=== PATIENT | male | born 1945 | race Caucasian/White ===

== ENCOUNTER 2017-12-24 10:32 | Emergency (ER) | payer MEDICARE, SELFPAY ==
[2017-12-24] VITALS (20 sets, daily range): BP systolic 116–161; BP diastolic 60–72; PULSE 62–72; RESP 12–20; TEMP 36.6–37; O2SAT 93–98
--- NOTE | 2017-12-24 10:47 | ED.GENADUL ---
Medical Decision Making - EKG Data -: EKG Interpreted by Me EKG shows normal: sinus rhythm 12/24/17 10:48 Normal sinus rhythm, the rate is 68, the QRS is narrow, there is T-wave abnormalities with flat to slightly flipped T waves in leads I, aVL, V3 through V6. These changes are present on previous EKG dated July 31, 2016. EKG reading per my note, please see Ms. Barr's note regarding details of the history, exam, medical decision making History of Present Illness - General Chief complaint: RespSymp Stated complaint: COUGHING UP BLOOD Time Seen by Provider: 12/24/17 10:33 - Related Data Acetaminophen [Tylenol Extra Strength] 1,000 mg PO Q6H PRN PRN 06/01/13 Aspirin [Aspir 81] 81 mg PO DAILY tab-cap 01/17/16 Ranitidine HCl [Zantac] 150 mg PO DAILY #1 tab-cap 07/02/16 Atorvastatin Calcium 20 mg PO DAILY #90 tab-cap 01/12/17 Losartan [Cozaar] 100 mg PO DAILY #90 tab-cap 01/12/17 Metoprolol Succinate 200 mg PO DAILY #90 tab-cap 02/15/17 Gabapentin 600 mg PO TID #270 tab-cap 07/05/17 GlipiZIDE [Glucotrol] 5 mg PO DAILY #90 tab-cap 09/20/17 Fluoxetine HCl 20 mg PO DAILY #90 tab 09/28/17 Omeprazole 20 mg PO BID #60 tab-cap 09/28/17 Allopurinol [Zyloprim] 150 mg PO DAILY #90 tab-cap 10/12/17 Cyclobenzaprine [Flexeril] 5 mg PO BID PRN #40 tab-cap 10/12/17 Furosemide 40 mg PO BID #180 tab-cap 10/12/17 Magnesium Oxide 400 mg PO DAILY #60 tab 11/04/17 Allergies Allergy/AdvReac Type Severity Reaction Status Date / Time codeine AdvReac Intermediate DYSPHORIA Unverified 10/12/17 09:32 niacin AdvReac Intermediate MYALGIAS Unverified 10/12/17 09:32 simvastatin AdvReac Intermediate myalgias Unverified 10/12/17 09:32 Past Medical History - Past Medical History Medical history: CAD, CVA/TIA Surgical history: coronary bypass surgery, other (mitral valve replacement.) - Social History Alcohol use: none Drug use: none Course Vital Signs - 24 hr 12/24/17 10:36 Temperature 36.6 C Pulse 68 Respiratory 20 Rate Blood Pressure 161/72 Pulse Oximetry 98
--- NOTE | 2017-12-24 10:55 | DI.REPORT_ITS ---
SYMPTOM/DIAGNOSIS: COUGH WITH HEMOPTYSIS PA AND LATERAL CHEST: 12/24 The heart is mildly enlarged. There are mild diffuse pulmonary interstitial radiodensities. There is suggestion of more focal infiltrate involving portions of the left upper lobe. No significant pleural effusion seen. Note is made of a mitral valve prosthesis. CONCLUSION: Findings raising the possibility of left upper lobe pneumonia. Underlying fibrotic changes noted as well, underlying mild chronic CHF not excluded.
--- NOTE | 2017-12-24 10:59 | ED.GENADUL_ITS ---
Disposition Clinical Impression: Pneumonia, Lung nodule Disposition: HOME Condition: Fair Instructions: Pneumonia (ED) Additional Instructions: Encourage hydration. Take antibiotics as prescribed. Even if symptoms improve please take the entire course. Please follow-up with primary care next week for reevaluation of pneumonia and to discuss the nodules on your CT scan. If you develop difficulty breathing, shortness of breath, chest pain or the new/ worsening symptoms please seek care urgently once again. Take a probiotic while taking antibiotics. Prescriptions: Amoxicillin 875/Clav. 125 [Augmentin 875-125 Tablet] 1 each PO BID #10 tab Azithromycin [Azithromycin Pack #6] 250 mg PO DIRECTED #6 tablet Referrals: Elizabet Auguste NP [Primary Care Provider] - Medical Decision Making - Lab Data Laboratory Tests 12/24/17 12/24/17 12/24/17 10:45 10:45 10:45 WBC 7.34 RBC 3.90 L Hgb 11.4 L Hct 35.4 L MCV 90.8 MCH 29.2 MCHC 32.2 RDW 14.4 H Plt Count 170 MPV 10.3 Immature Gran % 0.1 Neutrophils % 63.4 Lymphocytes % 20.2 Monocytes % 14.3 Eosinophils % 1.6 Basophils % 0.4 Absolute Neutrophils 4.65 Absolute Lymphocytes 1.48 Absolute Monocytes 1.05 H Absolute Eosinophils 0.12 Absolute Basophils 0.03 PT INR APTT Sodium 136 Potassium 4.4 Chloride 102 Carbon Dioxide 26.5 Anion Gap 7.5 BUN 38 H Creatinine 1.60 H Estimated GFR/1.73 m2 42.46 Glucose 191 H Calcium 8.6 Total Bilirubin 0.4 AST 18 ALT 19 Alkaline Phosphatase 91 Troponin I < 0.02 Total Protein 7.6 Albumin 3.4 12/24/17 10:45 WBC RBC Hgb Hct MCV MCH MCHC RDW Plt Count MPV Immature Gran % Neutrophils % Lymphocytes % Monocytes % Eosinophils % Basophils % Absolute Neutrophils Absolute Lymphocytes Absolute Monocytes Absolute Eosinophils Absolute Basophils PT 10.0 INR 1.0 APTT 26.1 Sodium Potassium Chloride Carbon Dioxide Anion Gap BUN Creatinine Estimated GFR/1.73 m2 Glucose Calcium Total Bilirubin AST ALT Alkaline Phosphatase Troponin I Total Protein Albumin Results reviewed for labs ordered during visit: Yes - Medical Decision Making Patient presents today with chief complaint hemoptysis. Cough is chronic. No acute change. No fevers or chills. Lungs are clear on exam although sounds are slightly diminished. Patient does have multiple comorbidities. A history of smoking. Vital signs are within normal limits. Patient is not hypoxic or tachycardic. He appears nontoxic. has sputum tissues with her, sputum is blood-tinged. Is not bringing up light large quantities of blood. Patient is not anticoagulated. No shortness of breath. No chest pain. We will obtain baseline labs and chest x-ray. Discussed this plan with the patient is in agreement. Calves are soft. The left is noted to be larger than the right. reports that this is chronic and unchanged. No recent change and bilateral lower extremity edema. EKG was reviewed by Dr. Kenny. No ischymic changes notes. No changes from previous EKG. Please see his note. I was contacted by radiologist reviewed the patient's chest x-ray. They were concerned for possible pneumonia in the left upper lobe. Advise underlying fibrotic changes. However, the patient's history and laboratory evaluation does not correlate with pneumonia. I did discuss this with the radiologist. We also discussed the patient's chronic kidney disease and current creatinine and GFR. Patient has never had a CT of his chest historically. This cough has been on for going on for years. I am concerned that he may have an underlying mass. I feel that further imaging is appropriate. Dr. Rudd I discussed obtaining a noncontrast chest CT to evaluate. I discussed this plan with the patient who is in agreement. Laboratory evaluation without significant abnormality. No leukocytosis. Patient is noted to be anemic but this is unchanged from baseline. That is 1.6 , this is down from what he has been most recently. Contacted again by radiologist. They did confirm that the patient has left upper lobe pneumonia. However, is also concerned that the patient has a nodule in the right lung base. Advised that one nodule is 11-12 mm in size. He has advised there is small and extra. Advised that this needs biopsy or PET scan. I discussed these findings with the patient. Advised this may need to be arranged by primary care. Patient be placed on antibiotics. Encourage hydration. We discussed new/worsening symptoms when to seek care urgently once again. Advise follow-up with primary care within the next week for reevaluation and to discuss the findings of the CT. All of their questions and concerns were addressed and they are in agreement with this plan. History of Present Illness - General Chief complaint: RespSymp Stated complaint: COUGHING UP BLOOD Time Seen by Provider: 12/24/17 10:33 Source: patient, family, RN notes reviewed Mode of arrival: ambulatory Limitations: no limitations - History of Present Illness Initial comments: Patient is a 72-year-old male, accompanied by his , with chief complaint of hemoptysis. Patient has a history of type 2 diabetes, attention, hyperlipidemia, FÁTIMA, stage III kidney disease, CAD, CVA. Patient is a former smoker. Quit approximately 30 years ago but reports a 30+ pack year history. Patient is not anticoagulated. He is status post CABG and mitral valve replacement. Patient reports that he has chronic cough. He has noted increased sputum production over the past several weeks. is questioning if the cough, which can wax and wane in frequency and severity, is associated with environmental exposures. She reports that while they were in [place], where they winter, his cough was increased as it was recently when [place] was having simons with close proximity to his house. He reports that that after increased cough, after bringing up a large plugged, he noted blood-tinged sputum. Reports that this is new. He denies any pain with coughing. Does feel that his chest has been tight. Denies shortness of breath. No difficulty breathing. No back pain. Patient endorses chronic bilateral lower extremity edema, left greater than right. - Related Data Acetaminophen [Tylenol Extra Strength] 1,000 mg PO Q6H PRN PRN 06/01/13 Aspirin [Aspir 81] 81 mg PO DAILY tab-cap 01/17/16 Ranitidine HCl [Zantac] 150 mg PO DAILY #1 tab-cap 07/02/16 Atorvastatin Calcium 20 mg PO DAILY #90 tab-cap 01/12/17 Losartan [Cozaar] 100 mg PO DAILY #90 tab-cap 01/12/17 Metoprolol Succinate 200 mg PO DAILY #90 tab-cap 02/15/17 Gabapentin 600 mg PO TID #270 tab-cap 07/05/17 GlipiZIDE [Glucotrol] 5 mg PO DAILY #90 tab-cap 09/20/17 Fluoxetine HCl 20 mg PO DAILY #90 tab 09/28/17 Omeprazole 20 mg PO BID #60 tab-cap 09/28/17 Allopurinol [Zyloprim] 150 mg PO DAILY #90 tab-cap 10/12/17 Cyclobenzaprine [Flexeril] 5 mg PO BID PRN #40 tab-cap 10/12/17 Furosemide 40 mg PO BID #180 tab-cap 10/12/17 Magnesium Oxide 400 mg PO DAILY #60 tab 11/04/17 Amoxicillin 875/Clav. 125 [Augmentin 875-125 Tablet] 1 each PO BID #10 tab 12/24 Azithromycin [Azithromycin Pack #6] 250 mg PO DIRECTED #6 tablet 12/24/17 Allergies Allergy/AdvReac Type Severity Reaction Status Date / Time codeine AdvReac Intermediate DYSPHORIA Unverified 10/12/17 09:32 niacin AdvReac Intermediate MYALGIAS Unverified 10/12/17 09:32 simvastatin AdvReac Intermediate myalgias Unverified 10/12/17 09:32 Review of Systems Constitutional: no symptoms reported ENT: as per HPI. denies: ear pain, throat pain, congestion Respiratory: see HPI, cough. denies: orthopnea, shortness of breath, SOB with excertion, stridor, wheezing Cardiovascular: as per HPI, edema. denies: chest pain, palpitations, dyspnea on exertion, syncope Gastrointestinal: diarrhea (states he has had 3 'loose' stools today. No blood or darkened stool. Reports he had not had BM in 3 days prior to this. ). denies: abdominal pain, nausea, vomiting Genitourinary: denies: urgency (denies huntley ein urinary habits) Musculoskeletal: denies: back pain Skin: denies: rash, lesions, change in color Neurological: denies: headache Past Medical History - Past Medical History Medical history: CAD, CVA/TIA Surgical history: coronary bypass surgery, other (mitral valve replacement.) - Social History Alcohol use: none Drug use: none Course Vital Signs - 24 hr 12/24/17 10:36 Temperature 36.6 C Pulse 68 Respiratory 20 Rate Blood Pressure 161/72 Pulse Oximetry 98
[2017-12-24 11:03] LABS: Eosinophils % 1.6; HCT 35.4 % (40.0-50.0); HGB 11.4 g/dL (13.5-17.5); Lymphocytes % 20.2; Mean Corp. HGB Concentration 32.2 g/dL (32.0-36.0); Mean Corpuscular Hemoglobin 29.2 pg (27.0-33.0); Mean Corpuscular Volume 90.8 fL (80-95); Mean Platelet Volume 10.3 fL (8.0-11.0); Monocytes % 14.3; Neutrophils % 63.4; Platelet Count 170 x1000/uL (130-400); RBC Distribution Width 14.4 % (11.8-14.1); White Blood Cell Count 7.34 k/cumm (4.4-10.8)
[2017-12-24 11:04] LABS: Abs Immature Grans 0.01 k/cumm (0.0-0.09); Absolute Basophil Count 0.03 k/cumm (0.0-0.2); Absolute Eosinophil Count 0.12 k/cumm (0.0-0.7); Absolute Lymphocyte Count 1.48 k/cumm (1.2-3.4); Absolute Monocyte Count 1.05 k/cumm (0.11-0.7); Absolute Neutrophil Count 4.65 k/cumm (1.2-6.7); Basophils % 0.4; Immature Grans % 0.1
[2017-12-24 11:17] LABS: ALT 19 U/L (12-78); AST 18 U/L (15-37); Albumin 3.4 g/dL (3.4-5.0); Alkaline Phosphatase 91 U/L (46-116); Anion Gap 7.5 mmol/L (3-11); BUN 38 mg/dL (7-18); Bilirubin, Total 0.4 mg/dL (0.2-1.0); CO2 26.5 mmol/L (21.0-32.0); Calcium 8.6 mg/dL (8.5-10.1); Chloride 102 mmol/L (98-107); Estimated GFR 42.46 (mL/min/1.73m2); Glucose 191 mg/dL (70-100); Potassium 4.4 mmol/L (3.5-5.1); Sodium 136 mmol/L (136-145); Total Protein 7.6 g/dL (6.4-8.2)
[2017-12-24 11:21] LABS: Troponin I < 0.02 ng/mL (0.00-0.06)
[2017-12-24 11:36] LABS: PTT Activated 26.1 sec (21.0-31.4)
--- NOTE | 2017-12-24 12:05 | DI.RPTCT_ITS ---
SYMPTOM,/DIAGNOSIS: CHRONIC COUGH, DENSITY IN E[place], POSSIBLE PNEUMONIA CHEST CT 12/[address] examination of the chest was performed. The patient has impaired renal function so no IV contrast was administered. Images obtained through the upper abdomen show unremarkable appearance of visualized portions of liver, spleen and pancreas. There is probable exophytic right renal cyst. There appear to be moderate emphysematous changes. There is focal area of apparent patchy consolidation involving portions of the left upper lobe as noted on plain films and the findings are suggestive of an acute infectious process. Other etiologies including neoplastic disease not absolutely excluded and appropriate follow up studies are requested. Note is also made of a 12 mm in diameter pleural based rounded mass of the right lung base with associated 2-3 mm in diameter nodule. These were not present on previous abdominal CT of 01/2009. The findings are indeterminate for malignancy and additional evaluation with biopsy or PET CT should be considered. Additionally there is a 3 mm in diameter triangular shaped nodule of the right lung seen associated with the minor fissure which probably represents a small pleural lymph node. Tracheal bronchial tree appears intact. No gross mediastinal adenopathy Mild cardiac enlargement noted. CONCLUSION: 1. Findings consistent with left upper lobe pneumonia 2. 12 and 5 mm in diameter nodules at the right lung base, malignancy is the diagnostic consideration and correlation with biopsy or PET CT should be considered.
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
== END 2017-12-24 12:51 | disposition home or self-care (01) ==
PROVIDERS: Physician Assistant; Emergency Provider Emergency Medicine; PCP Nurse Practitioner
DX: J18.9 Pneumonia, unspecified organism (principal); R91.1 Solitary pulmonary nodule; Z87.891 Personal history of nicotine dependence; E11.22 Type 2 diabetes mellitus with diabetic chronic kidney disease; N18.3 Chronic kidney disease, stage 3 (moderate)
CPT/HCPCS: 71046; 71250; 93005; 99281; 99284; 36415; 80053; 84484; 85025; 85610; 85730; 93010

== ENCOUNTER 2018-01-16 07:25 | Emergency (ER) | payer MEDICARE, OTHER, SELFPAY ==
[2018-01-16 08:08] VITALS: PULSE 81; RESP 16; TEMP 36.5; O2SAT 95
[2018-01-16 08:21] LABS: Abs Immature Grans 0.01 k/cumm (0.0-0.09); Absolute Basophil Count 0.04 k/cumm (0.0-0.2); Absolute Eosinophil Count 0.19 k/cumm (0.0-0.7); Absolute Lymphocyte Count 1.13 k/cumm (1.2-3.4); Basophils % 0.7; Eosinophils % 3.5; HCT 35.9 % (40.0-50.0); HGB 11.6 g/dL (13.5-17.5); Immature Grans % 0.2; Lymphocytes % 20.7; Mean Corp. HGB Concentration 32.3 g/dL (32.0-36.0); Mean Corpuscular Hemoglobin 29.1 pg (27.0-33.0); Mean Platelet Volume 10.5 fL (8.0-11.0); Neutrophils % 63.9; Platelet Count 160 x1000/uL (130-400); RBC 3.99 m/cumm (4.50-6.00); RBC Distribution Width 14.6 % (11.8-14.1); White Blood Cell Count 5.47 k/cumm (4.4-10.8)
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
[2018-01-16 08:39] LABS: ALT 26 U/L (12-78); AST 27 U/L (15-37); Albumin 3.6 g/dL (3.4-5.0); Alkaline Phosphatase 103 U/L (46-116); Anion Gap 9.1 mmol/L (3-11); BUN 44 mg/dL (7-18); Bilirubin, Total 0.4 mg/dL (0.2-1.0); CO2 26.9 mmol/L (21.0-32.0); CREATININE 1.83 mg/dL (0.70-1.30); Calcium 8.6 mg/dL (8.5-10.1); Chloride 102 mmol/L (98-107); Estimated GFR 36.37 (mL/min/1.73m2); Glucose 225 mg/dL (70-100); Potassium 4.5 mmol/L (3.5-5.1); Sodium 138 mmol/L (136-145); Total Protein 7.9 g/dL (6.4-8.2)
[2018-01-16 09:05] LABS: INR 1.1 (1.0-3.5); Prothrombin Time 10.9 sec (9.3-10.8)
[2018-01-16] MEDS: Omnipaque 350 MG/ML 100 ML BTL IJ (09:39)
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
[2018-01-16 11:10] VITALS: PULSE 70; RESP 15; O2SAT 92
[2018-01-16 11:16] VITALS: BP 181/75; PULSE 62; PULSE 64; RESP 14; O2SAT 95
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
[2018-01-16 11:20] VITALS: PULSE 64; RESP 12; O2SAT 94
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
[2018-01-16 12:52] VITALS: BP 158/90; PULSE 64; RESP 18; TEMP 36.9; O2SAT 95
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
== END 2018-01-16 13:00 ==
LOC: ER 09:56
PROVIDERS: Emergency Provider Student in an Organized Health Care Education/Training Program; PCP Nurse Practitioner
DX: I63.9 Cerebral infarction, unspecified (principal); S63.502A Unspecified sprain of left wrist, initial encounter; V43.52XA Car driver injured in collision with other type car in traffic accident, initial encounter; Z53.29 Procedure and treatment not carried out because of patient's decision for other reasons; E11.22 Type 2 diabetes mellitus with diabetic chronic kidney disease; I12.9 Hypertensive chronic kidney disease with stage 1 through stage 4 chronic kidney disease, or unspecified chronic kidney disease; N18.3 Chronic kidney disease, stage 3 (moderate)
CPT/HCPCS: 36415; 70496; 70498; 80053; 86850; 86900; 86901; 99285; 70450; 72125; 73110; 85025; 85610; J3490; L0172; L3908

== ENCOUNTER 2018-01-21 13:09 | Outpatient (CLI) | payer MEDICARE, SELFPAY ==
--- NOTE | 2018-01-21 14:35 | DI.MRI_ITS ---
SYMPTOM/DIAGNOSIS: FACIAL DROOP, BLURRED VISION, FACIAL WEAKNESS, R53.1, H53.8, R29.810 MRI BRAIN: Routine noncontrast examination. Comparison 12/19/15. There is global cerebral atrophy consistent with the patient's age. There are areas of T2 hyperintensity in the white matter on the T2 and Flair images consistent with small vessel ischemic disease. Bilateral lacunar infarcts are again noted. The diffusion weighted images show no evidence of an acute infarct. No intracranial hemorrhage is present. The visualized paranasal sinuses are clear. There is a flow void in the [place]. Note is made of a dominant left vertebral artery. The pituitary gland appears grossly unremarkable. IMPRESSION: No acute abnormality. Cerebral atrophy and small vessel ischemic disease.
--- NOTE | 2018-01-23 12:36 | DI.VRAD_ITS ---
EXAM: MRI Head Without Intravenous Contrast EXAM DATE/TIME: 01/21/2018 3:20 PM CLINICAL HISTORY: 72 years old, male; Signs and symptoms; Visual disturbance and weakness, facial; Patient HX: Facial droop, blurred vision TECHNIQUE: Magnetic resonance images of the head/brain without intravenous contrast in multiple planes. COMPARISON: MRI - BRAIN WO CONTRAST 12/19/2015 9:22 PM. Report not available. FINDINGS: Brain: Small area cystic fibrosis left anterior caudate nucleus, unchanged from previous exam. Scattered abnormal intensity in the deep periventricular white matter is again noted consistent with small vessel ischemic change. There is no evidence for restricted diffusion on diffusion weighted sequence. Minimal mooney artifact in the left periventricular region is new since previous study. Ventricles: Normal. No ventriculomegaly. Bones/joints: Unremarkable. Soft tissues: Normal. Sinuses: Normal as visualized. No acute sinusitis. Mastoid air cells: Normal as visualized. No mastoid effusion. Vertebral arteries: Left vertebral artery remains dominant. IMPRESSION: Nonacute findings, stable. No evidence for acute intracranial abnormality. COMMENT: Preliminary interpretation is based on receipt of 258 image(s). A final report will be issued subsequently. We appreciate the opportunity to be involved in this patient's care. Dictated and Authenticated by: Kristie Hollingsworth MD. Ordering:VINCENZO CLOUD MD
== END 2018-01-21 13:29 ==
PROVIDERS: PCP Nurse Practitioner; Visit Provider Nurse Practitioner
DX: R29.810 Facial weakness (principal); H53.8 Other visual disturbances; R90.82 White matter disease, unspecified
CPT/HCPCS: 70551

== ENCOUNTER → 2018-01-27 13:48 | Outpatient (BNVA) | payer MEDICARE, OTHER, SELFPAY | PROVIDERS: Visit Provider Internal Medicine Cardiovascular Disease | DX: I25.10 Atherosclerotic heart disease of native coronary artery without angina pectoris (principal); Z95.3 Presence of xenogenic heart valve; I25.5 Ischemic cardiomyopathy; I10 Essential (primary) hypertension; E11.9 Type 2 diabetes mellitus without complications; Z79.84 Long term (current) use of oral hypoglycemic drugs | CPT/HCPCS: 99214 ==

== ENCOUNTER 2018-02-04 01:15 | Outpatient (CLI) | payer MEDICARE, OTHER, SELFPAY ==
--- NOTE | 2018-02-04 10:30 | MERGE_ITS ---
*[facility]* *[facility]* [address] [place] [address] Date of study: 02/04/2018 Transthoracic Echocardiography M-mode, complete 2D, complete spectral Doppler, and color Doppler *STUDY CONCLUSIONS* Summary: 1. Left ventricle: The cavity size was normal. Systolic function was moderately reduced. The estimated ejection fraction was 35-40%. Diffuse hypokinesis. The study is not technically sufficient to allow evaluation of LV diastolic function. 2. Mitral valve: A bioprosthesis was present. The sewing ring appeared normal. PHT 130 ms. Peak velocity 1.3 m/s. These parameters suggest normal valve function, however hemodynamic interrogation of the valve is incomplete. 3. Left atrium: The atrium was mildly dilated. 4. Right ventricle: The cavity size was mildly dilated. Systolic function was normal. 5. Atrial septum: No defect or patent foramen ovale was identified. 6. Pulmonary arteries: Pulmonary systolic pressure was in the range of 30mm Hg to 40mm Hg. 7. Inferior vena cava: The vessel was patent and normal in size. The respirophasic diameter changes were in the normal range (greater than or equal to 50%), consistent with normal central venous pressure. *PATIENT PRESENTATION* Height: 165.1cm ((65in) ) S/D Pressure: 174 / 71 Weight: 108.9kg ((239.5lb) ) BSA: 2.29m^2 Test start time: 10:40 AM. Test stop time: 11:40 AM. PERFORMING Unknown ORDERING Khadijah Calvillo REFERRING Khadijah Calvillo PERFORMING [facility] BALANCE CLERK RT Zenon (R)(CT), [facility] *PROCEDURE DATA* Procedure information: The patient was identified by two identifiers. This study was interpreted by [facility]. Pertinent images and digital data are archived for permanent storage and are available for subsequent review. Comparison was made to the study of 04/15/2016. Study status: Routine. Transthoracic echocardiography. M-mode, complete 2D, complete spectral Doppler, and color Doppler. A Transthoracic Echocardiogram was performed. Scanning was performed from the parasternal, apical, subcostal, and suprasternal notch acoustic windows. Images were obtained using an [id number] cardiac ultrasound machine. Image quality was adequate. Study completion: The patient tolerated the procedure well. History: PMH: EKG NSR with some abnormal beats. large scar made imaging difficult. no CP no SOB here in clinic. he does report some CP last night, said he thought it was gas, lasted an hour, did not go to ED. I reminded him to seek medical attention if he needed to. Per patient, he feels fine today. LV ef est to be 35-40% elevated filling pressures. overall hypo, ? inferior wall more so. RV dilated some. functions fine. LA/RA LAE mild. cannot r/o PFO MV s/p MV repair on order history. looks like it has struts. mild MR. ? mild MS in repair setting. AOV difficult to see. opens well. no AI no . TV tr mild rvsp = 31+RAP PV systolic flow obtained subcostals. IVC normal IAS cannot r/o pfo OTHER 3x bypass as well. *CARDIAC ANATOMY* Left ventricle: The cavity size was normal. Systolic function was moderately reduced. The estimated ejection fraction was 35-40%. Diffuse hypokinesis. The study is not technically sufficient to allow evaluation of LV diastolic function. Aortic valve: Doppler: There was no stenosis. There was no regurgitation. VTI ratio of LVOT to aortic valve: 0.55. Valve area (VTI): 2.1cm^2. Indexed valve area (VTI): 0.9cm^2/m^2. Peak velocity ratio of LVOT to aortic valve: 0.55. Valve area (Vmax): 2.1cm^2. Indexed valve area (Vmax): 0.9cm^2/m^2. Mean velocity ratio of LVOT to aortic valve: 0.6. Valve area (Vmean): 2.3cm^2. Indexed valve area (Vmean): 1cm^2/m^2. Mean gradient (S): 6.1mm Hg. Peak gradient (S): 13.3mm Hg. Aorta: Aortic root: The aortic root was mildly dilated. Ascending aorta: The ascending aorta was mildly dilated. Mitral valve: A bioprosthesis was present. The sewing ring appeared normal. Doppler: Valve area by pressure half-time: 1.9cm^2. Indexed valve area by pressure half-time: 0.8cm^2/m^2. Peak gradient (D): 7.1mm Hg. Left atrium: The atrium was mildly dilated. Atrial septum: No defect or patent foramen ovale was identified. Right ventricle: The cavity size was mildly dilated. Systolic function was normal. Pulmonic valve: Doppler: There was no evidence for stenosis. There was no significant regurgitation. Tricuspid valve: Doppler: There was mild regurgitation. Pulmonary artery: Poorly visualized. Pulmonary systolic pressure was in the range of 30mm Hg to 40mm Hg. Right atrium: The atrium was normal in size. Pericardium: There was no pericardial effusion. Systemic veins: Inferior vena cava: Well visualized. The vessel was patent and normal in size. The respirophasic diameter changes were in the normal range (greater than or equal to 50%), consistent with normal central venous pressure. Baseline ECG: Normal sinus rhythm. Measurements Left ventricle Value 04/15/2016 Reference LV ID, ED, PLAX (H) 6.5 cm 6.2 3.5 - 6.0 LV ID, ES, PLAX (H) 5.1 cm 4.6 2.1 - 4.0 LV PW thickness, ED, PLAX 1.3 cm 1.3 LV end-diastolic volume, 101 ml 1-p A2C LV ejection fraction, 1-p 38 % 40 A2C LV end-diastolic volume, 136 ml 1-p A4C LV ejection fraction, 1-p 33 % 43 A4C LV e', lateral 0.042 m/sec LV E/e', lateral 32 LV e', medial 0.039 m/sec LV E/e', medial 34 LV e', average 0.041 m/sec LV E/e', average 33 Ventricular septum Value 04/15/2016 Reference IVS thickness, ED, PLAX 1.6 cm LVOT Value 04/15/2016 Reference LVOT ID, A-P 2.2 cm 2.2 LVOT area 3.8 cm^2 3.8 LVOT peak velocity, S 1 m/sec 1.21 LVOT mean velocity, S 0.69 m/sec LVOT VTI, S 21.4 cm 28.1 LVOT peak gradient, S 4 mm Hg 5.9 LVOT mean gradient, S 2.1 mm Hg 2.8 Stroke volume (SV), LVOT 82 ml DP Stroke index (SV/bsa), 36 ml/m^2 LVOT DP Aortic valve Value 04/15/2016 Reference Aortic valve peak 1.8 m/sec velocity, S Aortic valve mean 1.15 m/sec velocity, S Aortic valve VTI, S 39.0 cm Aortic mean gradient, S 6.1 mm Hg Aortic peak gradient, S 13.3 mm Hg VTI ratio, LVOT/AV 0.55 Aortic valve area, VTI 2.1 cm^2 Velocity ratio, peak, 0.55 0.82 LVOT/AV Aortic valve area, peak 2.1 cm^2 velocity Velocity ratio, mean, 0.6 LVOT/AV Aortic valve area, mean 2.3 cm^2 velocity Aortic valve area/bsa, 1 cm^2/m^2 mean velocity Aorta Value 04/15/2016 Reference Aortic root ID, ED 3.8 cm Ascending aorta ID, A-P, S 3.6 cm 3.6 Left atrium Value 04/15/2016 Reference LA ID, A-P, ES 4.4 cm LA ID/bsa, A-P 1.9 cm/m^2 <=2.2 LA area, ES, A4C (H) 27.9 cm^2 26 8.8 - 23.4 LA area, ES, A2C 24 cm^2 LA volume/bsa, ES, 1-p A4C 55 ml/m^2 42 LA volume, ES, 2-p 93 ml LA volume/bsa, ES, 2-p 41 ml/m^2 LA/aortic root ratio 1.16 1.28 Mitral valve Value 04/15/2016 Reference Mitral E-wave peak 1.34 m/sec 1.81 velocity Mitral A-wave peak 1.32 m/sec 0.73 velocity Mitral deceleration time (H) 397 ms 150 - 230 Mitral pressure half-time 115 ms 97 Mitral peak gradient, D 7.1 mm Hg 13.2 Mitral E/A ratio, peak 1.01 2.49 Mitral valve area, PHT, DP 1.9 cm^2 Pulmonary veins Value 04/15/2016 Reference Pulmonary vein peak 0.69 m/sec velocity, S Pulmonary vein peak 0.43 m/sec velocity, D Pulmonary vein velocity 1.61 ratio, peak, S/D Pulmonary vein A-wave 0.21 m/sec reversal peak velocity Tricuspid valve Value 04/15/2016 Reference Tricuspid regurg peak 2.8 m/sec 2.3 velocity Tricuspid peak RV-RA 31.4 mm Hg 21.8 gradient Right atrium Value 04/15/2016 Reference RA area, ES, A4C 16.3 cm^2 14 8.3 - 19.5 Legend: (L) and (H) savanna values outside specified reference range. I have personally reviewed the images and have reviewed and edited the reported findings. Electronically signed by Parker Prescott MD 02/04/2018 18:32
== END 2018-02-04 01:35 ==
PROVIDERS: PCP Nurse Practitioner; Visit Provider Internal Medicine Cardiovascular Disease
DX: I50.1 Left ventricular failure, unspecified (principal); I25.810 Atherosclerosis of coronary artery bypass graft(s) without angina pectoris; I51.7 Cardiomegaly; Z95.3 Presence of xenogenic heart valve
CPT/HCPCS: 93306

== ENCOUNTER → 2018-04-06 10:00 | Outpatient (BNVA) | payer MEDICARE, OTHER, SELFPAY | PROVIDERS: PCP Nurse Practitioner; Visit Provider Psychiatry & Neurology Neurology | DX: I63.9 Cerebral infarction, unspecified (principal); E11.22 Type 2 diabetes mellitus with diabetic chronic kidney disease; Z79.84 Long term (current) use of oral hypoglycemic drugs; I13.0 Hypertensive heart and chronic kidney disease with heart failure and stage 1 through stage 4 chronic kidney disease, or unspecified chronic kidney disease; I50.9 Heart failure, unspecified; N18.3 Chronic kidney disease, stage 3 (moderate); S06.0X0D Concussion without loss of consciousness, subsequent encounter; V49.9XXD Car occupant (driver) (passenger) injured in unspecified traffic accident, subsequent encounter | CPT/HCPCS: 99205; 99215 ==

== ENCOUNTER 2018-07-11 11:44 | Outpatient (CLI) | payer MEDICARE, OTHER, SELFPAY ==
[2018-07-11 12:24] LABS: HCT 39.1 % (40.0-50.0); HGB 12.6 g/dL (13.5-17.5); Mean Corp. HGB Concentration 32.2 g/dL (32.0-36.0); Mean Corpuscular Hemoglobin 28.5 pg (27.0-33.0); Mean Corpuscular Volume 88.5 fL (80-95); Mean Platelet Volume 10.4 fL (8.0-11.0); Platelet Count 180 x1000/uL (130-400); RBC 4.42 m/cumm (4.50-6.00); RBC Distribution Width 14.4 % (11.8-14.1); White Blood Cell Count 7.34 k/cumm (4.4-10.8)
[2018-07-11 13:08] LABS: COMMENT (LAB VIEW ONLY) 27.93 mg/dL; Microalb ug/mg Crea 127.8 ug/mg Cr
[2018-07-11 13:39] LABS: ALT 31 U/L (12-78); AST 24 U/L (15-37); Albumin 3.9 g/dL (3.4-5.0); Alkaline Phosphatase 99 U/L (46-116); Anion Gap 9.2 mmol/L (3-11); BUN 38 mg/dL (7-18); Bilirubin, Total 0.5 mg/dL (0.2-1.0); CO2 26.8 mmol/L (21.0-32.0); CREATININE 1.65 mg/dL (0.70-1.30); Calcium 9.2 mg/dL (8.5-10.1); Chloride 102 mmol/L (98-107); Cholesterol 136 mg/dL (50-200); Estimated GFR 40.87 (mL/min/1.73m2); Glucose 119 mg/dL (70-100); HDL Cholesterol 33 mg/dL (40-60); LDL CHOLESTEROL 75 mg/dL (<100); Potassium 4.3 mmol/L (3.5-5.1); Sodium 138 mmol/L (136-145); Total Protein 7.7 g/dL (6.4-8.2); Triglyceride 148 mg/dL (30-150)
[2018-07-11 14:31] LABS: Hemoglobin A1C 7.2 % (4.5-6.2)
== END 2018-07-11 12:04 ==
PROVIDERS: PCP Nurse Practitioner; Visit Provider Nurse Practitioner
DX: I10 Essential (primary) hypertension (principal); E78.5 Hyperlipidemia, unspecified; E11.22 Type 2 diabetes mellitus with diabetic chronic kidney disease; N18.3 Chronic kidney disease, stage 3 (moderate); E66.9 Obesity, unspecified
CPT/HCPCS: 36415; 80053; 80061; 83721; 85027; 82043; 82570; 83036

== ENCOUNTER → 2018-07-28 12:37 | Outpatient (BNVA) | payer MEDICARE, OTHER, SELFPAY | PROVIDERS: PCP Nurse Practitioner; Referring Provider Nurse Practitioner; Visit Provider Urology | DX: R35.0 Frequency of micturition (principal) | CPT/HCPCS: 51798; 81003; 99203; 99215 ==

== ENCOUNTER → 2018-08-26 13:39 | Outpatient (BNVA) | payer MEDICARE, OTHER, SELFPAY | PROVIDERS: PCP Nurse Practitioner; Visit Provider Urology | DX: R35.0 Frequency of micturition (principal); T50.995A Adverse effect of other drugs, medicaments and biological substances, initial encounter | CPT/HCPCS: 99213 ==

== ENCOUNTER → 2018-09-16 13:21 | Outpatient (BNVA) | payer MEDICARE, OTHER, SELFPAY | PROVIDERS: PCP Nurse Practitioner; Visit Provider Internal Medicine Cardiovascular Disease | DX: I25.810 Atherosclerosis of coronary artery bypass graft(s) without angina pectoris (principal); I50.22 Chronic systolic (congestive) heart failure; Z95.3 Presence of xenogenic heart valve; E78.2 Mixed hyperlipidemia; I11.0 Hypertensive heart disease with heart failure; E11.9 Type 2 diabetes mellitus without complications | CPT/HCPCS: 99214 ==

== ENCOUNTER 2018-12-10 18:52 | Inpatient (IN) | payer MEDICARE, OTHER, SELFPAY ==
[2018-12-10] VITALS (18 sets, daily range): BP systolic 116–154; BP diastolic 57–60; PULSE 82–102; RESP 11–25; TEMP 36.7–38; O2SAT 84–99
--- NOTE | 2018-12-10 19:01 | NUR.NOTE ---
Nursing Note: pt is poor historian. pt states cant breath you know past few days and i cough up the blood today
--- NOTE | 2018-12-10 19:05 | W.ED.GENAD ---
Discharge Plan Disposition Patient Disposition: [facility] INPATIENT Condition: Stable Discharge Details Chief Complaint: SOB Clinical Impression: Pneumonia involving right lung Admit Date/Time: 12/10/18 20:15 Admit Provider: Levi Burgess Attending Provider: Levi Burgess Primary Care Provider: Elizabet Auguste ED Provider: Ray Kenny Medical Decision Making 73-year-old male presents from home with his complaining of 2+ days of cough, congestion, production of sputum that has now become bloody tinged. He has some associated shortness of breath. Denies to me chest pain. He will note long-standing pretibial edema. He arrives afebrile, pulse is regular at 87, blood pressure 154/60, he is oxygenating 85% on room air. Patient placed on oxygen, IV access established. Differential diagnosis is broad but includes COPD exacerbation, pneumonia, congestive heart failure. Patient given inhaled DuoNeb with parenteral steroids. Patient improving with treatment for COPD and with 2-3L NCO2. He has an elevated white blood cell count at 14 with left shift. Known chronic renal insufficiency is present. He does have mildly elevated BNP. Chest x-ray reveals right middle lobe infiltrate. The patient does have an elevated d-dimer, but I feel the clinical impression is strongly in favor of this being a pneumonia and COPD exacerbation. Nonetheless, his chronic renal insufficiency essentially precludes contrast-enhanced CT scan. Ceftriaxone given in the emergency department, sputum cultures ordered. Case discussed with ECG Data Attestation: I personally reviewed and interpreted this ECG (s) as follows: Interpretation: Normal sinus rhythm with a rate of 87, the QRS is narrow, there is T wave inversions in 1 and aVL as well as in the lateral leads that are unchanged in comparison of December 24, 2017 [facility] General Mode of arrival: ambulatory. Date/Time Provider Initiated Documentation: 12/10/18 18:54. Limitations to Documentation: no limitations. Information obtained by: patient and family. History of Present Illness 73 year old M presents to the emergency department with the chief complaint of Shortness of breath, production of sputum that was bloody tinged this eveni, described as moderate, Quality is described as constant, and is localized to the chest. Patient reports no radiation. Patient started experiencing this day(s) and it has been intermittent. No relieving factors improve symptom(s), No exacerbating factors reported . Patient notes cough and other (Sputum production). Patient did receive the following treatments prior to arrival, none Related Data Home Medications Medication Instructions Recorded Confirmed acetaminophen [Tylenol Extra 1,000 mg PO Q6H PRN PRN 06/01/13 12/10/18 Strength] aspirin [Aspir-81] 81 mg PO DAILY tab-cap 01/17/16 12/10/18 ranitidine HCl [Zantac Maximum 150 mg PO DAILY #1 tab-cap 07/02/16 12/10/18 Strength] losartan 100 mg PO DAILY #90 tab-cap 12/29/17 12/10/18 albuterol sulfate 90 mcg/actuation 1 puff IH Q4H PRN #8.5 gm 02/09/18 12/10/18 aerosol inhaler fluticasone propionate 50 1 spray IGOR BID gm 03/10/18 12/10/18 mcg/actuation nasal spray,suspension magnesium oxide 400 mg (241.3 mg 400 mg PO DAILY #60 tab 05/09/18 12/10/18 magnesium) tablet blood sugar diagnostic #50 each 07/11/18 12/10/18 blood-glucose meter #1 each 07/11/18 12/10/18 lancets 33 gauge #100 each 07/11/18 12/10/18 varicella-zoster gE-AS01B (PF) 50 50 mcg IM ONCE #1 each 07/11/18 12/10/18 mcg/0.5 mL IM susp, kit ketoconazole 2 % topical cream 1 applic TP DAILY #30 gm 08/26/18 12/10/18 atorvastatin 20 mg tablet 20 mg PO DAILY 09/05/18 12/10/18 furosemide 40 mg tablet 40 mg PO BID #180 tab-cap 09/05/18 12/10/18 glipizide 5 mg tablet 5 mg PO DAILY #90 tab-cap 09/05/18 12/10/18 metoprolol succinate 100 mg 100 mg PO DAILY #90 tab 09/16/18 12/10/18 tablet,extended release 24 hr fluoxetine 20 mg tablet 20 mg PO DAILY #90 tab 09/27/18 12/10/18 gabapentin 600 mg tablet 600 mg PO TID #270 tab-cap 09/27/18 12/10/18 omeprazole 20 mg tablet,delayed 20 mg PO DAILY #90 tab 10/31/18 12/10/18 release allopurinol 300 mg tablet 150 mg PO DAILY #90 tab-cap 11/07/18 12/10/18 Previous Rx's Medication Instructions Recorded losartan 100 mg PO DAILY #90 tab-cap 12/29/17 albuterol sulfate 90 mcg/actuation 1 puff IH Q4H PRN #8.5 gm 02/09/18 aerosol inhaler magnesium oxide 400 mg (241.3 mg 400 mg PO DAILY #60 tab 05/09/18 magnesium) tablet blood sugar diagnostic #50 each 07/11/18 blood-glucose meter #1 each 07/11/18 lancets 33 gauge #100 each 07/11/18 varicella-zoster gE-AS01B (PF) 50 50 mcg IM ONCE #1 each 07/11/18 mcg/0.5 mL IM susp, kit ketoconazole 2 % topical cream 1 applic TP DAILY #30 gm 08/26/18 furosemide 40 mg tablet 40 mg PO BID #180 tab-cap 09/05/18 glipizide 5 mg tablet 5 mg PO DAILY #90 tab-cap 09/05/18 metoprolol succinate 100 mg 100 mg PO DAILY #90 tab 09/16/18 tablet,extended release 24 hr fluoxetine 20 mg tablet 20 mg PO DAILY #90 tab 09/27/18 gabapentin 600 mg tablet 600 mg PO TID #270 tab-cap 09/27/18 omeprazole 20 mg tablet,delayed 20 mg PO DAILY #90 tab 10/31/18 release allopurinol 300 mg tablet 150 mg PO DAILY #90 tab-cap 11/07/18 Allergies Allergy/AdvReac Type Severity Reaction Status Date / Time codeine AdvReac Intermediate DYSPHORIA Verified 12/10/18 19:06 niacin AdvReac Intermediate MYALGIAS Verified 12/10/18 19:06 simvastatin AdvReac Intermediate myalgias Verified 12/10/18 19:06 General Stated Complaint: SOB ROBBI: 3 Review of Systems Review of Systems Denies chest pain. Mild peripheral edema of unclear duration, no fever or chill. Decreased p.o. intake today. 6 systems reviewed and otherwise negative [facility] Medical History (Updated 12/10/18 @ 22:07 by Levi Burgess) Benign neoplasm of colon (Acute 08/04/12) Carpal tunnel syndrome (Acute 08/04/12) Chronic kidney disease, stage III (moderate) (Acute 01/26/13) CKD (chronic kidney disease) stage 4, GFR 15-29 ml/min (Acute) COPD (chronic obstructive pulmonary disease) (Chronic) Coronary artery disease involving coronary bypass graft of [place] heart (Acute 01/02/16) CVA (cerebral vascular accident) (Acute 01/03/16) Diabetes mellitus with diabetic neuropathy (Acute 04/13/14) Diabetes mellitus with stage 3 chronic kidney disease (Acute 03/02/14) Gastroesophageal reflux disease (Acute 08/04/12) History of tobacco use (Acute 07/03/11) Hyperlipidemia (Acute 07/03/11) Lumbago with sciatica, unspecified side (Acute 08/04/12) Memory impairment (Acute 12/11/15) Mitral valve insufficiency (Acute 12/19/15) Obesity, unspecified (Acute 07/03/11) Sensorineural hearing loss (Acute 08/24/14) Systolic CHF, chronic (Chronic 04/15/16) Unspecified essential hypertension (Acute 08/04/12) Surgical History Appendectomy Colonoscopy - MAC (01/11/15) Coronary Artery Bypass G[place] (CABG) (Chronic 12/20/15) History of arthroplasty of right shoulder (Acute ~09/2015) History of back surgery (Acute 10/21/00) S/P partial gastrectomy (Acute) Status post carpal tunnel release of both wrists (Acute) Valve Replacement (Chronic 12/20/15) Family History Brother Alcoholism Heart disease Grandfather Heart disease Father Personal history of malignant neoplasm Social History Smoking/Tobacco Use Status: Former Tobacco Use Alcohol Intake: former Drug use: Never Substance use type: does not use Household members: spouse Housing: house Number of Children: 4 What is your relationship status?: Panel score (0-1 are the most socially isolated patients): 1 Working smoke detector in home: Yes Do you feel safe at home: Yes Do you feel safe in your relationship?: Yes Exam Narrative Exam Narrative: GEN: awake, alert, oriented 3. Pleasant, well groomed, interactive. HEAD: Normocephalic, atraumatic ENT: Mucous membranes moist, oropharynx unremarkable, External ear exam unremarkable EYES: PERRL, EOMI NECK: Full ROM, no BRENDEN, no menigismus CHEST/RESP: Nontender, diminished with bilateral end expiratory wheeze present CARDIOVASCULAR: RRR, no murmur, rub augustus. 2+ Rad pulse bilateral ABDOMEN: Soft, nontender, no mass. +Bowel sounds EXT: Full ROM, 1+ bilateral pretibial edema, no rash Neuro: Grossly normal neurologic exam, conversant, interactive. Psych: Speech fluent, thoughts congruent, affect normal Course Vital Signs Temperature 36.7 C 12/10/18 19:03 Pulse 87 12/10/18 19:03 Respiratory Rate 16 12/10/18 19:03 Blood Pressure 154/60 H 12/10/18 19:03 Pulse Oximetry 85 L 12/10/18 19:03 Temperature 36.7 C 12/10/18 19:03 Temperature Source Skin 12/10/18 19:03 Pulse 87 12/10/18 19:03 Respiratory Rate 16 12/10/18 19:03 Blood Pressure 154/60 H 12/10/18 19:03 Blood Pressure Position Sitting 12/10/18 19:03 Pulse Oximetry 85 L 12/10/18 19:03 Oxygen Delivery Method Room Air 12/10/18 19:03 Oxygen Flow Rate 0 12/10/18 19:03 Comment 12/10/18 19:03
--- NOTE | 2018-12-10 19:14 | DI.RAD_ITS ---
SYMPTOM/DIAGNOSIS: COUGH, CONGESTION PA AND LATERAL CHEST: The heart is enlarged. There is a mitral valve prosthesis. There are diffuse changes of pulmonary fibrosis. There is a superimposed new area of acute consolidation involving potions of right upper lobe. No pleural effusion is seen. CONCLUSION: Findings consistent with acute right upper lobe pneumonia.
[2018-12-10] MEDS: Albuterol/Ipratropium 3 ML UPD VIAL UPD ×2 (19:24→19:58)
[2018-12-10] MEDS: methylPREDNISolone SUCC 125 MG VIAL IVP (19:24)
[2018-12-10 19:29] LABS: Abs Immature Grans 0.04 k/cumm (0.0-0.09); Absolute Lymphocyte Count 0.78 k/cumm (1.2-3.4); Absolute Monocyte Count 1.98 k/cumm (0.11-0.7); Absolute Neutrophil Count 11.87 k/cumm (1.2-6.7); Basophils % 0.1; HCT 35.4 % (40.0-50.0); HGB 11.6 g/dL (13.5-17.5); Immature Grans % 0.3; Lymphocytes % 5.3; Mean Corp. HGB Concentration 32.8 g/dL (32.0-36.0); Mean Corpuscular Hemoglobin 29.2 pg (27.0-33.0); Mean Corpuscular Volume 89.2 fL (80-95); Mean Platelet Volume 10.2 fL (8.0-11.0); Monocytes % 13.5; Neutrophils % 80.8; Platelet Count 159 x1000/uL (130-400); RBC 3.97 m/cumm (4.50-6.00); RBC Distribution Width 14.9 % (11.8-14.1); White Blood Cell Count 14.69 k/cumm (4.4-10.8)
[2018-12-10 19:49] LABS: ALT 19 U/L (12-78); AST 14 U/L (15-37); Albumin 3.4 g/dL (3.4-5.0); Alkaline Phosphatase 84 U/L (46-116); Anion Gap 10.6 mmol/L (3-11); BUN 39 mg/dL (7-18); Bilirubin, Total 1.1 mg/dL (0.2-1.0); CO2 24.4 mmol/L (21.0-32.0); CREATININE 1.92 mg/dL (0.70-1.30); Calcium 8.3 mg/dL (8.5-10.1); Chloride 99 mmol/L (98-107); Estimated GFR 34.31 (mL/min/1.73m2); Glucose 231 mg/dL (70-100); Magnesium 1.7 mg/dL (1.8-2.4); NT-proBNP 3081 pg/mL; Potassium 4.4 mmol/L (3.5-5.1); Sodium 134 mmol/L (136-145); Total Protein 7.3 g/dL (6.4-8.2)
[2018-12-10 19:50] LABS: Troponin I < 0.05 ng/mL (0.00-0.06)
[2018-12-10 19:53] LABS: PTT Activated 25.2 sec (21.0-31.4); Prothrombin Time 11.5 sec (9.3-11.0)
[2018-12-10 19:54] LABS: INR 1.1 (0.9-1.1)
[2018-12-10 19:55] LABS: Absolute Basophil Count 0.01 k/cumm (0.0-0.2)
[2018-12-10 19:56] LABS: Diff Comment Agrees w/ Instrument; RBC Morphology Normal
[2018-12-10 19:57] LABS: D-Dimer 1230 ng/mlFEU (<500)
[2018-12-10] MEDS: cefTRIAXone 1,000 MG in Normal Saline 50 ML 100 MG IVPB (19:58)
--- NOTE | 2018-12-10 20:33 | DI.VRAD_ITS ---
EXAM: XR Chest, 2 Views EXAM DATE/TIME: 12/10/2018 7:16 PM CLINICAL HISTORY: 73 years old, male; Cough and other: Congestion; Patient HX: Cough, congestion TECHNIQUE: Imaging protocol: XR of the chest, 2 views. COMPARISON: CR CHEST 2 VIEWS PA,LAT 12/24/2017 11:07 AM FINDINGS: Lungs: Right upper lobe pneumonia. Pleural space: Unremarkable. No pleural effusion. No pneumothorax. Heart/Mediastinum: Prior mitral valve replacement, abdominal surgery and bilateral shoulder surgery. Vasculature: Vascular calcifications. Bones/joints: Unremarkable. IMPRESSION: Right upper lobe pneumonia. Dictated and Authenticated by: Maldonado Blackmon MD. Ordering:MUNIRA Bell MD
--- NOTE | 2018-12-10 22:04 | HPE_ITS ---
Date of service: 12/10/18 Time of Service: 22:04 Assessment and Plan (1) Pneumonia: Start date: 12/10/18 Current visit: Yes Status: Acute This is a pleasant 73-year-old gentleman with presentation of COPD exacerbation with right upper lobe pneumonia with hypoxemia, leukocytosis and fever. He does not appear to have a change in his baseline mentation. Will be treated aggressively for acute bronchitis and covered for community-acquired pneumonia along with his COPD exacerbation. He appears comfortable. He is a DNR/DNI. Qualifiers: Laterality: right Lung location: upper lobe of lung Pneumonia type: due to unspecified organism Qualified Code(s): J18.1 - Lobar pneumonia, unspecified organism (2) COPD (chronic obstructive pulmonary disease): Current visit: Yes Status: Chronic Patient appears to have exacerbation of COPD and will be treated appropriately with nebulizer treatments and IV Solu-Medrol. Because he does have diabetes and this will be exacerbated by IV steroids and we will place him on 4 times a day short-acting insulin coverage with before meals and at bedtime glucometers. Qualifiers: COPD type: COPD with acute lower respiratory infection Qualified Code(s): J44.0 - Chronic obstructive pulmonary disease with acute lower respiratory infection (3) Chronic kidney disease, stage III (moderate): Current visit: No Status: Chronic This appears to be chronic and stable with creatinine at baseline or better and for now we will not IV hydrate the patient but encourage oral hydration. He does have a history of CHF with an ejection fraction below 40% with avoidance of IV fluids if not necessary. (4) Systolic CHF, chronic: Current visit: No Status: Chronic Watch for exacerbation during this acute hospitalization especially if IV fluids are needed. He will be continued on his usual diuretic. Magnesium and potassium will be supplemented as needed the patient on oral magnesium c hronically and having low magnesium upon admission but normal potassium level not on potassium supplementation. (5) Diabetes mellitus type 2, controlled: Current visit: No Status: Acute Patient will be placed on glucometers before meals and at bedtime and have short-acting insulin coverage holding his oral hypoglycemics while hospitalized. His hyperglycemia is expected to be exacerbated with his respiratory status and IV steroids being given. Qualifiers: Diabetes mellitus intermission coordinator insulin use: without detention use Diabetes mellitus complication status: with neurologic complications Diabetes mellitus complication detail: with other neurological complication Qualified Code(s): E11.49 - Type 2 diabetes mellitus with other diabetic neurological complication History of Present Illness Chief Complaint: Increasing cough with sputum production and episode of hemoptysis Narrative: This is a 73-year-old gentleman who was brought to the ED by his because of a 2-day history of increasing respiratory symptoms which include cough, congestion and tightness sputum with blood-tinged sputum just prior to admission. In the ED he denied any fever or chills but once admitted to [facility] floor care he spiked a fever and was having chills with sweats. He said that he has not felt well for a month. Was working helping a friend with a barn recently and scratches right forearm and appears to be active at home. He was hypoxic upon presentation to the ED but was otherwise comfortable. He did respond to the DuoNeb and chest x-ray did reveal a right upper lobe pneumonia with a positive d-dimer. He does have chronic peripheral edema and with his hypoxemia and pneumonia it was thought that his d-dimer was positive because of his acute infectious process. He cannot receive a CT scan with contrast because of his CKD stage III. If there is concern he could have a VQ scan later. For now will be placed on DVT prophylaxis with heparin. He is a DNR/DNI. In the ED he did receive IV Rocephin and IV Solu-Medrol. He does appear to have exacerbated COPD though COPD is not on his problem list. He does have a history of chronic CHF and a history of wheezing. Patient was a former smoker. The p atient does have some mild dementia and was unable to give further history. His is not present during the interview. I did review the ED notes and nurses will call the as to the last dosing of his outpatient medicines given at home. Patient is asking for his evening meds. Review of Systems Review of Systems 13 point review of systems otherwise unrevealing or unobtainable and as per HPI and review of ED records. He denies any weight gain or increasing peripheral edema. [facility] Medical History Benign neoplasm of colon (Acute 08/04/12) Carpal tunnel syndrome (Acute 08/04/12) Chronic kidney disease, stage III (moderate) (Acute 01/26/13) COPD (chronic obstructive pulmonary disease) (Chronic) Coronary artery disease involving coronary bypass graft of [place] heart (Acute 01/02/16) CVA (cerebral vascular accident) (Acute 01/03/16) Diabetes mellitus with diabetic neuropathy (Acute 04/13/14) Diabetes mellitus with stage 3 chronic kidney disease (Acute 03/02/14) Gastroesophageal reflux disease (Acute 08/04/12) History of tobacco use (Acute 07/03/11) Hyperlipidemia (Acute 07/03/11) Lumbago with sciatica, unspecified side (Acute 08/04/12) Memory impairment (Acute 12/11/15) Mitral valve insufficiency (Acute 12/19/15) Obesity, unspecified (Acute 07/03/11) Sensorineural hearing loss (Acute 08/24/14) Systolic CHF, chronic (Chronic 04/15/16) Unspecified essential hypertension (Acute 08/04/12) Surgical History Appendectomy Colonoscopy - MAC (01/11/15) Coronary Artery Bypass Gaft (CABG) (Chronic 12/20/15) History of arthroplasty of right shoulder (Acute ~09/2015) History of back surgery (Acute 10/21/00) S/P partial gastrectomy (Acute) Status post carpal tunnel release of both wrists (Acute) Valve Replacement (Chronic 12/20/15) Family History Brother Alcoholism Heart disease Grandfather Heart disease Father Personal history of malignant neoplasm Social History Smoking/Tobacco Use Status: Former Tobacco Use Alcohol Intake: former Drug use: Never Substance use type: does not use Household members: spouse Housing: house Number of Children: 4 What is your relationship status?: Panel score (0-1 are the most socially isolated patients): 1 Working smoke detector in home: Yes Do you feel safe at home: Yes Do you feel safe in your relationship?: Yes Meds Home Medications Medication Instructions Recorded Confirmed Type acetaminophen [Tylenol Extra 1,000 mg PO Q6H PRN PRN 06/01/13 12/10/18 History Strength] aspirin [Aspir-81] 81 mg PO DAILY tab-cap 01/17/16 12/10/18 History ranitidine HCl [Zantac Maximum 150 mg PO DAILY #1 tab-cap 07/02/16 12/10/18 History Strength] losartan 100 mg PO DAILY #90 tab-cap 12/29/17 12/10/18 Rx albuterol sulfate 90 mcg/actuation 1 puff IH Q4H PRN #8.5 gm 02/09/18 12/10/18 Rx aerosol inhaler fluticasone propionate 50 1 spray IGOR BID gm 03/10/18 12/10/18 History mcg/actuation nasal spray,suspension magnesium oxide 400 mg (241.3 mg 400 mg PO DAILY #60 tab 05/09/18 12/10/18 Rx magnesium) tablet blood sugar diagnostic #50 each 07/11/18 12/10/18 Rx blood-glucose meter #1 each 07/11/18 12/10/18 Rx lancets 33 gauge #100 each 07/11/18 12/10/18 Rx varicella-zoster gE-AS01B (PF) 50 50 mcg IM ONCE #1 each 07/11/18 12/10/18 Rx mcg/0.5 mL IM susp, kit ketoconazole 2 % topical cream 1 applic TP DAILY #30 gm 08/26/18 12/10/18 Rx atorvastatin 20 mg tablet 20 mg PO DAILY 09/05/18 12/10/18 History furosemide 40 mg tablet 40 mg PO BID #180 tab-cap 09/05/18 12/10/18 Rx glipizide 5 mg tablet 5 mg PO DAILY #90 tab-cap 09/05/18 12/10/18 Rx metoprolol succinate 100 mg 100 mg PO DAILY #90 tab 09/16/18 12/10/18 Rx tablet,extended release 24 hr fluoxetine 20 mg tablet 20 mg PO DAILY #90 tab 09/27/18 12/10/18 Rx gabapentin 600 mg tablet 600 mg PO TID #270 tab-cap 09/27/18 12/10/18 Rx omeprazole 20 mg tablet,delayed 20 mg PO DAILY #90 tab 10/31/18 12/10/18 Rx release allopurinol 300 mg tablet 150 mg PO DAILY #90 tab-cap 11/07/18 12/10/18 Rx Allergies Allergy/AdvReac Type Severity Reaction Status Date / Time codeine AdvReac Intermediate DYSPHORIA Verified 12/10/18 19:06 niacin AdvReac Intermediate MYALGIAS Verified 12/10/18 19:06 simvastatin AdvReac Intermediate myalgias Verified 12/10/18 19:06 Exam Narrative Exam Narrative: General: Patient appears appropriate for age and no acute distress resting comfortably in bed. He is alert and oriented at least to person and place. He is moderately obese. HEENT: Normocephalic, eyes with pupils equal reactive light symmetrically and extraocular movement intact with sclera anicteric. Oropharynx with moist pink mucosa. Ears and nose appear normal. Neck: Supple without JVD. Back: Kyphotic with no CVA tenderness. Decreased range of motion. Lungs: Diffuse expiratory rhonchi with slightly increased expiratory phase with expiratory wheeze. No focalizing rales. Heart: Regular rate and rhythm with holosystolic murmur at the apex with intensi ty 2-3/ 6 but mostly obscured by lung findings. No rubs or gallops. Abdomen: Obese contour but soft to palpation and non-tender. No palpable hepatosplenomegaly. Bowel sounds positive all quadrants. Genitalia/rectal: Exam deferred. Extremities: Diffuse arthritic changes with 2+ moderate non-pitting edema both lower extremities, loss of hair and shiny atrophic skin over lower extremities with fair capillary refill. No cyanosis or clubbing. There are some minor abrasions over his volar right forearm which he states came from helping her friend with boards used at his barn during repairs. Skin: Pale, sweaty and warm with no other rashes noted. Neuro: No focalizing motor deficits, cranial nerves II through XII grossly intact. Decreased short-term memory. Results Imaging Imaging Studies: EXAM: XR Chest, 2 Views EXAM DATE/TIME: 12/10/2018 7:16 PM CLINICAL HISTORY: 73 years old, male; Cough and other: Congestion; Patient HX: Cough, congestion TECHNIQUE: Imaging protocol: XR of the chest, 2 views. COMPARISON: CR CHEST 2 VIEWS PA,LAT 12/24/2017 11:07 AM FINDINGS: Lungs: Right upper lobe pneumonia. Pleural space: Unremarkable. No pleural effusion. No pneumothorax. Heart/Mediastinum: Prior mitral valve replacement, abdominal surgery and bilateral shoulder surgery. Vasculature: Vascular calcifications. Bones/joints: Unremarkable. IMPRESSION: Right upper lobe pneumonia. Dictated and Authenticated by: Maldonado Blackmon MD. Labs : 12/10/18 19:18 12/10/18 19:18 Laboratory Results - last 24 hr 08/10/19 08/10/19 08/10/19 19:18 19:18 19:18 WBC 14.69 H RBC 3.97 L Hgb 11.6 L Hct 35.4 L MCV 89.2 MCH 29.2 MCHC 32.8 RDW 14.9 H Plt Count 159 MPV 10.2 Immature Gran % 0.3 Neutrophils % 80.8 Lymphocytes % 5.3 Monocytes % 13.5 Eosinophils % 0.0 Basophils % 0.1 Absolute Neutrophils 11.87 H Absolute Lymphocytes 0.78 L Absolute Monocytes 1.98 H Absolute Eosinophils 0.00 Absolute Basophils 0.01 Differential Comment Agrees w/ instrument RBC Morphology Normal PT 11.5 H INR 1.1 APTT 25.2 D-Dimer 1230 H Sodium 134 L Potassium 4.4 Chloride 99 Carbon Dioxide 24.4 Anion Gap 10.6 BUN 39 H Creatinine 1.92 H Estimated GFR/1.73 m2 34.31 Glucose 231 H Calcium 8.3 L Magnesium 1.7 L Total Bilirubin 1.1 H AST 14 L ALT 19 Alkaline Phosphatase 84 Troponin I < 0.05 NT-Pro-B Natriuret Pep 3081 H Total Protein 7.3 Albumin 3.4 Last Vital Signs Temp 38 C H 12/10/18 21:45 Pulse 102 H 12/10/18 21:45 Resp 19 12/10/18 21:45 BP 116/57 L 12/10/18 21:45 Pulse Ox 91 L 12/10/18 21:45
[2018-12-11] VITALS (12 sets, daily range): BP systolic 111–137; BP diastolic 55–69; PULSE 70–107; RESP 2–21; TEMP 36.2–36.6; O2SAT 91–100
[2018-12-11] MEDS: DOXYCYCLINE 100 MG in Normal Saline 100 ML IVPB ×3 (00:36→23:38)
[2018-12-11] MEDS: Albuterol/Ipratropium 3 ML UPD VIAL UPD ×5 (00:37→23:35)
[2018-12-11] MEDS: Heparin 5,000 UNITS/ML VIAL 5000 UNITS SC (00:37)
[2018-12-11] MEDS: methylPREDNISolone SUCC 125 MG VIAL 80 MG IVP ×2 (05:56→14:00)
[2018-12-11] MEDS: Normal Saline Flush 10 ML SYR IVP ×3 (05:57→18:03)
[2018-12-11 07:51] LABS: HCT 36.1 % (40.0-50.0); HGB 11.6 g/dL (13.5-17.5); Mean Corp. HGB Concentration 32.1 g/dL (32.0-36.0); Mean Corpuscular Hemoglobin 28.9 pg (27.0-33.0); Mean Corpuscular Volume 89.8 fL (80-95); Mean Platelet Volume 11.1 fL (8.0-11.0); Platelet Count 156 x1000/uL (130-400); RBC 4.02 m/cumm (4.50-6.00); White Blood Cell Count 18.95 k/cumm (4.4-10.8)
[2018-12-11] MEDS: Magnesium Oxide 400 MG TAB PO (08:23)
[2018-12-11 08:24] LABS: ALT 19 U/L (12-78); AST 12 U/L (15-37); Albumin 3.3 g/dL (3.4-5.0); Alkaline Phosphatase 79 U/L (46-116); Anion Gap 14.6 mmol/L (3-11); BUN 47 mg/dL (7-18); Bilirubin, Total 0.7 mg/dL (0.2-1.0); CO2 22.4 mmol/L (21.0-32.0); Calcium 8.7 mg/dL (8.5-10.1); Chloride 96 mmol/L (98-107); Estimated GFR 26.52 (mL/min/1.73m2); Glucose 374 mg/dL (70-100); Potassium 3.9 mmol/L (3.5-5.1); Sodium 133 mmol/L (136-145); Total Protein 7.5 g/dL (6.4-8.2)
[2018-12-11] MEDS: Omeprazole 20 MG CAPCR PO (08:24)
[2018-12-11] MEDS: Losartan 50 MG TAB 100 MG PO (08:24)
[2018-12-11] MEDS: Furosemide 40 MG TAB PO (08:24)
[2018-12-11] MEDS: Allopurinol 300 MG TAB 150 MG PO (08:24)
[2018-12-11] MEDS: Metoprolol CR 100 MG TABCR PO (08:24)
[2018-12-11] MEDS: Aspirin E.C. 81 MG TABEC PO (08:24)
[2018-12-11] MEDS: Gabapentin 300 MG CAP 600 MG PO ×3 (08:24→20:00)
[2018-12-11] MEDS: FLUoxetine 20 MG CAP PO (08:24)
[2018-12-11] MEDS: Insulin Aspart 300 UNITS/3 ML PEN SC ×4 (08:25→21:51)
[2018-12-11] MEDS: Ketoconazole 2% CREAM 15 GM TUBE TP (08:25)
[2018-12-11] MEDS: MAGNESIUM SULFATE 2 GM/50 ML BAG IVPB (11:15)
--- NOTE | 2018-12-11 11:36 | INITIAL_ITS ---
Care Management Initial Assess REASON FOR HOSPITALIZATION:: Right Upper Lobe pneumonia PAST MEDICAL HISTORY/PAST SURGICAL HISTORY:: Benign neoplasm of colon, Carpal tunnel syndrome, Chronic kidney disease, stage III, COPD, Coronary artery disease involving coronary bypass graft of [place] heart, CVA, Diabetes mellitus with diabetic neuropathy, Diabetes mellitus with stage 3 chronic kidney disease, Gastroesophageal reflux disease, History of tobacco use, Hyperlipidemia, Lumbago with sciatica, unspecified side, Memory impairment, Mitral valve insufficiency, Obesity, Sensorineural hearing loss, Systolic CHF, chronic, Unspecified essential hypertension, Appendectomy, Colonoscopy, Coronary Artery Bypass Gaft arthroplasty of right shoulder, back surgery, partial gastrectomy, carpal tunnel release of both wrists, Valve Replacement PREVIOUS FUNCTIONAL STATUS/SOCIAL/FAMILY SUPPORTS:: Jeronimo reside with his , Snow in [place], [place]. He is independent with ADLs in the community. CURRENT FUNCTIONAL STATUS:: Jeronimo was sitting up on the side of his bed, O2 nasal cannula in place. He reviewed events leading up to hospitalization and verbalized that he did not listen to his body when he started feeling weaker and kept working. He attributes this to developing pnemonia. He was pleasant in interaction and fully engaged with this commercial real estate underwriter. ADVANCE DIRECTIVES:: On file at [facility]- Snow as agent, Patti Yeager as alternate. Has patient been provided with information about the portal?: Yes Did the patient sign up for the portal?: No CODE STATUS:: DNR/DNI INSURANCE COVERAGE / FINANCIAL ISSUES:: [employer]. Medicare. Financial Asst 100 CURRENT HOME/COMMUNITY SERVICES/EQUIPMENT:: Glucometer PRIMARY CARE PHYSICIAN:: Elizabet Auguste POTENTIAL DISCHARGE NEEDS:: Evaluation for further needs, follow up appointments. PATIENT/FAMILY EDUCATION NEEDS:: Review discharge instructions, discuss Ask Me Three. ANTICIPATED BARRIERS TO DISCHARGE:: None identified. TRANSPORTATION:: Via private vehicle with his , Snow. PLAN:: Jeronimo will continue to be closely monitored, he remains on IV ABX, O2 will be weaned and steroids tapered per MD. Anticipate he will return home when ready per MD with no additional services. He will follow up with his PCP and transport via private vehicle with his .
[2018-12-11] MEDS: Insulin Glargine 300 UNITS/3 ML PEN 10 UNITS SC (11:40)
[2018-12-11 12:09] LABS: Procalcitonin 3.2 ng/mL
[2018-12-11] MEDS: Atorvastatin 20 MG TAB PO (13:10)
--- NOTE | 2018-12-11 13:15 | PHARADMIT ---
Admission Pharmacy Clinical Review right upper lobe pneumonia Code Status DNR/DNI Current Weight Kva765.9 kg Renally Cleared and Narrow Therapeutic Index Meds CrCl~ 24 mL/min Meds-OK QTc Value / Action Taken QTC-452 (Lasix,Prilosec, Nizoral crm) BP Control, Fever BP-124/65 Tmax-38C Electrolytes reviewed Na-133 K+3.9 Mag-1.7 DVT Prophylaxis Heparin-SQ, ASA-ec Opiate Usage / Scheduled Bowel Regimen Ordered No Yes Plt/SCr for Heparin / Enoxaparin Plts-156 SCr-2.40 INR for Warfarin inr-1.1 H/H stable, WBC/Bands H&H- 11.6/36.1 WBC-18.95 Antibiotic appropriateness Rocephin, Doxycycline Cultures and Sensitivities Blood-pending Sputum-OK Surgical ABX d/c within 24 hr na DM control / Insulin Dosing BG- 374 Aspart, Glargine Heart Failure (Check EF%) (EMMA's, B-Block, Diuretics) Lasix, Losartan, Toprol-XL, IV to PO Switch No Home Meds Reviewed Yes Home Meds Not Ordered Glipizide, Cyclobenzaprine Comments
--- NOTE | 2018-12-11 16:44 | W.PM.PROGNOT ---
Date of Service Date of service: 12/11/18 Time of Service: 16:44 Assessment and Plan (1) Pneumonia: Current visit: Yes Status: Acute RUL PNA - CAP, ?aspiration pneumonia (did have a history of vomiting prior to presentation) with hypoxia. Seems to be responding to doxycycline and ceftriaxone. Continue current antibiotics, wean O2 as tolerated. Obtaining sputum/blood cultures. Hemoptysis could be due to this, but we will also have to rule out a PE. I do not appreciate bronchospasm on my exam today - start to taper steroids. Qualifiers: Pneumonia type: due to unspecified organism Laterality: right Lung location: upper lobe of lung Qualified Code(s): J18.1 - Lobar pneumonia, unspecified organism (2) Dizziness: Current visit: Yes Status: Acute Based on patient's description, we need to rule out orthostasis. The patient is also getting an echo. ?Dehydration due to diarrhea - will gently hydrate. ?PE - obtaining a VQ scan. (3) Hemoptysis: Current visit: Yes Status: Acute R/o PE - checking VQ scan (4) Edema of both legs: Current visit: Yes Status: Acute R/o DVT - checking venous doppler of BLE's (5) Diarrhea: Current visit: Yes Status: Acute We spoke about checking water quality. Obtain stool studies. Provide probiotics. Patient was on PO magnesium supplements - ?cause of diarrhea - I am holding these today. (6) Systolic CHF, chronic: Current visit: No Status: Chronic Rechecking EF. Hydrating gently. (7) Gastroesophageal reflux disease: Current visit: No Status: Acute Patient was on PPI and H2 ric as outpatient - both could be contributing to diarrhea. I d/c'ed H2 ric - will monitor. (8) Diabetes mellitus type 2, controlled: Current visit: No Status: Acute Does have some steroid induced hyperglycemia. Provide long acting insulin; tapering steroids. Qualifiers: Diabetes mellitus buttermaker continuous churn insulin use: without group home use Diabetes mellitus complication status: with neurologic complications Diabetes mellitus complication detail: with other neurological complication Qualified Code(s): E11.49 - Type 2 diabetes mellitus with other diabetic neurological complication (9) Coronary artery disease involving coronary bypass graft of [place] heart: Current visit: No Status: Acute No evidence for ACS on admission - will repeat troponin in AM. Qualifiers: Associated angina: without angina Qualified Code(s): I25.810 - Atherosclerosis of coronary artery bypass graft(s) without angina pectoris (10) Acute kidney injury superimposed on chronic kidney disease: Current visit: Yes Status: Acute Hold lasix and losartan. Gently hydrate. R/o urinary retention. Recheck in am. Monitor I/O's and daily weights. (11) DVT prophylaxis: Current visit: Yes Status: Acute TEDS + SCDs. Holding heparin since he is having hemoptysis. (12) Discharge planning issues: Current visit: Yes Status: Acute DNR/DNI Obtaining PT consult. Subjective Interval history since last seen: Reports dizziness when he gets up (going on for a while). Cough has improved, but is still productive of bloody sputum. Complains of occasional chest pain - not now. Complains of chest tightness - better. States at home was nauseated and vomiting - this only happened yesterday. Denies abdominal pain. States has had diarrhea for 1 month. Recent change of water source (was using stream in the back of the house; recently changed to the well - stated he bleached it first, but did not check quality of the water recently). States his RLE has gotten swollen in the last 2-3 months. LLE has been swollen ever since his heart surgery. Reports bilateral knee pain. Exam Narrative Exam Narrative: General: very pleasant elderly male, hard of hearing, A&Ox3, NAD HEENT: EOMI, MMM Heart: RRR, + MUMTAZ Lungs: CTAB GI: abdomen is soft, nontender, nondistended Extremities: symmetric +1 BLE edema in TEDs, no c/c Objective Objective Clinical Data: Abnormal lab results 12/10/18 12/10/18 12/10/18 Range/Units 19:18 19:18 19:18 WBC 14.69 H (4.4-10.8) k/cumm RBC 3.97 L (4.50-6.00) m/cumm Hgb 11.6 L (13.5-17.5) g/dL Hct 35.4 L (40.0-50.0) % RDW 14.9 H (11.8-14.1) % MPV (8.0-11.0) fL Absolute Neutrophils 11.87 H (1.2-6.7) k/cumm Absolute Lymphocytes 0.78 L (1.2-3.4) k/cumm Absolute Monocytes 1.98 H (0.11-0.7) k/cumm PT 11.5 H (9.3-11.0) sec D-Dimer 1230 H (<500) ng/mlFEU Sodium 134 L (136-145) mmol/L Chloride (98-107) mmol/L Anion Gap (3-11) mmol/L BUN 39 H (7-18) mg/dL Creatinine 1.92 H (0.70-1.30) mg/dL Glucose 231 H (70-100) mg/dL Calcium 8.3 L (8.5-10.1) mg/dL Magnesium 1.7 L (1.8-2.4) mg/dL Total Bilirubin 1.1 H (0.2-1.0) mg/dL AST 14 L (15-37) U/L NT-Pro-B Natriuret Pep 3081 H ( - 299) pg/mL Albumin (3.4-5.0) g/dL 12/11/18 12/11/18 Range/Units 07:23 07:23 WBC 18.95 H (4.4-10.8) k/cumm RBC 4.02 L (4.50-6.00) m/cumm Hgb 11.6 L (13.5-17.5) g/dL Hct 36.1 L (40.0-50.0) % RDW 15.0 H (11.8-14.1) % MPV 11.1 H (8.0-11.0) fL Absolute Neutrophils (1.2-6.7) k/cumm Absolute Lymphocytes (1.2-3.4) k/cumm Absolute Monocytes (0.11-0.7) k/cumm PT (9.3-11.0) sec D-Dimer (<500) ng/mlFEU Sodium 133 L (136-145) mmol/L Chloride 96 L (98-107) mmol/L Anion Gap 14.6 H (3-11) mmol/L BUN 47 H (7-18) mg/dL Creatinine 2.40 H (0.70-1.30) mg/dL Glucose 374 H D (70-100) mg/dL Calcium (8.5-10.1) mg/dL Magnesium (1.8-2.4) mg/dL Total Bilirubin (0.2-1.0) mg/dL AST 12 L (15-37) U/L NT-Pro-B Natriuret Pep ( - 299) pg/mL Albumin 3.3 L (3.4-5.0) g/dL Vital Signs Temperature 36.5 C 12/11/18 15:41 Temperature Source Tympanic 12/11/18 15:41 Pulse 76 12/11/18 15:41 Pulse Rhythm Regular 12/11/18 07:40 Pulse 98 H 12/10/18 20:40 Respiratory Rate 19 12/11/18 15:41 Respiratory Effort Non-Labored 12/11/18 07:40 Respiratory Depth Normal 12/11/18 07:40 Respiratory Pattern Normal 12/11/18 07:40 Blood Pressure 136/65 12/11/18 15:41 Blood Pressure Mean 69 12/10/18 19:02 Blood Pressure Position Sitting 12/10/18 19:03 Pulse Oximetry 91 L 12/11/18 15:41 Oxygen Delivery Method Nasal Cannula 12/11/18 15:41 Oxygen Flow Rate 2 12/11/18 15:41 Pain Level 0 12/11/18 14:06 Comment 12/11/18 08:09 Intake & Output 12/10/18 12/11/18 12/11/18 23:59 11:59 23:59 Intake Total 50 / 50 100 / 560 460 / 560 Output Total 500 / 851 351 / 851 Balance 50 / 50 -400 / -291 109 / -291 Weight 104.78 kg 105.9 kg Intake: IV 50 / 50 100 / 260 160 / 260 Oral 300 / 300 Output: Urine 500 / 800 300 / 800 Post Void Residual 51 / 51 Other: Urine Color Straw Urine Appearance Clear Urine Odor Normal Comment pt voiding in toilet post lasix administration. pt alerted to need for urine sample; pt will alert RN when he needs to void Stool Size Small Stool Characteristics Soft Formed Voiding Methods Urinal Toilet Laboratory Results WBC 18.95 k/cumm (4.4-10.8) H 12/11/18 07:23 RBC 4.02 m/cumm (4.50-6.00) L 12/11/18 07:23 Hgb 11.6 g/dL (13.5-17.5) L 12/11/18 07:23 Hct 36.1 % (40.0-50.0) L 12/11/18 07:23 MCV 89.8 fL (80-95) 12/11/18 07:23 MCH 28.9 pg (27.0-33.0) 12/11/18 07:23 MCHC 32.1 g/dL (32.0-36.0) 12/11/18 07:23 RDW 15.0 % (11.8-14.1) H 12/11/18 07:23 Plt Count 156 x1000/uL (130-400) 12/11/18 07:23 MPV 11.1 fL (8.0-11.0) H 12/11/18 07:23 Immature Gran % 0.3 12/10/18 19:18 80.8 12/10/18 19:18 5.3 12/10/18 19:18 13.5 12/10/18 19:18 0.0 12/10/18 19:18 0.1 12/10/18 19:18 Absolute Neutrophils 11.87 k/cumm (1.2-6.7) H 12/10/18 19:18 Absolute Lymphocytes 0.78 k/cumm (1.2-3.4) L 12/10/18 19:18 Absolute Monocytes 1.98 k/cumm (0.11-0.7) H 12/10/18 19:18 Absolute Eosinophils 0.00 k/cumm (0.0-0.7) 12/10/18 19:18 Absolute Basophils 0.01 k/cumm (0.0-0.2) 12/10/18 19:18 Agrees w/ instrument 12/10/18 19:18 RBC Morphology Normal 12/10/18 19:18 PT 11.5 sec (9.3-11.0) H 12/10/18 19:18 INR 1.1 (0.9-1.1) 12/10/18 19:18 APTT 25.2 sec (21.0-31.4) 12/10/18 19:18 1230 ng/mlFEU (<500) H 12/10/18 19:18 Sodium 133 mmol/L (136-145) L 12/11/18 07:23 Potassium 3.9 mmol/L (3.5-5.1) 12/11/18 07:23 Chloride 96 mmol/L (98-107) L 12/11/18 07:23 Carbon Dioxide 22.4 mmol/L (21.0-32.0) 12/11/18 07:23 14.6 mmol/L (3-11) H 12/11/18 07:23 BUN 47 mg/dL (7-18) H 12/11/18 07:23 2.40 mg/dL (0.70-1.30) H 12/11/18 07:23 26.52 (mL/min/1.73m2) 12/11/18 07:23 Glucose 374 mg/dL (70-100) H D 12/11/18 07:23 Calcium 8.7 mg/dL (8.5-10.1) 12/11/18 07:23 Magnesium 1.7 mg/dL (1.8-2.4) L 12/10/18 19:18 0.7 mg/dL (0.2-1.0) 12/11/18 07:23 AST 12 U/L (15-37) L 12/11/18 07:23 ALT 19 U/L (12-78) 12/11/18 07:23 79 U/L (46-116) 12/11/18 07:23 < 0.05 ng/mL (0.00-0.06) 12/10/18 19:18 NT-Pro-B Natriuret Pep 3081 pg/mL (-299) H 12/10/18 19:18 7.5 g/dL (6.4-8.2) 12/11/18 07:23 3.3 g/dL (3.4-5.0) L 12/11/18 07:23 3.2 ng/mL 12/11/18 11:30
[2018-12-11] MEDS: Normal Saline 1,000 ML 75 ML IV (18:00)
[2018-12-11] MEDS: Lactobacillus Acidophilus CAP 1 CAP PO (20:00)
[2018-12-11] MEDS: Fluticasone NASAL SPRAY 16 GM BTL NS (20:01)
[2018-12-11] MEDS: methylPREDNISolone SUCC 125 MG VIAL 40 MG IVP (20:03)
[2018-12-11] MEDS: cefTRIAXone 1 GM/50 ML BAG IVPB (20:05)
[2018-12-12] VITALS (16 sets, daily range): BP systolic 111–152; BP diastolic 60–72; PULSE 74–88; RESP 1–20; TEMP 36.2–36.6; O2SAT 93–98
[2018-12-12] MEDS: Albuterol/Ipratropium 3 ML UPD VIAL UPD (06:45)
[2018-12-12 07:43] LABS: Abs Immature Grans 0.06 k/cumm (0.0-0.09); HCT 34.9 % (40.0-50.0); HGB 11.5 g/dL (13.5-17.5); Immature Grans % 0.2; Lymphocytes % 2.5; Mean Corpuscular Hemoglobin 29.1 pg (27.0-33.0); Mean Corpuscular Volume 88.4 fL (80-95); Mean Platelet Volume 11.3 fL (8.0-11.0); Monocytes % 4.4; Neutrophils % 92.9; Platelet Count 163 x1000/uL (130-400); RBC 3.95 m/cumm (4.50-6.00); RBC Distribution Width 14.7 % (11.8-14.1)
[2018-12-12] MEDS: methylPREDNISolone SUCC 125 MG VIAL 40 MG IVP (07:49)
[2018-12-12] MEDS: Fluticasone NASAL SPRAY 16 GM BTL NS ×2 (07:49→20:19)
[2018-12-12] MEDS: Normal Saline Flush 10 ML SYR IVP ×4 (07:51→17:25)
[2018-12-12] MEDS: Gabapentin 300 MG CAP 600 MG PO ×3 (07:51→20:18)
[2018-12-12] MEDS: Lactobacillus Acidophilus CAP 1 CAP PO ×3 (07:52→20:18)
[2018-12-12] MEDS: Omeprazole 20 MG CAPCR 40 MG PO (07:52)
[2018-12-12] MEDS: Metoprolol CR 100 MG TABCR PO (07:52)
[2018-12-12] MEDS: FLUoxetine 20 MG CAP PO (07:52)
[2018-12-12] MEDS: Allopurinol 300 MG TAB 150 MG PO (07:52)
[2018-12-12] MEDS: Insulin Aspart 300 UNITS/3 ML PEN SC ×4 (07:53→21:57)
[2018-12-12] MEDS: Insulin Glargine 300 UNITS/3 ML PEN 10 UNITS SC ×2 (07:53→20:20)
[2018-12-12] MEDS: Ketoconazole 2% CREAM 15 GM TUBE TP (07:56)
[2018-12-12] MEDS: Budesonide/Formoterol 160/4.5 6 GM 60 PUFF INH IH ×2 (08:00→20:19)
--- NOTE | 2018-12-12 08:00 | DI.US_ITS ---
SYMPTOM/DIAGNOSIS: EDEMA, BLE'S, ? DVT DUPLEX VENOUS ULTRASOUND BOTH LOWER EXTREMITIES: 12/12 Duplex evaluation of the deep venous system was performed according to the usual protocol. The deep veins are freely compressible throughout to the level of the popliteal veins. There is normal doppler flow visible throughout and there is excellent flow augmentation with manual calf compression. CONCLUSION: No evidence of deep venous thrombosis.
--- NOTE | 2018-12-12 08:00 | DI.NM_ITS ---
SYMPTOMS/DIAGNOSIS: RIGHT UPPER LOBE PNEUMONIA, CHEST PRESSURE INCREASING, NO RECENT INJURY, ACCIDENT OR SURGERY, NO PRIOR CLOTTING, SUSPECTED PE VENTILATION/PERFUSION LUNG SCAN: Ventilation and perfusion lung scan was performed with intravenous infusion of 4.6 mCi of technetium 99 labelled macroaggregated albumin and inhalation of 35 mCi of technetium 99 labelled DTPA. No significant perfusion defect identified. No significant ventilation defect identified. CONCLUSION: Negative ventilation and perfusion lung scan. No evidence of pulmonary embolic disease.
[2018-12-12 08:02] LABS: Anion Gap 13.4 mmol/L (3-11); BUN 73 mg/dL (7-18); CO2 20.6 mmol/L (21.0-32.0); CREATININE 2.12 mg/dL (0.70-1.30); Chloride 97 mmol/L (98-107); Estimated GFR 30.61 (mL/min/1.73m2); Glucose 279 mg/dL (70-100); Magnesium 2.5 mg/dL (1.8-2.4); Potassium 4.5 mmol/L (3.5-5.1); Sodium 131 mmol/L (136-145)
[2018-12-12 08:05] LABS: Troponin I < 0.05 ng/mL (0.00-0.06)
--- NOTE | 2018-12-12 08:22 | CMPROGNOTE_ITS ---
- If Service Date Differs Date of service: 12/12/18 Time of Service: 08:22 Care Management Progress Note S/O:Jeronimo was out of the room having testing done each time CM came to meet with him. His Snow was in the room so CM had a conversation with her. Snow states that Jeronimo has had diarrhea on and off for the past 3 years - ever since he had heart surgery. She also stated that they have been on the same water system for the past 30 years. 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 She was concerned about all of the testing Jeronimo is undergoing and CM explained what the tests were and why they had been ordered. She expressed appreciation for the information. A: Jeronimo is a 73 year old man admitted to [facility] on 12/10/18 with RUL Pneumonia P: Jeronimo will continue to be closely monitored, he remains on IV ABX, O2 will be weaned and steroids tapered per MD. Anticipate he will return home when ready per MD with no additional services. He will follow up with his PCP and transport via private vehicle with his .
[2018-12-12 08:42] LABS: Procalcitonin 2.9 ng/mL
[2018-12-12 08:49] LABS: Absolute Lymphocyte Count 0.63 k/cumm (1.2-3.4); Absolute Neutrophil Count 23.31 k/cumm (1.2-6.7); White Blood Cell Count 25.09 k/cumm (4.4-10.8)
[2018-12-12 08:50] LABS: Diff Comment Agrees w/ Instrument; RBC Morphology Normal
[2018-12-12] MEDS: DOXYCYCLINE 100 MG in Normal Saline 100 ML IVPB ×2 (12:08→23:56)
[2018-12-12] MEDS: Atorvastatin 20 MG TAB PO (12:16)
--- NOTE | 2018-12-12 12:30 | MERGE_ITS ---
*[facility]* *[facility]* [address] [place] [address] Date of study: 12/12/2018 Transthoracic Echocardiography M-mode, complete 2D, complete spectral Doppler, and color Doppler *STUDY CONCLUSIONS* Summary: 1. Left ventricle: The cavity size was normal. The estimated ejection fraction was 50%. The study is not technically sufficient to allow evaluation of LV diastolic function. 2. Mitral valve: A bioprosthesis was present and functioning normally. The sewing ring appeared normal. Peak E-wave velocity: 1.91m/sec. Pressure half-time: 85ms. DOI = 1.6. EOA = 2.4. Mean gradient = 8.5 mmHg at 83 bpm. 3. Left atrium: The atrium was mildly dilated. 4. Right ventricle: The cavity size was normal. Wall thickness was normal. Systolic function was normal. 5. Pulmonary arteries: Pulmonary systolic pressure was in the range of 35mm Hg to 45mm Hg. 6. Inferior vena cava: The vessel was patent and normal in size. The respirophasic diameter changes were in the normal range (greater than or equal to 50%), consistent with normal central venous pressure. *PATIENT PRESENTATION* Height: 170.2cm (67in ) S/D Pressure: 120 / 62 Weight: 105.7kg (232.5lb ) BSA: 2.28m^2 Test start time: 12:40 PM. Test stop time: 02:35 PM. PERFORMING Unknown PERFORMING [facility] SPORTS BOOK WRITER RT [place] (R)(CT), CS CONSULTING Cindi Patel ORDERING Cindi Patel REFERRING Cindi Patel *PROCEDURE DATA* Procedure information: The patient was identified by two identifiers. This study was interpreted by [facility]. Pertinent images and digital data are archived for permanent storage and are available for subsequent review. Comparison was made to the study of 02/04/2018. Study status: Routine. Transthoracic echocardiography. M-mode, complete 2D, complete spectral Doppler, and color Doppler. A Transthoracic Echocardiogram was performed. Scanning was performed from the parasternal, apical, subcostal, and suprasternal notch acoustic windows. Images were obtained using an [id number] cardiac ultrasound machine. Study completion: The patient tolerated the procedure well. History: PMH: ?CHF. *CARDIAC ANATOMY* Left ventricle: The cavity size was normal. The estimated ejection fraction was 50%. The study is not technically sufficient to allow evaluation of LV diastolic function. Aortic valve: Doppler: There was no stenosis. There was no regurgitation. VTI ratio of LVOT to aortic valve: 0.66. Valve area (VTI): 2.5cm^2. Indexed valve area (VTI): 1.1cm^2/m^2. Peak velocity ratio of LVOT to aortic valve: 0.66. Valve area (Vmax): 2.5cm^2. Indexed valve area (Vmax): 1.1cm^2/m^2. Mean velocity ratio of LVOT to aortic valve: 0.66. Valve area (Vmean): 2.5cm^2. Indexed valve area (Vmean): 1.1cm^2/m^2. Mean gradient (S): 8.7mm Hg. Peak gradient (S): 14.4mm Hg. Aorta: Aortic root: The aortic root was normal in size. Ascending aorta: The ascending aorta was mildly dilated. Mitral valve: A bioprosthesis was present and functioning normally. The sewing ring appeared normal. DOI = 1.6. EOA = 2.4. Mean gradient = 8.5 mmHg at 83 bpm. Doppler: Valve area by pressure half-time: 2.6cm^2. Indexed valve area by pressure half-time: 1.1cm^2/m^2. Peak gradient (D): 14.5mm Hg. Left atrium: The atrium was mildly dilated. Atrial septum: Poorly visualized. Right ventricle: The cavity size was normal. Wall thickness was normal. Systolic function was normal. Pulmonic valve: Doppler: There was no evidence for stenosis. There was no significant regurgitation. Tricuspid valve: Doppler: There was mild regurgitation. Pulmonary artery: Poorly visualized. Pulmonary systolic pressure was in the range of 35mm Hg to 45mm Hg. Right atrium: Poorly visualized. Pericardium: There was no pericardial effusion. Systemic veins: Inferior vena cava: Well visualized. The vessel was patent and normal in size. The respirophasic diameter changes were in the normal range (greater than or equal to 50%), consistent with normal central venous pressure. Baseline ECG: Normal sinus rhythm. Measurements Left ventricle Value 02/04/2018 Reference LV ID, ED, PLAX (H) 6.5 cm 6.5 3.5 - 6.0 LV ID, ES, PLAX (H) 4.5 cm 5.1 2.1 - 4.0 LV end-diastolic volume, 1-p 183 ml 101 --------- A2C LV ejection fraction, 1-p A2C 44 % 38 --------- LV end-diastolic volume, 1-p 145 ml 136 --------- A4C LV ejection fraction, 1-p A4C 54 % 33 --------- LV e', lateral 0.056 m/sec 0.042 --------- LV E/e', lateral 34 32 --------- LV e', medial 0.042 m/sec 0.039 --------- LV E/e', medial 46 34 --------- LV e', average 0.049 m/sec 0.041 --------- LV E/e', average 39 33 --------- LVOT Value 02/04/2018 Reference LVOT ID, A-P 2.2 cm 2.2 --------- LVOT area 3.7 cm^2 3.8 --------- LVOT peak velocity, S 1.24 m/sec 1 --------- LVOT mean velocity, S 0.94 m/sec 0.69 --------- LVOT VTI, S 28.4 cm 21.4 --------- LVOT peak gradient, S 6.2 mm Hg 4 --------- LVOT mean gradient, S 3.9 mm Hg 2.1 --------- Stroke volume (SV), LVOT DP 106 ml 82 --------- Stroke index (SV/bsa), LVOT 47 ml/m^2 36 --------- DP Aortic valve Value 02/04/2018 Reference Aortic valve peak velocity, S 1.9 m/sec 1.8 --------- Aortic valve mean velocity, S 1.4 m/sec 1.2 --------- Aortic valve VTI, S 43.0 cm 39.0 --------- Aortic mean gradient, S 8.7 mm Hg 6.1 --------- Aortic peak gradient, S 14.4 mm Hg 13.3 --------- VTI ratio, LVOT/AV 0.66 0.55 --------- Aortic valve area, VTI 2.5 cm^2 2.1 --------- Velocity ratio, peak, LVOT/AV 0.66 0.55 --------- Aortic valve area, peak 2.5 cm^2 2.1 --------- velocity Velocity ratio, mean, LVOT/AV 0.66 0.6 --------- Aortic valve area, mean 2.5 cm^2 2.3 --------- velocity Aortic valve area/bsa, mean 1.1 cm^2/m^2 1 --------- velocity Aorta Value 02/04/2018 Reference Aortic root ID, ED 3.7 cm 3.8 --------- Ascending aorta ID, A-P, S 3.6 cm 3.6 --------- Left atrium Value 02/04/2018 Reference LA ID, A-P, ES 4.2 cm 4.4 --------- LA ID/bsa, A-P 1.8 cm/m^2 1.9 <=2.2 LA volume/bsa, ES, 1-p A4C 43 ml/m^2 55 --------- LA volume, ES, 2-p 80 ml 93 --------- LA volume/bsa, ES, 2-p 35 ml/m^2 41 --------- LA/aortic root ratio 1.14 1.16 --------- Mitral valve Value 02/04/2018 Reference Mitral E-wave peak velocity 1.91 m/sec 1.34 --------- Mitral A-wave peak velocity 1.22 m/sec 1.32 --------- Mitral deceleration time (H) 293 ms 397 150 - 230 Mitral pressure half-time 85 ms 115 --------- Mitral peak gradient, D 14.5 mm Hg 7.1 --------- Mitral E/A ratio, peak 1.56 1.01 --------- Mitral valve area, PHT, DP 2.6 cm^2 1.9 --------- Pulmonary veins Value 02/04/2018 Reference Pulmonary vein peak velocity, 0.74 m/sec 0.69 --------- S Pulmonary vein peak velocity, 0.88 m/sec 0.43 --------- D Pulmonary vein velocity 0.84 1.61 --------- ratio, peak, S/D Tricuspid valve Value 02/04/2018 Reference Tricuspid regurg peak 3.1 m/sec 2.8 --------- velocity Tricuspid peak RV-RA gradient 39.6 mm Hg 31.4 --------- Legend: (L) and (H) savanna values outside specified reference range. I have personally reviewed the images and have reviewed and edited the reported findings. Electronically signed by Parker Prescott MD 12/12/2018 18:29
[2018-12-12] MEDS: PIPERACILLIN/TAZO 2.25 GM in Normal Saline 50 ML IVPB ×2 (15:41→21:57)
--- NOTE | 2018-12-12 16:48 | PT.INIE ---
Date of service: 12/12/18 Time of Service: 09:39 PT Notes Inpatient Physical Therapy Evaluation Date: 12/12/2018 Referring Doctor: Cindi Patel MD PT Orders: PT CONSULT: Eval/treat Precautions: Fall. Standard. Patient Profile/Admitting Diagnosis: Patient is a 73-year-old male with past medical history significant for chronic kidney disease stage III, COPD, CVA, obesity, mitral valve insufficiency, systolic CHF, and sensorineural hearing loss who presented to the ED on 12/10/2018 with chief complaints of shortness of breath, 2-day cough, chest congestion, and blood-tinged sputum production. Patient was diagnosed with community-acquired pneumonia of the right upper lobe, COPD exacerbation, type 2 diabetes mellitus, dizziness, hemoptysis, BLE edema, diarrhea, GERD, CAD, and acute kidney injury. Referral for skilled services was made in order to address impairments in activity tolerance and functional mobility level. PMHX: Medical History Benign neoplasm of colon (Acute 08/04/12) Carpal tunnel syndrome (Acute 08/04/12) Chronic kidney disease, stage III (moderate) (Acute 01/26/13) COPD (chronic obstructive pulmonary disease) (Chronic) Coronary artery disease involving coronary bypass graft of [place] heart (Acute 01/02/16) CVA (cerebral vascular accident) (Acute 01/03/16) Diabetes mellitus with diabetic neuropathy (Acute 04/13/14) Diabetes mellitus with stage 3 chronic kidney disease (Acute 03/02/14) Gastroesophageal reflux disease (Acute 08/04/12) History of tobacco use (Acute 07/03/11) Hyperlipidemia (Acute 07/03/11) Lumbago with sciatica, unspecified side (Acute 08/04/12) Memory impairment (Acute 12/11/15) Mitral valve insufficiency (Acute 12/19/15) Obesity, unspecified (Acute 07/03/11) Sensorineural hearing loss (Acute 08/24/14) Systolic CHF, chronic (Chronic 04/15/16) Unspecified essential hypertension (Acute 08/04/12) Surgical History Appendectomy Colonoscopy - MAC (01/11/15) Coronary Artery Bypass G[place] (CABG) (Chronic 12/20/15) History of arthroplasty of right shoulder (Acute ~09/2015) History of back surgery (Acute 10/21/00) S/P partial gastrectomy (Acute) Status post carpal tunnel release of both wrists (Acute) Valve Replacement (Chronic 12/20/15) Social History/Home Situation: Patient lives with and a 2-floor house with 2 steps to enter with rail on both sides. states that patient does not need to negotiate steps as their bedroom is on the main floor of the house. Patient is independent with all aspects of ADLs without the need for an assistive ambulatory device nor adaptive equipment. Current Functional Limitations: Impaired activity tolerance and shortness of breath during performance of mobility ADLs Equipment Owned/DME: None Subjective: Patient is agreeable to a PT consult. He is pleasant and is cooperative. He denies chest pain, headache, but does report shortness of breath with gait activity that resolves with rest. states that aside from near syncope that patient on 12/10/2018 patient has had no falls in the past 12 months. Objective: General Observation: Patient seen sitting at edge of bed. Bilateral knee-high TEDS. Edema to bilateral lower extremity with the right more affected than the left. Mental Status: Alert and oriented x4 Pain: Mild pain on the right knee with ambulation activity Vital Signs: Oxygen saturation ranged from 90 to 95% on room air throughout PT session and with walking activity. ROM: Right Upper Extremity: Shoulder Flexion WFL. Shoulder abduction WFL. Elbow flexion WFL. Wrist flexion WFL. Functional opening and closing of hand WFL. Left Upper Extremity: Shoulder Flexion WFL. Shoulder abduction WFL. Elbow flexion WFL. Wrist flexion WFL. Functional opening and closing of hand WFL. Right Lower Extremity: Hip flexion WFL. Hip abduction WFL. Knee flexion WFL. Ankle dorsiflexion 0-10 degrees. Ankle plantarflexion WFL. Left Lower Extremity: Hip flexion WFL. Hip abduction WFL. Knee flexion WFL. Ankle dorsiflexion WFL. Ankle plantarflexion WFL. Strength: Right Upper Extremity: Shoulder flexors 5/5. Shoulder abductors 5/5. Elbow flexors 5/5. Elbow extensors 5/5. Early Childhood Special Educator strong. Left Upper Extremity: Shoulder flexors 5/5. Shoulder abductors 5/5. Elbow flexors 5/5. Elbow extensors 5/5. Early Childhood Special Educator strong. Right Lower Extremity: Hip flexors 4-/5. Hip abductors 4-/5. Knee flexors 4-/5. Knee extensors 4-/5. Ankle dorsiflexors 3-/5. Ankle plantarflexors 5/5. Left Lower Extremity:Hip flexors 5/5. Hip abductors 5/5. Knee flexors 5/5. Knee extensors 5/5. Ankle dorsiflexors 5/5. Ankle plantarflexors 5/5. Sensation: Intact as to pain and pressure on bilateral lower extremities. Bed Mobility/Transfers: Rolling independent Supine to sit independent Sit to supine independent Sit to stand supervision Stand to sit supervision Bed to chair supervision Chair to bed supervision Gait: Patient is able to tolerate level surface ambulation without an assistive device with full weight bearing for 64 feet with supervision assist provided with oxygen saturation ranging from 90 to 95%. Gait velocity reduced. Mild foot slap noted on the left side. Balance: Static Sitting: Normal Dynamic Sitting: Normal Static Standing: Normal Dynamic Standing: Good Special Tests: Mobility Limitations Standardized Measure [facility] 6 clicks Basic Mobility Inpatient Short Form: Raw Score: 23 CMS Score: 11% deficit 2-minute walk test of 64 feet with mild dyspnea noted as well as pain complaint 3-4/10 on the right knee. 30-second chair rise score of 6 with mild dyspnea noted as well as 4/10 on the right knee. Informed Consent/Education: Patient instructed in purpose of PT consult and plan of care. Assessment: Patient presents with clinical signs and symptoms consistent with current/admitting diagnoses that have resulted to mobility limitations, gait instability, generalized weakness, and impairment of motor control as demonstrated by the following impairment level findings: 1. Decreased strength to R dorsiflexors (chronic) 2. 2-minute walk test of 64 feet signifying impaired activity tolerance 3. 30?second chair rise score of 6 4. Limitation of joint range of motion in right ankle Impairments are contributing to the following functional limitations: 1. Increase completion time for mobility ADL performance 2. Increased fall risk 3. Inability to negotiate steps alone safely [place] [address]17 moderate complexity based on the following: History: 73-year-old cognitively intact male with premorbid independent level now with diagnosis of community acquired pneumonia of the right upper lobe, COPD exacerbation, DM type type II, dizziness, acute kidney injury Examination: Demonstrable impairment in strength, balance, and range of motion with underlying impairments and functional limitations as documented above Presentation:Evolving Decision Makin moderate complexity Goals: Goals X1 week 1. Supine-Sit independent 2. Sit-Supine independent 3. Sit-Stand independent 4. Stand-Sit independent 5. Bed-Chair independent 6. Chair-Bed independent 7. Independent gait on level surface without an assistive device for at least 300 feet without report of pain nor dyspnea 8. Independent stair negotiation while holding onto bilateral rails for at least 5 steps without report of pain nor dyspnea 9. Independent with home exercise program 10. Good static and dynamic standing balance/tolerance Plan of Care/Treatment Plan: 1-2x/day, 7 days/week x 1 week. Plan of care has been reviewed with the BOAT TESTER providing the service under Physical Therapy direction. Initiate Physical Therapy intervention for strengthening, bed mobility, transfers, gait, stairs, balance training, use of assistive device. DISCHARGE RECOMMENDATIONS: Patient will benefit from home health PT services in order to progress mobility level using least restrictive assistive ambulatory device/using no device, assess home safety, identify additional equipment needs, and establish a functional maintenance program that will increase ability of patient to remain at home. TREATMENT CODE/TIME: 06607 x 34 minutes beginning at 9:39 AM Thank you very much for this referral. Felicita Mattson PT, DPT, CLT [facility]
--- NOTE | 2018-12-12 17:00 | PGE_ITS ---
Date of Service Date of service: 12/12/18 Time of Service: 17:00 Assessment and Plan (1) Pneumonia: Current visit: Yes Status: Acute RUL PNA - CAP vs ?aspiration pneumonia (did have a history of vomiting prior to presentation) with hypoxia. Hypoxia (at least at rest) now resolved. Improving on doxycycline and ceftriaxone. No evidence of PE - Hemoptysis is due to pneumonia. Transition steroids to PO. Expect discharge home tomorrow - would benefit from ambulatory pulse ox testing. Qualifiers: Pneumonia type: due to unspecified organism Laterality: right Lung location: upper lobe of lung Qualified Code(s): J18.1 - Lobar pneumonia, unspecified organism (2) Dizziness: Current visit: Yes Status: Acute Not orthostatic. No PE. Awaiting echo read. Consider carotid studies as outpatient if symptoms recur. The patient is also getting an echo. (3) Hemoptysis: Current visit: Yes Status: Acute Scant, due to PNA. NO evidence of PE on VQ scan. (4) Edema of both legs: Current visit: Yes Status: Acute Due to CHF. No evidence of DVT. Resume diuresis. (5) Diarrhea: Current visit: Yes Status: Chronic The patient's corrected the patient's story and stated that his diarrhea is chronic. Water quality is still being checked and stool studies will be checked if the patient has another bout of diarrhea - but it does not seem to be a problem today. (6) Systolic CHF, chronic: Current visit: No Status: Chronic Echo pending. (7) Gastroesophageal reflux disease: Current visit: No Status: Acute Patient was on PPI and H2 ric as outpatient - both could be contributing to diarrhea. I d/c'ed H2 ric - will monitor. (8) Diabetes mellitus type 2, controlled: Current visit: No Status: Acute Does have some steroid induced hyperglycemia. Taper steroids, increase lantus to BID. Continue SSI. Qualifiers: Diabetes mellitus mcc insulin use: without intermediate accountant use Diabetes mellitus complication status: with neurologic complications Diabetes mellitus complication detail: with other neurological complication Qualified Code(s): E11.49 - Type 2 diabetes mellitus with other diabetic neurological complication (9) Coronary artery disease involving coronary bypass graft of [place] heart: Current visit: No Status: Acute No ACS by troponins. Did have an episode of Nonsustained Vtach - continue to monitor on tele, await echo. Qualifiers: Associated angina: without angina Qualified Code(s): I25.810 - Atherosclerosis of coronary artery bypass graft(s) without angina pectoris (10) Acute kidney injury superimposed on chronic kidney disease: Current visit: Yes Status: Acute Resume lasix. IVF d/c'ed. Hold losartan at this time. Monitor I/O's and daily weights. (11) DVT prophylaxis: Current visit: Yes Status: Acute TEDS + SCDs. Holding heparin since he is having hemoptysis. (12) Discharge planning issues: Current visit: Yes Status: Acute DNR/DNI Subjective Interval history since last seen: Mr Archer states he feels a little bit better. He hadn't had any diarrhea today. He hasn't been dizzy getting up. He is only bringing up a small amount of blood when coughing. Denies chest pain, endorses chest tightness Ever since the surgery, denies shortness of breath, nausea, vomiting, abdominal pain. Had an episode of 5 beats of Vtach - asymptomatic. Exam Narrative Exam Narrative: General: very pleasant elderly male, hard of hearing, A&Ox3, NAD HEENT: EOMI, MMM Heart: RRR, + MUMTAZ Lungs: CTAB GI: abdomen is soft, nontender, nondistended Extremities: symmetric +1 BLE edema in TEDs, no c/c Objective Objective Clinical Data: Abnormal lab results 12/12/18 12/12/18 Range/Units 07:20 07:20 WBC 25.09 H* D (4.4-10.8) k/cumm RBC 3.95 L (4.50-6.00) m/cumm Hgb 11.5 L (13.5-17.5) g/dL Hct 34.9 L (40.0-50.0) % RDW 14.7 H (11.8-14.1) % MPV 11.3 H (8.0-11.0) fL Absolute Neutrophils 23.31 H (1.2-6.7) k/cumm Absolute Lymphocytes 0.63 L (1.2-3.4) k/cumm Absolute Monocytes 1.10 H (0.11-0.7) k/cumm Sodium 131 L (136-145) mmol/L Chloride 97 L (98-107) mmol/L Carbon Dioxide 20.6 L (21.0-32.0) mmol/L Anion Gap 13.4 H (3-11) mmol/L BUN 73 H D (7-18) mg/dL Creatinine 2.12 H (0.70-1.30) mg/dL Glucose 279 H (70-100) mg/dL Magnesium 2.5 H (1.8-2.4) mg/dL Vital Signs Temperature 36.5 C 12/12/18 16:12 Temperature Source Tympanic 12/12/18 16:12 Pulse 74 12/12/18 16:12 Pulse Rhythm Regular 12/12/18 07:40 Pulse 98 H 12/10/18 20:40 Respiratory Rate 18 12/12/18 16:12 Respiratory Effort 12/12/18 07:40 Respiratory Depth Normal 12/12/18 07:40 Respiratory Pattern Normal 12/12/18 07:40 Blood Pressure 143/70 H 12/12/18 16:12 Blood Pressure Mean 69 12/10/18 19:02 Blood Pressure Position Sitting 12/10/18 19:03 Pulse Oximetry 93 L 12/12/18 16:12 Oxygen Delivery Method Room Air 12/12/18 16:12 Oxygen Flow Rate 0 12/12/18 16:12 Pain Level 0 12/12/18 16:12 Comment 12/12/18 10:10 Intake & Output 12/11/18 12/12/18 12/12/18 23:59 11:59 23:59 Intake Total 910 / 1010 1100 / 1340 240 / 1340 Output Total 1151 / 1651 200 / 200 Balance -241 / -641 900 / 1140 240 / 1140 Weight 107.6 kg Intake: IV 310 / 410 1100 / 1100 Oral 600 / 600 240 / 240 Output: Urine 1100 / 1600 200 / 200 Post Void Residual 51 / 51 Other: Urine Color Light [place]ren[place] Yellow Urine Appearance Clear Clear Urine Odor Normal Comment pt voiding in toilet post lasix administration. pt alerted to need for urine sample; pt will alert RN when he needs to void VOID X 1 INDEP IN TOILET. Stool Size Small Stool Characteristics Soft Formed Voiding Methods Urinal Toilet Laboratory Results WBC 25.09 k/cumm (4.4-10.8) H* D 12/12/18 07:20 RBC 3.95 m/cumm (4.50-6.00) L 12/12/18 07:20 Hgb 11.5 g/dL (13.5-17.5) L 12/12/18 07:20 Hct 34.9 % (40.0-50.0) L 12/12/18 07:20 MCV 88.4 fL (80-95) 12/12/18 07:20 MCH 29.1 pg (27.0-33.0) 12/12/18 07:20 MCHC 33.0 g/dL (32.0-36.0) 12/12/18 07:20 RDW 14.7 % (11.8-14.1) H 12/12/18 07:20 Plt Count 163 x1000/uL (130-400) 12/12/18 07:20 MPV 11.3 fL (8.0-11.0) H 12/12/18 07:20 Immature Gran % 0.2 12/12/18 07:20 92.9 12/12/18 07:20 2.5 12/12/18 07:20 4.4 12/12/18 07:20 0.0 12/12/18 07:20 0.0 12/12/18 07:20 Absolute Neutrophils 23.31 k/cumm (1.2-6.7) H 12/12/18 07:20 Absolute Lymphocytes 0.63 k/cumm (1.2-3.4) L 12/12/18 07:20 Absolute Monocytes 1.10 k/cumm (0.11-0.7) H 12/12/18 07:20 Absolute Eosinophils 0.00 k/cumm (0.0-0.7) 12/12/18 07:20 Absolute Basophils 0.00 k/cumm (0.0-0.2) 12/12/18 07:20 Agrees w/ instrument 12/12/18 07:20 RBC Morphology Normal 12/12/18 07:20 PT 11.5 sec (9.3-11.0) H 12/10/18 19:18 INR 1.1 (0.9-1.1) 12/10/18 19:18 APTT 25.2 sec (21.0-31.4) 12/10/18 19:18 1230 ng/mlFEU (<500) H 12/10/18 19:18 Sodium 131 mmol/L (136-145) L 12/12/18 07:20 Potassium 4.5 mmol/L (3.5-5.1) 12/12/18 07:20 Chloride 97 mmol/L (98-107) L 12/12/18 07:20 Carbon Dioxide 20.6 mmol/L (21.0-32.0) L 12/12/18 07:20 13.4 mmol/L (3-11) H 12/12/18 07:20 BUN 73 mg/dL (7-18) H D 12/12/18 07:20 2.12 mg/dL (0.70-1.30) H 12/12/18 07:20 30.61 (mL/min/1.73m2) 12/12/18 07:20 Glucose 279 mg/dL (70-100) H 12/12/18 07:20 Calcium 9.0 mg/dL (8.5-10.1) 12/12/18 07:20 Magnesium 2.5 mg/dL (1.8-2.4) H 12/12/18 07:20 0.7 mg/dL (0.2-1.0) 12/11/18 07:23 AST 12 U/L (15-37) L 12/11/18 07:23 ALT 19 U/L (12-78) 12/11/18 07:23 79 U/L (46-116) 12/11/18 07:23 < 0.05 ng/mL (0.00-0.06) 12/12/18 07:20 NT-Pro-B Natriuret Pep 3081 pg/mL (-299) H 12/10/18 19:18 7.5 g/dL (6.4-8.2) 12/11/18 07:23 3.3 g/dL (3.4-5.0) L 12/11/18 07:23 2.9 ng/mL 12/12/18 07:20 Stl Occult Bld Clinic Cancelled 12/11/18 Unknown
--- NOTE | 2018-12-12 17:09 | PT.INTREAT ---
Date of service: 12/12/18 Time of Service: 15:59 PT Notes Inpatient Physical Therapy Treatment Note [facility] Date: 12/12/2018 PRECAUTIONS: Fall. Contact precautions. Activity as tolerated. SUBJECTIVE: Patient reports being fatigued from all testing that was done this afternoon. He is still agreeable to a short therapy session. He now complains of increased pain on the right knee at 5/10 especially with weightbearing. OBJECTIVE: Bilateral knee-high TEDS. Now with IV in the left UE. PAIN: 5/10 on right knee with weightbearing BED MOBILITY/TRANSFERS Rolling L/R: Independent Supine-sit: Independent Sit-supine: Independent Sit-stand: Supervision Stand-sit: Supervision Bed-Chair: Supervision Chair-bed: Supervision GAIT Assistive Device: No assistive device. Weight bearing: FWB Assist: Supervision Distance: 45 feet Deviation: Mild foot slap on the right LE with pain complaint on the right knee with weight bearing at 5/10. VITALS: Oxygen saturation stayed between 90% to 95% on room air with mild shortness of breath noted that subsided with rest THEREX: Patient was able to tolerate seated level BLE exercises working on hip flexion, knee extension,hip ER and IR as well ankle DF and PF x10. ASSESSMENT: Patient's activity tolerance reduced today laboratory testing and pain report 5/10 on right knee. Patient will continue to assist in order to address impairments and activity tolerance as well as functional mobility level. PLAN: Patient will benefit from home health PT services in order to progress mobility level using least restrictive assistive ambulatory device/using no device, assess home safety, identify additional equipment needs, and establish a functional maintenance program that will increase ability of patient to remain at home. TREATMENT CODE/TIME: 08274 x 21 minutes beginning at 15:59 PM.
[2018-12-12] MEDS: Furosemide 20 MG/2 ML VIAL IVP (17:24)
[2018-12-13] VITALS (10 sets, daily range): BP systolic 117–147; BP diastolic 65–75; PULSE 64–77; RESP 18–22; TEMP 36.1–36.9; O2SAT 89–96
[2018-12-13] MEDS: PIPERACILLIN/TAZO 2.25 GM in Normal Saline 50 ML IVPB ×4 (04:39→21:39)
[2018-12-13 06:51] LABS: Abs Immature Grans 0.05 k/cumm (0.0-0.09); Absolute Lymphocyte Count 0.54 k/cumm (1.2-3.4); Absolute Monocyte Count 0.77 k/cumm (0.11-0.7); Absolute Neutrophil Count 17.81 k/cumm (1.2-6.7); HCT 34.7 % (40.0-50.0); HGB 11.4 g/dL (13.5-17.5); Immature Grans % 0.3; Lymphocytes % 2.8; Mean Corp. HGB Concentration 32.9 g/dL (32.0-36.0); Mean Corpuscular Hemoglobin 28.9 pg (27.0-33.0); Mean Corpuscular Volume 87.8 fL (80-95); Mean Platelet Volume 11.4 fL (8.0-11.0); Neutrophils % 92.9; Platelet Count 195 x1000/uL (130-400); RBC 3.95 m/cumm (4.50-6.00); RBC Distribution Width 14.8 % (11.8-14.1); White Blood Cell Count 19.17 k/cumm (4.4-10.8)
[2018-12-13 07:10] LABS: Anion Gap 10.5 mmol/L (3-11); BUN 78 mg/dL (7-18); CO2 21.5 mmol/L (21.0-32.0); CREATININE 2.02 mg/dL (0.70-1.30); Calcium 8.6 mg/dL (8.5-10.1); Chloride 100 mmol/L (98-107); Estimated GFR 32.36 (mL/min/1.73m2); Glucose 192 mg/dL (70-100); Magnesium 2.3 mg/dL (1.8-2.4); Potassium 4.5 mmol/L (3.5-5.1); Sodium 132 mmol/L (136-145)
--- NOTE | 2018-12-13 08:00 | DI.RAD_ITS ---
SYMPTOM/DIAGNOSIS: FOLLOW UP RUL PNEUMONIA PA AND LATERAL CHEST: 12/13/18 Examination is compared with previous examination of 12/10/18 and there has been significant interval clearing of apparent right upper lobe pneumonia. Some faint consolidation persists in this area. Chronic bilateral fibrotic changes again noted. No pleural effusion seen. Mitral valve prosthesis again noted in position, CONCLUSION: Findings consistent with interval improvement in right upper lobe pneumonia
[2018-12-13] MEDS: Insulin Glargine 300 UNITS/3 ML PEN 10 UNITS SC (08:05)
[2018-12-13] MEDS: Fluticasone NASAL SPRAY 16 GM BTL NS ×2 (08:05→20:22)
[2018-12-13] MEDS: Insulin Aspart 300 UNITS/3 ML PEN SC ×4 (08:06→21:39)
[2018-12-13] MEDS: Allopurinol 300 MG TAB 150 MG PO (08:07)
[2018-12-13] MEDS: Ketoconazole 2% CREAM 15 GM TUBE TP (08:07)
[2018-12-13] MEDS: Gabapentin 300 MG CAP 600 MG PO ×3 (08:08→20:21)
[2018-12-13] MEDS: Lactobacillus Acidophilus CAP 1 CAP PO ×3 (08:08→20:21)
[2018-12-13] MEDS: Metoprolol CR 100 MG TABCR PO (08:08)
[2018-12-13] MEDS: Omeprazole 20 MG CAPCR 40 MG PO (08:08)
[2018-12-13] MEDS: predniSONE 20 MG TAB 40 MG PO (08:08)
[2018-12-13] MEDS: FLUoxetine 20 MG CAP PO (08:08)
[2018-12-13] MEDS: Budesonide/Formoterol 160/4.5 6 GM 60 PUFF INH IH ×2 (08:11→20:22)
[2018-12-13] MEDS: Furosemide 40 MG TAB PO ×2 (08:11→16:56)
--- NOTE | 2018-12-13 08:20 | CMPROGNOTE_ITS ---
- If Service Date Differs Date of service: 12/13/18 Time of Service: 08:20 Care Management Progress Note S/O:Jeronimo will be discharged home today with no new services. A: Jeronimo is a 73 year old man admitted to [facility] on 12/10/18 with RUL Pneumonia P: Jeronimo will be discharged home today with no additional services. He will transport via private vehicle with his . Jeronimo will follow up with his PCP and discharge plan of care.
[2018-12-13] MEDS: DOXYCYCLINE 100 MG in Normal Saline 100 ML IVPB (11:21)
[2018-12-13] MEDS: Atorvastatin 20 MG TAB PO (12:02)
--- NOTE | 2018-12-13 12:34 | PT.INTREAT ---
Date of service: 12/13/18 Time of Service: 12:34 PT Notes Inpatient Physical Therapy Treatment Note [facility] Date: 12/13/2018 PRECAUTIONS: Fall SUBJECTIVE: Patient is agreeable to participating in PT, reporting that he hopes to go home today. Patient reports he has been moving around independently within his room, he states he feels safe doing this. OBJECTIVE: PAIN: No c/o pain BED MOBILITY/TRANSFERS Sit-stand: I Stand-sit: I GAIT Assistive Device: No AD Weight bearing: Full Assist: S Distance: 200' in a.m.; 300' in p.m. Deviation: Mild SOB, foot slap on R LE THEREX: Patient completed a LE strengthening program, in a standing position, as per flow sheet. He performs functional sit?to?stand exercise and p.m. without UE support. He demonstrates slight SOB with exercises. STAIRS: Up/down 3x4 and 2x6 using B rails and a step-over pattern with supervision ASSESSMENT: Patient's activity tolerated a progression in gait distance without use of assistive device and with supervision. He does demonstrate mild SOB with activity. PLAN: Continue with PT's POC TREATMENT CODE/TIME: Session 1: 30 minutes; 52352, [id number] Session 2: 25 minutes; 79447, [id number]
--- NOTE | 2018-12-13 15:19 | W.PM.PROGNOT ---
Date of Service Date of service: 12/13/18 Time of Service: 15:19 Assessment and Plan (1) Pneumonia: Current visit: Yes Status: Acute RUL PNA - aspiration pneumonia actually more likely based on the fact that there was vomiting prior to presentation. Seems to have had a better response to zosyn than to rocephin, and CXR is better today, but procalcitonin is still high (but better). D/c doxycycline, repeat procalcitonin and monitor overnight. Qualifiers: Pneumonia type: due to unspecified organism Laterality: right Lung location: upper lobe of lung Qualified Code(s): J18.1 - Lobar pneumonia, unspecified organism (2) Dizziness: Current visit: Yes Status: Resolved Not orthostatic. No PE. Nothing on echo explains dizziness. (3) Hemoptysis: Current visit: Yes Status: Resolved Scant, due to PNA. NO evidence of PE on VQ scan. ok to start heparin for DVT ppx. (4) Edema of both legs: Current visit: Yes Status: Acute Due to CHF. No evidence of DVT. Continue lasix. (5) Diarrhea: Current visit: Yes Status: Chronic Will need outpatient follow up. Water quality is still being checked and stool studies will be checked if the patient has another bout of diarrhea - but it does not seem to be a problem today. (6) Systolic CHF, chronic: Current visit: No Status: Chronic EF is 50%, diastolic dysfunction. This does not explain the run of VTach while awake yesterday. (7) Gastroesophageal reflux disease: Current visit: No Status: Acute Patient was on PPI and H2 ric as outpatient - both could be contributing to diarrhea. Doing ok off of H2 ric. (8) Diabetes mellitus type 2, controlled: Current visit: No Status: Acute Does have some steroid induced hyperglycemia. Decrease lantus as I am tapering steroids. Continue SSI. Qualifiers: Diabetes mellitus detention insulin use: without intermediate designer use Diabetes mellitus complication status: with neurologic complications Diabetes mellitus complication detail: with other neurological complication Qualified Code(s): E11.49 - Type 2 diabetes mellitus with other diabetic neurological complication (9) Coronary artery disease involving coronary bypass graft of [place] heart: Current visit: No Status: Acute No ACS by troponins. Did have an episode of Nonsustained Vtach - continue to monitor on tele. Could benefit from Zio patch monitoring as outpatient. Qualifiers: Associated angina: without angina Qualified Code(s): I25.810 - Atherosclerosis of coronary artery bypass graft(s) without angina pectoris (10) Acute kidney injury superimposed on chronic kidney disease: Current visit: Yes Status: Resolved Continue lasix; Hold losartan at this time. Monitor I/O's and daily weights. (11) DVT prophylaxis: Current visit: Yes Status: Acute TEDS + SCDs. Resume heparin. (12) Discharge planning issues: Current visit: Yes Status: Acute DNR/DNI Subjective Interval history since last seen: The patient reports he feels much better today. He does not require oxygen on ambulation. Denies dizziness, chest pain, got only a little short of breath after a pretty long walk, denies n/v. No hemoptysis at all today - last happened yesterday. He is inquiring if he can go home. States that he gets pain in his neck from wearing telemetry. Exam Narrative Exam Narrative: General: very pleasant elderly male, hard of hearing, A&Ox3, anxious, sitting in a chair. HEENT: EOMI, MMM Heart: RRR, MUMTAZ Lungs: CTAB GI: abdomen is soft, nontender, nondistended Extremities: symmetric +1 BLE edema, not wearing TEDs, edema is a little better, no c/c Objective Objective Clinical Data: Abnormal lab results 12/13/18 12/13/18 Range/Units 06:05 06:05 WBC 19.17 H (4.4-10.8) k/cumm RBC 3.95 L (4.50-6.00) m/cumm Hgb 11.4 L (13.5-17.5) g/dL Hct 34.7 L (40.0-50.0) % RDW 14.8 H (11.8-14.1) % MPV 11.4 H (8.0-11.0) fL Absolute Neutrophils 17.81 H (1.2-6.7) k/cumm Absolute Lymphocytes 0.54 L (1.2-3.4) k/cumm Absolute Monocytes 0.77 H (0.11-0.7) k/cumm Sodium 132 L (136-145) mmol/L BUN 78 H (7-18) mg/dL Creatinine 2.02 H (0.70-1.30) mg/dL Glucose 192 H D (70-100) mg/dL Vital Signs Temperature 36.3 C L 12/13/18 12:18 Temperature Source Tympanic 12/13/18 12:18 Pulse 66 12/13/18 12:18 Pulse Rhythm Regular 12/12/18 20:20 Pulse 98 H 12/10/18 20:40 Respiratory Rate 18 12/13/18 12:18 Respiratory Effort 12/12/18 20:20 Respiratory Depth Normal 12/12/18 20:20 Respiratory Pattern Normal 12/12/18 20:20 Blood Pressure 122/69 12/13/18 12:18 Blood Pressure Mean 69 12/10/18 19:02 Blood Pressure Position Sitting 12/10/18 19:03 Pulse Oximetry 94 L 12/13/18 12:18 Oxygen Delivery Method Room Air 12/13/18 12:18 Oxygen Flow Rate 0 12/13/18 12:18 Pain Level 0 12/13/18 12:18 Comment 12/12/18 10:10 Intake & Output 12/12/18 12/13/18 12/13/18 23:59 11:59 23:59 Intake Total 680 / 1780 390 / 780 390 / 780 Output Total 650 / 850 Balance 30 / 930 390 / 780 390 / 780 Weight 107.6 kg Intake: IV 200 / 1300 150 / 300 150 / 300 Oral 480 / 480 240 / 480 240 / 480 Output: Urine 650 / 850 Other: Urine Color Yellow Urine Appearance Clear Stool Occult Blood Negative Stool Size Moderate Stool Characteristics Soft Brown Voiding Methods Toilet Laboratory Results WBC 19.17 k/cumm (4.4-10.8) H 12/13/18 06:05 RBC 3.95 m/cumm (4.50-6.00) L 12/13/18 06:05 Hgb 11.4 g/dL (13.5-17.5) L 12/13/18 06:05 Hct 34.7 % (40.0-50.0) L 12/13/18 06:05 MCV 87.8 fL (80-95) 12/13/18 06:05 MCH 28.9 pg (27.0-33.0) 12/13/18 06:05 MCHC 32.9 g/dL (32.0-36.0) 12/13/18 06:05 RDW 14.8 % (11.8-14.1) H 12/13/18 06:05 Plt Count 195 x1000/uL (130-400) 12/13/18 06:05 MPV 11.4 fL (8.0-11.0) H 12/13/18 06:05 Immature Gran % 0.3 12/13/18 06:05 92.9 12/13/18 06:05 2.8 12/13/18 06:05 4.0 12/13/18 06:05 0.0 12/13/18 06:05 0.0 12/13/18 06:05 Absolute Neutrophils 17.81 k/cumm (1.2-6.7) H 12/13/18 06:05 Absolute Lymphocytes 0.54 k/cumm (1.2-3.4) L 12/13/18 06:05 Absolute Monocytes 0.77 k/cumm (0.11-0.7) H 12/13/18 06:05 Absolute Eosinophils 0.00 k/cumm (0.0-0.7) 12/13/18 06:05 Absolute Basophils 0.00 k/cumm (0.0-0.2) 12/13/18 06:05 Agrees w/ instrument 12/12/18 07:20 RBC Morphology Normal 12/12/18 07:20 PT 11.5 sec (9.3-11.0) H 12/10/18 19:18 INR 1.1 (0.9-1.1) 12/10/18 19:18 APTT 25.2 sec (21.0-31.4) 12/10/18 19:18 1230 ng/mlFEU (<500) H 12/10/18 19:18 Sodium 132 mmol/L (136-145) L 12/13/18 06:05 Potassium 4.5 mmol/L (3.5-5.1) 12/13/18 06:05 Chloride 100 mmol/L (98-107) 12/13/18 06:05 Carbon Dioxide 21.5 mmol/L (21.0-32.0) 12/13/18 06:05 10.5 mmol/L (3-11) 12/13/18 06:05 BUN 78 mg/dL (7-18) H 12/13/18 06:05 2.02 mg/dL (0.70-1.30) H 12/13/18 06:05 32.36 (mL/min/1.73m2) 12/13/18 06:05 Glucose 192 mg/dL (70-100) H D 12/13/18 06:05 Calcium 8.6 mg/dL (8.5-10.1) 12/13/18 06:05 Magnesium 2.3 mg/dL (1.8-2.4) 12/13/18 06:05 0.7 mg/dL (0.2-1.0) 12/11/18 07:23 AST 12 U/L (15-37) L 12/11/18 07:23 ALT 19 U/L (12-78) 12/11/18 07:23 79 U/L (46-116) 12/11/18 07:23 < 0.05 ng/mL (0.00-0.06) 12/12/18 07:20 NT-Pro-B Natriuret Pep 3081 pg/mL (-299) H 12/10/18 19:18 7.5 g/dL (6.4-8.2) 12/11/18 07:23 3.3 g/dL (3.4-5.0) L 12/11/18 07:23 2.0 ng/mL 12/13/18 06:05 Stl Occult Bld Clinic Cancelled 12/11/18 Unknown Legionella Source (see note) 12/11/18 14:12 Legionella Reprt Status (see note) 12/11/18 14:12 Legionella Final Result (see note) 12/11/18 14:12 CXR: Findings consistent with interval improvement in right upper lobe pneumonia Echo: 1. Left ventricle: The cavity size was normal. The estimated ejection fraction was 50%. The study is not technically sufficient to allow evaluation of LV diastolic function. 2. Mitral valve: A bioprosthesis was present and functioning normally. The sewing ring appeared normal. Peak E-wave velocity: 1.91m/sec. Pressure half-time: 85ms. DOI = 1.6. EOA = 2.4. Mean gradient = 8.5 mmHg at 83 bpm. 3. Left atrium: The atrium was mildly dilated. 4. Right ventricle: The cavity size was normal. Wall thickness was normal. Systolic function was normal. 5. Pulmonary arteries: Pulmonary systolic pressure was in the range of 35mm Hg to 45mm Hg. 6. Inferior vena cava: The vessel was patent and normal in size. The respirophasic diameter changes were in the normal range (greater than or equal to 50%), consistent with normal central venous pressure.
[2018-12-13 17:03] LABS: Streptococcus Pneumoniae Ag, U Negative (Negative)
--- NOTE | 2018-12-13 17:25 | PDOC.CMDIS ---
- If Service Date Differs Date of service: 12/13/18 Time of Service: 17:25 LACE Index Scoring Tool - Questions: Length of Stay (in days): 3 Acuity (Admit via E.D.?): Yes Comorbidities: Diabetes w/o Complication, Congestive Heart Failure, Chronic Pulmonary Disease, Dementia, Liver or Renal Disease E.D. Visits: 3 - Answers: Total Score: 14 Risk of Readmission: High Risk Care Management Discharge Reason for Hospitalization: Right Upper Lobe pneumonia Discharge Plan: Jeronimo will be discharged home today with no additional services. He will transport via private vehicle with his . Jeronimo will follow up with his PCP and discharge plan of care. Patient/Family Education Needs: Discharge plan, limitations, follow up plan, Ask Me Three.
[2018-12-14] VITALS (8 sets, daily range): BP systolic 111–161; BP diastolic 53–84; PULSE 64–72; RESP 18–21; TEMP 36.1–37; O2SAT 92–95
[2018-12-14] MEDS: PIPERACILLIN/TAZO 2.25 GM in Normal Saline 50 ML IVPB ×2 (04:44→09:57)
[2018-12-14 06:51] LABS: Abs Immature Grans 0.05 k/cumm (0.0-0.09); Absolute Basophil Count 0.01 k/cumm (0.0-0.2); Absolute Lymphocyte Count 1.07 k/cumm (1.2-3.4); Absolute Monocyte Count 1.46 k/cumm (0.11-0.7); Absolute Neutrophil Count 11.74 k/cumm (1.2-6.7); Basophils % 0.1; HCT 36.9 % (40.0-50.0); HGB 12.1 g/dL (13.5-17.5); Immature Grans % 0.3; Lymphocytes % 7.5; Mean Corp. HGB Concentration 32.8 g/dL (32.0-36.0); Mean Corpuscular Hemoglobin 28.9 pg (27.0-33.0); Mean Corpuscular Volume 88.1 fL (80-95); Mean Platelet Volume 10.8 fL (8.0-11.0); Monocytes % 10.2; Neutrophils % 81.9; Platelet Count 214 x1000/uL (130-400); RBC 4.19 m/cumm (4.50-6.00); RBC Distribution Width 14.8 % (11.8-14.1); White Blood Cell Count 14.33 k/cumm (4.4-10.8)
[2018-12-14 07:13] LABS: Anion Gap 11.1 mmol/L (3-11); CO2 23.9 mmol/L (21.0-32.0); Calcium 8.9 mg/dL (8.5-10.1); Chloride 102 mmol/L (98-107); Estimated GFR 27.86 (mL/min/1.73m2); Glucose 143 mg/dL (70-100); Magnesium 2.4 mg/dL (1.8-2.4); Potassium 4.2 mmol/L (3.5-5.1); Sodium 137 mmol/L (136-145)
[2018-12-14 07:20] LABS: BUN 80 mg/dL (7-18)
[2018-12-14 07:42] LABS: Procalcitonin 0.9 ng/mL
[2018-12-14] MEDS: Lactobacillus Acidophilus CAP 1 CAP PO ×3 (07:46→20:17)
[2018-12-14] MEDS: Fluticasone NASAL SPRAY 16 GM BTL NS ×2 (07:46→20:17)
[2018-12-14] MEDS: Metoprolol CR 100 MG TABCR PO (07:46)
[2018-12-14] MEDS: predniSONE 20 MG TAB PO (07:46)
[2018-12-14] MEDS: Gabapentin 300 MG CAP 600 MG PO ×3 (07:46→20:17)
[2018-12-14] MEDS: Omeprazole 20 MG CAPCR 40 MG PO (07:46)
[2018-12-14] MEDS: FLUoxetine 20 MG CAP PO (07:46)
[2018-12-14] MEDS: Heparin 5,000 UNITS/ML VIAL 5000 UNITS SC ×2 (07:49→18:02)
[2018-12-14] MEDS: Normal Saline Flush 10 ML SYR IVP ×2 (09:57→13:25)
[2018-12-14] MEDS: Ketoconazole 2% CREAM 15 GM TUBE TP (09:58)
[2018-12-14] MEDS: Budesonide/Formoterol 160/4.5 6 GM 60 PUFF INH IH ×2 (10:14→20:18)
[2018-12-14 11:32] LABS: Campylobacter PCR SEE COMMENTS; Salmonella PCR SEE COMMENTS; Shiga Toxin PCR SEE COMMENTS; Shigella/Enteroinvasive Ecoli SEE COMMENTS
[2018-12-14] MEDS: Atorvastatin 20 MG TAB PO (11:57)
[2018-12-14] MEDS: Insulin Aspart 300 UNITS/3 ML PEN SC ×2 (11:57→21:38)
[2018-12-14] MEDS: Furosemide 40 MG TAB PO (11:57)
--- NOTE | 2018-12-14 12:40 | PT.INTREAT ---
Date of service: 12/14/18 Time of Service: 12:41 PT Notes Inpatient Physical Therapy Treatment Note [facility] Date: 12/14/2018 PRECAUTIONS: Fall SUBJECTIVE: Patient is agreeable to participating in PT, reporting that he hopes to go home today. Patient reports he has been moving around independently within his room, he states he feels safe doing this. OBJECTIVE: PAIN: No c/o pain BED MOBILITY/TRANSFERS Sit-stand: I Stand-sit: I GAIT Assistive Device: No AD Weight bearing: Full Assist: S Distance: 400' in a.m.; 400' in p.m. Deviation: Mild SOB, foot slap on R LE THEREX: Patient completed functional sit?to?stand exercise without UE support. He demonstrates slight SOB with exercises. ASSESSMENT: Patient tolerated a progression in gait distance without use of assistive device and with supervision. He does demonstrate mild SOB with activity. PLAN: Continue with PT's POC TREATMENT CODE/TIME: Session 1: 25 minutes; 79115 x2 Session 2: 10 minutes; 40914
[2018-12-14] MEDS: Normal Saline 500 ML IV (13:26)
[2018-12-14] MEDS: levoFLOXacin 500 MG, levoFLOXacin 250 MG 750 MG PO (13:27)
--- NOTE | 2018-12-14 14:22 | W.INDIABCONS ---
Date of service: 12/14/18 Time of Service: 14:23 Diabetes Inpatient Consult DESCRIPTION/ASSESSMENT: Appreciate diabetes consult for Mr. Archer who is hospitalized with pneumonia. A1c 7.2 down from 7.7. Blood sugars here 196-373mg/dl taking prednisone at 40mg/day. He is managing diabetes here with 10u Glargine twice daily and moderate insulin correction. At home he only takes Glipizide. States he tests his blood sugars some mornings. He basically eats what he wants but does watch frequency of sweets. He admits to having bread with all meals and loves corn on the cob. He is physically inactive secondary to swollen legs and difficulty with high movement. INTERVENTION: Discussed changes he could make to his current food plan including cutting back on juice portion and decreasing frequency and quantity of bread; exchanging bread for corn during this season. Reviewed diabetes food guide. Explained impact of steroid on blood sugar. If his prednisone dose is remaining elevated, he may benefit from mealtime insulin at 1 unit covers 10grams carbohydrate. PLAN: He will attempt to decrease frequency of bread consumption. Will follow blood sugars
--- NOTE | 2018-12-14 16:57 | W.PM.PROGNOT ---
Date of Service Date of service: 12/14/18 Time of Service: 16:57 Assessment and Plan (1) Pneumonia: Current visit: Yes Status: Acute RUL PNA - aspiration pneumonia actually more likely based on the fact that there was vomiting prior to presentation. Symptoms and laboratory values improving on Zosyn. Was previously on Rocephin and doxy. Chest x-ray showed improvement yesterday. Procalcitonin improved this morning. Transition to oral Levaquin in anticipation for possible discharge tomorrow. Repeat CBC and procalcitonin tomorrow morning. Qualifiers: Pneumonia type: due to unspecified organism Laterality: right Lung location: upper lobe of lung Qualified Code(s): J18.1 - Lobar pneumonia, unspecified organism (2) Dizziness: Current visit: Yes Status: Resolved No reports of dizziness today. Ruled out for PE. (3) Hemoptysis: Current visit: Yes Status: Resolved Appears to be resolved. No evidence of PE on VQ scan. Continue to monitor. (4) Edema of both legs: Current visit: Yes Status: Acute Left greater than right, baseline per patient. Patient reports improvement in edema. Hold Lasix today in the setting of acute kidney injury. Reassess renal function tomorrow. (5) Diarrhea: Current visit: Yes Status: Chronic No further diarrhea today. (6) Systolic CHF, chronic: Current visit: No Status: Chronic EF is 50%, diastolic dysfunction. (7) Gastroesophageal reflux disease: Current visit: No Status: Acute Has been on both H2 ric and PPI as an outpatient. H2 ric currently on hold. No increase in GERD symptoms. (8) Diabetes mellitus type 2, controlled: Current visit: No Status: Acute Blood glucose under reasonable control. Continue to monitor blood sugars, continue sliding scale insulin. Qualifiers: Diabetes mellitus medical terminologist insulin use: without retirement use Diabetes mellitus complication status: with neurologic complications Diabetes mellitus complication detail: with other neurological complication Qualified Code(s): E11.49 - Type 2 diabetes mellitus with other diabetic neurological complication (9) Coronary artery disease involving coronary bypass graft of [place] heart: Current visit: No Status: Acute No further episodes of nonsustained VT on telemetry. EKG shows no change from previous today. Continue to monitor on telemetry. Consider ZIO patch monitoring as an outpatient. Qualifiers: Associated angina: without angina Qualified Code(s): I25.810 - Atherosclerosis of coronary artery bypass graft(s) without angina pectoris (10) Acute kidney injury superimposed on chronic kidney disease: Current visit: Yes Status: Resolved Creatinine increased today. Losartan currently on hold. Hold lasix today. Repeat BMP in the morning (11) DVT prophylaxis: Current visit: Yes Status: Acute Subcutaneous heparin. Continue teds and SCDs. (12) Discharge planning issues: Current visit: Yes Status: Acute He is a DNR/DNI. Likely for discharge in the next 24 hours pending response to transitioning to oral antibiotics. This case was discussed with Dr. Schneider who is in agreement. Subjective Interval history since last seen: Jeronimo Archer reports feeling better today. He continues to have shortness of breath with activity. His cough is improving. He is not wheezing. He denies chest pain/pressure, palpitations. He continues to have edema, he reports improvement in his bilateral lower extremities, he reports that the left leg always has more edema than the right. He denies nausea, vomiting, abdominal pain. He is eating and drinking and tolerating his diet. His bowels and bladder are functioning normally. Exam Narrative Exam Narrative: General: very pleasant elderly male, hard of hearing, A&Ox3, sitting up at the edge of bed, in NAD. His is present. HEENT: Normocephalic, atraumatic, pupils equal and round, EOMI, MMM Heart: Heart has regular rate and rhythm, systolic ejection murmur noted. Lungs: Respirations. And unlabored, lung sounds clear bilaterally. GI: Normoactive bowel sounds, abdomen is soft, nontender, nondistended Extremities: Bilateral lower extremity edema, left greater than right (baseline per patient report). Pedal pulses are palpable bilaterally. Objective Objective Clinical Data: Abnormal lab results 12/14/18 12/14/18 Range/Units 06:28 06:28 WBC 14.33 H (4.4-10.8) k/cumm RBC 4.19 L (4.50-6.00) m/cumm Hgb 12.1 L (13.5-17.5) g/dL Hct 36.9 L (40.0-50.0) % RDW 14.8 H (11.8-14.1) % Absolute Neutrophils 11.74 H (1.2-6.7) k/cumm Absolute Lymphocytes 1.07 L (1.2-3.4) k/cumm Absolute Monocytes 1.46 H (0.11-0.7) k/cumm Anion Gap 11.1 H (3-11) mmol/L BUN 80 H* (7-18) mg/dL Creatinine 2.30 H (0.70-1.30) mg/dL Glucose 143 H (70-100) mg/dL Vital Signs Temperature 36.7 C 12/14/18 16:24 Temperature Source Tympanic 12/14/18 16:24 Pulse 68 12/14/18 16:24 Pulse Rhythm Regular 12/14/18 07:40 Pulse 98 H 12/10/18 20:40 Respiratory Rate 19 12/14/18 16:24 Respiratory Effort Non-Labored 12/14/18 07:40 Respiratory Depth Normal 12/14/18 07:40 Respiratory Pattern Normal 12/14/18 07:40 Blood Pressure 147/84 H 12/14/18 16:24 Blood Pressure Mean 69 12/10/18 19:02 Blood Pressure Position Sitting 12/10/18 19:03 Pulse Oximetry 92 L 12/14/18 16:24 Oxygen Delivery Method Room Air 12/14/18 16:24 Oxygen Flow Rate 0 12/14/18 16:24 Pain Level 0 12/14/18 16:24 Comment 12/12/18 10:10 Intake & Output 12/13/18 12/14/18 12/14/18 23:59 11:59 23:59 Intake Total 730 / 1120 420 / 470 50 / 470 Balance 730 / 1120 420 / 470 50 / 470 Weight 107.1 kg Intake: IV 250 / 400 50 / 100 50 / 100 Oral 480 / 720 370 / 370 Other: Urine Color Yellow Urine Appearance Clear Urine Odor Normal Voiding Methods Toilet Laboratory Results WBC 14.33 k/cumm (4.4-10.8) H 12/14/18 06:28 RBC 4.19 m/cumm (4.50-6.00) L 12/14/18 06:28 Hgb 12.1 g/dL (13.5-17.5) L 12/14/18 06:28 Hct 36.9 % (40.0-50.0) L 12/14/18 06:28 MCV 88.1 fL (80-95) 12/14/18 06:28 MCH 28.9 pg (27.0-33.0) 12/14/18 06:28 MCHC 32.8 g/dL (32.0-36.0) 12/14/18 06:28 RDW 14.8 % (11.8-14.1) H 12/14/18 06:28 Plt Count 214 x1000/uL (130-400) 12/14/18 06:28 MPV 10.8 fL (8.0-11.0) 12/14/18 06:28 Immature Gran % 0.3 12/14/18 06:28 81.9 12/14/18 06:28 7.5 12/14/18 06:28 10.2 12/14/18 06:28 0.0 12/14/18 06:28 0.1 12/14/18 06:28 Absolute Neutrophils 11.74 k/cumm (1.2-6.7) H 12/14/18 06:28 Absolute Lymphocytes 1.07 k/cumm (1.2-3.4) L 12/14/18 06:28 Absolute Monocytes 1.46 k/cumm (0.11-0.7) H 12/14/18 06:28 Absolute Eosinophils 0.00 k/cumm (0.0-0.7) 12/14/18 06:28 Absolute Basophils 0.01 k/cumm (0.0-0.2) 12/14/18 06:28 Agrees w/ instrument 12/12/18 07:20 RBC Morphology Normal 12/12/18 07:20 PT 11.5 sec (9.3-11.0) H 12/10/18 19:18 INR 1.1 (0.9-1.1) 12/10/18 19:18 APTT 25.2 sec (21.0-31.4) 12/10/18 19:18 1230 ng/mlFEU (<500) H 12/10/18 19:18 Sodium 137 mmol/L (136-145) 12/14/18 06:28 Potassium 4.2 mmol/L (3.5-5.1) 12/14/18 06:28 Chloride 102 mmol/L (98-107) 12/14/18 06:28 Carbon Dioxide 23.9 mmol/L (21.0-32.0) 12/14/18 06:28 11.1 mmol/L (3-11) H 12/14/18 06:28 BUN 80 mg/dL (7-18) H* 12/14/18 06:28 2.30 mg/dL (0.70-1.30) H 12/14/18 06:28 27.86 (mL/min/1.73m2) 12/14/18 06:28 Glucose 143 mg/dL (70-100) H 12/14/18 06:28 Calcium 8.9 mg/dL (8.5-10.1) 12/14/18 06:28 Magnesium 2.4 mg/dL (1.8-2.4) 12/14/18 06:28 0.7 mg/dL (0.2-1.0) 12/11/18 07:23 AST 12 U/L (15-37) L 12/11/18 07:23 ALT 19 U/L (12-78) 12/11/18 07:23 79 U/L (46-116) 12/11/18 07:23 < 0.05 ng/mL (0.00-0.06) 12/12/18 07:20 NT-Pro-B Natriuret Pep 3081 pg/mL (-299) H 12/10/18 19:18 7.5 g/dL (6.4-8.2) 12/11/18 07:23 3.3 g/dL (3.4-5.0) L 12/11/18 07:23 0.9 ng/mL 12/14/18 06:28 (see note) 12/12/18 19:45 Stl Occult Bld Clinic Cancelled 12/11/18 Unknown Stool Campylobacter PCR See comments 12/12/18 19:45 Stool Salmonella PCR See comments 12/12/18 19:45 Stool Shigella PCR See comments 12/12/18 19:45 Cryptosporidium/Giardia (see note) 12/12/18 19:45 Legionella Source (see note) 12/11/18 14:12 Legionella Reprt Status (see note) 12/11/18 14:12 Legionella Final Result (see note) 12/11/18 14:12 See comments 12/12/18 19:45 Ur Strep pneumoniae Ag Negative (Negative) 12/11/18 14:12 Parasite Rprt Status (see note) 12/12/18 19:45
--- NOTE | 2018-12-14 19:18 | CMPROGNOTE_ITS ---
- If Service Date Differs Date of service: 12/14/18 Time of Service: 19:18 Care Management Progress Note S/O:Jeronimo will likely be discharged home tomorrow. He is still receiving IV antibiotics and is slowly improving. A: Jeronimo is a 73 year old man admitted to [facility] on 12/10/18 with RUL Pneumonia P: Jeronimo will be discharged home today with no additional services. He will transport via private vehicle with his . Jeronimo will follow up with his PCP and discharge plan of care.
[2018-12-14] MEDS: Insulin Glargine 300 UNITS/3 ML PEN 10 UNITS SC (21:37)
[2018-12-15 00:05] VITALS: PULSE 73
[2018-12-15] MEDS: Heparin 5,000 UNITS/ML VIAL 5000 UNITS SC ×2 (00:39→08:49)
[2018-12-15 04:45] VITALS: PULSE 70; RESP 18
[2018-12-15 06:59] LABS: Abs Immature Grans 0.06 k/cumm (0.0-0.09); Absolute Eosinophil Count 0.04 k/cumm (0.0-0.7); Absolute Lymphocyte Count 1.95 k/cumm (1.2-3.4); Absolute Monocyte Count 1.08 k/cumm (0.11-0.7); Absolute Neutrophil Count 7.13 k/cumm (1.2-6.7); Eosinophils % 0.4; HCT 39.1 % (40.0-50.0); HGB 12.9 g/dL (13.5-17.5); Immature Grans % 0.6; Mean Corpuscular Volume 87.9 fL (80-95); Mean Platelet Volume 10.6 fL (8.0-11.0); Monocytes % 10.5; Neutrophils % 69.5; Platelet Count 197 x1000/uL (130-400); RBC 4.45 m/cumm (4.50-6.00); RBC Distribution Width 14.9 % (11.8-14.1); White Blood Cell Count 10.26 k/cumm (4.4-10.8)
[2018-12-15 07:11] LABS: Anion Gap 11.3 mmol/L (3-11); BUN 59 mg/dL (7-18); CO2 24.7 mmol/L (21.0-32.0); CREATININE 1.87 mg/dL (0.70-1.30); Calcium 8.9 mg/dL (8.5-10.1); Chloride 104 mmol/L (98-107); Estimated GFR 35.38 (mL/min/1.73m2); Glucose 106 mg/dL (70-100); Sodium 140 mmol/L (136-145)
[2018-12-15 07:17] VITALS: PULSE 71
[2018-12-15 07:35] VITALS: BP 122/69; PULSE 68; RESP 17; TEMP 36.6; O2SAT 93
[2018-12-15 07:51] LABS: Procalcitonin 0.4 ng/mL
[2018-12-15] MEDS: Budesonide/Formoterol 160/4.5 6 GM 60 PUFF INH IH (08:22)
[2018-12-15] MEDS: Lactobacillus Acidophilus CAP 1 CAP PO (08:47)
[2018-12-15] MEDS: FLUoxetine 20 MG CAP PO (08:47)
[2018-12-15] MEDS: levoFLOXacin 500 MG, levoFLOXacin 250 MG 750 MG PO (08:48)
[2018-12-15] MEDS: Gabapentin 300 MG CAP 600 MG PO (08:48)
[2018-12-15] MEDS: predniSONE 20 MG TAB PO (08:48)
[2018-12-15] MEDS: Omeprazole 20 MG CAPCR 40 MG PO (08:48)
[2018-12-15] MEDS: Fluticasone NASAL SPRAY 16 GM BTL NS (08:49)
[2018-12-15] MEDS: Metoprolol CR 100 MG TABCR PO (08:49)
--- NOTE | 2018-12-15 09:36 | DSE_ITS ---
Date of service: 12/15/18 Time of Service: 09:36 DS: Diagnosis Discharge Diagnosis (1) Pneumonia: Status: Acute (2) Dizziness: Status: Resolved (3) Hemoptysis: Status: Resolved (4) Edema of both legs: Status: Acute (5) Diarrhea: Status: Chronic (6) Systolic CHF, chronic: Status: Chronic (7) Gastroesophageal reflux disease: Status: Acute (8) Diabetes mellitus type 2, controlled: Status: Acute (9) Coronary artery disease involving coronary bypass graft of [place] heart: Status: Acute (10) Acute kidney injury superimposed on chronic kidney disease: Status: Resolved Discharge Plan Disposition Patient Disposition: HOME Condition: Improving Discharge Details Chief Complaint: SOB Clinical Impression: Pneumonia involving right lung Reason For Visit: RIGHT UPPER LOBE PNEUMONIA Admit Date/Time: 12/10/18 20:15 Admit Provider: Levi Burgess Attending Provider: Levi Burgess Primary Care Provider: Elizabet Auguste ED Provider: Ray Kenny Hospital Course Hospital Course: Jeronimo Archer is a 73 year old man with a past medical history significant for CAD with CABG, systolic CHF, previous CVA, chronic kidney disease, stage III, type 2 diabetes, GERD, diarrhea, hyperlipidemia, memory impairment, and COPD, who presented to the ED on 12/10/18 with reports of a 2 day history of worsening respiratory symptoms including cough with blood tinged sputum, congestion, chest tightness. He was hypoxic in the ED. He had a chest x-ray which showed a right upper lobe pneumonia. His labs were notable for an elevated d-dimer to 1230. He has chronic lower extremity edema but in the setting of elevated d-dimer and hypoxia there was concern for DVT/PE. He could not have a CT scan with contrast due to his kidney disease. He kay ton to have a VQ scan which was negative, he had lower extremity ultrasounds which did not reveal DVT. He was also noted to have leukocytosis to 18.95 in the ED, and as high as 25.09 the following morning. His BUN and creatinine were worse than baseline on admission at 47 and 2.4. His sodium was mildly low at 133, chloride also low at 96, elevated anion gap at 14.6 and his procalcitonin was elevated at 3.2. He was started on IV ceftriaxone and nebulizer treatments as well as IV steroids and admitted to the Med/Surg floor for further evaluation. He remained on IV ceftriaxone but his leukocytosis worsened. Doxycycline was added. His condition and labs did not improve until he was transitioned to Zosyn. At that time, his procalcitonin began to decrease and his white blood cell count imporved. He was eager for discharge. The steroids were tapered and he transitioned to prednisone. There was concern for aspiration pneumonia as he was vomiting prior to his admission. He was transitioned to Levaquin the day prior to his discharge home. The following morning, his leukocytosis resolved, his procalcitonin was down to 0.4 (from 3.2 on admission). The hemoptysis resolved. His renal function returned to baseline with a creatinine of 1.87. His sodium normalized. He no longer required oxygen, he denies coughing, shortness of breath or wheezing. He is eager for discharge home. On admission, he reported on going diarrhea prior to his hospitalization. He was concerned that his water at home was possibly contaminated. He was given a kit to test his water at home. He also underwent stool studies which were negative. He was on both PPI and H2 ric. The H2 ric was withheld while he was in the hospital as this combination could potentially be contributing to his diarrhea. He did not have diarrhea while he was hospitalized. The H2 ric was discontinued on discharge. He will remain on probiotics as well. His diabetes remained under reasonable control while he was in the hospital. He was on short acting insulin per sliding scale. He will resume his usual regimen when he returns home. He is discharged home in improved condition. He will remain on oral antibiotics with Levaquin to complete his course. He will taper off of steroids over the following days. He will follow-up with his primary care provider as scheduled. Home Meds and New Rx's Prescriptions: New Symbicort 160-4.5 mcg/actuation Hfa Aerosol Inhaler 2 puff inhalation BID Qty: 1 RF: 0 levofloxacin [Levaquin] 750 mg Tablet 750 mg PO QAM Qty: 2 RF: 0 acidophilus-pectin, citrus 25 million cell -100 mg Tablet 1 cap PO TID Qty: 30 RF: 0 prednisone 10 mg tablet 10 mg PO DAILY Qty: 2 RF: 0 Continued fluticasone propionate [Allergy Relief (fluticasone)] 50 mcg/actuation spray,suspension 1 spray IGOR BID RF: 0 metoprolol succinate 100 mg tablet extended release 24 hr 100 mg PO DAILY Qty: 90 RF: 4 (DME) blood-glucose meter [en-Gaugeuch Verio System] misc See Dose Instructions .ROUTE .MEDSUPPLY Qty: 1 RF: 0 (DME) lancets [AdhereTxTouch Delica Lancets] 33 gauge misc See Dose Instructions .ROUTE .MEDSUPPLY Qty: 100 RF: 0 Shingrix (PF) 50 mcg/0.5 mL suspension for reconstitution 50 mcg IM ONCE Qty: 1 RF: 1 ketoconazole 2 % cream 1 applic TP DAILY Qty: 30 RF: 4 acetaminophen [Tylenol Extra Strength] 500 MG tablet 1,000 mg PO Q6H PRN PRNRF: 0 aspirin [Aspir-81] 81 MG tablet,delayed release (DR/EC) 81 mg PO DAILY RF: 0 losartan 100 MG tablet 100 mg PO DAILY Qty: 90 RF: 3 albuterol sulfate [ProAir HFA] 90 mcg/actuation HFA aerosol inhaler 1 puff IH Q4H PRN (Reason: shortness of breath) Qty: 8.5 RF: 12 magnesium oxide 400 mg (241.3 mg magnesium) tablet 400 mg PO DAILY Qty: 60 RF: 2 (DME) OneTouch Verio strip See Dose Instructions .ROUTE .MEDSUPPLY Qty: 50 RF: 12 atorvastatin 20 mg tablet 20 mg PO QPM RF: 0 furosemide 40 mg tablet 40 mg PO BID Qty: 180 RF: 3 glipizide 5 mg tablet 5 mg PO DAILY Qty: 90 RF: 3 fluoxetine 20 mg tablet 20 mg PO DAILY Qty: 90 RF: 3 gabapentin 600 mg tablet 600 mg PO TID Qty: 270 RF: 3 allopurinol 300 mg tablet 150 mg PO DAILY Qty: 90 RF: 3 Changed omeprazole 20 mg tablet,delayed release (DR/EC) 40 mg PO DAILY Qty: 90 RF: 3 Discontinued ranitidine HCl [Zantac Maximum Strength] 150 MG tablet 150 mg PO QPM Qty: 1 RF: 12 Discharge Instructions Instructions: Aspiration Pneumonia (DC) Additional Instructions: Take Levaquin until it is gone. Take prednisone for 2 more days. Follow up with your PCP as scheduled. Stand Alone Forms: Nursing Discharge Form Referrals: Audrey Nelson MD [ [facility] STAFF PHYSICIAN] - 12/20/18 12:30 pm Activity:: Activity as Tolerated Equipment/Supplies:: No Equipment Needed Diet:: heart healthy diet Discharge Orders Discharge Orders: Discharge Order (Routine); Ordered 12/15/18 Ordered By: Omaira Matute Discharge Data Discharge Date/Time-TO BE ENTERED AT DEPARTURE: 12/15/18 11:13 Exam Narrative Exam Narrative: General: very pleasant elderly male, hard of hearing, A&Ox3, sitting up in the chair, eating breakfast, in NAD. His is present. HEENT: Normocephalic, atraumatic, pupils equal and round, EOMI, MMM Heart: Heart has regular rate and rhythm, systolic ejection murmur noted. Lungs: Respirations are even and unlabored, lung sounds clear bilaterally. GI: Normoactive bowel sounds, abdomen is soft, nontender, nondistended Extremities: Bilateral lower extremity edema, left greater than right (baseline per patient report). Pedal pulses are palpable bilaterally. DS: Data Vitals/I&O Vitals and I&O: Vital Signs Temperature 36.6 C 12/15/18 07:35 Temperature Source Tympanic 12/15/18 07:35 Pulse 68 12/15/18 07:35 Pulse Rhythm Regular 12/14/18 20:18 Pulse 98 H 12/10/18 20:40 Respiratory Rate 17 12/15/18 07:35 Respiratory Effort Non-Labored 12/14/18 20:18 Respiratory Depth Normal 12/14/18 20:18 Respiratory Pattern Normal 12/14/18 20:18 Blood Pressure 122/69 12/15/18 07:35 Blood Pressure Mean 69 12/10/18 19:02 Blood Pressure Position Sitting 12/10/18 19:03 Pulse Oximetry 93 L 12/15/18 07:35 Oxygen Delivery Method Room Air 12/15/18 07:35 Oxygen Flow Rate 0 12/15/18 07:35 Pain Level 0 12/15/18 07:35 Comment 12/12/18 10:10 Intake & Output 12/14/18 12/14/18 12/15/18 11:59 23:59 11:59 Intake Total 420 / 1210 790 / 1210 500 / 500 Balance 420 / 1210 790 / 1210 500 / 500 Weight 107.1 kg 104.4 kg Intake: IV 50 / 600 550 / 600 Oral 370 / 610 240 / 610 500 / 500 Other: Urine Color Yellow Urine Appearance Clear Urine Odor Normal Voiding Methods Toilet Toilet Completed studies during hospitalization [Text1]: 12/10/18: PA AND LATERAL CHEST: The heart is enlarged. There is a mitral valve prosthesis. There are diffuse changes of pulmonary fibrosis. There is a superimposed new area of acute consolidation involving potions of right upper lobe. No pleural effusion is seen. CONCLUSION: Findings consistent with acute right upper lobe pneumonia. DUPLEX VENOUS ULTRASOUND BOTH LOWER EXTREMITIES: 12/12 Duplex evaluation of the deep venous system was performed according to the usual protocol. The deep veins are freely compressible throughout to the level of the popliteal veins. There is normal doppler flow visible throughout and there is excellent flow augmentation with manual calf compression. CONCLUSION: No evidence of deep venous thrombosis. VENTILATION/PERFUSION LUNG SCAN: 12/12 Ventilation and perfusion lung scan was performed with intravenous infusion of 4.6 mCi of technetium 99 labelled macroaggregated albumin and inhalation of 35 mCi of technetium 99 labelled DTPA. No significant perfusion defect identified. No significant ventilation defect identified. CONCLUSION: Negative ventilation and perfusion lung scan. No evidence of pulmonary embolic disease. Date of study: 12/12/2018 Transthoracic Echocardiography M-mode, complete 2D, complete spectral Doppler, and color Doppler *STUDY CONCLUSIONS* Summary: 1. Left ventricle: The cavity size was normal. The estimated ejection fraction was 50%. The study is not technically sufficient to allow evaluation of LV diastolic function. 2. Mitral valve: A bioprosthesis was present and functioning normally. The sewing ring appeared normal. Peak E-wave velocity: 1.91m/sec. Pressure half-time: 85ms. DOI = 1.6. EOA = 2.4. Mean gradient = 8.5 mmHg at 83 bpm. 3. Left atrium: The atrium was mildly dilated. 4. Right ventricle: The cavity size was normal. Wall thickness was normal. Systolic function was normal. 5. Pulmonary arteries: Pulmonary systolic pressure was in the range of 35mm Hg to 45mm Hg. 6. Inferior vena cava: The vessel was patent and normal in size. The respirophasic diameter changes were in the normal range (greater than or equal to 50%), consistent with normal central venous pressure. PA AND LATERAL CHEST: 12/13/18 Examination is compared with previous examination of 12/10/18 and there has been significant interval clearing of apparent right upper lobe pneumonia. Some faint consolidation persists in this area. Chronic bilateral fibrotic changes again noted. No pleural effusion seen. Mitral valve prosthesis again noted in position, CONCLUSION: Findings consistent with interval improvement in right upper lobe pneumonia Labs on day of discharge: Labs from last 24 hours 12/15/18 12/15/18 12/15/18 06:20 06:20 06:20 WBC 10.26 RBC 4.45 L Hgb 12.9 L Hct 39.1 L MCV 87.9 MCH 29.0 MCHC 33.0 RDW 14.9 H Plt Count 197 MPV 10.6 Immature Gran % 0.6 Neutrophils % 69.5 Lymphocytes % 19.0 Monocytes % 10.5 Eosinophils % 0.4 Basophils % 0.0 Absolute Neutrophils 7.13 H Absolute Lymphocytes 1.95 Absolute Monocytes 1.08 H Absolute Eosinophils 0.04 Absolute Basophils 0.00 Sodium 140 Potassium 4.0 Chloride 104 Carbon Dioxide 24.7 Anion Gap 11.3 H BUN 59 H D Creatinine 1.87 H Estimated GFR/1.73 m2 35.38 Glucose 106 H Calcium 8.9 Procalcitonin 0.4 Stool Source Stool Campylobacter PCR Stool Salmonella PCR Stool Shigella PCR Cryptosporidium/Giardia Shiga Toxin (PCR) Ur Strep pneumoniae Ag Parasite Rprt Status 12/12/18 12/12/18 12/11/18 19:45 19:45 14:12 WBC RBC Hgb Hct MCV MCH MCHC RDW Plt Count MPV Immature Gran % Neutrophils % Lymphocytes % Monocytes % Eosinophils % Basophils % Absolute Neutrophils Absolute Lymphocytes Absolute Monocytes Absolute Eosinophils Absolute Basophils Sodium Potassium Chloride Carbon Dioxide Anion Gap BUN Creatinine Estimated GFR/1.73 m2 Glucose Calcium Procalcitonin Stool Source (see note) Stool Campylobacter PCR See comments Stool Salmonella PCR See comments Stool Shigella PCR See comments Cryptosporidium/Giardia (see note) Shiga Toxin (PCR) See comments Ur Strep pneumoniae Ag Negative Parasite Rprt Status (see note) Preliminary micro results at discharge 08/11/19 11:20 Blood Culture - Preliminary Blood NO GROWTH 72 HOURS 12/11/18 11:30 Blood Culture - Preliminary Blood NO GROWTH 72 HOURS [facility] Medical History Benign neoplasm of colon (Acute 08/04/12) Carpal tunnel syndrome (Acute 08/04/12) Chronic kidney disease, stage III (moderate) (Chronic 01/26/13) COPD (chronic obstructive pulmonary disease) (Chronic) Coronary artery disease involving coronary bypass graft of [place] heart (Acute 01/02/16) CVA (cerebral vascular accident) (Acute 01/03/16) Diabetes mellitus with diabetic neuropathy (Acute 04/13/14) Diabetes mellitus with stage 3 chronic kidney disease (Acute 03/02/14) Gastroesophageal reflux disease (Acute 08/04/12) History of tobacco use (Acute 07/03/11) Hyperlipidemia (Acute 07/03/11) Lumbago with sciatica, unspecified side (Acute 08/04/12) Memory impairment (Acute 12/11/15) Mitral valve insufficiency (Acute 12/19/15) Obesity, unspecified (Acute 07/03/11) Sensorineural hearing loss (Acute 08/24/14) Systolic CHF, chronic (Chronic 04/15/16) Unspecified essential hypertension (Acute 08/04/12) Surgical History Appendectomy Colonoscopy - [facility] [place] (01/11/15) Coronary Artery Bypass [place] (CABG) (Chronic 12/20/15) History of arthroplasty of right shoulder (Acute ~09/2015) History of back surgery (Acute 10/21/00) S/P partial gastrectomy (Acute) Status post carpal tunnel release of both wrists (Acute) Valve Replacement (Chronic 12/20/15) Family History Brother Alcoholism Heart disease Grandfather Heart disease Father Personal history of malignant neoplasm Social History Smoking/Tobacco Use Status: Former Tobacco Use Alcohol Intake: former Drug use: Never Substance use type: does not use Household members: spouse Housing: house Number of Children: 4 What is your relationship status?: Panel score (0-1 are the most socially isolated patients): 1 Working smoke detector in home: Yes Do you feel safe at home: Yes Do you feel safe in your relationship?: Yes
[2018-12-15 10:07] VITALS: PULSE 75
--- NOTE | 2018-12-15 14:32 | PT.INDS ---
Date of service: 12/15/18 Time of Service: 14:32 PT Notes Inpatient Physical Therapy Discharge Summary Dates: 12/15/2018 Dates of Service: 12/12/2018 through 12/15/2018 This is a clinical summary of care provided on the duration of dates listed above. No charge was made in the completion of this documentation. Referring Doctor: Cindi Patel MD PT Orders: PT CONSULT: Eval/treat Precautions: Fall. Standard. Patient Profile/Admitting Diagnosis: Patient is a 73-year-old male with past medical history significant for chronic kidney disease stage III, COPD, CVA, obesity, mitral valve insufficiency, systolic CHF, and sensorineural hearing loss who presented to the ED on 12/10/2018 with chief complaints of shortness of breath, 2-day cough, chest congestion, and blood-tinged sputum production. Patient was diagnosed with community-acquired pneumonia of the right upper lobe, COPD exacerbation, type 2 diabetes mellitus, dizziness, hemoptysis, BLE edema, diarrhea, GERD, CAD, and acute kidney injury. Referral for skilled services was made in order to address impairments in activity tolerance and functional mobility level. PMHX: Medical History Benign neoplasm of colon (Acute 08/04/12) Carpal tunnel syndrome (Acute 08/04/12) Chronic kidney disease, stage III (moderate) (Acute 01/26/13) COPD (chronic obstructive pulmonary disease) (Chronic) Coronary artery disease involving coronary bypass graft of [place] heart (Acute 01/02/16) CVA (cerebral vascular accident) (Acute 01/03/16) Diabetes mellitus with diabetic neuropathy (Acute 04/13/14) Diabetes mellitus with stage 3 chronic kidney disease (Acute 03/02/14) Gastroesophageal reflux disease (Acute 08/04/12) History of tobacco use (Acute 07/03/11) Hyperlipidemia (Acute 07/03/11) Lumbago with sciatica, unspecified side (Acute 08/04/12) Memory impairment (Acute 12/11/15) Mitral valve insufficiency (Acute 12/19/15) Obesity, unspecified (Acute 07/03/11) Sensorineural hearing loss (Acute 08/24/14) Systolic CHF, chronic (Chronic 04/15/16) Unspecified essential hypertension (Acute 08/04/12) Surgical History Appendectomy Colonoscopy - MAC (01/11/15) Coronary Artery Bypass G[place] (CABG) (Chronic 12/20/15) History of arthroplasty of right shoulder (Acute ~09/2015) History of back surgery (Acute 10/21/00) S/P partial gastrectomy (Acute) Status post carpal tunnel release of both wrists (Acute) Valve Replacement (Chronic 12/20/15) Social History/Home Situation: Patient lives with and a 2-floor house with 2 steps to enter with rail on both sides. states that patient does not need to negotiate steps as their bedroom is on the main floor of the house. Patient is independent with all aspects of ADLs without the need for an assistive ambulatory device nor adaptive equipment. Current Functional Limitations: Impaired activity tolerance and shortness of breath during performance of mobility ADLs Equipment Owned/DME: None Subjective: NT Objective: General Observation: NT Mental Status: NT Pain: NT ROM: Right Upper Extremity: Shoulder Flexion WFL. Shoulder abduction WFL. Elbow flexion WFL. Wrist flexion WFL. Functional opening and closing of hand WFL. Left Upper Extremity: Shoulder Flexion WFL. Shoulder abduction WFL. Elbow flexion WFL. Wrist flexion WFL. Functional opening and closing of hand WFL. Right Lower Extremity: Hip flexion WFL. Hip abduction WFL. Knee flexion WFL. Ankle dorsiflexion 0-10 degrees. Ankle plantarflexion WFL. Left Lower Extremity: Hip flexion WFL. Hip abduction WFL. Knee flexion WFL. Ankle dorsiflexion WFL. Ankle plantarflexion WFL. Strength: Right Upper Extremity: Shoulder flexors 5/5. Shoulder abductors 5/5. Elbow flexors 5/5. Elbow extensors 5/5. Endodontist strong. Left Upper Extremity: Shoulder flexors 5/5. Shoulder abductors 5/5. Elbow flexors 5/5. Elbow extensors 5/5. Endodontist strong. Right Lower Extremity: Hip flexors 4-/5. Hip abductors 4-/5. Knee flexors 4-/5. Knee extensors 4-/5. Ankle dorsiflexors 3-/5. Ankle plantarflexors 5/5. Left Lower Extremity:Hip flexors 5/5. Hip abductors 5/5. Knee flexors 5/5. Knee extensors 5/5. Ankle dorsiflexors 5/5. Ankle plantarflexors 5/5. Sensation: Intact as to pain and pressure on bilateral lower extremities. Bed Mobility/Transfers: Rolling independent Supine to sit independent Sit to supine independent Sit to stand independent Stand to sit independent Bed to chair independent Chair to bed independent Gait: Patient is able to tolerate level surface ambulation without an assistive device with full weight bearing for 400 feet. Gait velocity back to normal limits. Chroninc mild foot slap noted on the left side. Balance: Static Sitting: Normal Dynamic Sitting: Normal Static Standing: Normal Dynamic Standing: Good Assessment: Patient presents with clinical signs and symptoms consistent with current/admitting diagnoses that have resulted to mobility limitations, gait instability, generalized weakness, and impairment of motor control as demonstrated by the following impairment level findings: 1. Decreased strength to R dorsiflexors (chronic) Impairments are contributing to the following functional limitations: 1. Increase completion time for mobility ADL performance Goals: Goals X1 week 1. Supine-Sit independent MET 2. Sit-Supine independent MET 3. Sit-Stand independent MET 4. Stand-Sit independent MET 5. Bed-Chair independent MET 6. Chair-Bed independent MET 7. Independent gait on level surface without an assistive device for at least 300 feet without report of pain nor dyspnea MET 8. Independent stair negotiation while holding onto bilateral rails for at least 5 steps without report of pain nor dyspnea MET 9. Independent with home exercise program MET 10. Good static and dynamic standing balance/tolerance MET DISCHARGE RECOMMENDATIONS: Patient will benefit from home health PT services in order to progress mobility level using least restrictive assistive ambulatory device/using no device, assess home safety, identify additional equipment needs, and establish a functional maintenance program that will increase ability of patient to remain at home. TREATMENT CODE/TIME:NC. Thank you very much for this referral. Felicita Mattson PT, DPT, CLT [facility]
--- NOTE | 2018-12-15 15:53 | PDOC.CMDIS ---
- If Service Date Differs Date of service: 12/15/18 Time of Service: 15:54 LACE Index Scoring Tool - Questions: Length of Stay (in days): 4 - 6 Acuity (Admit via E.D.?): Yes Comorbidities: Diabetes w/o Complication, Congestive Heart Failure, Chronic Pulmonary Disease, Dementia, Liver or Renal Disease E.D. Visits: 3 - Answers: Total Score: 15 Risk of Readmission: High Risk Care Management Discharge Reason for Hospitalization: Right Upper Lobe pneumonia Discharge Plan: Jeronimo will be discharged home with no new services. He will follow up with his PCP and discharge plan of care. He will transport with his via private vehicle. Patient/Family Education Needs: Discharge plan, limitations, follow up plan, Ask Me Three.
== END 2018-12-15 11:13 | disposition home or self-care (01) | DRG 178 ==
LOC: ER 20:58 → MS 21:10
PROVIDERS: Nurse Practitioner; Admitting Provider Family Medicine; Emergency Provider Emergency Medicine; PCP Nurse Practitioner; Visit Provider Internal Medicine
DX: J69.0 Pneumonitis due to inhalation of food and vomit; J44.0 Chronic obstructive pulmonary disease with (acute) lower respiratory infection; J44.1 Chronic obstructive pulmonary disease with (acute) exacerbation; I50.22 Chronic systolic (congestive) heart failure; R04.2 Hemoptysis; N17.9 Acute kidney failure, unspecified; I13.0 Hypertensive heart and chronic kidney disease with heart failure and stage 1 through stage 4 chronic kidney disease, or unspecified chronic kidney disease; I47.2 Ventricular tachycardia; R09.02 Hypoxemia; R79.1 Abnormal coagulation profile; E11.22 Type 2 diabetes mellitus with diabetic chronic kidney disease; E83.42 Hypomagnesemia; R42 Dizziness and giddiness; R60.0 Localized edema; K52.9 Noninfective gastroenteritis and colitis, unspecified; K21.9 Gastro-esophageal reflux disease without esophagitis; I25.10 Atherosclerotic heart disease of native coronary artery without angina pectoris; N18.3 Chronic kidney disease, stage 3 (moderate); Z95.3 Presence of xenogenic heart valve; Z95.1 Presence of aortocoronary bypass graft; Z87.891 Personal history of nicotine dependence; E11.42 Type 2 diabetes mellitus with diabetic polyneuropathy; E11.65 Type 2 diabetes mellitus with hyperglycemia; T38.0X5A Adverse effect of glucocorticoids and synthetic analogues, initial encounter
CPT/HCPCS: 36415; 80048; 80053; 84145; 85027; 87040; 87329; 87449; 87505; 93005; 93306; 94618; 94640; 96365; 96375; 97110; 97162; 97530; 99223; 99232; 99239; 99285; 71046; 78582; 83735; 83880; 84484; 85025; 85379; 85610; 85730; 87070; 87205; 87324; 87450; 93010; 93970; J0696; J1644; J1941; J2543; J2930; J3490; J7512; J7620

== ENCOUNTER → 2019-01-03 15:24 | Outpatient (BNVA) | payer MEDICARE, OTHER, SELFPAY | PROVIDERS: PCP Nurse Practitioner; Visit Provider Urology | DX: N40.1 Benign prostatic hyperplasia with lower urinary tract symptoms (principal); R35.0 Frequency of micturition | CPT/HCPCS: 99213 ==

== ENCOUNTER 2019-01-20 01:50 | Outpatient (CLI) | payer MEDICARE, OTHER, SELFPAY ==
--- NOTE | 2019-01-20 10:59 | DI.RAD_ITS ---
EXAM: XR CHEST 2V PA LATERAL INDICATION: F/U pneumonia J18.9. COMPARISON: XR CHEST 2V PA LATERAL from 12/13/2018 TECHNIQUE: 2D digital imaging was performed. FINDINGS: Compared with the previous examination, clearing of the right lung is noted. There is no pleural effu jason. Cardiovascular structures appear intact in this patient who is status post mitral valve replace ment.
== END 2019-01-20 02:10 ==
PROVIDERS: PCP Nurse Practitioner; Visit Provider Internal Medicine
DX: J18.9 Pneumonia, unspecified organism (principal); Z95.1 Presence of aortocoronary bypass graft; Z95.3 Presence of xenogenic heart valve
CPT/HCPCS: 71046

== ENCOUNTER → 2019-02-24 08:26 | Outpatient (BNVA) | payer MEDICARE, OTHER, SELFPAY | PROVIDERS: PCP Nurse Practitioner; Referring Provider Nurse Practitioner; Visit Provider Urology | DX: N40.1 Benign prostatic hyperplasia with lower urinary tract symptoms (principal); R35.0 Frequency of micturition; I50.22 Chronic systolic (congestive) heart failure; J44.9 Chronic obstructive pulmonary disease, unspecified; E11.22 Type 2 diabetes mellitus with diabetic chronic kidney disease | CPT/HCPCS: 99213 ==

== ENCOUNTER → 2019-04-06 12:35 | Outpatient (BNVA) | payer MEDICARE, OTHER, SELFPAY | PROVIDERS: PCP Nurse Practitioner; Referring Provider Nurse Practitioner; Visit Provider Internal Medicine Cardiovascular Disease | DX: I50.22 Chronic systolic (congestive) heart failure (principal); I25.810 Atherosclerosis of coronary artery bypass graft(s) without angina pectoris; E78.2 Mixed hyperlipidemia; I11.0 Hypertensive heart disease with heart failure; J44.9 Chronic obstructive pulmonary disease, unspecified; E11.22 Type 2 diabetes mellitus with diabetic chronic kidney disease; N18.3 Chronic kidney disease, stage 3 (moderate) | CPT/HCPCS: 99204; 99215 ==

== ENCOUNTER 2019-04-30 16:37 | Emergency (ER) | payer MEDICARE, OTHER, SELFPAY ==
[2019-04-30 16:48] VITALS: BP 178/77; PULSE 73; RESP 18; TEMP 36.6; O2SAT 95
[2019-04-30 17:19] LABS: Bilirubin Negative (Negative); Blood Moderate (Negative); Clarity Sl Cloudy (Clear); Glucose Negative (Negative); Ketones Negative (Negative); Leukocyte Esterase Negative (Negative); Nitrite Negative (Negative); Urobilinogen 0.2 EU/dL (Up TO 0.2)
[2019-04-30 17:26] LABS: C & S Indicated? Yes; RBC >50 HPF (0-2)
--- NOTE | 2019-04-30 19:17 | NUR.NOTE ---
Assumed care of pt, moved to room 7. #20 diffusics to LAC, labs drawn. Pt rpeorts several hours of painless hematuria. Describes urine as red. Denies dysuria, abd pain, N/V.
--- NOTE | 2019-04-30 19:26 | NUR.NOTE ---
Addendum entered by Chrissie Paredes 04/30/19 19:27: reports that color has improved from earlier. Original Note: voided approx 250mL dark pink urine.
[2019-04-30 19:29] LABS: Abs Immature Grans 0.02 k/cumm (0.0-0.09); Absolute Basophil Count 0.03 k/cumm (0.0-0.2); Absolute Eosinophil Count 0.31 k/cumm (0.0-0.7); Absolute Lymphocyte Count 1.71 k/cumm (1.2-3.4); Absolute Monocyte Count 0.84 k/cumm (0.11-0.7); Absolute Neutrophil Count 4.77 k/cumm (1.2-6.7); Basophils % 0.4; HCT 39.4 % (40.0-50.0); HGB 12.7 g/dL (13.5-17.5); Immature Grans % 0.3; Lymphocytes % 22.3; Mean Corp. HGB Concentration 32.2 g/dL (32.0-36.0); Mean Corpuscular Hemoglobin 28.7 pg (27.0-33.0); Mean Corpuscular Volume 88.9 fL (80-95); Mean Platelet Volume 10.1 fL (8.0-11.0); Monocytes % 10.9; Neutrophils % 62.1; Platelet Count 158 x1000/uL (130-400); RBC 4.43 m/cumm (4.50-6.00); RBC Distribution Width 14.5 % (11.8-14.1); White Blood Cell Count 7.68 k/cumm (4.4-10.8)
[2019-04-30 19:42] LABS: INR 1.1 (0.9-1.1); Prothrombin Time 10.8 sec (9.3-11.0)
[2019-04-30 19:43] LABS: ALT 29 U/L (16-63); AST 25 U/L (15-37); Alkaline Phosphatase 98 U/L (46-116); Anion Gap 10.2 mmol/L (3-11); BUN 33 mg/dL (7-18); Bilirubin, Total 0.4 mg/dL (0.2-1.0); CO2 28.8 mmol/L (21.0-32.0); Calcium 8.9 mg/dL (8.5-10.1); Chloride 103 mmol/L (98-107); Estimated GFR 42.24 (mL/min/1.73m2); Glucose 100 mg/dL (74-106); Potassium 4.2 mmol/L (3.5-5.1); Sodium 142 mmol/L (136-145); Total Protein 7.8 g/dL (6.4-8.2)
[2019-04-30 20:11] VITALS: BP 148/75; PULSE 66; RESP 16; O2SAT 95
[2019-04-30] MEDS: Omnipaque 350 MG/ML 100 ML BTL IJ (20:18)
--- NOTE | 2019-04-30 20:19 | DI.CT_ITS ---
EXAM: CT ABDOMEN PELVIS W CLINICAL HISTORY: hematuria, suprapubic pain TECHNIQUE: Imaging Protocol: Axial computed tomography images with coronal and sagittal reformatted images were created and reviewed CONTRAST MATERIAL: Intravenous: Omnipaque 350 Contrast volume:50 mL contrast route:IV - Oral: No COMPARISON: CHEST WITHOUT CONTRAST from 12/24/2017 FINDINGS: ABDOMEN: Lung Bases: Mild dependent atelectasis. Prior mitral valve replacement. Coronary artery disease. Liver: Normal density. No measurable mass. Gallbladder and biliary tract: No radiodense calculus or dilation. Pancreas: Normal density, no abnormal calcifications or inflammatory process. Spleen: Normal. Kidneys: Normal size, contour and axis. Calcifications in the sonya bilaterally. These may be vascula r or nonobstructing stones. No ureterolithiasis or hydronephrosis. There is a calcification posteri or to the proximal right ureter which is vascular. There are bilateral hypodensities in the kidneys. These likely reflect cysts. Some are too small for further characterization. There is perinephric stranding about the kidneys which is nonspecific. Adrenal glands: No masses seen. Abdominal Aorta: Atherosclerosis. No aneurysmal dilatation. PELVIS: Bladder: There is impingement of the base of the urinary bladder by the prostate gland. There is a 1 .4 centimeter area of nodularity of the posterior and left aspect of the urinary bladder. This may b e extension of the prostate gland but a bladder mass cannot be excluded. Bowel: Colonic diverticulosis but no evidence of acute diverticulitis. No evidence of an acute appen dicitis. No evidence of bowel obstruction. Peritoneal cavity: No ascites, collection or mesenteric inflammatory response. Bones: Degenerative changes in the spine. Postsurgical changes seen from L4 through S1. Reproductive organs: Enlarged prostate gland which impinges upon the base of the urinary bladder. Lymph nodes: Unremarkable. Impression: 1. Question of 1.4 centimeter mass at the posterior and left aspect of the urinary bladder. Addition al workup recommended. 2. No evidence of an acute abdomen or pelvis process. 3. Colonic diverticulosis but no evidence of acute diverticulitis. 4. Enlarged prostate gland. DATA REPOSITORY: All CT scans at this facility are submitted to the National Radiology Data Registry (NRDR) Dose Index Registry (DIR) with the [employer] (ACR). RADIATION OPTIMIZATION: All CT scans at this facility use at least one of these dose optimization te chniques: automated exposure control; mA and/or kV adjustment per patient size (includes targeted exa ms where dose is matched to clinical indication); or iterative reconstruction.
--- NOTE | 2019-04-30 21:04 | W.ED.GENAD ---
Discharge Plan Disposition Patient Disposition: HOME Condition: Stable Discharge Details Chief Complaint: Urinary Clinical Impression: Bladder mass, Hematuria Primary Care Provider: Elizabet Auguste ED Provider: Silvia Singh Home Meds and New Rx's Prescriptions: No Action fluticasone propionate [Allergy Relief (fluticasone)] 50 mcg/actuation spray,suspension 1 spray IGOR BID RF: 0 (DME) blood-glucose meter [[employer]uch Verio System] misc See Dose Instructions .ROUTE .MEDSUPPLY Qty: 1 RF: 0 atorvastatin 20 mg tablet 20 mg PO QPM Qty: 90 RF: 3 metoprolol succinate 100 mg tablet extended release 24 hr 100 mg PO DAILY Qty: 90 RF: 4 omeprazole 20 mg tablet,delayed release (DR/EC) 40 mg PO DAILY Qty: 90 RF: 3 losartan 100 mg tablet 100 mg PO DAILY Qty: 90 RF: 3 magnesium oxide 400 mg (241.3 mg magnesium) tablet 400 mg PO DAILY Qty: 90 RF: 3 (DME) lancets [[employer]uch Delica Lancets] 33 gauge misc See Dose Instructions .ROUTE .MEDSUPPLY Qty: 100 RF: 6 (DME) OneTouch Verio Strip See Dose Instructions .ROUTE .MEDSUPPLY Qty: 100 RF: 12 ketoconazole 2 % cream 1 applic TP DAILY Qty: 30 RF: 4 Symbicort 160-4.5 mcg/actuation HFA aerosol inhaler 2 puff inhalation BID Qty: 1 RF: 0 albuterol sulfate [ProAir HFA] 90 mcg/actuation HFA aerosol inhaler 1 puff IH Q4H PRN (Reason: shortness of breath) Qty: 8.5 RF: 12 pregabalin [Lyrica] 75 mg capsule 75 mg PO BID Qty: 60 RF: 3 acetaminophen [Tylenol Extra Strength] 500 MG tablet 1,000 mg PO Q6H PRN PRNRF: 0 aspirin [Aspir-81] 81 MG tablet,delayed release (DR/EC) 81 mg PO DAILY RF: 0 furosemide 40 mg tablet 40 mg PO BID Qty: 180 RF: 3 glipizide 5 mg tablet 5 mg PO DAILY Qty: 90 RF: 3 fluoxetine 20 mg tablet 20 mg PO DAILY Qty: 90 RF: 3 allopurinol 300 mg tablet 150 mg PO DAILY Qty: 90 RF: 3 Discharge Instructions Instructions: Hematuria (ED) Additional Instructions: Drink plenty of fluids. Rest activities as tolerated. Avoid heavy lifting Follow-up promptly with Dr. Szymanski as discussed. Please call tomorrow to make him aware of the blood in your urine and the bladder mass which was noted on your CT imaging. For any weakness, fatigue, dizziness or lightheadedness, shortness of breath or pale appearance with persistent bleeding have reevaluation in the emergency room. For urinary retention have immediate reevaluation in the emergency room as discussed. Return sooner for any alarming symptoms, worsening or concerns if needed Medical Decision Making Is a very pleasant 74-year-old gentleman presenting to the emergency room this evening for complaints of hematuria which he noted onset at approximately 4:00 this evening. Patient reports he noted initially a tinge of blood to his urine which as his stream continued became more consistent with irving blood and associated blood clots. Patient reports since that time his urine has began to clear. Patient denies any weakness, fatigue, tachycardia, shortness of breath. Patient denies any history of similar. Patient denies associated dysuria. Patient is followed by Dr. Szymanski for urinary hesitancy of his his stream which seems unchanged this evening in addition to urinary leakage. Given patient's new complaint of hematuria in addition to on physical exam suprapubic discomfort being noted without obvious peritoneal signs CT was ordered to further evaluate for the potential for bladder mass. Labs unremarkable for acute infectious findings. Patient H&H are 12 and 39. Patient's renal function is stable. Patient's urinalysis revealing only moderate blood and no other indicators of infection at this time. Culture pending. CT ultimately reveals a bladder mass which may be intrinsic to the bladder or an extension from the prostate. There is perinephric stranding of the fat which could have several possible etiologies including scarring, third spacing of fluid and inflammatory process or infection. Incidental coronary artery disease noted. Given patient's urinalysis and lack of infectious findings I do not feel pyelonephritis is likely at this time. Patient is hemodynamically stable. Patient is not on a blood thinner. Patient's coags are normal. Patient does continue to have a blood-tinged color to his most recent urine output. No irving blood or clots present at this time. I spoken with the patient regarding prompt follow-up as an outpatient with Dr. Szymanski whom he currently has a relationship with. Patient does not feel he requires admission to the hospital at this time. Patient reports in general he feels well. Patient is hemodynamically stable, vital signs remain unchanged. Patient has no complaints of weakness, fatigue or ill feeling at this time. Patient feels comfortable following up as an outpatient with Dr. Szymanski. Alarming signs and symptoms for which patient should return were discussed specifically urinary retention or for passing irving blood associated with feeling of weakness, fatigue, lightheadedness or hemodynamic instability which was discussed. Patient reports his understanding. Feels comfortable discharge at this time. The patient was stable and requested discharge. Prior to discharge, my usual and customary return precautions were reviewed with the patient - this included follow-up instructions and reasons to return to the Emergency Department if conditions worsens, does not improve as expected, or other new concerns arise. HPI General Date/Time Provider Initiated Documentation: 04/30/19 16:52. HPI Narrative: This is a 74-year-old patient that presents for complaints of hematuria which began at approximately 430 this evening. Patient reports when voiding he has noted hesitancy with urination. Patient also reports initially there is blood-tinged urine at the beginning of his stream then noted mostly blood toward the end of his stream associated blood clots in the urine. Patient reports hesitancy with urination. Patient does report this as a baseline but reports persistence. No inability to void. Patient denies abdominal pain. Patient reports chronic back pain which is unchanged in the lower back. Patient denies any history of hematuria in the past. Denies headache, dizziness or lightheadedness at this time. Does not feel weak at this time. Has been eating and drinking without difficulty. Patient denies use of a blood thinner. Patient is followed by Dr. Szymanski for urinary hesitancy as well as leaking urine. Patient denies any obvious injury today prior to onset of pain however in the last week does report he injured his rib on the right side when lifting something heavy. Patient denies difficulty breathing, shortness of breath or wheezing. Related Data Home Medications Medication Instructions Recorded Confirmed acetaminophen [Tylenol Extra 1,000 mg PO Q6H PRN PRN 06/01/13 04/30/19 Strength] aspirin [Aspir-81] 81 mg PO DAILY tab-cap 01/17/16 04/30/19 fluticasone propionate 50 1 spray IGOR BID gm 03/10/18 04/30/19 mcg/actuation nasal spray,suspension blood-glucose meter #1 each 07/11/18 04/30/19 ketoconazole 2 % topical cream 1 applic TP DAILY #30 gm 08/26/18 04/30/19 furosemide 40 mg tablet 40 mg PO BID #180 tab-cap 09/05/18 04/30/19 glipizide 5 mg tablet 5 mg PO DAILY #90 tab-cap 09/05/18 04/30/19 fluoxetine 20 mg tablet 20 mg PO DAILY #90 tab 09/27/18 04/30/19 allopurinol 300 mg tablet 150 mg PO DAILY #90 tab-cap 11/07/18 04/30/19 atorvastatin 20 mg tablet 20 mg PO QPM #90 tab 01/09/19 04/30/19 blood sugar diagnostic #100 each 01/09/19 04/30/19 lancets 33 gauge #100 each 01/09/19 04/30/19 losartan 100 mg tablet 100 mg PO DAILY #90 tab-cap 01/09/19 04/30/19 magnesium oxide 400 mg (241.3 mg 400 mg PO DAILY #90 tab 01/09/19 04/30/19 magnesium) tablet metoprolol succinate 100 mg 100 mg PO DAILY #90 tab 01/09/19 04/30/19 tablet,extended release 24 hr omeprazole 20 mg tablet,delayed 40 mg PO DAILY #90 tab 01/09/19 04/30/19 release albuterol sulfate 90 mcg/actuation 1 puff IH Q4H PRN #8.5 gm 04/18/19 04/30/19 aerosol inhaler budesonide-formoterol HFA 160 2 puff INHALATION BID #1 inh 04/18/19 04/30/19 mcg-4.5 mcg/actuation aerosol inhaler pregabalin 75 mg capsule 75 mg PO BID #60 cap 04/18/19 04/30/19 Previous Rx's Medication Instructions Recorded blood-glucose meter #1 each 07/11/18 ketoconazole 2 % topical cream 1 applic TP DAILY #30 gm 08/26/18 furosemide 40 mg tablet 40 mg PO BID #180 tab-cap 09/05/18 glipizide 5 mg tablet 5 mg PO DAILY #90 tab-cap 05/06/19 fluoxetine 20 mg tablet 20 mg PO DAILY #90 tab 09/27/18 allopurinol 300 mg tablet 150 mg PO DAILY #90 tab-cap 11/07/18 atorvastatin 20 mg tablet 20 mg PO QPM #90 tab 01/09/19 blood sugar diagnostic #100 each 01/09/19 lancets 33 gauge #100 each 01/09/19 losartan 100 mg tablet 100 mg PO DAILY #90 tab-cap 01/09/19 magnesium oxide 400 mg (241.3 mg 400 mg PO DAILY #90 tab 01/09/19 magnesium) tablet metoprolol succinate 100 mg 100 mg PO DAILY #90 tab 01/09/19 tablet,extended release 24 hr omeprazole 20 mg tablet,delayed 40 mg PO DAILY #90 tab 01/09/19 release albuterol sulfate 90 mcg/actuation 1 puff IH Q4H PRN #8.5 gm 04/18/19 aerosol inhaler budesonide-formoterol HFA 160 2 puff INHALATION BID #1 inh 04/18/19 mcg-4.5 mcg/actuation aerosol inhaler pregabalin 75 mg capsule 75 mg PO BID #60 cap 04/18/19 Allergies Allergy/AdvReac Type Severity Reaction Status Date / Time codeine AdvReac Intermediate DYSPHORIA Verified 04/18/19 09:32 niacin AdvReac Intermediate MYALGIAS Verified 04/18/19 09:32 simvastatin AdvReac Intermediate myalgias Verified 04/18/19 09:32 General Stated Complaint: Urinary ROBBI: 3 Review of Systems All systems reviewed & are unremarkable except as noted in HPI and below Constitutional Constitutional: Denies chills, Denies fatigue, Denies fever(s), Denies headache(s) and Denies malaise ENT Ears, Nose, Mouth, and Throat: Denies headache(s) Cardiovascular Cardiovascular: Denies dyspnea and Denies dyspnea on exertion Respiratory Respiratory: Denies cough, Denies dyspnea and Denies dyspnea on exertion Gastrointestinal Gastrointestinal: Denies abdominal pain, Denies diarrhea, Denies nausea and Denies vomiting Genitourinary Genitourinary: Reports hematuria, Denies flank pain and Reports urinary frequency Neurologic Neurologic: Denies headache(s) Endocrine Endocrine: Denies fatigue PFSH Medical History Benign neoplasm of colon (Acute 08/04/12) Benign prostatic hyperplasia with urinary frequency (Acute) Carpal tunnel syndrome (Acute 08/04/12) Chronic kidney disease, stage III (moderate) (Chronic 01/26/13) 12/2008 CT abd/pelvis neg COPD (chronic obstructive pulmonary disease) (Chronic) Coronary artery disease involving coronary bypass graft of [place] heart (Acute 01/02/16) MVR & 2v CABG, marginal and PDA, EF 45% [facility] 12/20/15 CVA (cerebral vascular accident) (Acute 01/03/16) 12/2015 post op [facility] R hemiparesis Diabetes mellitus with diabetic neuropathy (Acute 04/13/14) Diabetes mellitus with stage 3 chronic kidney disease (Acute 03/02/14) A1C goal 8 Gastroesophageal reflux disease (Acute 08/04/12) failed omeprazole, failed dexilant 06/01/2013 H/O urinary frequency (Acute) History of tobacco use (Acute 07/03/11) Hyperlipidemia (Acute 07/03/11) PCEq 55.3%; intolerant statins Lumbago with sciatica, unspecified side (Acute 08/04/12) 08/2005 small disc herniations L5-S1, no spinal or neuroforaminal stenosis. back surgery 10/2000 Disectomy [facility] 08/2006; L5 radiculopathy Memory impairment (Acute 12/11/15) 12/2015 MMSE 23 B12/lab nl; MRI 12/2015 old silvia lacunar CVAs Mitral valve insufficiency (Acute 12/19/15) MVR: bovine bioprosthesis and CABGx2 [facility] 12/20/15 Obesity, unspecified (Acute 07/03/11) Sensorineural hearing loss (Acute 08/24/14) using an ITE aid. unknown model. Systolic CHF, chronic (Chronic 04/15/16) 04/15/16 Echo: EF 35%; MVR bioprosthesis intact Unspecified essential hypertension (Acute 08/04/12) goal 150/90 Social History Smoking/Tobacco Use Status: Former Tobacco Use Alcohol Intake: former Drug use: Never Substance use type: does not use Household members: spouse Housing: house Number of Children: 4 What is your relationship status?: Panel score (0-1 are the most socially isolated patients): 1 Working smoke detector in home: Yes Do you feel safe at home: Yes Do you feel safe in your relationship?: Yes Exam Narrative Exam Narrative: CONST: Healthy appearing patient, in no acute distress. Well hydrated. Alert and alert. HENMT: Head nomocephalic, normal to inspection. Atraumatic. Hearing grossly normal. EYES: General normal appearance. Alignment normal. Eyelids normal. Conjunctiva normal. NECK: Normal visual inspection. FROM. Trachea midline. No Midline tenderness. CHEST: Normal insepection of the chest. Mild pain with palpation along the right lateral ribs. RESP: Normal respiratory effort. Speaking full sentences. No cough. No audible wheezing. No retractions. Breath sounds are clear and equal bilaterally. No rhonchi, rales or wheezing the lung simons. CARDIO: No JVD. Regular rate and rhythm. MUSCULOSKELETAL: Normal Gait. FROM of all extremities. Back: No CVA tenderness noted bilaterally. Mild lumbar spine pain with palpation. GI: Abdomen is soft, bowel sounds present in all 4 quadrants. Suprapubic discomfort with palpation present. Course Vital Signs Vital signs: Vital Signs Temperature 36.6 C 04/30/19 16:48 Pulse 73 04/30/19 16:48 Respiratory Rate 18 04/30/19 16:48 Blood Pressure 178/77 H 04/30/19 16:48 Pulse Oximetry 95 04/30/19 16:48 Temperature 36.6 C 04/30/19 16:48 Temperature Source Temporal Artery Scan 04/30/19 16:48 Pulse 66 04/30/19 20:11 Respiratory Rate 16 04/30/19 20:11 Respiratory Effort Non-Labored 04/30/19 16:53 Blood Pressure 148/75 H 04/30/19 20:11 Blood Pressure Position Sitting 04/30/19 16:48 Pulse Oximetry 95 04/30/19 20:11 Oxygen Delivery Method Room Air 04/30/19 20:11 Oxygen Flow Rate 0 04/30/19 20:11 Pain Level 0 04/30/19 20:11 Lab/Test Results Lab/Test Results: 04/30/19 17:00 Urine - Reflex from Ua Urine Culture - Pending Laboratory Tests Range/Units 04/30/19 04/30/19 04/30/19 17:00 19:15 19:15 WBC (4.4-10.8) k/cumm 7.68 RBC (4.50-6.00) m/cumm 4.43 L Hgb (13.5-17.5) g/dL 12.7 L Hct (40.0-50.0) % 39.4 L MCV (80-95) fL 88.9 MCH (27.0-33.0) pg 28.7 MCHC (32.0-36.0) g/dL 32.2 RDW (11.8-14.1) % 14.5 H Plt Count (130-400) x1000/uL 158 MPV (8.0-11.0) fL 10.1 Immature Gran % 0.3 Neutrophils % 62.1 Lymphocytes % 22.3 Monocytes % 10.9 Eosinophils % 4.0 Basophils % 0.4 Absolute Neutrophils (1.2-6.7) k/cumm 4.77 Absolute Lymphocytes (1.2-3.4) k/cumm 1.71 Absolute Monocytes (0.11-0.7) k/cumm 0.84 H Absolute Eosinophils (0.0-0.7) k/cumm 0.31 Absolute Basophils (0.0-0.2) k/cumm 0.03 PT (9.3-11.0) sec INR (0.9-1.1) APTT (21.0-31.4) sec Sodium (136-145) mmol/L 142 Potassium (3.5-5.1) mmol/L 4.2 Chloride (98-107) mmol/L 103 Carbon Dioxide (21.0-32.0) mmol/L 28.8 Anion Gap (3-11) mmol/L 10.2 BUN (7-18) mg/dL 33 H Creatinine (0.70-1.30) mg/dL 1.60 H Estimated GFR/1.73 m2 (mL/min/1.73m2) 42.24 Glucose (74-106) mg/dL 100 Calcium (8.5-10.1) mg/dL 8.9 Total Bilirubin (0.2-1.0) mg/dL 0.4 AST (15-37) U/L 25 ALT (16-63) U/L 29 Alkaline Phosphatase (46-116) U/L 98 Total Protein (6.4-8.2) g/dL 7.8 Albumin (3.4-5.0) g/dL 4.0 Urine Color (Yellow) Red Urine Clarity (Clear) Sl cloudy Urine pH (5-8) 6.0 Ur Specific [place] (1.005-1.025) 1.020 Urine Protein (Negative) mg/dL Negative Urine Ketones (Negative) mg/dL Negative Urine Blood (Negative) Moderate H Urine Nitrite (Negative) Negative Urine Bilirubin (Negative) Negative Urine Urobilinogen (Up TO 0.2) EU/dL 0.2 Ur Leukocyte Esterase (Negative) Negative Urine RBC (0-2) HPF >50 H Urine WBC Not Applicable Ur Epithelial Cells Not Applicable Urine Crystals Not Applicable Urine Bacteria Not Applicable Urine Mucus Not Applicable Ur Culture Indicated? Yes Urine Glucose (Negative) mg/dL Negative Range/Units 04/30/19 19:15 WBC (4.4-10.8) k/cumm RBC (4.50-6.00) m/cumm Hgb (13.5-17.5) g/dL Hct (40.0-50.0) % MCV (80-95) fL MCH (27.0-33.0) pg MCHC (32.0-36.0) g/dL RDW (11.8-14.1) % Plt Count (130-400) x1000/uL MPV (8.0-11.0) fL Immature Gran % Neutrophils % Lymphocytes % Monocytes % Eosinophils % Basophils % Absolute Neutrophils (1.2-6.7) k/cumm Absolute Lymphocytes (1.2-3.4) k/cumm Absolute Monocytes (0.11-0.7) k/cumm Absolute Eosinophils (0.0-0.7) k/cumm Absolute Basophils (0.0-0.2) k/cumm PT (9.3-11.0) sec 10.8 INR (0.9-1.1) 1.1 APTT (21.0-31.4) sec 25.0 Sodium (136-145) mmol/L Potassium (3.5-5.1) mmol/L Chloride (98-107) mmol/L Carbon Dioxide (21.0-32.0) mmol/L Anion Gap (3-11) mmol/L BUN (7-18) mg/dL Creatinine (0.70-1.30) mg/dL Estimated GFR/1.73 m2 (mL/min/1.73m2) Glucose (74-106) mg/dL Calcium (8.5-10.1) mg/dL Total Bilirubin (0.2-1.0) mg/dL AST (15-37) U/L ALT (16-63) U/L Alkaline Phosphatase (46-116) U/L Total Protein (6.4-8.2) g/dL Albumin (3.4-5.0) g/dL Urine Color (Yellow) Urine Clarity (Clear) Urine pH (5-8) Ur Specific [place] (1.005-1.025) Urine Protein (Negative) mg/dL Urine Ketones (Negative) mg/dL Urine Blood (Negative) Urine Nitrite (Negative) Urine Bilirubin (Negative) Urine Urobilinogen (Up TO 0.2) EU/dL Ur Leukocyte Esterase (Negative) Urine RBC (0-2) HPF Urine WBC Ur Epithelial Cells Urine Crystals Urine Bacteria Urine Mucus Ur Culture Indicated? Urine Glucose (Negative) mg/dL
--- NOTE | 2019-04-30 21:08 | DI.VRAD_ITS ---
PROCEDURE INFORMATION: Exam: CT Abdomen And Pelvis With Contrast Exam date and time: 04/30/2019 6:46 PM Age: 74 years old Clinical indication: Other: Hematuria; Suprapubic pain; Patient HX: Gave only 50cc due to creatnine and gfr per er Dr TECHNIQUE: Imaging protocol: Computed tomography of the abdomen and pelvis with intravenous contrast. Radiation optimization: All CT scans at this facility use at least one of these dose optimization techniques: automated exposure control; mA and/or kV adjustment per patient size (includes targeted exams where dose is matched to clinical indication); or iterative reconstruction. Contrast material: OMNIPAQUE 350; Contrast volume: 50 ml; Contrast route: IV; COMPARISON: US RENAL ULTRASOUND(P) 05/25/2016 1:57 PM FINDINGS: Lungs: There is minimal bibasilar atelectasis. Heart: Status post mitral valve replacement.There are coronary artery calcifications. Liver: Normal. No mass. Gallbladder and bile ducts: Normal. No calcified stones. No ductal dilation. Pancreas: Normal. No ductal dilation. Spleen: Normal. No splenomegaly. Adrenals: Normal. No mass. Kidneys and ureters: 2 mm radiopacity immediately posterior to proximal right ureter. 1.7 cm simple cyst right kidney 1.2 cm simple cyst left kidney. Sub cm lesions too small to characterize in each kidney. No hydronephrosis. There is mild perinephric stranding. Stomach and bowel: Unremarkable. No obstruction. No mucosal thickening. Appendix: No evidence of appendicitis. Intraperitoneal space: Unremarkable. No free air. No significant fluid collection. Vasculature: Atherosclerosis. No abdominal aortic aneurysm. Lymph nodes: Unremarkable. No enlarged lymph nodes. Bladder: Lobulated left posterior-inferior bladder wall thickening to 1.4 cm, series 7, image 65. No bladder calculi. Reproductive: Prostate top-normal in size with calcifications, lobulated contour and extrinsic compression on bladder floor. Bones/joints: Prior lumbar spine surgery. Lower most sternotomy wire noted. The spine demonstrates mild degenerative changes at multiple levels. Soft tissues: Abdominal wall radiopacities consistent with prior herniorrhaphy. Surgical clips about gastro esophageal junction. Fat containing left inguinal hernia. IMPRESSION: 1. Bladder mass which may be intrinsic to bladder or extension from prostate. 2. Perinephric stranding of fat which could have several possible etiologies including scarring, third spacing of fluid, inflammatory process or infection. 3. Coronary artery disease Dictated and Authenticated by: Maldonado Blackmon MD. Ordering:DI Vega MD
[2019-04-30 22:20] VITALS: BP 133/81; PULSE 59; RESP 16; TEMP 36.6; O2SAT 96
--- NOTE | 2019-04-30 22:28 | NUR.NOTE ---
Voiding red/maroon urine in urinal without difficulty. remains pain free. IV removed.
--- NOTE | 2019-05-01 05:47 | NUR.NOTE ---
Referral faxed to Urology Dr. Szymanski FAX # . Samia Huffman [facility] Nursing Note:
--- NOTE | 2019-05-04 07:25 | NUR.NOTE ---
Nursing Note: Keke Archer, called stating that the initial bleeding had stopped. But today he has a lump on the opposite side and that he was leaking urine (no blood) today and wanted to know if they should come in or keep 2pm appt. today with Dr. Szymanski. Consulted with Dr. Palmer and she was told to keep appt. today. Call when the office opens today to see about an earlier appt. or to return to the ED. Faiza Roca.
== END 2019-04-30 22:30 | disposition home or self-care (01) ==
PROVIDERS: Emergency Provider Physician Assistant; PCP Nurse Practitioner
DX: N32.9 Bladder disorder, unspecified (principal); R31.9 Hematuria, unspecified; E11.22 Type 2 diabetes mellitus with diabetic chronic kidney disease; E11.40 Type 2 diabetes mellitus with diabetic neuropathy, unspecified; N18.3 Chronic kidney disease, stage 3 (moderate); J44.9 Chronic obstructive pulmonary disease, unspecified; Z87.891 Personal history of nicotine dependence
CPT/HCPCS: 36415; 80053; 99285; 74177; 81003; 81015; 85025; 85610; 85730; 87086; 99284; J3490

== ENCOUNTER → 2019-05-04 10:32 | Outpatient (BNVA) | payer MEDICARE, OTHER, SELFPAY | PROVIDERS: PCP Nurse Practitioner; Referring Provider Nurse Practitioner; Visit Provider Urology | DX: R31.0 Gross hematuria (principal) | CPT/HCPCS: 99213 ==

== ENCOUNTER 2019-05-08 10:50 | Day surgery (SDC) | payer MEDICARE, OTHER, SELFPAY ==
[2019-05-08 12:00] VITALS: BP 157/81; PULSE 69; RESP 16; TEMP 36.6; O2SAT 93
--- NOTE | 2019-05-08 12:35 | W.PM.HP.N ---
Date of service: 05/08/19 Time of Service: 12:35 Assessment and Plan Assessment and plan (1) Gross hematuria: Status: Acute Assessment and plan: We will proceed with a cystoscopy and bilateral retrograde pyelogram. If any abnormality is seen within the bladder, we will be prepared to do a TUR biopsy. History of Present Illness Narrative: Chief complaint: Gross hematuria This is a 74-year-old gentleman who is been followed for lower urinary tract symptoms. We have multiple urinalysis results dating back to 2017 which have shown no blood in the urine. He presented to the emergency room this weekend with an abrupt onset of gross painless hematuria. He had no discomfort when he voided, but he did pass one clot. His urine cleared about 24 hours later and the hematuria has not returned. He has not been on any anticoagulants. He did not recall any specific pelvic or flank trauma prior to the onset of the bleeding. He has noticed some swelling and discomfort in the right groin. He has not seen any overlying skin changes such as redness or bruising. He has no prior history of kidney stones or urologic surgery. He does feel like he is having more difficulty emptying his bladder. He has to strain to urinate and he has double voiding. Review of systems: He has no current chest pain. His last cardiology appointment was about 2 weeks ago. He has chronic shortness of breath but this is unchanged. He has no productive cough or hemoptysis He has constipation related to a new pain medication Exam Const Other: He is in no current distress. He is cooperative. His vital signs are documented elsewhere His chest wall motion is normal I do not feel any inguinal hernias on either side. The bladder is not distended. The testes are soft with no masses. He is awake and alert I reviewed his CT scan that was done with contrast. It was not a CT urogram. There are renal masses bilaterally, but they are most of the likely cystic rather than solid lesions. There are bilateral calcifications which appear to be vascular. He does have an enlarged prostate and there is a solid mass occupying some of the left side of the bladder. It is unclear if this is an intravesical portion of the prostate or a primary bladder lesion. [facility] Social History Smoking/Tobacco Use Status: Former Tobacco Use Quit Date: 05/03/94 Alcohol Intake: current Alcohol Intake frequency: holidays/special occasions only Alcohol type: beer Drug use: Never Substance use type: does not use Household members: spouse Housing: house Number of Children: 4 What is your relationship status?: Panel score (0-1 are the most socially isolated patients): 1 Working smoke detector in home: Yes Do you feel safe at home: Yes Do you feel safe in your relationship?: Yes Meds Home Medications and Allergies Home Medications Medication Instructions Recorded Confirmed Type acetaminophen [Tylenol Extra 1,000 mg PO Q6H PRN PRN 06/01/13 05/08/19 History Strength] aspirin [Aspir-81] 81 mg PO DAILY tab-cap 01/17/16 05/08/19 History fluticasone propionate 50 1 spray IGOR BID gm 03/10/18 05/08/19 History mcg/actuation nasal spray,suspension blood-glucose meter #1 each 07/11/18 05/08/19 Rx ketoconazole 2 % topical cream 1 applic TP DAILY #30 gm 08/26/18 05/08/19 Rx furosemide 40 mg tablet 40 mg PO BID #180 tab-cap 09/05/18 05/08/19 Rx glipizide 5 mg tablet 5 mg PO DAILY #90 tab-cap 09/05/18 05/08/19 Rx fluoxetine 20 mg tablet 20 mg PO DAILY #90 tab 09/27/18 05/08/19 Rx allopurinol 300 mg tablet 150 mg PO DAILY #90 tab-cap 11/07/18 05/08/19 Rx atorvastatin 20 mg tablet 20 mg PO QPM #90 tab 01/09/19 05/08/19 Rx blood sugar diagnostic #100 each 01/09/19 05/08/19 Rx lancets 33 gauge #100 each 01/09/19 05/08/19 Rx losartan 100 mg tablet 100 mg PO DAILY #90 tab-cap 01/09/19 05/08/19 Rx magnesium oxide 400 mg (241.3 mg 400 mg PO DAILY #90 tab 01/09/19 05/08/19 Rx magnesium) tablet metoprolol succinate 100 mg 100 mg PO DAILY #90 tab 01/09/19 05/08/19 Rx tablet,extended release 24 hr omeprazole 20 mg tablet,delayed 40 mg PO DAILY #90 tab 01/09/19 05/08/19 Rx release albuterol sulfate 90 mcg/actuation 1 puff IH Q4H PRN #8.5 gm 04/18/19 05/08/19 Rx aerosol inhaler budesonide-formoterol HFA 160 2 puff INHALATION BID #1 inh 04/18/19 05/08/19 Rx mcg-4.5 mcg/actuation aerosol inhaler pregabalin 75 mg capsule 75 mg PO BID #60 cap 04/18/19 05/08/19 Rx Allergies Allergy/AdvReac Type Severity Reaction Status Date / Time codeine AdvReac Intermediate DYSPHORIA Verified 05/08/19 11:43 niacin AdvReac Intermediate MYALGIAS Verified 05/08/19 11:43 simvastatin AdvReac Intermediate myalgias Verified 05/08/19 11:43 Exam Narrative Exam Narrative: Lungs with decreased breath sounds bilaterally Cardiac exam shows a regular rate and rhythm. No other changes in his exam. Results Last Vital Signs Temp 36.6 C 05/08/19 12:00 Pulse 69 05/08/19 12:00 Resp 16 05/08/19 12:00 BP 157/81 H 05/08/19 12:00 Pulse Ox 93 L 05/08/19 12:00
[2019-05-08] MEDS: Lactated Ringers 1,000 ML 80 ML IV (12:40)
[2019-05-08] MEDS: ceFAZolin 2 GM/50 ML BAG IVPB (13:13)
[2019-05-08] MEDS: Lidocaine 2% Jelly 6 ML SYR (13:25)
[2019-05-08] MEDS: Omnipaque 300 MG/ML 50 ML BTL (13:30)
--- NOTE | 2019-05-08 13:45 | BLADDER_PTH ---
PATIENT: Jeronimo Archer LOC: [facility] U#:[id number] AGE/SX: 74/M ROOM: RE05/08/[address]: Javier Szymanski MD : 1945 BED: DIS: 05/08/2019 SPEC #: [id number] RECD: 05/08/19 17:16 STATUS: ZHEN RE #: [id number] CAMERON: 05/08/19 13:[address]: Javier Szymanski DEPT: Surgical Specimen RECD BY: Yudy Quintana ENTERED: 05/08/19 17:17 SP TYPE: Bladder OTHR DR: Elizabet Auguste APRN Tissues: 1 - BLADDER CURRETTINGS Procedures: GROSS AND MICRO LEVEL 5 Comments: [id number]
[2019-05-08 14:04] VITALS: BP 183/65; PULSE 66; RESP 12; TEMP 36.6; O2SAT 94
--- NOTE | 2019-05-08 14:04 | W.PM.DSUDISC ---
Discharge Plan Disposition Patient Disposition: HOME Condition: Stable Discharge Details Reason For Visit: GROSS HEMATURIA Attending Provider: Javier Szymanski Primary Care Provider: Elizabet Auguste Home Meds and New Rx's Prescriptions: No Action fluticasone propionate [Allergy Relief (fluticasone)] 50 mcg/actuation spray,suspension 1 spray IGOR BID RF: 0 (DME) blood-glucose meter [[employer] Verio System] misc See Dose Instructions .ROUTE .MEDSUPPLY Qty: 1 RF: 0 atorvastatin 20 mg tablet 20 mg PO QPM Qty: 90 RF: 3 metoprolol succinate 100 mg tablet extended release 24 hr 100 mg PO DAILY Qty: 90 RF: 4 omeprazole 20 mg tablet,delayed release (DR/EC) 40 mg PO DAILY Qty: 90 RF: 3 losartan 100 mg tablet 100 mg PO DAILY Qty: 90 RF: 3 magnesium oxide 400 mg (241.3 mg magnesium) tablet 400 mg PO DAILY Qty: 90 RF: 3 (DME) lancets [[employer] Delica Lancets] 33 gauge misc See Dose Instructions .ROUTE .MEDSUPPLY Qty: 100 RF: 6 (DME) OneTouch Verio Strip See Dose Instructions .ROUTE .MEDSUPPLY Qty: 100 RF: 12 ketoconazole 2 % cream 1 applic TP DAILY Qty: 30 RF: 4 Symbicort 160-4.5 mcg/actuation HFA aerosol inhaler 2 puff inhalation BID Qty: 1 RF: 0 albuterol sulfate [ProAir HFA] 90 mcg/actuation HFA aerosol inhaler 1 puff IH Q4H PRN (Reason: shortness of breath) Qty: 8.5 RF: 12 pregabalin [Lyrica] 75 mg capsule 75 mg PO BID Qty: 60 RF: 3 acetaminophen [Tylenol Extra Strength] 500 MG tablet 1,000 mg PO Q6H PRN PRNRF: 0 aspirin [Aspir-81] 81 MG tablet,delayed release (DR/EC) 81 mg PO DAILY RF: 0 furosemide 40 mg tablet 40 mg PO BID Qty: 180 RF: 3 glipizide 5 mg tablet 5 mg PO DAILY Qty: 90 RF: 3 fluoxetine 20 mg tablet 20 mg PO DAILY Qty: 90 RF: 3 allopurinol 300 mg tablet 150 mg PO DAILY Qty: 90 RF: 3 Discharge Instructions Additional Instructions: Chiu to drainage bag F/U 5 to 7 days for catheter removal and to review pathology report Activity:: no straining or lifting over 10 pounds until F/U appt Shower/Bathe:: 24 hours Diet:: As Tolerated Discharge Orders Discharge Orders: Discharge Order (Routine); Ordered 05/08/19 Ordered By: Javier Szymanski DS: Diagnosis Discharge Diagnosis (1) Gross hematuria: Status: Acute (2) S/P bladder tumor excision with fulguration: Status: Acute
[2019-05-08 14:09] VITALS: BP 164/79; PULSE 66; RESP 18; TEMP 36.6; O2SAT 95
[2019-05-08 14:14] VITALS: BP 171/74; PULSE 66; RESP 15; TEMP 36.6; O2SAT 95
--- NOTE | 2019-05-08 14:17 | DI.RAD_ITS ---
EXAM: XR RETROGRADE IN OR INDICATION: RETROGRADE BILATERAL / TURBT. COMPARISON: No exams were available for comparison TECHNIQUE: C-arm fluoroscopy was for guidance with retrograde examination. FINDINGS: Please see procedure for details. Fluoro time: 8.6 seconds
[2019-05-08 14:29] VITALS: BP 165/69; PULSE 65; RESP 14; TEMP 36.7; O2SAT 94
[2019-05-08] MEDS: Acetaminophen 500 MG TAB PO (15:17)
--- NOTE | 2019-05-08 15:19 | ROE_ITS ---
DATE OF PROCEDURE: May 08, 2019 PREOPERATIVE DIAGNOSIS: Gross hematuria. POSTOPERATIVE DIAGNOSIS: Bladder tumor with pathology pending. PROCEDURE: Cystoscopy; right retrograde pyelogram; transurethral resection of left-sided bladder kiana or. SURGEON: Javier Szymanski M.D. ANESTHESIA: General. COMPLICATIONS: None. 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 HISTORY: This is a 74-year-old gentleman who has been followed for irritative voiding symptoms. He has had multiple negative urinalyses in the past. Recently he had gross, painless hematuria. He was evaluated with a CT scan, which showed a possible bladder mass. It was unclear whether the mass in questions was actually arising from the prostate. He now presents for a cystoscopy and retrograde pyelogram with possible transurethral resection of an y visible lesion. OPERATIVE REPORT: The patient was brought to the operating room on 05/08/2019. After successful induc tion of general monitored anesthesia care, he was placed in the dorsal lithotomy position. His genit uriel was prepped and draped. 2% Xylocaine jelly was instilled into the urethra to act as a local ane sthetic. A 22 Ukrainian rigid cystoscope was then passed through the urethra into the bladder. The urethra and b ladder were inspected using the 30-degree lens. The pendulous, bulbous and membranous urethras all appeared normal. The prostatic urethra showed latisha e lateral lobe enlargement, but no abnormal mucosa. The bladder neck was entered and the bladder mucosa was inspected. The right ureteral orifice was id entified. On the left trigone a papillary-appearing lesion was present. It measured between 2 and 5 centimeters and extended onto the posterior bladder wall on the left. There were some adherent calc ifications as well. We then converted to a general anesthetic. We passed a 6 Ukrainian access catheter through the cystosco pe into the right ureteral orifice. A retrograde film was obtained by injecting Omnipaque through th e access catheter under fluoroscopic guidance. No filling defects were seen on the retrograde film. The right side drained promptly on a 5-minute drainage film. I was unable to identify the left ureteral orifice, so we forgo the left retrograde pyelogram. I then removed the cystoscope and passed a 24 Ukrainian resectoscope sheath through the urethra into the bladder. Transurethral resection was then accomplished using bipolar cautery. We resected down to muscle in multiple areas so that we would have adequate pathology. We then switched to a button isaak ctrode to cauterize the resection site when we were done. At the completion of the procedure we felt that the resection was too deep to safely give a dose of M itomycin, so this was not done on today's resection. The resection bed appeared dry so we passed an 18 Ukrainian Chiu catheter through the urethra into the bladder. We inflated the catheter balloon with 10 cc's of sterile water and hooked the catheter to g ravity drainage. The patient tolerated this procedure well. A bimanual exam revealed a mobile bladder. The patient w ill follow-up in about a week to review the surgical pathology and to have his catheter removed.
[2019-05-08 15:24] VITALS: BP 164/79; PULSE 71; RESP 18; TEMP 36.6; O2SAT 96
== END 2019-05-08 16:15 | disposition home or self-care (01) ==
PROVIDERS: PCP Nurse Practitioner; Visit Provider Urology
PROC: (CPT 74450; principal; 2019-05-08 12:45)
PROC: 0TBB8ZZ Excision of Bladder, Via Natural or Artificial Opening Endoscopic (ICD-10-PCS; CPT 52235; 2019-05-08 12:45)
DX: C67.8 Malignant neoplasm of overlapping sites of bladder (principal); R31.0 Gross hematuria; N18.3 Chronic kidney disease, stage 3 (moderate); E11.22 Type 2 diabetes mellitus with diabetic chronic kidney disease; E11.42 Type 2 diabetes mellitus with diabetic polyneuropathy; I11.0 Hypertensive heart disease with heart failure; I50.22 Chronic systolic (congestive) heart failure
CPT/HCPCS: 52235; 52005; NC; 74420; 88307; J0690; J1100; J2001; J2405; J2704; Q9967

== ENCOUNTER 2019-05-14 13:49 | Emergency (ER) | payer MEDICARE, OTHER, SELFPAY ==
[2019-05-14 14:07] VITALS: BP 149/63; PULSE 79; RESP 16; TEMP 37; O2SAT 95
--- NOTE | 2019-05-14 14:10 | W.ED.GENAD ---
Discharge Plan Disposition Patient Disposition: HOME Condition: Good Discharge Details Chief Complaint: Urinary Clinical Impression: Encounter for Chiu catheter removal Primary Care Provider: Elizabet Auguste ED Provider: Sabiha Barr Home Meds and New Rx's Prescriptions: Continued fluticasone propionate [Allergy Relief (fluticasone)] 50 mcg/actuation spray,suspension 1 spray IGOR BID RF: 0 (DME) blood-glucose meter [[employer] Verio System] misc See Dose Instructions .ROUTE .MEDSUPPLY Qty: 1 RF: 0 atorvastatin 20 mg tablet 20 mg PO QPM Qty: 90 RF: 3 metoprolol succinate 100 mg tablet extended release 24 hr 100 mg PO DAILY Qty: 90 RF: 4 omeprazole 20 mg tablet,delayed release (DR/EC) 40 mg PO DAILY Qty: 90 RF: 3 losartan 100 mg tablet 100 mg PO DAILY Qty: 90 RF: 3 magnesium oxide 400 mg (241.3 mg magnesium) tablet 400 mg PO DAILY Qty: 90 RF: 3 (DME) lancets [[employer] Delica Lancets] 33 gauge misc See Dose Instructions .ROUTE .MEDSUPPLY Qty: 100 RF: 6 (DME) OneTouch Verio Strip See Dose Instructions .ROUTE .MEDSUPPLY Qty: 100 RF: 12 ketoconazole 2 % cream 1 applic TP DAILY Qty: 30 RF: 4 Symbicort 160-4.5 mcg/actuation HFA aerosol inhaler 2 puff inhalation BID Qty: 1 RF: 0 albuterol sulfate [ProAir HFA] 90 mcg/actuation HFA aerosol inhaler 1 puff IH Q4H PRN (Reason: shortness of breath) Qty: 8.5 RF: 12 pregabalin [Lyrica] 75 mg capsule 75 mg PO BID Qty: 60 RF: 3 oxycodone 5 mg tablet 5 mg PO Q6H MDD 4 PRN (Reason: pain) Qty: 12 RF: 0 acetaminophen [Tylenol Extra Strength] 500 MG tablet 1,000 mg PO Q6H PRN PRNRF: 0 aspirin [Aspir-81] 81 MG tablet,delayed release (DR/EC) 81 mg PO DAILY RF: 0 furosemide 40 mg tablet 40 mg PO BID Qty: 180 RF: 3 glipizide 5 mg tablet 5 mg PO DAILY Qty: 90 RF: 3 fluoxetine 20 mg tablet 20 mg PO DAILY Qty: 90 RF: 3 allopurinol 300 mg tablet 150 mg PO DAILY Qty: 90 RF: 3 Discharge Instructions Additional Instructions: Encourage water intake. Dr. Szymanski has advised that if you are unable to urinate in the next 6 to 8 hours you return to the emergency department. Please call their office tomorrow morning to discuss symptoms and ensure that you do not need to be evaluated tomorrow. If you develop fever/chills, increased pain, inability to urinate or other new/worsening symptoms please seek care urgently once again. Referrals: Javier Szymanski MD [ [facility] STAFF PHYSICIAN] - Discharge Data Discharge Date/Time-TO BE ENTERED AT DEPARTURE: 05/14/19 14:46 Medical Decision Making Patient is a pleasant 74-year-old male presenting today with chief complaint of catheter discomfort. Patient was seen by Dr. Szymanski 6 days ago at which time a cystoscopy was performed for painless hematuria. At that time, a bladder mass was excised. He had been advised that Chiu catheter should stay in place for the next 5 to 7 days. He reports that he has an appoint with Dr. Szymanski tomorrow to have the catheter removed. However, he reports that he has been having severe discomfort at his urethral opening. Denies any fevers or chills. No CVA tenderness. No blood in his catheter today. On exam, patient is resting comfortably. Patient is afebrile. He does have some mild erythema around his urethral opening. No pain in the shaft of his penis. Foreskin is easily retractable. No discharge. No abdominal pain. Consulted with Dr. Szymanski who advised that catheter could be removed at this point as patient feels this is the source of his discomfort. We did discuss with patient should stay for voiding trial, he advised that the patient Return if no voiding in 6-8 hours after discharge. Also asked that the patient contact the office tomorrow. They do have a follow-up appointment to discuss the results of the biopsy on . Return precautions were discussed with the patient. Chiu was removed by nursing staff. All of their questions or concerns were addressed and they are in agreement with this plan. HPI General Mode of arrival: ambulatory. Date/Time Provider Initiated Documentation: 05/14/19 14:10. Limitations to Documentation: no limitations. Information obtained by: patient, family (), RN notes reviewed and old records reviewed. History of Present Illness 74 year old M presents to the emergency department with the chief complaint of Penile discomfort and catheter irritation, described as moderate, with intensity rated at 6. Quality is described as aching, and is localized to the genitals. Patient reports no radiation. Patient started experiencing this day(s) and it has been constant. No relieving factors improve symptom(s), No exacerbating factors reported . Patient notes no other symptoms.; denies fever/chills and nausea/vomiting. Patient did receive the following treatments prior to arrival, none Related Data Home Medications Medication Instructions Recorded Confirmed acetaminophen [Tylenol Extra 1,000 mg PO Q6H PRN PRN 06/01/13 05/14/19 Strength] aspirin [Aspir-81] 81 mg PO DAILY tab-cap 01/17/16 05/14/19 fluticasone propionate 50 1 spray IGOR BID gm 03/10/18 05/14/19 mcg/actuation nasal spray,suspension blood-glucose meter #1 each 07/11/18 05/08/19 ketoconazole 2 % topical cream 1 applic TP DAILY #30 gm 08/26/18 05/14/19 furosemide 40 mg tablet 40 mg PO BID #180 tab-cap 09/05/18 05/14/19 glipizide 5 mg tablet 5 mg PO DAILY #90 tab-cap 09/05/18 05/14/19 fluoxetine 20 mg tablet 20 mg PO DAILY #90 tab 09/27/18 05/14/19 allopurinol 300 mg tablet 150 mg PO DAILY #90 tab-cap 11/07/18 05/14/19 atorvastatin 20 mg tablet 20 mg PO QPM #90 tab 01/09/19 05/14/19 blood sugar diagnostic #100 each 01/09/19 05/08/19 lancets 33 gauge #100 each 01/09/19 05/08/19 losartan 100 mg tablet 100 mg PO DAILY #90 tab-cap 01/09/19 05/14/19 magnesium oxide 400 mg (241.3 mg 400 mg PO DAILY #90 tab 01/09/19 05/14/19 magnesium) tablet metoprolol succinate 100 mg 100 mg PO DAILY #90 tab 01/09/19 05/14/19 tablet,extended release 24 hr omeprazole 20 mg tablet,delayed 40 mg PO DAILY #90 tab 01/09/19 05/14/19 release albuterol sulfate 90 mcg/actuation 1 puff IH Q4H PRN #8.5 gm 04/18/19 05/14/19 aerosol inhaler budesonide-formoterol HFA 160 2 puff INHALATION BID #1 inh 04/18/19 05/14/19 mcg-4.5 mcg/actuation aerosol inhaler pregabalin 75 mg capsule 75 mg PO BID #60 cap 04/18/19 05/14/19 oxycodone 5 mg tablet 5 mg PO Q6H PRN #12 tab MDD 4 05/08/19 05/14/19 Previous Rx's Medication Instructions Recorded blood-glucose meter #1 each 07/11/18 ketoconazole 2 % topical cream 1 applic TP DAILY #30 gm 08/26/18 furosemide 40 mg tablet 40 mg PO BID #180 tab-cap 09/05/18 glipizide 5 mg tablet 5 mg PO DAILY #90 tab-cap 09/05/18 fluoxetine 20 mg tablet 20 mg PO DAILY #90 tab 09/27/18 allopurinol 300 mg tablet 150 mg PO DAILY #90 tab-cap 11/07/18 atorvastatin 20 mg tablet 20 mg PO QPM #90 tab 01/09/19 blood sugar diagnostic #100 each 01/09/19 lancets 33 gauge #100 each 01/09/19 losartan 100 mg tablet 100 mg PO DAILY #90 tab-cap 01/09/19 magnesium oxide 400 mg (241.3 mg 400 mg PO DAILY #90 tab 01/09/19 magnesium) tablet metoprolol succinate 100 mg 100 mg PO DAILY #90 tab 01/09/19 tablet,extended release 24 hr omeprazole 20 mg tablet,delayed 40 mg PO DAILY #90 tab 01/09/19 release albuterol sulfate 90 mcg/actuation 1 puff IH Q4H PRN #8.5 gm 04/18/19 aerosol inhaler budesonide-formoterol HFA 160 2 puff INHALATION BID #1 inh 04/18/19 mcg-4.5 mcg/actuation aerosol inhaler pregabalin 75 mg capsule 75 mg PO BID #60 cap 04/18/19 oxycodone 5 mg tablet 5 mg PO Q6H PRN #12 tab MDD 4 05/08/19 Allergies Allergy/AdvReac Type Severity Reaction Status Date / Time codeine AdvReac Intermediate DYSPHORIA Verified 05/14/19 14:11 niacin AdvReac Intermediate MYALGIAS Verified 05/14/19 14:11 simvastatin AdvReac Intermediate myalgias Verified 05/14/19 14:11 General ROBBI: 3 Review of Systems Constitutional Constitutional: Reports as per HPI, Denies chills and Denies fever(s) Gastrointestinal Gastrointestinal: Reports as per HPI, Denies abdominal pain, Denies nausea and Denies vomiting Genitourinary Genitourinary: Reports as per HPI and Denies hematuria (None noted today. Did have cystoscopy 6 days ago for this reason) Musculoskeletal Musculoskeletal: Reports as per HPI and Denies back pain Integumentary/Breasts Skin/Breast: Reports as per HPI Neurologic Neurologic: Reports as per HPI, Denies sensory deficit and Denies paresthesias [facility] Social History Smoking/Tobacco Use Status: Former Tobacco Use Quit Date: 05/03/94 Alcohol Intake: current Alcohol Intake frequency: holidays/special occasions only Alcohol type: beer Drug use: Never Substance use type: does not use Household members: spouse Housing: house Number of Children: 4 What is your relationship status?: Panel score (0-1 are the most socially isolated patients): 1 Working smoke detector in home: Yes Do you feel safe at home: Yes Do you feel safe in your relationship?: Yes Exam Const General: cooperative, healthy appearing, comfortable, no acute distress and well developed Nutritional Appearance: well nourished and overweight Orientation: alert and awake Resp Effort & Inspection: normal respiratory effort, able to speak in complete sentences and no respiratory distress Cardio Rate: regular rate Rhythm: regular rhythm Penis: penis abnormal (Chiu catheter in place. Mild erythema at urethral opening), erythematous and foreskin retracts Neuro General: alert and awake Cognition: normal cognition Speech: speech normal Gait: normal gait Sensory Exam: no sensory deficits noted Psych Appearance: grossly normal and well kempt Mental Status: mental status grossly normal Speech and Movement: speech and movement normal
== END 2019-05-14 14:46 | disposition home or self-care (01) ==
LOC: ER 14:31
PROVIDERS: Emergency Provider Physician Assistant; PCP Nurse Practitioner
DX: N48.89 Other specified disorders of penis (principal); Z46.6 Encounter for fitting and adjustment of urinary device
CPT/HCPCS: 99283

== ENCOUNTER → 2019-05-16 15:38 | Outpatient (BNVA) | payer MEDICARE, OTHER, SELFPAY | PROVIDERS: PCP Nurse Practitioner; Referring Provider Nurse Practitioner; Visit Provider Urology | DX: C67.9 Malignant neoplasm of bladder, unspecified (principal); R30.0 Dysuria; R35.0 Frequency of micturition | CPT/HCPCS: 99213 ==

== ENCOUNTER 2019-05-24 09:03 | Outpatient (CLI) | payer MEDICARE, OTHER, SELFPAY ==
[2019-05-24 10:12] LABS: ALT 28 U/L (16-63); AST 22 U/L (15-37); Albumin 3.6 g/dL (3.4-5.0); Alkaline Phosphatase 100 U/L (46-116); Anion Gap 7.3 mmol/L (3-11); BUN 35 mg/dL (7-18); Bilirubin, Total 0.4 mg/dL (0.2-1.0); CO2 29.7 mmol/L (21.0-32.0); CREATININE 1.59 mg/dL (0.70-1.30); Calcium 8.7 mg/dL (8.5-10.1); Calculated LDL 73 mg/dL; Chloride 102 mmol/L (98-107); Cholesterol 133 mg/dL (<200); Estimated GFR 42.54 (mL/min/1.73m2); Glucose 144 mg/dL (74-106); HDL Cholesterol 32 mg/dL (40-60); Potassium 4.8 mmol/L (3.5-5.1); Sodium 139 mmol/L (136-145); Total Protein 6.9 g/dL (6.4-8.2); Triglyceride 140 mg/dL (<150)
== END 2019-05-24 09:23 ==
PROVIDERS: PCP Nurse Practitioner; Visit Provider Nurse Practitioner
DX: E78.2 Mixed hyperlipidemia (principal); I10 Essential (primary) hypertension; E11.22 Type 2 diabetes mellitus with diabetic chronic kidney disease; I25.810 Atherosclerosis of coronary artery bypass graft(s) without angina pectoris; N18.3 Chronic kidney disease, stage 3 (moderate)
CPT/HCPCS: 36415; 80053; 80061

== ENCOUNTER → 2019-05-26 09:55 | Outpatient (BNVA) | payer MEDICARE, OTHER, SELFPAY | PROVIDERS: PCP Nurse Practitioner; Referring Provider Nurse Practitioner; Visit Provider Urology | DX: C67.9 Malignant neoplasm of bladder, unspecified (principal) | CPT/HCPCS: 81003; 99213 ==

== ENCOUNTER 2019-05-26 11:56 | Outpatient (REF) | payer MEDICARE, OTHER, SELFPAY | END 2019-05-26 12:16 | LOC: LBN 11:56 | PROVIDERS: PCP Nurse Practitioner; Visit Provider Urology | DX: R35.0 Frequency of micturition (principal); C67.9 Malignant neoplasm of bladder, unspecified | CPT/HCPCS: 87086 ==

== ENCOUNTER → 2019-06-05 08:46 | Outpatient (BNVA) | payer MEDICARE, OTHER, SELFPAY | PROVIDERS: PCP Nurse Practitioner; Referring Provider Nurse Practitioner; Visit Provider Urology | DX: C67.9 Malignant neoplasm of bladder, unspecified (principal) | CPT/HCPCS: 51720; 81003; 99212; 99213; J9201 ==

== ENCOUNTER → 2019-06-13 07:55 | Outpatient (BNVA) | payer MEDICARE, OTHER, SELFPAY | PROVIDERS: PCP Nurse Practitioner; Referring Provider Nurse Practitioner; Visit Provider Urology | DX: C67.9 Malignant neoplasm of bladder, unspecified (principal) | CPT/HCPCS: 51720; 81003; 99212; J9201 ==

== ENCOUNTER → 2019-06-20 08:28 | Outpatient (BNVA) | payer MEDICARE, OTHER, SELFPAY | PROVIDERS: PCP Nurse Practitioner; Referring Provider Nurse Practitioner; Visit Provider Urology | DX: C67.9 Malignant neoplasm of bladder, unspecified (principal); J44.9 Chronic obstructive pulmonary disease, unspecified; E11.42 Type 2 diabetes mellitus with diabetic polyneuropathy; E11.22 Type 2 diabetes mellitus with diabetic chronic kidney disease; N18.3 Chronic kidney disease, stage 3 (moderate) | CPT/HCPCS: 51720; 99213; J9031 ==

== ENCOUNTER → 2019-06-27 11:15 | Outpatient (BNVA) | payer MEDICARE, OTHER, SELFPAY | PROVIDERS: PCP Nurse Practitioner; Referring Provider Nurse Practitioner; Visit Provider Urology | DX: C67.9 Malignant neoplasm of bladder, unspecified (principal) | CPT/HCPCS: 51720; 99212; J9201 ==

== ENCOUNTER → 2019-07-04 08:39 | Outpatient (BNVA) | payer MEDICARE, OTHER, SELFPAY | PROVIDERS: PCP Nurse Practitioner; Referring Provider Nurse Practitioner; Visit Provider Urology | DX: C67.9 Malignant neoplasm of bladder, unspecified (principal) | CPT/HCPCS: 51720; 99212; J9201 ==

== ENCOUNTER 2019-07-11 00:04 | Emergency (ER) | payer MEDICARE, OTHER, SELFPAY ==
[2019-07-11 00:09] VITALS: BP 156/98; PULSE 86; RESP 16; TEMP 36.6; O2SAT 98
--- NOTE | 2019-07-11 00:15 | ED.GENADUL_ITS ---
Discharge Plan Disposition Patient Disposition: HOME Condition: Stable Discharge Details Chief Complaint: RashLesion Clinical Impression: Rash Primary Care Provider: Elizabet Auguste ED Provider: Parker Rose Home Meds and New Rx's Prescriptions: Continued nystatin [Nyamyc] 100,000 unit/gram powder 1 applic TP TID Qty: 30 RF: 12 fluticasone propionate [Allergy Relief (fluticasone)] 50 mcg/actuation s pray,suspension 1 spray IGOR BID RF: 0 (DME) blood-glucose meter [OneTouch Verio System] misc See Dose Instructions .ROUTE .MEDSUPPLY Qty: 1 RF: 0 atorvastatin 20 mg tablet 20 mg PO QPM Qty: 90 RF: 3 metoprolol succinate 100 mg tablet extended release 24 hr 100 mg PO DAILY Qty: 90 RF: 4 losartan 100 mg tablet 100 mg PO DAILY Qty: 90 RF: 3 magnesium oxide 400 mg (241.3 mg magnesium) tablet 400 mg PO DAILY Qty: 90 RF: 3 (DME) lancets [NauboTouch Delica Lancets] 33 gauge misc See Dose Instructions .ROUTE .MEDSUPPLY Qty: 100 RF: 6 (DME) OneTouch Verio Strip See Dose Instructions .ROUTE .MEDSUPPLY Qty: 100 RF: 12 ketoconazole 2 % cream 1 applic TP DAILY Qty: 30 RF: 4 albuterol sulfate [ProAir HFA] 90 mcg/actuation HFA aerosol inhaler 1 puff IH Q4H PRN (Reason: shortness of breath) Qty: 8.5 RF: 12 pregabalin [Lyrica] 75 mg capsule 75 mg PO BID Qty: 60 RF: 3 acetaminophen [Tylenol Extra Strength] 500 MG tablet 1,000 mg PO Q6H PRN PRNRF: 0 aspirin [Aspir-81] 81 MG tablet,delayed release (DR/EC) 81 mg PO DAILY RF: 0 furosemide 40 mg tablet 40 mg PO BID Qty: 180 RF: 3 glipizide 5 mg tablet 5 mg PO DAILY Qty: 90 RF: 3 fluoxetine 20 mg tablet 20 mg PO DAILY Qty: 90 RF: 3 allopurinol 300 mg tablet 150 mg PO DAILY Qty: 90 RF: 3 budesonide-formoterol [Symbicort] 160-4.5 mcg/actuation HFA aerosol inhaler 2 puff inhalation BID Qty: 10.2 RF: 12 omeprazole 20 mg tablet,delayed release (DR/EC) 40 mg PO DAILY Qty: 90 RF: 3 Discharge Instructions Additional Instructions: use the nystatin powder on the skin follow up as scheduled today with Dr. Szymanski If you have fevers or feel significant pain return to the emergency department Medical Decision Making 74 yo male with hx of bladder cancer who sees Dr. Szymanski for intravesical gem citabine comes in with leaking from my bag which after exam and discussion was determined to mean he is having some moisture on the scortum. It has been happening for a couple days and has had it in the past, was originally on nystatin and started bag balm. NO fevers or severe pain. He has no testicle tenderness on exam or swelling. The skin of the scotum has mild erythema and moisture, not warm to touch. Seems most consistent with irritated skin or possible fungal infection. Will speak with Dr. Szymanski to see if this could be from the chemo or not. NO indication of fourniers or cellulitis, no evidence of torsion or orchitis given lack of swelling and testicle tenderness spoke with Dr. Szymanski and is not related to the chemo and recommended the nystatin powder. Patient instructed of this and has appointment today with Dr. Szymanski, return precautions given Differential Diagnosis Differential Diagnosis: fungal infection, cellulitis, dermatitis HPI General Mode of arrival: ambulatory . Date/Time Provider Initiated Documentation: 07/11/19 00:05 . Limitations to Documentation: no limitations . Information obtained by: patient . History of Present Illness 74 year old M presents to the emergency department with the chief complaint of leaking from my bag, Patient started experiencing this day(s) (3) and it has been const ant. No relieving factors improve symptom(s), No exacerbating factors reported . Related Data Home Medications Medication Instructions Recorded Confirmed acetaminophen [Tylenol Extra 1,000 mg PO Q6H PRN PRN 06/01/13 07/04/19 Strength] aspirin [Aspir-81] 81 mg PO DAILY tab-cap 01/17/16 07/04/19 fluticasone propionate 50 1 spray IGOR BID gm 03/10/18 07/04/19 mcg/actuation nasal spray,suspension blood-glucose meter #1 each 07/11/18 07/04/19 ketoconazole 2 % topical cream 1 applic TP DAILY #30 gm 08/26/18 07/04/19 furosemide 40 mg tablet 40 mg PO BID #180 tab-cap 09/05/18 07/04/19 glipizide 5 mg tablet 5 mg PO DAILY #90 tab-cap 09/05/18 07/04/19 fluoxetine 20 mg tablet 20 mg PO DAILY #90 tab 09/27/18 07/04/19 allopurinol 300 mg tablet 150 mg PO DAILY #90 tab-cap 11/07/18 07/04/19 atorvastatin 20 mg tablet 20 mg PO QPM #90 tab 01/09/19 07/04/19 blood sugar diagnostic #100 each 01/09/19 07/04/19 lancets 33 gauge #100 each 01/09/19 07/04/19 losartan 100 mg tablet 100 mg PO DAILY #90 tab-cap 01/09/19 07/04/19 magnesium oxide 400 mg (241.3 mg 400 mg PO DAILY #90 tab 01/09/19 07/04/19 magnesium) tablet metoprolol succinate 100 mg 100 mg PO DAILY #90 tab 01/09/19 07/04/19 tablet,extended release 24 hr albuterol sulfate 90 mcg/actuation 1 puff IH Q4H PRN #8.5 gm 04/18/19 07/04/19 aerosol inhaler pregabalin 75 mg capsule 75 mg PO BID #60 cap 04/18/19 07/04/19 budesonide-formoterol HFA 160 2 puff INHALATION BID #10.2 gm 05/15/19 07/04/19 mcg-4.5 mcg/actuation aerosol inhaler nystatin 100,000 unit/gram topical 1 applic TP TID #30 gm 06/27/19 07/04/19 powder omeprazole 20 mg tablet,delayed 40 mg PO DAILY #90 tab 07/10/19 release Previous Rx's Medication Instructions Recorded blood-glucose meter #1 each 07/11/18 ketoconazole 2 % topical cream 1 applic TP DAILY #30 gm 08/26/18 furosemide 40 mg tablet 40 mg PO BID #180 tab-cap 09/05/18 glipizide 5 mg tablet 5 mg PO DAILY #90 tab-cap 09/05/18 fluoxetine 20 mg tablet 20 mg PO DAILY #90 tab 09/27/18 allopurinol 300 mg tablet 150 mg PO DAILY #90 tab-cap 11/07/18 atorvastatin 20 mg tablet 20 mg PO QPM #90 tab 01/09/19 blood sugar diagnostic #100 each 01/09/19 lancets 33 gauge #100 each 01/09/19 losartan 100 mg tablet 100 mg PO DAILY #90 tab-cap 01/09/19 magnesium oxide 400 mg (241.3 mg 400 mg PO DAILY #90 tab 01/09/19 magnesium) tablet metoprolol succinate 100 mg 100 mg PO DAILY #90 tab 01/09/19 tablet,extended release 24 hr albuterol sulfate 90 mcg/actuation 1 puff IH Q4H PRN #8.5 gm 04/18/19 aerosol inhaler pregabalin 75 mg capsule 75 mg PO BID #60 cap 04/18/19 budesonide-formoterol HFA 160 2 puff INHALATION BID #10.2 gm 05/15/19 mcg-4.5 mcg/actuation aerosol inhaler nystatin 100,000 unit/gram topical 1 applic TP TID #30 gm 06/27/19 powder omeprazole 20 mg tablet,delayed 40 mg PO DAILY #90 tab 07/10/19 release Allergies Allergy/AdvReac Type Severity Reaction Status Date / Time codeine AdvReac Intermediate DYSPHORIA Verified 06/01/19 09:36 niacin AdvReac Intermediate MYALGIAS Verified 06/01/19 09:36 simvastatin AdvReac Intermediate myalgias Verified 06/01/19 09:36 General ROBBI: 3 Review of Systems All systems reviewed & are unremarkable except as noted in HPI and below Constitutional Constitutional: Denies chills, Denies fever(s) and Denies weakness Eyes Eyes: Denies loss of vision Cardiovascular Cardiovascular: Denies chest pain and Denies dyspnea Respiratory Respiratory: Denies cough and Denies dyspnea Gastrointestinal Gastrointestinal: Denies abdominal pain, Denies nausea and Denies vomiting Genitourinary Genitourinary: Denies dysuria Musculoskeletal Musculoskeletal: Denies joint swelling Neurologic Neurologic: Denies loss of vision and Denies weakness Psychiatric Psychiatric: Denies depression Endocrine Endocrine: Denies cold intolerance and Denies heat intolerance Allergic/Immunologic Allergic/Immunologic: Denies urticaria PFSH Medical History (Updated 07/11/19 @ 00:49 by Parker Rose MD) Benign neoplasm of colon (Acute 08/04/12) pt. states she is unaware of this Benign prostatic hyperplasia with urinary frequency (Acute) Bladder cancer (Acute) Carpal tunnel syndrome (Acute 08/04/12) Chronic kidney disease, stage III (moderate) (Chronic 01/26/13) 12/2008 CT abd/pelvis neg COPD (chronic obstructive pulmonary disease) (Chronic) Coronary artery disease involving coronary bypass graft of [place] heart (Acute 01/02/16) MVR & 2v CABG, marginal and PDA, EF 45% [facility] [place] CVA (cerebral vascular accident) (Acute 01/03/16) 12/2015 [place] [facility] [place]ip[place] Diabetes mellitus with diabetic neuropathy (Acute 04/13/14) Diabetes mellitus with stage 3 chronic kidney disease (Acute 03/02/14) A1C goal 8 Gastroesophageal reflux disease (Acute 08/04/12) failed omeprazole, failed dexilant 06/01/2013 Gross hematuria (Acute) H/O urinary frequency (Acute) History of tobacco use (Acute 07/03/11) pt. states he hasn't smoked in 35 years Hyperlipidemia (Acute 07/03/11) PCEq 55.3%; intolerant statins Lumbago with sciatica, unspecified side (Acute 08/04/12) 08/2005 small disc herniations L5-S1, no spinal or neuroforaminal stenosis. back surgery 10/2000 [place] [facility] [place]; L5 radiculopathy Memory impairment (Acute 12/11/15) 12/2015 MMSE 23 B12/lab nl; MRI 12/2015 old silvia lacunar CVAs Mitral valve insufficiency (Acute 12/19/15) MVR: bovine bioprosthesis and CABGx2 [facility] [place] Obesity, unspecified (Acute 07/03/11) Sensorineural hearing loss (Acute 08/24/14) using an ITE aid. unknown model. Systolic CHF, chronic (Chronic 04/15/16) 04/15/16 Echo: EF 35%; MVR bioprosthesis intact Unspecified essential hypertension (Acute 08/04/12) goal 150/90 Surgical History (Updated 05/08/19 @ 14:05 by Javier Szymanski MD) Appendectomy Colonoscopy - MAC (01/11/15) Dr Morgan Grade 2 hemorrhoids Coronary Artery Bypass Gaft (CABG) (Chronic 12/20/15) [facility] [place]ENDO[place] History of arthroplasty of right shoulder (Acute ~09/2015) History of back surgery (Acute 10/21/00) [facility] [place] Win S/P partial gastrectomy (Acute) Status post carpal tunnel release of both wrists (Acute) Valve Replacement (Chronic 12/20/15) [facility] [place] Ba[place] Mitral valve Social History Smoking/Tobacco Use Status: Former Tobacco Use Quit Date: 05/03/94 Alcohol Intake: current Alcohol Intake frequency: holidays/special occasions only Alcohol type: beer Drug use: Never Substance use type: does not use Household members: spouse Housing: house Number of Children: 4 What is your relationship status?: Panel score (0-1 are the most socially isolated patients): 1 Working smoke detector in home: Yes Do you feel safe at home: Yes Do you feel safe in your relationship?: Yes Exam Const General: no acute distress Orientation: alert HENMT Head: normal to inspection Ears: external ears normal General nose exam: external nose normal Mouth: moist mucous membranes Eyes General: appearance normal, both eyes and all related structures Neck Neck: normal visual inspection Resp Effort & Inspection: normal respiratory effort and able to speak in complete s entences Cardio Rate: regular rate Scrotum: erythematous Skin General skin exam: no rashes or lesions noted Neuro General: alert and oriented x3 Extrem General: normal to inspection Psych Mental Status: mental status grossly normal
== END 2019-07-11 00:53 | disposition home or self-care (01) ==
LOC: ER 00:56
PROVIDERS: Emergency Provider Emergency Medicine; PCP Nurse Practitioner
DX: L53.8 Other specified erythematous conditions (principal); R21 Rash and other nonspecific skin eruption; C67.9 Malignant neoplasm of bladder, unspecified; Z79.899 Other long term (current) drug therapy; I12.9 Hypertensive chronic kidney disease with stage 1 through stage 4 chronic kidney disease, or unspecified chronic kidney disease; N18.3 Chronic kidney disease, stage 3 (moderate); E11.22 Type 2 diabetes mellitus with diabetic chronic kidney disease; J44.9 Chronic obstructive pulmonary disease, unspecified; Z87.891 Personal history of nicotine dependence; Z79.84 Long term (current) use of oral hypoglycemic drugs
CPT/HCPCS: 51720; 81003; 99213; 99282; J9201; 99283

== ENCOUNTER → 2019-07-14 10:15 | Outpatient (BNVA) | payer MEDICARE, OTHER, SELFPAY | PROVIDERS: PCP Nurse Practitioner; Referring Provider Nurse Practitioner; Visit Provider Urology | DX: N50.89 Other specified disorders of the male genital organs (principal); C67.9 Malignant neoplasm of bladder, unspecified; J44.9 Chronic obstructive pulmonary disease, unspecified; E11.42 Type 2 diabetes mellitus with diabetic polyneuropathy; E11.22 Type 2 diabetes mellitus with diabetic chronic kidney disease; N18.3 Chronic kidney disease, stage 3 (moderate) ==

== ENCOUNTER → 2019-07-17 12:23 | Outpatient (BNVA) | payer MEDICARE, OTHER, SELFPAY | PROVIDERS: PCP Nurse Practitioner; Referring Provider Nurse Practitioner; Visit Provider Nurse Practitioner Gerontology | DX: N50.89 Other specified disorders of the male genital organs (principal) ==

== ENCOUNTER → 2019-07-20 14:53 | Outpatient (BNVA) | payer MEDICARE, OTHER, SELFPAY | PROVIDERS: PCP Nurse Practitioner; Referring Provider Nurse Practitioner; Visit Provider Urology | DX: R21 Rash and other nonspecific skin eruption (principal); C67.9 Malignant neoplasm of bladder, unspecified; Z79.899 Other long term (current) drug therapy ==

== ENCOUNTER → 2019-09-15 09:28 | Outpatient (BNVA) | payer MEDICARE, OTHER, SELFPAY | PROVIDERS: PCP Nurse Practitioner; Referring Provider Nurse Practitioner; Visit Provider Urology | DX: C67.9 Malignant neoplasm of bladder, unspecified (principal) | CPT/HCPCS: 52000; 99213 ==

== ENCOUNTER 2019-09-15 12:09 | Outpatient (REF) | payer MEDICARE, SELFPAY ==
--- NOTE | 2019-09-15 09:50 | PAPNONF_PTH ---
PATIENT: Jeronimo Archer LOC: [facility] U#:[id number] AGE/SX: 74/M ROOM: RE09/15/[address]: Javier Szymanski MD : 1945 BED: DIS: 09/15/2019 SPEC #: [id number] RECD: 09/15/19 12:16 STATUS: ZHEN REQ #: [id number] CAMERON: 09/15/19 09:[address]: Javier Szymanski DEPT: [facility] Cytology RECD BY: Yudy Quintana ENTERED: 09/15/19 12:17 SP TYPE: SANDY STARKEY DR: Elizabet Auguste APRN Tissues: 1 - BODY FLUID CYTO(SPUTUM/URINE)[facility] Procedures: BODY FLUID CYTO(URINE/SPUTUM) Comments: [id number] (TOTAL VOLUME = 80 ml's) (40 ml's URINE & 40 ml's CYTOLYT ADDED IN 2 CONTAINERS)
== END 2019-09-15 12:29 ==
LOC: LBN 12:09
PROVIDERS: PCP Nurse Practitioner; Visit Provider Urology
DX: C67.9 Malignant neoplasm of bladder, unspecified (principal)
CPT/HCPCS: 88104

== ENCOUNTER → 2019-11-06 09:37 | Outpatient (BNVA) | payer MEDICARE, OTHER, SELFPAY | PROVIDERS: PCP Nurse Practitioner; Referring Provider Nurse Practitioner; Visit Provider Internal Medicine Cardiovascular Disease | DX: I25.810 Atherosclerosis of coronary artery bypass graft(s) without angina pectoris (principal); Z95.1 Presence of aortocoronary bypass graft; I10 Essential (primary) hypertension; J44.9 Chronic obstructive pulmonary disease, unspecified; E11.40 Type 2 diabetes mellitus with diabetic neuropathy, unspecified; E11.22 Type 2 diabetes mellitus with diabetic chronic kidney disease | CPT/HCPCS: 99214 ==

== ENCOUNTER 2019-11-21 14:38 | Outpatient (REF) | payer MEDICARE, SELFPAY ==
[2019-11-21 22:35] LABS: COMMENT (LAB VIEW ONLY) 91.16 mg/dL; Microalb ug/mg Crea 34.6 ug/mg Cr
== END 2019-11-21 14:58 ==
LOC: LBN 14:38
PROVIDERS: PCP Nurse Practitioner; Visit Provider Nurse Practitioner
DX: E11.22 Type 2 diabetes mellitus with diabetic chronic kidney disease (principal); N18.3 Chronic kidney disease, stage 3 (moderate); E78.5 Hyperlipidemia, unspecified
CPT/HCPCS: 82043; 82570

== ENCOUNTER → 2019-12-01 12:46 | Outpatient (BNVA) | payer MEDICARE, OTHER, SELFPAY | PROVIDERS: PCP Nurse Practitioner; Referring Provider Nurse Practitioner; Visit Provider Internal Medicine Cardiovascular Disease | DX: I25.810 Atherosclerosis of coronary artery bypass graft(s) without angina pectoris (principal); E78.2 Mixed hyperlipidemia; I34.0 Nonrheumatic mitral (valve) insufficiency; E11.22 Type 2 diabetes mellitus with diabetic chronic kidney disease; N18.3 Chronic kidney disease, stage 3 (moderate); J44.9 Chronic obstructive pulmonary disease, unspecified | CPT/HCPCS: 99213 ==

== ENCOUNTER 2019-12-07 00:56 | Outpatient (CLI) | payer MEDICARE, OTHER, SELFPAY ==
--- NOTE | 2019-12-07 06:30 | DI.NM_ITS ---
APPROVED REPORT Exam: Pharmacologic Patient Location: Out-Patient Room/Bed: Stress Nurse: Tori Johnson RN BMI: 37.75 Baseline Rhythm: Sinus Rhythm Indications: Chest Pain, Congestive Heart Failure, CAD, Dyspnea, CAD s/p CABG, SOB Medical History Medical History: CAD s/p CABG, CHF, CKD, COPD, Diabetic ??? Noninsulin, GERD, HTN, Obesity , SOB, Str prieto/TIA, Valvular heart disease Cardiac Medications: Aspirin, Atorvastatin/ Lipitor, Furosemide/ Lasix, Metoprolol Allergies: niacin, simvastatin, codeine Cardiac Risk Factors: HTN, Hyperlipidemia, DM, FHX of CAD, SOB, COPD, CVD Previous Cardiac Procedures: CABG Pretest Chest Pain Characteristics: No chest pain Exercise History: Sedentary Physical Disabilities: Back Lung Sounds: Clear to auscultation Heart Sounds: Regular Stress Test Details Test: Pharmacologic stress testing performed using 0.4 mg of regadenoson per 5 mL given IV over 10 s econds. Reason for pharmacologic stress test: physical limitation. Nuclear Acquisition: Rest Tc-99m/Stress Tc-99m 1 day Rest Isotope: Tc-99m Sestamibi. Dose: 12.5 Date: 12/07/2019 Injection Time: 0850 Stress Isotope: Tc-99m Sestamibi. Dose: 36.5 Date: 12/07/2019 Injection Time: 1015 HR Resting HR Supine: 71 bpm Max Heart Rate (APMHR): 144 bpm Target HR (85% APMHR): 122 bpm Max HR Achieved: 82 bpm % of APMHR: 56 Recovery HR: 79 bpm HR response to stress: Normal HR response to stress BP Resting BP Supine: 176/84 mmHg Max BP: 178/70 mmHg Recovery BP: 178/70 mmHg BP response to stress: Normal blood pressure response to stress. ECG Resting ECG: Sinus Rhythm Ectopy: pvc Stress ECG: Sinus Rhythm Maximum ST Deviation: 1.5 mm Arrhythmia: VPC's Recovery ECG: Sinus Rhythm Recovery Arrhythmia: VPC Clinical Reason for Termination: vs returned to baseline Stress Symptoms: Dyspnea Exercise duration: 05 min59 sec Exercise capacity: 1 METs Stress ECG Conclusion 1. This is a pharmacological stress test. 2. There were no significant EKG changes during stress. 3. The EKG portion of this exam is nondiagnostic. Critical Notification Critical Value: No MPI Conclusion The ejection fraction was 40% with stress. The LV is dilated with mild diffuse hypokinesis. There is a moderate sized fixed inferolateral infarct. There is no sienna-infarct ischemia. Radiologist Interpretation Radiologist agrees with Merry Go Round Attendant's Interpretation. Radiologist Interpretation by: Ray Fink MD Interpretation Date/Time: 12/08/2019 08:01:00
[2019-12-07] MEDS: Regadenoson 0.4 MG/5 ML SYR IVP (10:38)
== END 2019-12-07 01:16 ==
PROVIDERS: PCP Nurse Practitioner; Visit Provider Internal Medicine Cardiovascular Disease
DX: I25.810 Atherosclerosis of coronary artery bypass graft(s) without angina pectoris (principal); I10 Essential (primary) hypertension; E78.5 Hyperlipidemia, unspecified; E11.9 Type 2 diabetes mellitus without complications; Z82.49 Family history of ischemic heart disease and other diseases of the circulatory system; J44.9 Chronic obstructive pulmonary disease, unspecified; R06.02 Shortness of breath
CPT/HCPCS: 78452; 93016; 93018; 93017; J2785

== ENCOUNTER → 2019-12-15 11:00 | Outpatient (BNVA) | payer MEDICARE, OTHER, SELFPAY | PROVIDERS: PCP Nurse Practitioner; Visit Provider Urology | DX: C67.9 Malignant neoplasm of bladder, unspecified (principal) | CPT/HCPCS: 52000; 81003; 99213 ==

== ENCOUNTER 2019-12-15 15:19 | Outpatient (REF) | payer MEDICARE, OTHER, SELFPAY ==
--- NOTE | 2019-12-15 11:00 | PAPNONF_PTH ---
PATIENT: Jeronimo Archer LOC: [facility] U#:[id number] AGE/SX: 74/M ROOM: RE12/15/[address]: Javier Szymanski MD : 1945 BED: DIS: 12/15/2019 SPEC #: [id number] RECD: 12/15/19 16:43 STATUS: ZHEN REQ #: [id number] CAMERON: 12/15/19 11:[address]: Javier Szymanski DEPT: [facility] Cytology RECD BY: Caryl Srtickland ENTERED: 12/15/19 16:48 SP TYPE: SANDY STARKEY DR: Elizabet Auguste APRN Tissues: 1 - BODY FLUID CYTO(SPUTUM/URINE)[facility] Procedures: BODY FLUID CYTO(URINE/SPUTUM) Comments: [id number] (TOTAL VOLUME = 80 ml's) (40 ml's URINE & 40 ml's CYTOLYT ADDED IN 2 CONTAINERS)
== END 2019-12-15 15:39 ==
LOC: LBN 15:19
PROVIDERS: PCP Nurse Practitioner; Visit Provider Urology
DX: Z85.51 Personal history of malignant neoplasm of bladder (principal); Z12.6 Encounter for screening for malignant neoplasm of bladder
CPT/HCPCS: 88104

== ENCOUNTER → 2019-12-19 12:52 | Outpatient (BNVA) | payer MEDICARE, OTHER, SELFPAY | PROVIDERS: PCP Nurse Practitioner; Visit Provider Internal Medicine Cardiovascular Disease | DX: I25.810 Atherosclerosis of coronary artery bypass graft(s) without angina pectoris (principal); E78.2 Mixed hyperlipidemia; I34.0 Nonrheumatic mitral (valve) insufficiency; I10 Essential (primary) hypertension; E11.42 Type 2 diabetes mellitus with diabetic polyneuropathy; E11.22 Type 2 diabetes mellitus with diabetic chronic kidney disease; N18.3 Chronic kidney disease, stage 3 (moderate); J44.9 Chronic obstructive pulmonary disease, unspecified; Z79.84 Long term (current) use of oral hypoglycemic drugs; Z87.891 Personal history of nicotine dependence | CPT/HCPCS: 99213 ==

== ENCOUNTER 2020-01-01 07:09 | Outpatient (CLI) | payer MEDICARE, OTHER, SELFPAY ==
[2020-01-02 14:28] LABS: COVID-19 RT-PCR Result NEGATIVE (Negative)
== END 2020-01-01 07:29 ==
PROVIDERS: PCP Nurse Practitioner; Visit Provider Urology
DX: Z11.59 Encounter for screening for other viral diseases (principal)
CPT/HCPCS: U0003

== ENCOUNTER 2020-01-04 07:07 | Day surgery (SDC) | payer MEDICARE, OTHER, SELFPAY ==
--- NOTE | 2020-01-02 13:06 | DSU.FORM ---
01/02/20 pt reports pt had his 81mg ASA today and did not know to stop it. Pt told to hold ASA until after surgery. Office made aware Ivone 01/02/20 @ 1250. Trina will speak to Dr. Szymanski but said patient surgery is still on unless Dr. Szymanski feel otherwise.
[2020-01-04 07:29] VITALS: BP 128/76; PULSE 75; RESP 16; TEMP 36.7; O2SAT 96
--- NOTE | 2020-01-04 07:59 | HPE_ITS ---
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 He was treated with TURBT followed by introvesical Gemcitabine. His 3 month cystoscopy and cytology were unremarkable, but his most recent cys toscopy shows some abnormal mucosa adjacent to the ureteral orifices. His urine cytology showed atypical cells as well. He presents for cystoscopy, TURBT and instillation of Mitomycin C into the bladder. He has not seen gross hematuria. He has frequency and urgency, but these symptoms have not changed recently. Review of Systems Narrative: No fevers or chills. he has lost weigh intentionally No vision change. Decreased hearing acuity No thyroid dysfunction. Hx diabetes No shortness of breath or hemoptysis No chest pain or palpitations Hx GERD. No hepatitis, ulcers, jaundice, diarrhea or constipation No seizures, strokes or peripheral neuropathy No bleeding disorders or anemia No gout. Chronic back pain [facility] Medical History Benign neoplasm of colon (Acute 08/04/12) pt. states she is unaware of this Benign prostatic hyperplasia with urinary frequency (Acute) Bladder cancer (Acute) Carpal tunnel syndrome (Acute 08/04/12) Chronic kidney disease, stage III (moderate) (Chronic 01/26/13) 12/2008 CT abd/pelvis neg COPD (chronic obstructive pulmonary disease) (Chronic) Coronary artery disease involving coronary bypass graft of [place] heart (Acute 01/02/16) MVR & 2v CABG, marginal and PDA, EF 45% [facility] [place] 12/20/15 CVA (cerebral vascular accident) (Acute 01/03/16) 12/2015 post op [facility] [place] R hemiparesis Diabetes mellitus with diabetic neuropathy (Acute 04/13/14) Diabetes mellitus with stage 3 chronic kidney disease (Acute 03/02/14) A1C goal 8 Gastroesophageal reflux disease (Acute 08/04/12) failed omeprazole, failed dexilant 06/01/2013 Gross hematuria (Acute) H/O urinary frequency (Acute) History of tobacco use (Acute 07/03/11) pt. states he hasn't smoked in 35 years Hyperlipidemia (Acute 07/03/11) PCEq 55.3%; intolerant statins Lumbago with sciatica, unspecified side (Acute 08/04/12) 08/2005 small disc herniations L5-S1, no spinal or neuroforaminal stenosis. back surgery 10/2000 Disectomy [facility] [place] 08/2006; L5 radiculopathy Memory impairment (Acute 12/11/15) 12/2015 MMSE 23 B12/lab nl; MRI 12/2015 old silvia lacunar CVAs Mitral valve insufficiency (Acute 12/19/15) MVR: bovine bioprosthesis and CABGx2 [facility] [place] 12/20/15 Obesity, unspecified (Acute 07/03/11) Sensorineural hearing loss (Acute 08/24/14) using an ITE aid. unknown model. Systolic CHF, chronic (Chronic 04/15/16) 04/15/16 Echo: EF 35%; MVR bioprosthesis intact Unspecified essential hypertension (Acute 08/04/12) goal 150/90 Surgical History Appendectomy Colonoscopy - MAC (01/11/15) Dr Morgan Grade 2 hemorrhoids Coronary Artery Bypass Gaft (CABG) (Chronic 12/20/15) [facility] [place] DR MENDOZA History of arthroplasty of right shoulder (Acute ~09/2015) History of back surgery (Acute 10/21/00) [facility] [place] Dr. Win S/P partial gastrectomy (Acute) Status post carpal tunnel release of both wrists (Acute) Valve Replacement (Chronic 12/20/15) [facility] [place] Dr Baumann Mitral valve Family History Brother Alcoholism Heart disease Grandfather Heart disease Father Personal history of malignant neoplasm THROAT CA Social History Smoking/Tobacco Use Status: Former Tobacco Use Quit Date: 05/03/94 Alcohol Intake: current Alcohol Intake frequency: holidays/special occasions only Alcohol type: beer Drug use: Never Substance use type: does not use Household members: spouse Housing: house Number of Children: 4 What is your relationship status?: Panel score (0-1 are the most socially isolated patients): 1 Working smoke detector in home: Yes Do you feel safe at home: Yes Do you feel safe in your relationship?: Yes Meds Home Medications and Allergies Home Medications Medication Instructions Recorded Confirmed Type acetaminophen [Tylenol Extra 1,000 mg PO Q6H PRN PRN 06/01/13 01/04/20 History Strength] aspirin [Aspir-81] 81 mg PO DAILY tab-cap 01/17/16 01/04/20 History fluticasone propionate 50 1 spray IGOR BID PRN gm 03/10/18 01/04/20 History mcg/actuation nasal spray,suspension blood-glucose meter #1 each 07/11/18 12/19/19 Rx allopurinol 300 mg tablet 150 mg PO DAILY #90 tab-cap 11/07/18 01/04/20 Rx blood sugar diagnostic #100 each 01/09/19 12/19/19 Rx lancets 33 gauge #100 each 01/09/19 12/19/19 Rx albuterol sulfate 90 mcg/actuation 1 puff IH Q4H PRN #8.5 gm 04/18/19 01/04/20 Rx aerosol inhaler bismuth tribrom-petrolatum,wh 5 X #50 each 07/11/19 12/19/19 Rx 9 bandage atorvastatin 20 mg tablet 20 mg PO QPM #90 tab 08/31/19 01/04/20 Rx furosemide 40 mg tablet 40 mg PO BID #180 tab-cap 08/31/19 01/04/20 Rx glipizide 5 mg tablet 5 mg PO DAILY #90 tab-cap 08/31/19 01/04/20 Rx magnesium oxide 400 mg (241.3 mg 400 mg PO DAILY #90 tab 08/31/19 01/04/20 Rx magnesium) tablet metoprolol succinate 100 mg 100 mg PO DAILY #90 tab 08/31/19 01/04/20 Rx tablet,extended release 24 hr omeprazole 40 mg capsule,delayed 40 mg PO DAILY #90 cap 08/31/19 01/04/20 Rx release duloxetine 20 mg capsule,delayed 40 mg PO BID #180 cap 11/23/19 12/19/19 Rx release silodosin 8 mg capsule 8 mg PO DAILY 12/04/19 12/19/19 History budesonide-formoterol [Symbicort] 2 puff INHALATION BID PRN 01/02/20 01/04/20 History ketoconazole 1 applic TP DAILY PRN 01/02/20 01/04/20 History nystatin [Nyamyc] 1 applic TP TID PRN 01/02/20 01/04/20 History vit B complex 100 combo no.2 1 tab PO DAILY 01/04/20 01/04/20 History vit D3-vit [id number] tab PO 01/04/20 History Allergies Allergy/AdvReac Type Severity Reaction Status Date / Time codeine AdvReac Intermediate DYSPHORIA Verified 12/01/19 12:57 niacin AdvReac Intermediate MYALGIAS Verified 12/01/19 12:57 simvastatin AdvReac Intermediate myalgias Verified 12/01/19 12:57 Exam Const General: cooperative, comfortable and no acute distress HENMT Ears: hearing grossly impaired Neck Neck: supple Resp Effort & Inspection: normal respiratory effort Auscultation: clear to auscultation bilaterally Cardio Rate: regular rate Rhythm: regular rhythm GI Palpation: no masses Neuro General: patient alert, patient awake and patient oriented x3 Results Last Vital Signs Temp 36.7 C 01/04/20 07:29 Pulse 75 01/04/20 07:29 Resp 16 01/04/20 07:29 BP 128/76 01/04/20 07:29 Pulse Ox 96 01/04/20 07:29 COVID-19 Screening Have you,or household,traveled outside [place] in last 14 days?: No Had IN PERSON contact w/suspected or confirmed C-19 person: No
[2020-01-04] MEDS: Lactated Ringers 1,000 ML 80 ML IV (08:06)
[2020-01-04] MEDS: ceFAZolin 1 GM/50 ML BAG IVPB (08:58)
[2020-01-04] MEDS: Lidocaine 2% Jelly 6 ML SYR (09:09)
--- NOTE | 2020-01-04 09:16 | BLADDER_PTH ---
PATIENT: Jeronimo Archer LOC: [facility] U#:[id number] AGE/SX: 74/M ROOM: RE01/04/[address]: Javier Szymanski MD : 1945 BED: DIS: 01/04/2020 SPEC #: [id number] RECD: 01/04/20 10:28 STATUS: ZHEN REQ #: [id number] CAMERON: 01/04/20 09:[address]: Javier Szymanski DEPT: Surgical Specimen RECD BY: Caryl Strickland ENTERED: 01/04/20 10:31 SP TYPE: Bladder OTHR DR: Elizabet Auguste APRN Tissues: 1 - BLADDER BIOPSY Procedures: GROSS AND MICRO LEVEL 4 Comments: [id number]
--- NOTE | 2020-01-04 09:21 | W.PM.DSUDISC ---
Discharge Plan Disposition Patient Disposition: HOME Condition: Stable Discharge Details Reason For Visit: bladder cancer Attending Provider: Javier Szymanski Primary Care Provider: Elizabet Auguste Home Meds and New Rx's Prescriptions: No Action (DME) Xeroform 5 X 9 bandage See Rx Instructions .ROUTE .MEDSUPPLY Qty: 50 RF: 0 fluticasone propionate [Allergy Relief (fluticasone)] 50 mcg/actuation spray,suspension 1 spray IGOR BID PRNRF: 0 (DME) blood-glucose meter [OneTouch Verio Meter] misc See Dose Instructions .ROUTE .MEDSUPPLY Qty: 1 RF: 0 (DME) lancets [OneTouch Delica Lancets] 33 gauge misc See Dose Instructions .ROUTE .MEDSUPPLY Qty: 100 RF: 6 (DME) OneTouch Verio test strips Strip See Dose Instructions .ROUTE .MEDSUPPLY Qty: 100 RF: 12 albuterol sulfate [ProAir HFA] 90 mcg/actuation HFA aerosol inhaler 1 puff IH Q4H PRN (Reason: shortness of breath) Qty: 8.5 RF: 12 atorvastatin 20 mg tablet 20 mg PO QPM Qty: 90 RF: 3 furosemide 40 mg tablet 40 mg PO BID Qty: 180 RF: 3 glipizide 5 mg tablet 5 mg PO DAILY Qty: 90 RF: 3 magnesium oxide 400 mg (241.3 mg magnesium) tablet 400 mg PO DAILY Qty: 90 RF: 3 metoprolol succinate 100 mg tablet extended release 24 hr 100 mg PO DAILY Qty: 90 RF: 4 omeprazole 40 mg capsule,delayed release(DR/EC) 40 mg PO DAILY Qty: 90 RF: 3 acetaminophen [Tylenol Extra Strength] 500 MG tablet 1,000 mg PO Q6H PRN PRNRF: 0 aspirin [Aspir-81] 81 MG tablet,delayed release (DR/EC) 81 mg PO DAILY RF: 0 allopurinol 300 mg tablet 150 mg PO DAILY Qty: 90 RF: 3 duloxetine 20 mg capsule,delayed release(DR/EC) 40 mg PO BID Qty: 180 RF: 2 silodosin 8 mg capsule 8 mg PO DAILY RF: 0 nystatin [Nyamyc] 100,000 unit/gram powder 1 applic TP TID PRNRF: 0 ketoconazole 2 % cream 1 applic TP DAILY PRNRF: 0 budesonide-formoterol [Symbicort] 160-4.5 mcg/actuation HFA aerosol inhaler 2 puff inhalation BID PRNRF: 0 vit D3-vit A-syduuwisw-dsek [id number] zwno-rut-tu-mg Tablet PO RF: 0 vit B complex 100 combo no.2 100 mg Tablet Extended Release 1 tab PO DAILY RF: 0 Discharge Instructions Additional Instructions: leave barton catheter clamped with Mitomycin in bladder for 1 to 2 hours, then unclamp catheter, drain bladder and D/C barton Unclamp and D/C barton sooner prn severe pain Followup 1 to 2 weeks for pathology results (can be by phone if pt prefers) Activity:: Activity as Tolerated Shower/Bathe:: 24 hours Diet:: As Tolerated Discharge Orders Discharge Orders: Discharge Order (Routine); Ordered 01/04/20 Ordered By: Javier Szymanski DS: Diagnosis Discharge Diagnosis (1) Bladder cancer: Status: Acute
--- NOTE | 2020-01-04 09:26 | W.PM.OP ---
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 The muscularis was not involved. He was initially treated with transurethral resection followed by intravesical gemcitabine treatments. His initial cystoscopy and cytology after completing the induction series of gemcitabine showed no signs of recurrent tumor. His subsequent cystoscopy shows some mucosal abnormality and an abnormal cytology. He presents for transurethral resection and fulguration of the abnormal mucosa followed by an instillation of mitomycin-C into the bladder. Findings: Papillary mucosa just behind the right hemitrigone Procedure Description: The patient was brought to the operating room on 01/04/2020. He was given preoperative IV antibiotics. After successful induction of general anesthesia, he was placed in the dorsal lithotomy position. His genitalia was prepped and draped. 2% Xylocaine jelly was instilled into the urethra to act as a local anesthetic. A 22 [place] rigid cystoscope was then passed through the urethra into the bladder. The urethra and bladder were inspected with the 30 degree lens. The pendulous, bulbous and membranous urethra was appeared normal with no strictures. The prostatic urethra showed some lateral lobe enlargement as well as a slight median lobe. The bladder neck was entered and the bladder mucosa was inspected. There was a scar on the left hemitrigone from his prior surgery. No mucosal abnormalities were seen in this region. Almost immediately posterior and to the right of midline, there was some mucosal abnormalities just behind the trigone. The entire area measured approximately 2 cm. No additional abnormalities were found. I then remove the cystoscope and passed a 24 [place]uran resectoscope sheath through the urethra into the bladder a transurethral resection/biopsy of the abnormal mucosa was taken and sent to pathology for permanent section the remaining abnormal mucosa was cauterized using the coagulation current. At the completion of the resection, no visible tumor was identified. I removed the resectoscope and passed a 16 [place] Chiu catheter through the urethra into the bladder. The catheter balloon was inflated with 10 cc of sterile water. The bladder was drained. A solution containing 40 mg of mitomycin-C mixed in 40 mL of fluid was then instilled into the bladder. The catheter was clamped leaving the mitomycin-C solution in place. The patient tolerated this procedure well. He was taken back to day surgery unit in stable condition. We will plan on leaving the mitomycin-C in the bladder for 1 to 2 hours.
[2020-01-04 11:30] VITALS: BP 135/68; PULSE 78; RESP 16; TEMP 36.7; O2SAT 99
== END 2020-01-04 11:30 | disposition home or self-care (01) ==
PROVIDERS: PCP Nurse Practitioner; Visit Provider Urology
PROC: 0TBB8ZX Excision of Bladder, Via Natural or Artificial Opening Endoscopic, Diagnostic (ICD-10-PCS; CPT 52204; principal; 2020-01-04 08:30)
PROC: (CPT 52234; 2020-01-04 08:30)
DX: C67.9 Malignant neoplasm of bladder, unspecified (principal); J44.9 Chronic obstructive pulmonary disease, unspecified; I25.10 Atherosclerotic heart disease of native coronary artery without angina pectoris; E11.40 Type 2 diabetes mellitus with diabetic neuropathy, unspecified; E11.22 Type 2 diabetes mellitus with diabetic chronic kidney disease; N18.3 Chronic kidney disease, stage 3 (moderate)
CPT/HCPCS: 52234; 51720; 88305; NC; J0690; J2001; J9280

== ENCOUNTER → 2020-01-09 10:02 | Outpatient (BNVA) | payer MEDICARE, OTHER, SELFPAY | PROVIDERS: PCP Nurse Practitioner; Referring Provider Nurse Practitioner; Visit Provider Urology | DX: N39.0 Urinary tract infection, site not specified (principal); R30.0 Dysuria; R35.0 Frequency of micturition; J44.9 Chronic obstructive pulmonary disease, unspecified; E11.40 Type 2 diabetes mellitus with diabetic neuropathy, unspecified; I13.0 Hypertensive heart and chronic kidney disease with heart failure and stage 1 through stage 4 chronic kidney disease, or unspecified chronic kidney disease; N18.3 Chronic kidney disease, stage 3 (moderate) | CPT/HCPCS: 81003; 99212 ==

== ENCOUNTER 2020-01-09 15:28 | Outpatient (REF) | payer MEDICARE, OTHER, SELFPAY | END 2020-01-09 15:48 | LOC: LBN 15:28 | PROVIDERS: PCP Nurse Practitioner; Visit Provider Urology | DX: N39.0 Urinary tract infection, site not specified (principal) | CPT/HCPCS: 87086 ==

== ENCOUNTER → 2020-01-18 14:50 | Outpatient (BNVA) | payer MEDICARE, OTHER, SELFPAY | PROVIDERS: PCP Nurse Practitioner; Referring Provider Nurse Practitioner; Visit Provider Urology | DX: D09.0 Carcinoma in situ of bladder (principal); J44.9 Chronic obstructive pulmonary disease, unspecified; E11.42 Type 2 diabetes mellitus with diabetic polyneuropathy; E11.22 Type 2 diabetes mellitus with diabetic chronic kidney disease; N18.3 Chronic kidney disease, stage 3 (moderate) | CPT/HCPCS: 99213 ==

== ENCOUNTER → 2020-02-01 09:26 | Outpatient (BNVA) | payer MEDICARE, OTHER, SELFPAY | PROVIDERS: PCP Nurse Practitioner; Referring Provider Nurse Practitioner; Visit Provider Nurse Practitioner Gerontology | DX: C67.9 Malignant neoplasm of bladder, unspecified (principal) | CPT/HCPCS: 51720; 81003; 99213; J9214 ==

== ENCOUNTER → 2020-02-06 10:51 | Outpatient (BNVA) | payer MEDICARE, OTHER, SELFPAY | PROVIDERS: PCP Nurse Practitioner; Referring Provider Nurse Practitioner; Visit Provider Internal Medicine Cardiovascular Disease | DX: I25.810 Atherosclerosis of coronary artery bypass graft(s) without angina pectoris (principal); I34.0 Nonrheumatic mitral (valve) insufficiency; J44.9 Chronic obstructive pulmonary disease, unspecified; E11.42 Type 2 diabetes mellitus with diabetic polyneuropathy; E11.22 Type 2 diabetes mellitus with diabetic chronic kidney disease; N18.30 Chronic kidney disease, stage 3 unspecified; Z87.891 Personal history of nicotine dependence; Z79.84 Long term (current) use of oral hypoglycemic drugs | CPT/HCPCS: 99214 ==

== ENCOUNTER → 2020-02-08 10:35 | Outpatient (BNVA) | payer MEDICARE, OTHER, SELFPAY | PROVIDERS: PCP Nurse Practitioner; Referring Provider Nurse Practitioner; Visit Provider Nurse Practitioner Gerontology | DX: D09.0 Carcinoma in situ of bladder (principal); C67.9 Malignant neoplasm of bladder, unspecified; R35.0 Frequency of micturition; R39.15 Urgency of urination | CPT/HCPCS: 51720; 81003; 99213; J9214 ==

== ENCOUNTER → 2020-02-15 09:49 | Outpatient (BNVA) | payer MEDICARE, OTHER, SELFPAY | PROVIDERS: PCP Nurse Practitioner; Referring Provider Nurse Practitioner; Visit Provider Nurse Practitioner Gerontology | DX: D09.0 Carcinoma in situ of bladder (principal); C67.9 Malignant neoplasm of bladder, unspecified; J44.9 Chronic obstructive pulmonary disease, unspecified; E11.22 Type 2 diabetes mellitus with diabetic chronic kidney disease; N18.30 Chronic kidney disease, stage 3 unspecified; Z87.891 Personal history of nicotine dependence; Z79.84 Long term (current) use of oral hypoglycemic drugs | CPT/HCPCS: 51720; 81003; 99213; J9214 ==

== ENCOUNTER → 2020-02-22 09:36 | Outpatient (BNVA) | payer MEDICARE, OTHER, SELFPAY | PROVIDERS: PCP Nurse Practitioner; Referring Provider Nurse Practitioner; Visit Provider Nurse Practitioner Gerontology | DX: D09.0 Carcinoma in situ of bladder (principal); C67.9 Malignant neoplasm of bladder, unspecified; J44.9 Chronic obstructive pulmonary disease, unspecified; E11.22 Type 2 diabetes mellitus with diabetic chronic kidney disease; N18.30 Chronic kidney disease, stage 3 unspecified; Z79.84 Long term (current) use of oral hypoglycemic drugs | CPT/HCPCS: 51720; 81003; 99213; J9214 ==

== ENCOUNTER → 2020-02-29 14:39 | Outpatient (BNVA) | payer MEDICARE, OTHER, SELFPAY | PROVIDERS: PCP Nurse Practitioner; Referring Provider Nurse Practitioner; Visit Provider Nurse Practitioner Gerontology | DX: C67.9 Malignant neoplasm of bladder, unspecified (principal) | CPT/HCPCS: 51720; 81003; 99213; J9214 ==

== ENCOUNTER → 2020-03-07 09:36 | Outpatient (BNVA) | payer MEDICARE, OTHER, SELFPAY | PROVIDERS: PCP Nurse Practitioner; Referring Provider Nurse Practitioner; Visit Provider Nurse Practitioner Gerontology | DX: C67.9 Malignant neoplasm of bladder, unspecified (principal); J44.9 Chronic obstructive pulmonary disease, unspecified | CPT/HCPCS: 51720; 81003; 99213; J9214 ==

== ENCOUNTER → 2020-04-23 13:43 | Outpatient (BNVA) | payer MEDICARE, OTHER, SELFPAY | PROVIDERS: PCP Nurse Practitioner; Visit Provider Urology | DX: C67.9 Malignant neoplasm of bladder, unspecified (principal); D09.0 Carcinoma in situ of bladder | CPT/HCPCS: 52000; 99213 ==

== ENCOUNTER 2020-04-23 14:35 | Outpatient (REF) | payer MEDICARE, OTHER, SELFPAY ==
--- NOTE | 2020-04-23 14:00 | PAPNONF_PTH ---
PATIENT: Jeronimo Archer LOC: [facility] U#:[id number] AGE/SX: 75/M ROOM: RE04/23/[address]: Javier Szymanski MD : 1945 BED: DIS: 04/23/2020 SPEC #: [id number] RECD: 04/23/20 18:06 STATUS: ZHEN REDaniel #: [id number] CAMERON: 04/23/20 14:[address]: Javier Szymanski DEPT: [facility] Cytology RECD BY: Yudy Quintana ENTERED: 04/23/20 18:07 SP TYPE: SANDY STARKEY DR: Elizabet Auguste APRN Tissues: 1 - BODY FLUID CYTO(SPUTUM/URINE)[facility] Procedures: BODY FLUID CYTO(URINE/SPUTUM) Comments: [id number] (TOTAL VOLUME = 60 ml's) (30 ml's URINE & 30 ml's CYTOLYT ADDED IN 2 CONTAINERS)
== END 2020-04-23 14:55 ==
LOC: LBN 14:35
PROVIDERS: PCP Nurse Practitioner; Visit Provider Urology
DX: Z85.51 Personal history of malignant neoplasm of bladder (principal); R82.89 Other abnormal findings on cytological and histological examination of urine
CPT/HCPCS: 88104

== ENCOUNTER 2020-05-09 02:50 | Outpatient (CLI) | payer MEDICARE, OTHER, SELFPAY ==
[2020-05-09 09:33] LABS: ALT 33 U/L (16-63); AST 27 U/L (15-37); Albumin 3.9 g/dL (3.4-5.0); Alkaline Phosphatase 82 U/L (46-116); Anion Gap 11.1 mmol/L (3-11); BUN 33 mg/dL (7-18); Bilirubin, Total 0.6 mg/dL (0.2-1.0); CO2 24.9 mmol/L (21.0-32.0); CREATININE 1.54 mg/dL (0.70-1.30); Calculated LDL 80 mg/dL (<100); Chloride 104 mmol/L (98-107); Cholesterol 141 mg/dL (<200); Estimated GFR 44.02 (mL/min/1.73m2); Glucose 154 mg/dL (74-106); HDL Cholesterol 35 mg/dL (40-60); Potassium 4.2 mmol/L (3.5-5.1); Sodium 140 mmol/L (136-145); TSH (W/Ref FT4) 2.96 uIU/mL (0.36-3.74); Total Protein 7.2 g/dL (6.4-8.2); Triglyceride 130 mg/dL (<150); Vitamin B12 514 pg/mL (193-986)
== END 2020-05-09 03:10 ==
PROVIDERS: PCP Nurse Practitioner; Visit Provider Nurse Practitioner
DX: I10 Essential (primary) hypertension (principal); E11.9 Type 2 diabetes mellitus without complications; E78.5 Hyperlipidemia, unspecified; R41.89 Other symptoms and signs involving cognitive functions and awareness
CPT/HCPCS: 36415; 80053; 80061; 82607; 83036; 84443

== ENCOUNTER → 2020-06-03 12:46 | Outpatient (BNVA) | payer MEDICARE, OTHER, SELFPAY | PROVIDERS: PCP Nurse Practitioner; Referring Provider Nurse Practitioner; Visit Provider Nurse Practitioner Adult Health | DX: R41.89 Other symptoms and signs involving cognitive functions and awareness (principal); E11.22 Type 2 diabetes mellitus with diabetic chronic kidney disease; I12.9 Hypertensive chronic kidney disease with stage 1 through stage 4 chronic kidney disease, or unspecified chronic kidney disease; J44.9 Chronic obstructive pulmonary disease, unspecified; Z87.891 Personal history of nicotine dependence; N18.9 Chronic kidney disease, unspecified | CPT/HCPCS: 99204; 99215; G2212 ==

== ENCOUNTER 2020-06-05 02:31 | Outpatient (CLI) | payer MEDICARE, OTHER, SELFPAY ==
--- NOTE | 2020-06-05 07:57 | DI.MRI_ITS ---
EXAM: MR BRAIN WO/W CLINICAL HISTORY: Cog. decline. Hx bladder CA and lung nodule,r41.89 TECHNIQUE: Multiplanar multisequence MRI of the brain was performed. CONTRAST MATERIAL: IV Contrast: 20 ML of Dotarem contrast administered. COMPARISON: MR MR brain wo from 01/21/2018 FINDINGS: VENTRICLES AND EXTRA AXIAL SPACES: There is prominence of the ventricles and sulci consistent with ce rebral atrophy. HEMORRHAGE: None. CEREBRAL PARENCHYMA: No focus of restricted diffusion to suggest acute infarct. No space-occupying le jason identified. There are areas of hyperintense signal in the white matter on the T2 and FLAIR image s consistent with chronic microvascular ischemic change. There are bilateral lacunar infarcts in the basal ganglia. MIDLINE SHIFT: None. BRAINSTEM/CEREBELLUM: Normal. CALVARIUM: Normal. ENHANCEMENT: No suspicious enhancement identified. No intracranial mass or enhancing lesion. VISUALIZED PARANASAL SINUSES/MASTOIDS: Clear. [place]: Normal flow void. PITUITARY GLAND: Unremarkable. OTHER FINDINGS: IMPRESSION: 1. Cerebral atrophy, small vessel ischemic disease and old lacunar infarcts. 2. No evidence of an acute infarct. 3. No intracranial mass or enhancing lesion. DATA REPOSITORY:
[2020-06-05] MEDS: Normal Saline Flush 10 ML SYR IVP (15:33)
[2020-06-05] MEDS: Gadoterate meglumine 20 ML VIAL IVP (15:33)
== END 2020-06-05 02:32 | disposition home or self-care (01) ==
LOC: DI 02:32
PROVIDERS: PCP Nurse Practitioner; Visit Provider Nurse Practitioner Adult Health
DX: R41.89 Other symptoms and signs involving cognitive functions and awareness (principal); G31.89 Other specified degenerative diseases of nervous system; I67.89 Other cerebrovascular disease
CPT/HCPCS: 70553

== ENCOUNTER 2020-06-12 02:14 | Outpatient (CLI) | payer MEDICARE, OTHER, SELFPAY ==
--- NOTE | 2020-06-12 14:30 | DI.CT_ITS ---
EXAM: CT CHEST WO CLINICAL HISTORY: F/U RLL NODULE ON CT 12/2017,R91.1 TECHNIQUE: Imaging Protocol: Axial computed tomography images with coronal and sagittal reformatted images were created and reviewed CONTRAST MATERIAL: Noncontrast COMPARISON: CT CHEST WITHOUT CONTRAST from 12/24/2017 CT CHEST WITHOUT CONTRAST from 12/24/2017 CR XR CHEST 2V PA LATERAL from 12/13/2018 CR XR CHEST 2V PA LATERAL from 12/13/2018 FINDINGS: Tracheobronchial tree: Patent where visualized. Mediastinum and Leena: No dominant adenopathy or fluid collection. Pulmonary parenchyma: No consolidation. Stable size nodules at the right lung base. The larger marsha ures 10 millimeters on this and the smaller measures 4 millimeters. Pleura: No effusion or pneumothorax. Heart: The heart is not dilated. Marked coronary artery calcifications are seen. The patient is sta tus post CABG. Valve prosthesis. Aorta: Thoracic aorta non-dilated. Heavily calcified aorta. Upper abdomen: Surgical clips near the GE junction. Prior anterior abdominal wall hernia repair. A drenals and visualized portions of the upper abdominal organs are unremarkable. Lymph nodes: Within normal limits. Bones: Degenerative changes. Soft tissues: Bilateral gynecomastia IMPRESSION: No change in size or appearance nodules at the right lung base. RADIATION DOSE DELIVERED: 818.19mGy.cm Total DLP DATA REPOSITORY: All CT scans at this facility are submitted to the National Radiology Data Registry (NRDR) Dose Index Registry (DIR) with the [employer] (ACR). RADIATION OPTIMIZATION: All CT scans at this facility use at least one of these dose optimization te chniques: automated exposure control; mA and/or kV adjustment per patient size (includes targeted exa ms where dose is matched to clinical indication); or iterative reconstruction.
== END 2020-06-12 02:15 ==
LOC: DI 02:14
PROVIDERS: PCP Nurse Practitioner; Visit Provider Nurse Practitioner
DX: R91.8 Other nonspecific abnormal finding of lung field (principal)
CPT/HCPCS: 71250

== ENCOUNTER → 2020-07-15 10:44 | Outpatient (BNVA) | payer MEDICARE, OTHER, SELFPAY | PROVIDERS: PCP Nurse Practitioner; Referring Provider Nurse Practitioner; Visit Provider Internal Medicine Cardiovascular Disease | DX: I25.810 Atherosclerosis of coronary artery bypass graft(s) without angina pectoris (principal); Z87.891 Personal history of nicotine dependence; Z95.4 Presence of other heart-valve replacement | CPT/HCPCS: 99213 ==

== ENCOUNTER 2020-08-19 02:41 | Outpatient (CLI) | payer MEDICARE, OTHER, SELFPAY ==
[2020-08-19 10:18] LABS: Source Nasal/Nares
[2020-08-19 16:11] LABS: COVID-19 PCR Negative (Negative)
== END 2020-08-19 02:42 | disposition home or self-care (01) ==
LOC: LBO 02:41
PROVIDERS: PCP Nurse Practitioner; Visit Provider Urology
DX: Z20.822 Contact with and (suspected) exposure to COVID-19 (principal); Z01.818 Encounter for other preprocedural examination
CPT/HCPCS: 87635; U0003

== ENCOUNTER 2020-08-22 06:07 | Day surgery (SDC) | payer MEDICARE, OTHER, SELFPAY ==
[2020-08-22 06:15] VITALS: BP 131/74; PULSE 88; RESP 18; TEMP 36.3; O2SAT 97
--- NOTE | 2020-08-22 06:49 | HPE_ITS ---
Date of service: 08/22/20 Time of Service: 06:49 Assessment and Plan Assessment and plan (1) Bladder cancer: Status: Acute Assessment and plan: For cystoscopy and possible TURBT (2) Carcinoma in situ of bladder: Status: Acute History of Present Illness History of Present Illness Chief Complaint: Bladder Cancer Narrative: A 75-year-old gentleman who has a history of urothelial cell carcinoma of the bladder and carcinoma in situ. His tumors have been high-grade but have not involve the muscularis. On his last surveillance cystoscopy, we did not identify any obvious bladder tumors, but his urine cytology was atypical. He presents now for surveillance cystoscopy and possible transurethral resection. Not seen any gross hematuria. He has chronic frequency, urgency and urgency incontinence which makes it difficult for him to pain intravesical chemotherapy treatments. Review of Systems Narrative: No fevers or chills Decreased hearing acuity Hx Diabetes. No thyroid dysfunction No hemoptysis but increased sputum production at night No chest pain or palpitations Hx GERD. No nausea, vomiting, hepatitis, ulcers, jaundice Diabetic neuropathy. No seizures, strokes No bleeding disorders or anemia Chronic back pain. No gout [facility] Medical History Benign neoplasm of colon (08/04/12) pt. states she is unaware of this Benign prostatic hyperplasia with urinary frequency Bladder cancer Carcinoma in situ of bladder Carpal tunnel syndrome (08/04/12) Chronic kidney disease, stage III (moderate) (01/26/13) 12/2008 CT abd/pelvis neg COPD (chronic obstructive pulmonary disease) Coronary artery disease involving coronary bypass graft of [place] heart (01/02/16) MVR & 2v CABG, marginal and PDA, EF 45% [facility] 12/20/15 CVA (cerebral vascular accident) (01/03/16) 12/2015 post op [facility] R hemiparesis Diabetes mellitus with diabetic neuropathy (04/13/14) Diabetes mellitus with stage 3 chronic kidney disease (03/02/14) A1C goal 8 Gastroesophageal reflux disease (08/04/12) failed omeprazole, failed dexilant 06/01/2013 Gross hematuria H/O urinary frequency History of tobacco use (07/03/11) pt. states he hasn't smoked in 35 years Hyperlipidemia (07/03/11) PCEq 55.3%; intolerant statins Lumbago with sciatica, unspecified side (08/04/12) 08/2005 small disc herniations L5-S1, no spinal or neuroforaminal stenosis. back surgery 10/2000 Disectomy [facility] 08/2006; L5 radiculopathy Memory impairment (12/11/15) 12/2015 MMSE 23 B12/lab nl; MRI 12/2015 old silvia lacunar CVAs Mitral valve insufficiency (12/19/15) MVR: bovine bioprosthesis and CABGx2 [facility] 12/20/15 Obesity, unspecified (07/03/11) Sensorineural hearing loss (08/24/14) using an ITE aid. unknown model. Systolic CHF, chronic (04/15/16) 04/15/16 Echo: EF 35%; MVR bioprosthesis intact Unspecified essential hypertension (08/04/12) goal 150/90 Surgical History Appendectomy Colonoscopy - MAC (01/11/15) Dr Morgan Grade 2 hemorrhoids Coronary Artery Bypass Gaft (CABG) (12/20/15) [facility] [place] MENDOZA History of arthroplasty of right shoulder (~09/2015) History of back surgery (10/21/00) [facility] Dr. Win S/P partial gastrectomy Status post carpal tunnel release of both wrists Valve Replacement (12/20/15) [facility] Dr Baumann Mitral valve Family History Brother Alcoholism Heart disease Grandfather Heart disease Father Personal history of malignant neoplasm THROAT CA Social History Smoking/Tobacco Use Status: Former Tobacco Use Quit Date: 05/03/94 Pack-years: 105 Smoking risk assessment performed?: Yes Alcohol Intake: current Alcohol Intake frequency: holidays/special occasions only Alcohol type: beer Drug use: Never Substance use type: does not use Household members: spouse Housing: house Number of Children: 4 What is your relationship status?: Panel score (0-1 are the most socially isolated patients): 1 Working smoke detector in home: Yes Do you feel safe at home: Yes Do you feel safe in your relationship?: Yes Additional Social history: unable to assess privatley Meds Allergies and Home Medications Allergies Allergy/AdvReac Type Severity Reaction Status Date / Time codeine AdvReac Intermediate DYSPHORIA Verified 08/22/20 06:26 niacin AdvReac Intermediate MYALGIAS Verified 08/22/20 06:26 simvastatin AdvReac Intermediate myalgias Verified 08/22/20 06:26 Home Medications Medication Instructions Recorded Confirmed Type acetaminophen [Tylenol Extra 1,000 mg PO Q6H PRN PRN 06/01/13 08/20/20 History Strength] fluticasone propionate 50 1 spray IGOR BID PRN gm 03/10/18 08/22/20 History mcg/actuation nasal spray,suspension blood-glucose meter #1 each 07/11/18 08/20/20 Rx bismuth tribrom-petrolatum,wh 5 X #50 each 07/11/19 08/20/20 Rx 9 bandage atorvastatin 20 mg tablet 20 mg PO QPM #90 tab 08/31/19 08/22/20 Rx furosemide 40 mg tablet 40 mg PO BID #180 tab-cap 08/31/19 08/22/20 Rx metoprolol succinate 100 mg 100 mg PO DAILY #90 tab 08/31/19 08/22/20 Rx tablet,extended release 24 hr budesonide-formoterol [Symbicort] 2 puff INHALATION BID PRN 01/02/20 08/22/20 History nystatin [Nyamyc] 1 applic TP TID PRN 01/02/20 08/20/20 History magnesium oxide 400 mg (241.3 mg 400 mg PO DAILY #90 tab 01/05/20 08/22/20 Rx magnesium) tablet allopurinol 300 mg tablet 150 mg PO DAILY #90 tab-cap 01/09/20 08/22/20 Rx fesoterodine 4 mg tablet,extended 4 mg PO DAILY #30 tab 03/05/20 08/22/20 Rx release 24 hr silodosin 8 mg capsule 8 mg PO DAILY #30 cap 04/23/20 08/22/20 Rx blood sugar diagnostic #100 each 04/24/20 08/20/20 Rx lancets 33 gauge #100 each 04/24/20 08/20/20 Rx albuterol sulfate 90 mcg/actuation 1 puff IH Q4H PRN #8.5 gm 04/25/20 08/22/20 Rx aerosol inhaler ketoconazole 2 % topical cream 1 applic TP DAILY PRN #30 g 04/29/20 08/20/20 Rx glipizide 5 mg tablet 5 mg PO BID #180 tab-cap 05/28/20 08/22/20 Rx losartan 100 mg tablet 100 mg PO DAILY 05/28/20 08/22/20 History omeprazole 40 mg capsule,delayed 40 mg PO DAILY #90 cap 05/28/20 08/22/20 Rx release tramadol 50 mg tablet See Rx Instructions PO DAILY #30 05/28/20 08/20/20 Rx tab aspirin 325 mg tablet 162.5 mg PO DAILY tab 07/15/20 08/22/20 History duloxetine 40 mg capsule,delayed 40 mg PO BID cap 07/15/20 08/22/20 History release wlqdgqkutxyb-qxjzmlcw-mdltne tablet 0.5 tab PO DAILY tab 07/15/20 08/22/20 History Exam Const General: cooperative and no acute distress Neck Neck: supple Resp Effort & Inspection: normal respiratory effort Auscultation: clear to auscultation bilaterally Cardio Rate: regular rate Rhythm: regular rhythm GI Palpation: soft and no masses Neuro General: patient alert, patient awake and patient oriented x3 Results Last Vital Signs Temp 36.3 C L 08/22/20 06:15 Pulse 88 08/22/20 06:15 Resp 18 08/22/20 06:15 BP 131/74 08/22/20 06:15 Pulse Ox 97 08/22/20 06:15 COVID-19 Screening Have you, or household traveled for leisure in last 14 days?: No Had IN PERSON contact w/suspected or confirmed C-19 person: No
[2020-08-22] MEDS: Lactated Ringers 1,000 ML 80 ML IV (06:56)
[2020-08-22] MEDS: Lidocaine 2% Jelly 6 ML SYR (07:42)
--- NOTE | 2020-08-22 08:03 | BLADDER_PTH ---
PATIENT: Jeronimo Archer LOC: [facility] U#:[id number] AGE/SX: 75/M ROOM: RE08/22/[address]: Javier Szymanski MD : 1945 BED: DIS: 08/22/2020 SPEC #: [id number] RECD: 08/22/20 11:44 STATUS: ZHEN REQ #: [id number] CAMERON: 08/22/20 08:[address]: Javier Szymanski DEPT: Surgical Specimen RECD BY: Yudy Quintana ENTERED: 08/22/20 11:45 SP TYPE: Bladder OTHR DR: Elizabet Auguste APRN Tissues: 1 - BLADDER BIOPSY Procedures: GROSS AND MICRO LEVEL 4 Comments: [id number]
--- NOTE | 2020-08-22 08:13 | W.PM.DSUDISC ---
Discharge Plan Disposition Patient Disposition: HOME Condition: Stable Discharge Details Reason For Visit: bladder cancer Attending Provider: Javier Szymanski Primary Care Provider: Elizabet Auguste Home Meds and New Rx's Prescriptions: No Action (DME) Xeroform 5 X 9 bandage See Rx Instructions .ROUTE .MEDSUPPLY Qty: 50 RF: 0 fluticasone propionate [Allergy Relief (fluticasone)] 50 mcg/actuation spray,suspension 1 spray IGOR BID PRNRF: 0 (DME) blood-glucose meter [OneTouch Verio Meter] misc See Dose Instructions .ROUTE .MEDSUPPLY Qty: 1 RF: 0 atorvastatin 20 mg tablet 20 mg PO QPM Qty: 90 RF: 3 furosemide 40 mg tablet 40 mg PO BID Qty: 180 RF: 3 metoprolol succinate 100 mg tablet extended release 24 hr 100 mg PO DAILY Qty: 90 RF: 4 losartan 100 mg tablet 100 mg PO DAILY RF: 0 tramadol 50 mg tablet See Rx Instructions PO DAILY Qty: 30 RF: 0 omeprazole 40 mg capsule,delayed release(DR/EC) 40 mg PO DAILY Qty: 90 RF: 3 glipizide 5 mg tablet 5 mg PO BID Qty: 180 RF: 3 inybqobycnqc-xzuhcrxq-oziapc Tablet 0.5 tab PO DAILY RF: 0 silodosin 8 mg capsule 8 mg PO DAILY Qty: 30 RF: 11 aspirin 325 mg tablet 162.5 mg PO DAILY RF: 0 duloxetine 40 mg capsule,delayed release(DR/EC) 40 mg PO BID RF: 0 acetaminophen [Tylenol Extra Strength] 500 MG tablet 1,000 mg PO Q6H PRN PRNRF: 0 magnesium oxide 400 mg (241.3 mg magnesium) tablet 400 mg PO DAILY Qty: 90 RF: 3 allopurinol 300 mg tablet 150 mg PO DAILY Qty: 90 RF: 3 Toviaz 4 mg tablet extended release 24 hr 4 mg PO DAILY Qty: 30 RF: 11 (DME) OneTouch Verio test strips Strip See Dose Instructions .ROUTE .MEDSUPPLY Qty: 100 RF: 12 (DME) lancets [OneTouch Delica Lancets] 33 gauge misc See Dose Instructions .ROUTE .MEDSUPPLY Qty: 100 RF: 6 albuterol sulfate [ProAir HFA] 90 mcg/actuation HFA aerosol inhaler 1 puff IH Q4H PRN (Reason: shortness of breath) Qty: 8.5 RF: 12 ketoconazole 2 % cream 1 applic TP DAILY PRN (Reason: ) Qty: 30 RF: 4 nystatin [Nyamyc] 100,000 unit/gram powder 1 applic TP TID PRNRF: 0 budesonide-formoterol [Symbicort] 160-4.5 mcg/actuation HFA aerosol inhaler 2 puff inhalation BID PRNRF: 0 Discharge Instructions Additional Instructions: Followup appt 2 weeks for pathology results ( may come to appt - both are vaccinated plus he can't hear well) Activity:: Activity as Tolerated Shower/Bathe:: 24 hours Diet:: As Tolerated Discharge Orders Discharge Orders: Discharge Order (Routine); Ordered 08/22/20 Ordered By: Javier Szymanski DS: Diagnosis Discharge Diagnosis (1) Bladder cancer: Status: Acute (2) Carcinoma in situ of bladder: Status: Acute
--- NOTE | 2020-08-22 08:17 | W.PM.OP ---
Date of service: 08/22/20 Time of Service: 08:17 Operative Note Operative Note DATE OF PROCEDURE: 08/22/20 PRE-OP DIAGNOSIS: Bladder cancer POST-OP DIAGNOSIS: same PROCEDURE: Cystoscopy with bladder biopsy and fulguration SURGEON: Javier Szymanski ANESTHESIA TYPE: General:No Airway Refer to Anesthesia Record ESTIMATED BLOOD LOSS: 25 PATHOLOGY: other (bladder biopsies) COMPLICATIONS: None Patient was transported to: same day Patient's condition: stable Implants: None Indications: Is a 75-year-old gentleman who has a history of high-grade urothelial cell carcinoma of the bladder as well as carcinoma in situ. At his last surveillance cystoscopy, there was an erythematous area in the bladder but no papillary or nodular lesions. His urine cytology was atypical. He presents for cystoscopy with biopsy/transurethral resection of any abnormality Findings: erythematous patch of bladder mucosa at dome and on posterior bladder wall Procedure Description: The patient was brought to the operating room on 08/22/2020. He was given preoperative IV antibiotics. After successful induction of general anesthesia, he was placed in the dorsal lithotomy position. His genitalia was prepped and draped. 2% Xylocaine jelly was instilled into the urethra to act as a local anesthetic. A 22 [place] rigid cystoscope was passed through the urethra into the bladder. The urethra and bladder were inspected with a 30 degree lens. The pendulous, bulbous and membranous urethra is all appeared normal with no strictures. The prostatic urethra showed lateral lobe enlargement but no significant median lobe was identified. The bladder neck was entered and the bladder mucosa was inspected. Both ureteral orifice ease appeared normal. No blood was seen coming from either side. There was a less than 2 cm erythematous patch on the posterior bladder wall. An additional erythematous patch was seen up towards the dome of the bladder. No papillary or nodular changes were seen on the bladder mucosa. No stones were seen. Using the cold cup biopsy forceps, biopsies of the erythematous mucosa were taken. These were sent to pathology for permanent section. The biopsy sites were then cauterized with bipolar cautery. These findings and the bladder were confirmed with reinspection using a 70 degree lens. The bladder was emptied. The scope was removed. Digital rectal exam revealed no fixation of the bladder or prostate. The patient tolerated this procedure well. He was returned to the day surgery unit in stable condition.
[2020-08-22 08:55] VITALS: BP 132/65; PULSE 73; RESP 16; TEMP 36; O2SAT 94
[2020-08-22] MEDS: Phenazopyridine 200 MG TAB PO (09:00)
== END 2020-08-22 09:45 | disposition home or self-care (01) ==
PROVIDERS: PCP Nurse Practitioner; Visit Provider Urology
PROC: 0TBB8ZX Excision of Bladder, Via Natural or Artificial Opening Endoscopic, Diagnostic (ICD-10-PCS; CPT 52204; principal; 2020-08-22 07:30)
DX: C67.9 Malignant neoplasm of bladder, unspecified (principal)
CPT/HCPCS: 52204; 88305; NC; J1100; J1885; J2250; J2405; J2704

== ENCOUNTER → 2020-09-02 12:52 | Outpatient (BNVA) | payer MEDICARE, OTHER, SELFPAY | PROVIDERS: PCP Nurse Practitioner; Referring Provider Nurse Practitioner; Visit Provider Nurse Practitioner Adult Health | DX: R41.3 Other amnesia (principal); H91.90 Unspecified hearing loss, unspecified ear; Z97.4 Presence of external hearing-aid | CPT/HCPCS: 99213; 99215 ==

== ENCOUNTER → 2020-09-03 14:49 | Outpatient (BNVA) | payer MEDICARE, OTHER, SELFPAY | PROVIDERS: PCP Nurse Practitioner; Referring Provider Nurse Practitioner; Visit Provider Urology | DX: C67.9 Malignant neoplasm of bladder, unspecified (principal) | CPT/HCPCS: 99213; 99214 ==

== ENCOUNTER → 2020-09-09 13:50 | Outpatient (BNVA) | payer MEDICARE, OTHER, SELFPAY | PROVIDERS: PCP Nurse Practitioner; Referring Provider Nurse Practitioner; Visit Provider Nurse Practitioner Gerontology | DX: C67.9 Malignant neoplasm of bladder, unspecified (principal) | CPT/HCPCS: 51720; 81003; J9030 ==

== ENCOUNTER → 2020-09-16 13:54 | Outpatient (BNVA) | payer MEDICARE, OTHER, SELFPAY | PROVIDERS: PCP Nurse Practitioner; Referring Provider Nurse Practitioner; Visit Provider Nurse Practitioner Gerontology | DX: C67.9 Malignant neoplasm of bladder, unspecified (principal) | CPT/HCPCS: 51720; 81003; J9030 ==

== ENCOUNTER → 2020-09-23 13:52 | Outpatient (BNVA) | payer MEDICARE, OTHER, SELFPAY | PROVIDERS: PCP Nurse Practitioner; Referring Provider Nurse Practitioner; Visit Provider Nurse Practitioner Gerontology | DX: N40.1 Benign prostatic hyperplasia with lower urinary tract symptoms (principal); R35.0 Frequency of micturition; R30.0 Dysuria; C67.9 Malignant neoplasm of bladder, unspecified; R41.3 Other amnesia; Z87.898 Personal history of other specified conditions | CPT/HCPCS: 81003; 99214 ==

== ENCOUNTER 2020-09-23 17:11 | Outpatient (REF) | payer MEDICARE, OTHER, SELFPAY | END 2020-09-23 17:12 | disposition home or self-care (01) | LOC: LBN 17:11 | PROVIDERS: PCP Nurse Practitioner; Visit Provider Nurse Practitioner Gerontology | DX: R35.0 Frequency of micturition (principal); R41.3 Other amnesia; N40.0 Benign prostatic hyperplasia without lower urinary tract symptoms; R82.998 Other abnormal findings in urine; Z85.51 Personal history of malignant neoplasm of bladder | CPT/HCPCS: 87077; 87086; 87186 ==

== ENCOUNTER → 2020-10-02 13:55 | Outpatient (BNVA) | payer MEDICARE, OTHER, SELFPAY | PROVIDERS: PCP Nurse Practitioner; Referring Provider Nurse Practitioner; Visit Provider Nurse Practitioner Gerontology | DX: C67.9 Malignant neoplasm of bladder, unspecified (principal); Z51.11 Encounter for antineoplastic chemotherapy | CPT/HCPCS: 51720; 81003; J9030 ==

== ENCOUNTER → 2020-10-09 09:42 | Outpatient (BNVA) | payer MEDICARE, OTHER, SELFPAY | PROVIDERS: PCP Nurse Practitioner; Referring Provider Nurse Practitioner; Visit Provider Nurse Practitioner Gerontology | DX: C67.9 Malignant neoplasm of bladder, unspecified (principal); Z51.11 Encounter for antineoplastic chemotherapy | CPT/HCPCS: 51720; 81003; J9030 ==

== ENCOUNTER → 2020-10-16 08:46 | Outpatient (BNVA) | payer MEDICARE, OTHER, SELFPAY | PROVIDERS: PCP Nurse Practitioner; Referring Provider Nurse Practitioner; Visit Provider Nurse Practitioner Gerontology | DX: D09.0 Carcinoma in situ of bladder (principal); C67.9 Malignant neoplasm of bladder, unspecified; Z51.11 Encounter for antineoplastic chemotherapy | CPT/HCPCS: 51720; 81003; J9030 ==

== ENCOUNTER → 2020-10-23 08:17 | Outpatient (BNVA) | payer MEDICARE, OTHER, SELFPAY | PROVIDERS: PCP Nurse Practitioner; Referring Provider Nurse Practitioner; Visit Provider Nurse Practitioner Gerontology | DX: D09.0 Carcinoma in situ of bladder (principal); C67.9 Malignant neoplasm of bladder, unspecified; Z51.11 Encounter for antineoplastic chemotherapy | CPT/HCPCS: 51720; 81003; J9030 ==

== ENCOUNTER → 2020-12-06 13:50 | Outpatient (BNVA) | payer MEDICARE, OTHER, SELFPAY | PROVIDERS: PCP Nurse Practitioner; Referring Provider Nurse Practitioner; Visit Provider Urology | DX: C67.9 Malignant neoplasm of bladder, unspecified (principal) | CPT/HCPCS: 52000; 81003; 99213 ==

== ENCOUNTER 2020-12-06 14:31 | Outpatient (REF) | payer MEDICARE, OTHER, SELFPAY ==
--- NOTE | 2020-12-06 14:20 | PAPNONF_PTH ---
PATIENT: Jeronimo Archer LOC: [facility] U#:[id number] AGE/SX: 75/M ROOM: RE12/06/[address]: Javier Szymanski MD : 1945 BED: DIS: 12/06/2020 SPEC #: [id number] RECD: 12/06/20 16:28 STATUS: ZHEN REDaniel #: [id number] CAMERON: 12/06/20 14:[address]: Javier Szymanski DEPT: [facility] Cytology RECD BY: Caryl Strickland ENTERED: 12/06/20 16:41 SP TYPE: SANDY STARKEY DR: Elizabet Auguste APRN Tissues: 1 - BODY FLUID CYTO(SPUTUM/URINE)UV Procedures: BODY FLUID CYTO(URINE/SPUTUM) Comments: [id number] (TOTAL VOLUME = 140 CC'S) (70 cc's URINE & 70 cc's CYTOLYT ADDED IN 2 CONTAINERS)
== END 2020-12-06 14:32 | disposition home or self-care (01) ==
LOC: LBN 14:31
PROVIDERS: PCP Nurse Practitioner; Visit Provider Urology
DX: R82.89 Other abnormal findings on cytological and histological examination of urine (principal); Z85.51 Personal history of malignant neoplasm of bladder
CPT/HCPCS: 88104

== ENCOUNTER 2020-12-08 16:58 | Emergency (ER) | payer MEDICARE, OTHER, SELFPAY ==
[2020-12-08] VITALS (17 sets, daily range): BP systolic 142–156; BP diastolic 74–95; PULSE 76–90; RESP 14–25; TEMP 36.3; O2SAT 84–96
--- NOTE | 2020-12-08 18:00 | DI.CT_ITS ---
Exam(s) CT ABDOMEN PELVIS W EXAM: CT ABDOMEN PELVIS W CLINICAL HISTORY: back pain and pelvis pain, hx of ca. TECHNIQUE: Imaging Protocol: Axial computed tomography images with coronal and sagittal reformatted images were created and reviewed CONTRAST MATERIAL: Intravenous: Omnipaque 350 Contrast volume:100 ml Oral: / no COMPARISON: CT CT ABDOMEN PELVIS W from 04/30/2019 FINDINGS: ABDOMEN: Lung Bases: Normal where visualized. Liver: Normal density. No measurable mass. Gallbladder and biliary tract: No radiodense calculus or dilation. Pancreas: Normal density, no abnormal calcifications or inflammatory process. Spleen: Normal. Kidneys: Normal size, contour and axis. No radiodense stones or obstructive uropathy. Bilateral jatin l cysts. No suspicious masses seen. Adrenal glands: No masses seen. Abdominal Aorta: Abdominal portion non-dilated. Extensive atherosclerotic changes. Extensive atheros clerotic changes of the iliac arteries bilaterally. Stomach: Surgical clips near the GE junction. PELVIS: Bladder: Mild diffuse wall thickening. Wall thickening. No calculi.No focal mass. Bowel: No obstruction or bowel wall thickening. Appendix not seen. Sigmoid diverticulosis. No evide nce of diverticulitis. Peritoneal cavity: No ascites, collection or mesenteric inflammatory response. Bones: Posterior fusion hardware L4 through S1. Degenerative disc changes greatest at L3-4. No comp ression fracture, lytic or blastic lesion. Reproductive organs: Small bilateral hydroceles. Mildly enlarged prostate. Lymph nodes: Unremarkable. Soft tissues: Fatty containing bilateral inguinal hernias. Prior anterior abdominal wall hernia repa ir. No recurrence hernia. Impression: No acute abnormality. RADIATION DOSE DELIVERED: 1,266.17mGy.cm Total DLP DATA REPOSITORY: All CT scans at this facility are submitted to the National Radiology Data Registry (NRDR) Dose Index Registry (DIR) with the [employer] ([employer]). RADIATION OPTIMIZATION: All CT scans at this facility use at least one of these dose optimization te chniques: automated exposure control; mA and/or kV adjustment per patient size (includes targeted exa ms where dose is matched to clinical indication); or iterative reconstruction.
--- NOTE | 2020-12-08 18:00 | RT.EKG_ITS ---
APPROVED REPORT Exam: Resting ECG Reason for Exam: weakness Patient Location: E HR:77 bpm ECG Measurements Heart Rate 77 AXIS ID 180 P 44 QRSd 110 QRS 32 QT 430 T 169 QTc 487 Conclusion Sinus rhythm...normal P axis, V-rate 60- 99 Ventricular premature complex...V complex w/ short R-R interval Repol abnrm suggests ischemia, anterolateral...ST dep, T neg, I aVL V2-V6 st depression laterally
[2020-12-08] MEDS: Normal Saline 500 ML IV (19:08)
[2020-12-08] MEDS: Ondansetron 4 MG/2 ML VIAL IVP (19:09)
[2020-12-08 19:11] LABS: Abs Immature Grans 0.04 10^3/uL (0.0-0.06); Absolute Basophil Count 0.04 10^3/uL (0.0-0.2); Absolute Eosinophil Count 0.02 10^3/uL (0.0-0.7); Absolute Lymphocyte Count 0.97 10^3/uL (1.2-3.4); Absolute Neutrophil Count 7.99 10^3/uL (1.2-6.7); Basophils % 0.4; Eosinophils % 0.2; HCT 39.7 % (40.0-50.0); HGB 12.7 g/dL (13.5-17.5); Immature Grans % 0.4; MCH 28.2 pg (27.0-33.0); MCV 88.2 fL (80-95); MPV 10.4 fL (8.0-11.0); Monocytes % 6.2; Neutrophils % 82.8; Nucleated RBC 0 %; Platelet Count 189 10^3/uL (130-400); RDW 13.5 % (11.8-14.1); RDW-SD 43.9 fL; WBC 9.66 10^3/uL (4.4-10.8)
[2020-12-08 19:42] LABS: BUN 32 mg/dL (7-18); Potassium 5.3 mmol/L (3.5-5.1)
[2020-12-08 20:20] LABS: ALT 39 U/L (16-63); AST 24 U/L (15-37); Albumin 3.6 g/dL (3.4-5.0); Alkaline Phosphatase 83 U/L (46-116); Anion Gap 3.9 mmol/L (3-11); Bilirubin, Total 0.4 mg/dL (0.2-1.0); CO2 30.1 mmol/L (21.0-32.0); CREATININE 1.5 mg/dL (0.70-1.30); Chloride 107 mmol/L (98-107); Estimated GFR 45.38 (mL/min/1.73m2); Glucose 184 mg/dL (74-106); Lipase 86 U/L (73-393); Sodium 141 mmol/L (136-145); Total Protein 7.3 g/dL (6.4-8.2); Troponin I < 0.05 ng/mL (<0.06)
[2020-12-08] MEDS: Omnipaque 350 MG/ML 100 ML BTL IJ (20:25)
[2020-12-08] MEDS: Normal Saline Flush 10 ML SYR IVP (20:39)
--- NOTE | 2020-12-08 21:01 | DI.VRAD_ITS ---
PROCEDURE INFORMATION: Exam: CT Abdomen And Pelvis With Contrast Exam date and time: 12/08/2020 6:12 PM Age: 75 years old Clinical indication: Other: Back and pelvis; Prior surgery; Surgery date: 6+ months; Surgery type: Bladder, back, heart, and appendectomy; Patient HX: Back and pelvic pain, HX of CA TECHNIQUE: Imaging protocol: Computed tomography of the abdomen and pelvis with contrast. Radiation optimization: All CT scans at this facility use at least one of these dose optimization techniques: automated exposure control; mA and/or kV adjustment per patient size (includes targeted exams where dose is matched to clinical indication); or iterative reconstruction. Contrast material: OMNIPAQUE 350; Contrast volume: 100 ml; Contrast route: INTRAVENOUS (IV); COMPARISON: CT ABDOMEN PELVIS W 04/30/2019 8:19 PM FINDINGS: Lungs: Lung bases are clear. Liver: Normal. No mass. Gallbladder and bile ducts: Normal. No calcified stones. No ductal dilation. Pancreas: Normal. No ductal dilation. Spleen: Normal. No splenomegaly. Adrenal glands: Normal. No mass. Kidneys and ureters: Negative for hydronephrosis. Kidneys enhance symmetrically. Small cysts are present bilaterally, up to 1.6 cm. Ureters are not dilated. Stomach and bowel: Stomach is collapsed. Question prior Shaunna fundoplication. Small bowel is not dilated. Negative for inflammatory changes around the colon. Diverticula are present in the sigmoid colon. Appendix: Appendix is surgically absent. Intraperitoneal space: Unremarkable. No free air. No significant fluid collection. Vasculature: Negative for aneurysm. Moderate vascular calcifications present throughout. Lymph nodes: Unremarkable. No enlarged lymph nodes. Urinary bladder: Urinary bladder is mildly distended. [place] appear thickened uniform. Reproductive: Prostatic impression on the urinary bladder is noted. Mild bilateral hydroceles are present, partially visualized. Bones/joints: Negative for compression fracture. Posterior fusion noted, with laminectomy. No hardware complications observed. Moderate multilevel degenerative disc disease and facet arthropathy present. Soft tissues: Prominent fat noted in the inguinal canals bilaterally. Previous ventral abdominal wall hernia repair noted. Negative for fluid collection. No evidence of current hernia. IMPRESSION: 1. Postoperative changes inferior lumbar spine. No complications appreciated. 2. Degenerative changes superior to the fusion construct. 3. Wall thickening in the urinary bladder. Chronic cystitis versus neurogenic bladder. 4. Distal colonic diverticulosis, without diverticulitis. Dictated and Authenticated by: Parker Szymanski MD. Ordering:FEROZ Jimenes MD
--- NOTE | 2020-12-08 21:16 | ED.GENADUL_ITS ---
Discharge Plan Disposition Patient Disposition: HOME Condition: Stable Discharge Details Clinical Impression: Back pain, Acute hyperkalemia, Accidental overdose, Nausea & vomiting, CKD (chronic kidney disease) Primary Care Provider: Elizabet Auguste ED Provider: Yudy Anthony Home Meds and New Rx's Prescriptions: New metoclopramide HCl [Reglan] 5 mg tablet 5 mg PO QAC Qty: 10 RF: 0 Continued Toviaz 4 mg tablet extended release 24 hr 4 mg PO DAILY RF: 0 glipizide 10 mg tablet 10 mg PO BID RF: 0 duloxetine 60 mg capsule,delayed release(DR/EC) 60 mg PO DAILY Qty: 90 RF: 3 fluticasone propionate [Allergy Relief (fluticasone)] 50 mcg/actuation spray,suspension 1 spray IGOR BID PRNRF: 0 (DME) blood-glucose meter [OneTouch Verio Meter] [facility] See Dose Instructions .ROUTE .MEDSUPPLY Qty: 1 RF: 0 omeprazole 40 mg capsule,delayed release(DR/EC) 40 mg PO DAILY Qty: 90 RF: 3 [id number]-[id number] Tablet 0.5 tab PO DAILY RF: 0 silodosin 8 mg capsule 8 mg PO DAILY Qty: 30 RF: 11 cephalexin 500 mg tablet 500 mg PO Q8H Qty: 15 RF: 0 acetaminophen [Tylenol Extra Strength] 500 MG tablet 1,000 mg PO Q6H PRN PRNRF: 0 magnesium oxide 400 mg (241.3 mg magnesium) tablet 400 mg PO DAILY Qty: 90 RF: 3 allopurinol 300 mg tablet 150 mg PO DAILY Qty: 90 RF: 3 (DME) OneTouch Verio test strips Strip See Dose Instructions .ROUTE .MEDSUPPLY Qty: 100 RF: 12 (DME) lancets [OneTouch Delica Lancets] [facility] See Dose Instructions .ROUTE .MEDSUPPLY Qty: 100 RF: 6 albuterol sulfate [ProAir HFA] 90 mcg/actuation HFA aerosol inhaler 1 puff IH Q4H PRN (Reason: shortness of breath) Qty: 8.5 RF: 12 ketoconazole 2 % cream 1 applic TP DAILY PRN (Reason: ) Qty: 30 RF: 4 atorvastatin 20 mg tablet 20 mg PO QPM Qty: 90 RF: 3 furosemide 40 mg tablet 40 mg PO BID Qty: 180 RF: 3 metoprolol succinate 100 mg tablet extended release 24 hr 100 mg PO DAILY Qty: 90 RF: 4 losartan 100 mg tablet 100 mg PO DAILY Qty: 90 RF: 3 aspirin 81 mg tablet,delayed release (DR/EC) 81 mg PO DAILY RF: 0 baclofen 20 mg tablet 20 mg PO BID PRN (Reason: muscle spasm) Qty: 60 RF: 2 nystatin [Nyamyc] 100,000 unit/gram powder 1 applic TP TID PRNRF: 0 budesonide-formoterol [Symbicort] 160-4.5 mcg/actuation HFA aerosol inhaler 2 puff inhalation BID PRNRF: 0 Discharge Instructions Instructions: Acute Nausea and Vomiting (ED), Back Pain (ED) Additional Instructions: follow-up with your primary care physician tomorrow to schedule appointment in the next 24 to 48 hours Your potassium is elevated, I suspect this is secondary to your losartan medication, please discontinue this medication and talk to your doctor about a possible replacement You should have your blood rechecked, specifically your potassium within the next 3 to 4 days Please return earlier should he have recurrent nausea or vomiting, chest pain, shortness of breath, dizziness, weakness, be sure to check your medications but they are not taking too much of them Clear liquid/tolerated Medical Decision Making Oxygen saturation 92% Patient is otherwise symptomatically improved, ambulatory with steady gait Hyperkalemic at 5.3, slightly over recommended level, I suspect this is multifactorial including patient's losartan which she will discontinue, he was given a lab slip to have this rechecked He has chronic kidney disease and his creatinine is 1.5 hemoglobin of 12.7, hematocrit of 39.7 BUN of 32, consistent with patient's prior Glucose of 184 EKG results reviewed, similar to prior, ambulatory with steady gait Given prescription for Reglan I discussed the case with poison control and they do not recommend any additional intervention for the baclofen patient is symptomatically improved and only took a slightly higher dose He is given very low threshold to return for new or worsening complaints, discharged home in the care of his Tolerates p.o. at time of discharge home CT scan does not show acute abnormality, patient was able to urinate without difficulty at time of discharge home He will reviewed the results of CT abdomen pelvis with In the outpatient setting and is instructed to have labs with repeat potassium in 2 to 3 days Medical Records Medical records reviewed: Yes I reviewed the patient's medical records. Lab Data Lab results reviewed: Yes I reviewed the patient's lab results. ECG Data Attestation: I personally reviewed and interpreted this ECG (s) as follows: HPI General Mode of arrival: ambulatory . Date/Time Provider Initiated Documentation: 12/08/20 17:18 . Limitations to Documentation: no limitations . Information obtained by: patient . HPI Narrative: This 75-year-old male with history of chronic back pain, bladder cancer, cognitive decline, type 2 diabetes, presents for report of back pain, nausea and vomiting, and accidental overdose. Patient reportedly pulled his back out . He states this happened about a week ago when he was on the lawnmower. His doctors prescribed baclofen for him which she is been taking, 10 mg twice daily. Reportedly he was not having symptomatic improvement so the baclofen was increased to 40 mg twice daily. Patient accidentally take 80 mg of baclofen in the past 24 hours emergency room. Denies any changes in bowel or bladder, groin numbness, or worsening pain. Had approximately 3-4 episodes of vomiting and nausea at approximately 11:00 today which concerned with him and which is why called the ambulance. Patient denies any associated chest comfort with this. Denies any pain complaints. Has not been fever or chills. This came on abruptly and is concerned that it was caused by taking an increased dose of his baclofen. He is otherwise feeling improved at this time. There is no syncopal event reportedly. He currently is feeling improved. Related Data Home Medications Medication Instructions Recorded Confirmed acetaminophen [Tylenol Extra 1,000 mg PO Q6H PRN PRN 06/01/13 12/06/20 Strength] fluticasone propionate 50 1 spray IGOR BID PRN gm 03/10/18 12/06/20 mcg/actuation nasal spray,suspension blood-glucose meter #1 each 07/11/18 12/06/20 budesonide-formoterol [Symbicort] 2 puff INHALATION BID PRN 01/02/20 12/06/20 nystatin [Nyamyc] 1 applic TP TID PRN 01/02/20 12/06/20 magnesium oxide 400 mg (241.3 mg 400 mg PO DAILY #90 tab 01/05/20 12/06/20 magnesium) tablet allopurinol 300 mg tablet 150 mg PO DAILY #90 tab-cap 01/09/20 12/06/20 silodosin 8 mg capsule 8 mg PO DAILY #30 cap 04/23/20 12/06/20 blood sugar diagnostic #100 each 04/24/20 12/06/20 lancets 33 gauge #100 each 04/24/20 12/06/20 albuterol sulfate 90 mcg/actuation 1 puff IH Q4H PRN #8.5 gm 04/25/20 12/06/20 aerosol inhaler ketoconazole 2 % topical cream 1 applic TP DAILY PRN #30 g 04/29/20 12/06/20 omeprazole 40 mg capsule,delayed 40 mg PO DAILY #90 cap 05/28/20 12/06/20 release gqvcvoqihveu-dzbxqoui-agiemf tablet 0.5 tab PO DAILY tab 07/15/20 12/06/20 fesoterodine 4 mg tablet,extended 4 mg PO DAILY tab 09/02/20 12/06/20 release 24 hr glipizide 10 mg tablet 10 mg PO BID tab 09/02/20 12/06/20 cephalexin 500 mg tablet 500 mg PO Q8H #15 tab 09/26/20 12/06/20 atorvastatin 20 mg tablet 20 mg PO QPM #90 tab 10/01/20 12/06/20 furosemide 40 mg tablet 40 mg PO BID #180 tab-cap 10/01/20 12/06/20 losartan 100 mg tablet 100 mg PO DAILY #90 tab 10/01/20 12/06/20 metoprolol succinate 100 mg 100 mg PO DAILY #90 tab 10/01/20 12/06/20 tablet,extended release 24 hr duloxetine 60 mg capsule,delayed 60 mg PO DAILY #90 cap 11/13/20 12/06/20 release aspirin 81 mg tablet,delayed 81 mg PO DAILY 12/03/20 12/06/20 release baclofen 20 mg tablet 20 mg PO BID PRN #60 tab 12/05/20 12/06/20 metoclopramide HCl [Reglan] 5 mg PO QAC #10 tab 12/08/20 Previous Rx's Medication Instructions Recorded blood-glucose meter #1 each 07/11/18 magnesium oxide 400 mg (241.3 mg 400 mg PO DAILY #90 tab 01/05/20 magnesium) tablet allopurinol 300 mg tablet 150 mg PO DAILY #90 tab-cap 01/09/20 silodosin 8 mg capsule 8 mg PO DAILY #30 cap 04/23/20 blood sugar diagnostic #100 each 04/24/20 lancets 33 gauge #100 each 04/24/20 albuterol sulfate 90 mcg/actuation 1 puff IH Q4H PRN #8.5 gm 04/25/20 aerosol inhaler ketoconazole 2 % topical cream 1 applic TP DAILY PRN #30 g 04/29/20 omeprazole 40 mg capsule,delayed 40 mg PO DAILY #90 cap 05/28/20 release cephalexin 500 mg tablet 500 mg PO Q8H #15 tab 09/26/20 atorvastatin 20 mg tablet 20 mg PO QPM #90 tab 10/01/20 furosemide 40 mg tablet 40 mg PO BID #180 tab-cap 10/01/20 losartan 100 mg tablet 100 mg PO DAILY #90 tab 10/01/20 metoprolol succinate 100 mg 100 mg PO DAILY #90 tab 10/01/20 tablet,extended release 24 hr duloxetine 60 mg capsule,delayed 60 mg PO DAILY #90 cap 11/13/20 release baclofen 20 mg tablet 20 mg PO BID PRN #60 tab 12/05/20 metoclopramide HCl [Reglan] 5 mg PO QAC #10 tab 12/08/20 Allergies Allergy/AdvReac Type Severity Reaction Status Date / Time codeine AdvReac Intermediate DYSPHORIA Verified 12/02/20 10:20 niacin AdvReac Intermediate MYALGIAS Verified 12/02/20 10:20 simvastatin AdvReac Intermediate myalgias Verified 12/02/20 10:20 General Stated Complaint: GenMedical ROBBI: 2 Review of Systems All systems reviewed & are unremarkable except as noted in HPI and below PFSH Medical History Benign neoplasm of colon (08/04/12) pt. states she is unaware of this Benign prostatic hyperplasia with urinary frequency Bladder cancer Carcinoma in situ of bladder Carpal tunnel syndrome (08/04/12) Chronic kidney disease, stage III (moderate) (01/26/13) 12/2008 CT abd/pelvis neg COPD (chronic obstructive pulmonary disease) Coronary artery disease involving coronary bypass graft of [place] heart (01/02/16) MVR & 2v CABG, marginal and PDA, EF 45% [facility] 12/20/15 CVA (cerebral vascular accident) (01/03/16) 12/[address] [facility] R hemiparesis Diabetes mellitus with diabetic neuropathy (04/13/14) Diabetes mellitus with stage 3 chronic kidney disease (03/02/14) A1C goal 8 Gastroesophageal reflux disease (08/04/12) failed omeprazole, failed dexilant 06/01/2013 Gross hematuria H/O urinary frequency History of tobacco use (07/03/11) pt. states he hasn't smoked in 35 years Hyperlipidemia (07/03/11) PCEq 55.3%; intolerant statins Lumbago with sciatica, unspecified side (08/04/12) 08/2005 small disc herniations L5-S1, no spinal or neuroforaminal stenosis. back surgery 10/[address] [facility] 08/2006; L5 radiculopathy Memory impairment (12/11/15) 12/2015 MMSE 23 B12/lab nl; MRI 12/2015 old silvia lacunar CVAs Mitral valve insufficiency (12/19/15) MVR: bovine bioprosthesis and CABGx2 [facility] 12/20/15 Obesity, unspecified (07/03/11) Sensorineural hearing loss (08/24/14) using an ITE aid. unknown model. Systolic CHF, chronic (04/15/16) 04/15/16 Echo: EF 35%; MVR bioprosthesis intact Unspecified essential hypertension (08/04/12) goal 150/90 Surgical History Appendectomy Colonoscopy - MAC (01/11/15) Dr Morgan Grade 2 hemorrhoids Coronary Artery Bypass Gaft (CABG) (12/20/15) [facility] DR MENDOZA History of arthroplasty of right shoulder (~09/2015) History of back surgery (10/21/00) [facility] Dr. Win S/P partial gastrectomy Status post carpal tunnel release of both wrists Valve Replacement (12/20/15) [facility] Dr Baumann Mitral valve Family History Brother Alcoholism Heart disease Grandfather Heart disease Father Personal history of malignant neoplasm THROAT CA Social History (Reviewed 09/02/20 @ 13:48 by Kimberlee Whitfield Smoking/Tobacco Use Status: Former Tobacco Use Quit Date: 05/03/94 Pack-years: 105 Smoking risk assessment performed?: Yes Alcohol Intake: current Alcohol Intake frequency: holidays/special occasions only Alcohol type: beer Drug use: Never Substance use type: does not use Household members: spouse Housing: house Number of Children: 4 What is your relationship status?: Panel score (0-1 are the most socially isolated patients): 1 Working smoke detector in home: Yes Do you feel safe at home: Yes Do you feel safe in your relationship?: Yes Additional Social history: unable to assess privatley Exam Const General: cooperative and no acute distress HENMT Other: Moist mucous membrane Eyes Sclera: sclerae normal Resp Effort & Inspection: normal respiratory effort Auscultation: clear to auscultation bilaterally Cardio Rate: regular rate Rhythm: regular rhythm GI Inspection: normal to inspection Other: Nontender abdominal exam, tenderness to flank right, no abdominal bruit time Skin General skin exam: no rashes or lesions noted Neuro General: patient alert and patient oriented x3 Extrem Other: Distal pulses intact Course Vital Signs Vital signs: Vital Signs Temperature 36.3 C L 12/08/20 17:22 Pulse 77 12/08/20 17:22 Respiratory Rate 16 12/08/20 17:22 Blood Pressure 142/95 H 12/08/20 17:22 Pulse Oximetry 96 12/08/20 17:22 Temperature 36.3 C L 12/08/20 17:22 Temperature Source Skin 12/08/20 17:22 Pulse 77 12/08/20 17:22 Respiratory Rate 16 12/08/20 17:22 Respiratory Effort Non-Labored 12/08/20 17:22 Blood Pressure 142/95 H 12/08/20 17:22 Blood Pressure Position Sitting 12/08/20 17:22 Pulse Oximetry 96 12/08/20 17:22 Oxygen Delivery Method Room Air 12/08/20 17:22 Oxygen Flow Rate 0 12/08/20 17:22 Pain Level 10 12/08/20 17:22 Lab/Test Results Lab/Test Results: Laboratory Tests Range/Units 12/08/20 12/08/20 19:07 19:45 WBC (4.4-10.8) 10^3/uL 9.66 RBC (4.36-5.78) 10^6/uL 4.50 Hgb (13.5-17.5) g/dL 12.7 L Hct (40.0-50.0) % 39.7 L MCV (80-95) fL 88.2 MCH (27.0-33.0) pg 28.2 MCHC (32.0-36.0) % 32.0 RDW (11.8-14.1) % 13.5 Plt Count (130-400) 10^3/uL 189 MPV (8.0-11.0) fL 10.4 Immature Gran % 0.4 Neutrophils % 82.8 Lymphocytes % 10.0 Monocytes % 6.2 Eosinophils % 0.2 Basophils % 0.4 Nucleated RBC % % 0 Absolute Neutrophils (1.2-6.7) 10^3/uL 7.99 H Absolute Lymphocytes (1.2-3.4) 10^3/uL 0.97 L Absolute Monocytes (0.1-0.8) 10^3/uL 0.60 Absolute Eosinophils (0.0-0.7) 10^3/uL 0.02 Absolute Basophils (0.0-0.2) 10^3/uL 0.04 Sodium (136-145) mmol/L 141 Potassium (3.5-5.1) mmol/L 5.3 H Chloride (98-107) mmol/L 107 Carbon Dioxide (21.0-32.0) mmol/L 30.1 Anion Gap (3-11) mmol/L 3.9 BUN (7-18) mg/dL 32 H Creatinine (0.70-1.30) mg/dL 1.5 H Estimated GFR/1.73 m2 (mL/min/1.73m2) 45.38 Glucose (74-106) mg/dL 184 H Calcium (8.5-10.1) mg/dL 9.0 Total Bilirubin (0.2-1.0) mg/dL 0.4 AST (15-37) U/L 24 ALT (16-63) U/L 39 Alkaline Phosphatase (46-116) U/L 83 Troponin I (<0.06) ng/mL < 0.05 Total Protein (6.4-8.2) g/dL 7.3 Albumin (3.4-5.0) g/dL 3.6 Lipase (73-393) U/L 86
[2020-12-08 22:45] LABS: Bilirubin Negative (Negative); Blood Trace-intact (Negative); Clarity Cloudy (Clear); Glucose Negative (Negative); Ketones Negative (Negative); Leukocyte Esterase Moderate (Negative); Nitrite Negative (Negative); Specific Gravity 1.025 (1.005-1.025); Urobilinogen 0.2 EU/dL (Up TO 0.2)
[2020-12-08 22:53] LABS: WBC >50 HPF (0-5)
[2020-12-08 22:54] LABS: Bacteria Many HPF (Negative); C & S Indicated? Yes
== END 2020-12-08 22:20 | disposition home or self-care (01) ==
PROVIDERS: Emergency Provider Physician Assistant; PCP Nurse Practitioner
DX: E87.5 Hyperkalemia (principal); M54.9 Dorsalgia, unspecified; T42.8X1A Poisoning by antiparkinsonism drugs and other central muscle-tone depressants, accidental (unintentional), initial encounter; R11.2 Nausea with vomiting, unspecified; E11.22 Type 2 diabetes mellitus with diabetic chronic kidney disease; N18.30 Chronic kidney disease, stage 3 unspecified; I13.0 Hypertensive heart and chronic kidney disease with heart failure and stage 1 through stage 4 chronic kidney disease, or unspecified chronic kidney disease; I50.22 Chronic systolic (congestive) heart failure; Z87.891 Personal history of nicotine dependence
CPT/HCPCS: 80053; 83690; 87077; 93005; 96361; 96374; 96375; 99285; 74177; 81003; 81015; 84484; 85025; 87086; 87186; 93010; 99284; J0131; J1940; J2405; J3490

== ENCOUNTER 2020-12-11 03:30 | Outpatient (CLI) | payer MEDICARE, SELFPAY ==
[2020-12-11 11:18] LABS: Anion Gap 7.1 mmol/L (3-11); BUN 34 mg/dL (7-18); CO2 28.9 mmol/L (21.0-32.0); CREATININE 1.6 mg/dL (0.70-1.30); Calcium 8.9 mg/dL (8.5-10.1); Chloride 103 mmol/L (98-107); Estimated GFR 42.12 (mL/min/1.73m2); Glucose 150 mg/dL (74-106); Potassium 3.9 mmol/L (3.5-5.1); Sodium 139 mmol/L (136-145)
== END 2020-12-11 03:31 | disposition home or self-care (01) ==
LOC: LBO 03:30
PROVIDERS: PCP Nurse Practitioner; Visit Provider Physician Assistant
DX: E87.5 Hyperkalemia (principal)
CPT/HCPCS: 36415; 80048

== ENCOUNTER 2021-01-22 02:07 | Outpatient (CLI) | payer MEDICARE, OTHER, SELFPAY ==
--- NOTE | 2021-01-22 15:10 | DI.MRI_ITS ---
Exam(s) MR UPPER JOINT LT WO EXAM: MR UPPER JOINT LT WO CLINICAL HISTORY: Likely biceps tear, evaluate also for other tears,PAIN,STRAIN OF MUSCLE, TECHNIQUE: Multiplanar multisequence MRI of the shoulder was performed. COMPARISON: No plain films available at the time of this MRI interpretation. FINDINGS: MARROW:There is no evidence of fracture, Hill-Sachs deformity, nor ominous osseous lesions. Evidence of previous surgery noted including fastener in the anterior aspect of the lateral half of the tiffanie l head. there is also susceptibility artifact related to prior surgery. ROTATOR CUFF MECHANISM: AC JOINT/ACROMIUM: There is widening of the AC joint (1.5 cm). Most probably postsurgical. No downg oing osteophytes.. There is no evidence of os acromiale. Supraspinatus: There is a large full-thickness tear and upriding of the humeral head in the glenoid f félix with significant diminution of the subacromial space. Tendon is retracted to the mid aspect of the humeral head and there is fluid in the subacromial bursa. Infraspinatus: Also full thickness tear. Some atrophy also evident. Teres Minor: Intact. No evidence of tear nor muscle atrophy. Subscapularis/anterior cuff: Somewhat lax appearance of the multipennate insertional fibers partial t earing but without full-thickness tear. BICEPS TENDON: Not displaced from the intertubercular groove but appearing somewhat perched on the le sser tuberosity the tendon is somewhat attenuated above this level. LABRUM: The superior labrum appears somewhat flattened by the upward subluxed humeral head but withou t obvious tear of the superior labrum.. Posterior labrum appears intact. Anterior labrum appears sl ightly blunted but without an obvious tear. No obvious tear of the inferior labrum. The inferior gl enohumeral ligament is intact. No evidence of bony Bankart lesion. GLENOHUMERAL JOINT: There is approximately 1.8 cm superior subluxation of the humeral head relative t o the glenoid fossa, this commensurate with the full-thickness tears of the rotator cuff mechanism. Small osteophyte on the inferior articular surface of the humeral head. No degenerative subarticular cysts. Mild cartilage thinning. Mild glenohumeral joint effusion. No obvious loose intra-articula r bodies. No degenerative subarticular cysts. No evidence of capsular tear. The inferior glenohumer al ligament is intact. QUADRILATERAL SPACE: No evidence of mass in the region of the axillary nerve and dorsal circumflex hu meral vessels. Visualized triceps muscle at this level appears unremarkable. IMPRESSION: 1. In this patient who has had previous surgery there are full-thickness tears of the supra and infra spinatus with upward subluxation of the humeral head in the glenoid fossa and fluid in the subacromia l bursa. The anterior rotator cuff-subscapularis is somewhat lax with what appears to be partial tea ring of some of the multipennate insertional fibers anterior to the lesser tuberosity. 2. Biceps tendon is somewhat perched on the lesser tuberosity and attenuated above this level. 3. No obvious labral tears. No evidence of paralabral cyst 4. Mild degenerative changes in the glenohumeral joint. Mild joint effusion. No loose intra-articu lar bodies. DATA REPOSITORY:
== END 2021-01-22 02:27 ==
PROVIDERS: PCP Nurse Practitioner; Visit Provider Family Medicine
DX: S46.212A Strain of muscle, fascia and tendon of other parts of biceps, left arm, initial encounter (principal); M75.122 Complete rotator cuff tear or rupture of left shoulder, not specified as traumatic; M19.012 Primary osteoarthritis, left shoulder; C67.9 Malignant neoplasm of bladder, unspecified; Z51.11 Encounter for antineoplastic chemotherapy
CPT/HCPCS: 51720; 81003; J9030; 73221

== ENCOUNTER 2021-01-29 11:20 | Outpatient (CLI) | payer MEDICARE, OTHER, SELFPAY ==
--- NOTE | 2021-01-29 09:00 | DI.RAD_ITS ---
Exam(s) XR SHOULDER LT COMPLETE 2+V EXAM: XR SHOULDER LT COMPLETE 2+V CLINICAL HISTORY: L shoulder injury. TECHNIQUE: 2D digital imaging was performed. COMPARISON: CR RIGHT SHOULDER COMPLETE from 05/09/2013 FINDINGS: There is evidence of previous rotator cuff surgery with a single radiopaque fastener device on the la teral aspect the humeral head. No radiographic evidence of osteomyelitis at this level. There is an element of upright in of the humeral head within the glenoid fossa. This is related to t he full-thickness tears of the supra and infraspinatus as seen on recent MRI study. There are no abn ormal soft tissue calcifications in the subacromial space. There is a small calcification measuring 4 x 4 millimeters adjacent to the cortex on the medial aspect of the upper humeral diaphysis. Incide ntally noted are sternotomy wires. IMPRESSION: DATA REPOSITORY: RADIATION DOSE DELIVERED:
== END 2021-01-29 11:21 | disposition home or self-care (01) ==
LOC: DIORS 11:20
PROVIDERS: PCP Nurse Practitioner; Referring Provider Nurse Practitioner; Visit Provider Physician Assistant
DX: S46.212A Strain of muscle, fascia and tendon of other parts of biceps, left arm, initial encounter; M75.102 Unspecified rotator cuff tear or rupture of left shoulder, not specified as traumatic; M12.812 Other specific arthropathies, not elsewhere classified, left shoulder; X58.XXXA Exposure to other specified factors, initial encounter
CPT/HCPCS: 99214; 73030

== ENCOUNTER → 2021-03-07 12:41 | Outpatient (BNVA) | payer MEDICARE, OTHER, SELFPAY | PROVIDERS: PCP Nurse Practitioner; Referring Provider Nurse Practitioner; Visit Provider Urology | DX: D09.0 Carcinoma in situ of bladder (principal) | CPT/HCPCS: 52000; 81003 ==

== ENCOUNTER 2021-03-07 13:45 | Outpatient (REF) | payer MEDICARE, OTHER, SELFPAY ==
--- NOTE | 2021-03-07 13:15 | PAPNONF_PTH ---
PATIENT: Jeronimo Archer LOC: [facility] U#:[id number] AGE/SX: 76/M ROOM: RE03/07/[address]: Javier Szymanski MD : [id number] BED: DIS: 03/07/2021 SPEC #: [id number] RECD: 03/07/21 16:49 STATUS: ZHEN REDaniel #: [id number] CAMERON: 03/07/21 13:[address]: Javier Szymanski DEPT: [facility] Cytology RECD BY: Yudy Quintana ENTERED: 03/07/21 16:51 SP TYPE: SANDY STARKEY DR: Elizabet Auguste APRN Tissues: 1 - BODY FLUID CYTO(SPUTUM/URINE)[facility] Procedures: BODY FLUID CYTO(URINE/SPUTUM) Comments: [id number] (TOTAL VOLUME = 55 ml) (55 ml URINE & 55 ml CYTOLYT ADDED)
== END 2021-03-07 13:46 | disposition home or self-care (01) ==
LOC: LBN 13:45
PROVIDERS: PCP Nurse Practitioner; Visit Provider Urology
DX: R82.89 Other abnormal findings on cytological and histological examination of urine (principal)
CPT/HCPCS: 88104

== ENCOUNTER → 2021-03-12 09:17 | Outpatient (BNVA) | payer MEDICARE, OTHER, SELFPAY | PROVIDERS: PCP Nurse Practitioner; Visit Provider Student in an Organized Health Care Education/Training Program | DX: S46.212D Strain of muscle, fascia and tendon of other parts of biceps, left arm, subsequent encounter (principal); M12.812 Other specific arthropathies, not elsewhere classified, left shoulder; S46.012D Strain of muscle(s) and tendon(s) of the rotator cuff of left shoulder, subsequent encounter; X50.9XXD Other and unspecified overexertion or strenuous movements or postures, subsequent encounter; E11.22 Type 2 diabetes mellitus with diabetic chronic kidney disease; N18.9 Chronic kidney disease, unspecified | CPT/HCPCS: 99214 ==

== ENCOUNTER 2021-03-17 13:49 | Outpatient (CLI) | payer MEDICARE, OTHER, SELFPAY ==
--- NOTE | 2021-03-17 14:00 | RT.EKG_ITS ---
APPROVED REPORT Exam: Resting ECG Reason for Exam: CHF Patient Location: O HR:86 bpm ECG Measurements Heart Rate 86 AXIS GA 145 P -22 QRSd 105 QRS 0 QT 408 T 180 QTc 488 Conclusion Sinus rhythm...normal P axis, V-rate 50- 99 Ventricular premature complex...V complex w/ short R-R interval Abnormal R-wave progression, early transition...QRS area>0 in V2 IVCD like incomplete LBBB, with repolarization abnormalities Left ventricular hypertrophy
== END 2021-03-17 13:50 | disposition home or self-care (01) ==
LOC: DI.CARD 14:05
PROVIDERS: PCP Nurse Practitioner; Referring Provider Nurse Practitioner; Visit Provider Internal Medicine Cardiovascular Disease
DX: I10 Essential (primary) hypertension (principal); I50.22 Chronic systolic (congestive) heart failure
CPT/HCPCS: 93010

== ENCOUNTER → 2021-03-17 13:49 | Outpatient (BNVA) | payer MEDICARE, OTHER, SELFPAY | PROVIDERS: PCP Nurse Practitioner; Referring Provider Nurse Practitioner; Visit Provider Internal Medicine Cardiovascular Disease | DX: I25.10 Atherosclerotic heart disease of native coronary artery without angina pectoris (principal); C67.9 Malignant neoplasm of bladder, unspecified; M75.102 Unspecified rotator cuff tear or rupture of left shoulder, not specified as traumatic; M12.812 Other specific arthropathies, not elsewhere classified, left shoulder; Z01.810 Encounter for preprocedural cardiovascular examination; Z95.4 Presence of other heart-valve replacement; Z95.1 Presence of aortocoronary bypass graft | CPT/HCPCS: 93005; 99214 ==

== ENCOUNTER 2021-03-18 08:39 | Outpatient (CLI) | payer MEDICARE, OTHER, SELFPAY ==
--- NOTE | 2021-03-18 12:54 | DI.CT_ITS ---
Exam(s) CT UPPER EXTREMITY LT WO EXAM: CT UPPER EXTREMITY LT WO CLINICAL HISTORY: RTSA surgery planning,tear lt biceps muscle,lt rtc arthropathy,[id number]. TECHNIQUE: Imaging Protocol: Axial computed tomography images with coronal and sagittal reformatted images were created and reviewed. CONTRAST MATERIAL: Noncontrast COMPARISON: CR XR SHOULDER LT COMPLETE 2+V from 01/29/2021 FINDINGS: The exam was performed for treatment planning. A metallic anchor is noted in the humeral head. Ther e is a joint effusion as well as fluid in the subcoracoid bursa. There is a small loose body is seen . The humeral head is high riding, consistent with a chronic rotator cuff tear. There is supraspina tus muscle atrophy. There is mild spurring at the AC joint. There is spurring at the tip of the acr omion. There is mild glenohumeral joint space narrowing and periarticular spurring. No suspicious b kelsie lesions. Atherosclerotic changes are noted in the aorta aortic diameter 3 cm. Sternal wires are noted. There is a mitral valve prosthesis. IMPRESSION: Chronic supraspinatus tear with muscle atrophy. Degenerative changes of glenohumeral joint and AC milton int. RADIATION DOSE DELIVERED: 925.52mGy.cm Total DLP DATA REPOSITORY: All CT scans at this facility are submitted to the National Radiology Data Registry (NRDR) Dose Index Registry (DIR) with the [employer] ([employer]). RADIATION OPTIMIZATION: All CT scans at this facility use at least one of these dose optimization te chniques: automated exposure control; mA and/or kV adjustment per patient size (includes targeted exa ms where dose is matched to clinical indication); or iterative reconstruction.
== END 2021-03-18 08:59 ==
PROVIDERS: PCP Nurse Practitioner; Visit Provider Student in an Organized Health Care Education/Training Program
DX: M75.102 Unspecified rotator cuff tear or rupture of left shoulder, not specified as traumatic (principal); M19.012 Primary osteoarthritis, left shoulder
CPT/HCPCS: 73200

== ENCOUNTER → 2021-04-01 14:13 | Outpatient (BNVA) | payer MEDICARE, OTHER, SELFPAY ==
--- NOTE | 2021-04-02 12:57 | W.DIABETESNO ---
Date of service: 04/02/21 Time of Service: 12:57 Diabetes Note NOTE: Assessment: Mr. Archer's called regarding the diabetes consult for her . She stated that there was too much going on right now for telehealth or to come in for a consult, so we discussed her concerns on the phone. Mr. Archer's A1C has increased to 8.7. He would like to have some orthopedic surgery for which the target A1C is 6.5. He has recently increased his glipizide to 10 mg bid which may help to improve his A1C. He has also gotten off a particular medicine prescribed by the urologist which may have been increasing his blood sugars. He has not been able to be very active lately due to his health issues recently. Fasting blood sugars have been 160s to 180s. Dietary recall shows that Mrs. Archer has a good understanding of what foods have carbohydrate and that they need to be limited. He has two pieces of homemade toast, 2 eggs, and orange juice at breakfast. He snacks on berries until dinner most often. Dinner is the fairly typical meat, starch, veggie but he also may have some more of that homemade bread. Nutrition Diagnosis: Inappropriate intake of carbohydrates as evidenced by increasing A1C (may be one factor that is increasing his A1C) Intervention: We discussed that getting down to an A1C of 6.5 although not impossible will be very tough given his age and other comorbidities. We did discuss that a target fasting blood sugar for him is less than 130. Suggested tweaking his carbohydrate intake at his meals such as reducing his bread intake at breakfast to one thin slice and eliminating his orange juice or reducing to less than 4 oz. Suggested that at dinner he either have one thin slice of bread or 1/3 to 1/2 cup of starch (potato, rice, corn, pasta etc.) Would consider adding a basal insulin to his regimen even temporarily to reach his target A1C if this surgery is very important for him. Would start at 10 units however he would likely have to work up to close to 50 units/day based on his body weight of 100 kg. Monitoring and Evaluation: Mr. Archer will continue to self monitor his intake and his blood sugars. A1C will be used to evaluate the adequacy of his treatment plan to get A1C to target. Thank you for the referral. Catalina Brijesh, RDN, CDCES Time Spent in Nutritional Counseling and Treatment: 20 minutes
== END ==
PROVIDERS: PCP Nurse Practitioner; Referring Provider Nurse Practitioner; Visit Provider Student in an Organized Health Care Education/Training Program
DX: M75.102 Unspecified rotator cuff tear or rupture of left shoulder, not specified as traumatic (principal); M12.812 Other specific arthropathies, not elsewhere classified, left shoulder; S46.212D Strain of muscle, fascia and tendon of other parts of biceps, left arm, subsequent encounter; E11.69 Type 2 diabetes mellitus with other specified complication; X58.XXXD Exposure to other specified factors, subsequent encounter
CPT/HCPCS: 99214

== ENCOUNTER → 2021-04-16 13:51 | Outpatient (BNVA) | payer MEDICARE, OTHER, SELFPAY | PROVIDERS: PCP Nurse Practitioner; Referring Provider Nurse Practitioner; Visit Provider Nurse Practitioner Gerontology | DX: N39.0 Urinary tract infection, site not specified (principal); D09.0 Carcinoma in situ of bladder | CPT/HCPCS: 81003; 99214 ==

== ENCOUNTER 2021-04-16 15:08 | Outpatient (REF) | payer MEDICARE, OTHER, SELFPAY | END 2021-04-16 15:09 | disposition home or self-care (01) | LOC: LBN 15:08 | PROVIDERS: PCP Nurse Practitioner; Visit Provider Nurse Practitioner Gerontology | DX: N39.0 Urinary tract infection, site not specified (principal) | CPT/HCPCS: 87077; 87086; 87186 ==

== ENCOUNTER → 2021-05-07 10:25 | Outpatient (BNVA) | payer MEDICARE, OTHER, SELFPAY | PROVIDERS: PCP Nurse Practitioner; Referring Provider Nurse Practitioner; Visit Provider Nurse Practitioner Gerontology | DX: D09.0 Carcinoma in situ of bladder (principal); N39.0 Urinary tract infection, site not specified; E11.69 Type 2 diabetes mellitus with other specified complication | CPT/HCPCS: 99214 ==

== ENCOUNTER 2021-05-09 21:43 | Inpatient (IN) | payer MEDICARE, OTHER, SELFPAY ==
[2021-05-09] VITALS (26 sets, daily range): BP systolic 96–146; BP diastolic 53–83; PULSE 65–91; RESP 3–27; TEMP 36.3; O2SAT 79–100
--- NOTE | 2021-05-09 21:30 | RT.EKG_ITS ---
APPROVED REPORT Exam: Resting ECG Reason for Exam: chest pain Patient Location: E HR:92 bpm ECG Measurements Heart Rate 92 AXIS OK 63 P 82 QRSd 107 QRS 24 QT 399 T 154 QTc 493 Conclusion Sinus rhythm...normal P axis, V-rate 60- 99 Paired ventricular premature complexes...sequence of 2 V complexes Repol abnrm suggests ischemia, lateral leads...ST dep, T neg, I aVL V5 V6 Physician: Rate 92, QTc 493, QRS 107, sinus rhythm, multiple PVCs, bigeminy, questionable single mill imeter elevation in V1 and V2 which appears to be more of the repolarization variant, questionable de pression in V3, Q wave in lead III
--- NOTE | 2021-05-09 21:37 | ED.GENADUL_ITS ---
Discharge Plan Disposition Patient Disposition: [facility] INPATIENT Condition: Stable Discharge Details Clinical Impression: Acute non-ST elevation myocardial infarction (NSTEMI) Primary Care Provider: Elizabet Auguste ED Provider: Parminder Troy [place] Meds and New Rx's Prescriptions: No Action glipizide 10 mg tablet 10 mg PO BID RF: 0 duloxetine 60 mg capsule,delayed release(DR/EC) 60 mg PO DAILY Qty: 90 RF: 3 fluticasone propionate [Allergy Relief (fluticasone)] 50 mcg/actuation spray,suspension 1 spray IGOR BID PRNRF: 0 (DME) blood-glucose meter [OneTouch Verio Meter] misc See Dose Instructions .ROUTE .MEDSUPPLY Qty: 1 RF: 0 keukdrqnqgod-ufqfffbu-mgvnal Tablet 0.5 tab PO DAILY RF: 0 silodosin 8 mg capsule 8 mg PO DAILY PRNRF: 0 acetaminophen [Tylenol Extra Strength] 500 MG tablet 1,000 mg PO Q6H PRN PRNRF: 0 (DME) OneTouch Verio test strips Strip See Dose Instructions .ROUTE .MEDSUPPLY Qty: 100 RF: 12 (DME) lancets [OneTouch Delica Lancets] 33 gauge misc See Dose Instructions .ROUTE .MEDSUPPLY Qty: 100 RF: 6 albuterol sulfate [ProAir HFA] 90 mcg/actuation HFA aerosol inhaler 1 puff IH Q4H PRN (Reason: shortness of breath) Qty: 8.5 RF: 12 ketoconazole 2 % cream 1 applic TP DAILY PRN (Reason: ) Qty: 30 RF: 4 atorvastatin 20 mg tablet 20 mg PO QPM Qty: 90 RF: 3 furosemide 40 mg tablet 40 mg PO BID Qty: 180 RF: 3 aspirin 81 mg tablet,delayed release (DR/EC) 81 mg PO DAILY RF: 0 nystatin [Nyamyc] 100,000 unit/gram powder 1 applic TP TID PRN (Reason: rash) Qty: 60 RF: 6 amlodipine 5 mg tablet 5 mg PO DAILY Qty: 90 RF: 1 omeprazole 40 mg capsule,delayed release(DR/EC) 40 mg PO DAILY Qty: 90 RF: 3 allopurinol 300 mg tablet 150 mg PO DAILY Qty: 90 RF: 3 magnesium oxide 400 mg (241.3 mg magnesium) tablet 400 mg PO DAILY Qty: 90 RF: 3 budesonide-formoterol [Symbicort] 160-4.5 mcg/actuation HFA aerosol inhaler 2 puff inhalation BID PRNRF: 0 metoclopramide HCl [Reglan] 5 mg tablet 5 mg PO QAC Qty: 10 RF: 0 Medical Decision Making <Jimmy Palmer, - Last Filed: 05/09/21 22:43> This is a 76-year-old male with a past medical history of bladder cancer, chronic kidney disease, coronary artery disease with CABG, emergent mitral valve replacement secondary to papillary muscle rupture diabetes mellitus, high cholesterol, obesity, previous CVA, COPD, BPH, who presents today already, here for evaluation of left-sided chest pain and hypoxemia. Patient presents via EMS, history is gathered from EMS, the patient and his . Per patient's he was shoveling snow all day and had no problems or challenges. Then this evening at about 8:30 PM after dinner he developed a sudden onset left-sided chest tightness and achiness which she describes as notable. He also became short of breath at this moment. states his blood pressure was elevated when she checked it. EMS was called, upon their arrival the patient was hypertensive, tachypneic, with an oxygen saturation of 78% on room air. He does not use oxygen. Patient was given 2 nitroglycerin, 1 DuoNeb breathing treatment and brought to the ER. Upon arrival the patient's chest pain had improved from a 10 out of 10 to a 3 out of 10 after the 2 nitro. He was still notably short of breath and on 15 L of supplemental oxygen. Currently the patient admits to an ache in his left chest, as well as shortness of breath and pain with breathing. She denies any abdominal pain. He denies any recent falls or trauma. He denies swelling in his lower extremities, fever, chills, but does admit to a very mild cough for the last few days. He has been vaccinated for Covid. Physical exam demonstrates diffuse scattered crackles wheezes rhonchi in his lungs, minimal less than 1 pitting edema in the left lower extremity likely se condary to previous saphenectomy. Bowel sounds and abdominal exam is unremarkable. Bedside limited cardiac echo demonstrates a notably severely reduced ejection fraction, roughly about 10 to 20% on my visualization. No large pericardial effusion. Differential includes repeat ACS or cardiac ischemia and subsequent CHF, versus less likely PE, versus infectious etiology. Nitroglycerin was given here he had no significant improvement of his pain like he did when EMS gave nitro. This did drop his pressures down to the 90s systolic. He has been transitioned to 15 L nonrebreather onto BiPAP. He is saturating well with this and tolerating it well. We will evaluate for these concerning etiologies, monitor closely and reassess. EKG at this time shows evidence of potential bigeminy versus multiple PVCs, some ST changes with a repolarization component. EKG at this time does not clearly show evidence of STEMI however I am certainly concerned for cardiac distress still. Comparison of prior EKG from 2020 demonstrates similar elevations and depressions and intermittent PVCs at that time. EKG 21: 49 Rate 92, QTc 493, QRS 107, sinus rhythm, multiple PVCs, bigeminy, questionable single millimeter elevation in V1 and V2 which appears to be more of the repolarization variant, questionable depression in V3, Q wave in lead III. Comparison to prior EKG from March 2021 demonstrate similar elevations in V1 and the similar depressions in V3. FINDINGS: Tubes, catheters and devices: Monitoring wires are noted. Lungs: Moderate airspace opacity is present in both lungs. Negative for focal consolidation or collapse. Pulmonary vessels are not congested. Pleural spaces: Unremarkable. No pleural effusion. No pneumothorax. Heart/Mediastinum: Unremarkable. No cardiomegaly. Bones/joints: Sternotomy wires noted. IMPRESSION: Multifocal infiltrates and/or edema. Thank you for allowing us to participate in the care of your patient. Dictated and Authenticated by: Parker Szymanski MD 05/09/2021 10:25 PM Eastern Time ([place] & [place]) <Parminder Troy MD - Last Filed: 05/10/21 02:07> Patient signed out to me pending CT scan and repeat EKG/troponin. Patient had presented to my partner, Dr. Palmer, with episode of chest pain after dinner. He was also noted to have shortness of breath with low oxygen. Treated with BiPAP as well as nitroglycerin and morphine. Please see Dr. Palmer's initial note. On return from CT scan patient was able to come off BiPAP and now is on a simple facemask. CT shows no pulmonary embolus but showed bilateral groun dglass opacities consistent with COVID but are nondiagnostic. COVID swab here is negative and patient has no COVID symptoms. This seems more consistent with edema. Patient did develop recurrent chest pain. Nitroglycerin drip was started. Repeat EKG showed ST depression in the anterior lateral leads, but that had been present from his March 2021 EKG. Nitroglycerin resolved his chest pain. Patient loaded with Plavix and started on heparin. Call placed to [facility] cardiology. Repeat tronponin came back elevated at almost 1800. Patient currently stable and CP free. Cardiology agrees with NTG and Heparin and have accepted patient to [facility] for later today. Patient seen by hospitalist and will be admitted to ICU here until transfer later today. Lab Data Lab results reviewed: Yes I reviewed the patient's lab results. ECG Data Attestation: I personally reviewed and interpreted this ECG (s) as follows: Prior ECG tracings: available for review Interpretation: see EKG HPI <Jimmy Palmer DO - Last Filed: 05/09/21 22:43> General Date/Time Provider Initiated Documentation: 05/09/21 22:08 . HPI Narrative: This is a 76-year-old male with a past medical history of bladder cancer, chronic kidney disease, coronary artery disease with CABG, emergent mitral valve replacement secondary to papillary muscle rupture diabetes mellitus, high cholesterol, obesity, previous CVA, COPD, BPH, who presents today already, here for evaluation of left-sided chest pain and hypoxemia. Patient presents via EMS, history is gathered from EMS, the patient and his . Per patient's he was shoveling snow all day and had no problems or challenges. Then this evening at about 8:30 PM after dinner he developed a sudden onset left-sided chest tightness and achiness which she describes as notable. He also became short of breath at this moment. states his blood pressure was elevated when she checked it. EMS was called, upon their arrival the patient was hypertensive, tachypneic, with an oxygen saturation of 78% on room air. He does not use oxygen. Patient was given 2 nitroglycerin, 1 DuoNeb breathing treatment and brought to the ER. Upon arrival the patient's chest pain had improved from a 10 out of 10 to a 3 out of 10 after the 2 nitro. He was still notably short of breath and on 15 L of supplemental oxygen. Currently the patient admits to an ache in his left chest, as well as shortness of breath and pain with breathing. She denies any abdominal pain. He denies any recent falls or trauma. He denies swelling in his lower extremities, fever, chills, but does admit to a very mild cough for the last few days. He has been vaccinated for Covid. Related Data Home Medications Medication Instructions Recorded Confirmed acetaminophen [Tylenol Extra 1,000 mg PO Q6H PRN PRN 06/01/13 05/09/21 Strength] fluticasone propionate 50 1 spray IGOR BID PRN gm 03/10/18 05/09/21 mcg/actuation nasal spray,suspension blood-glucose meter #1 each 07/11/18 04/01/21 budesonide-formoterol [Symbicort] 2 puff INHALATION BID PRN 01/02/20 05/09/21 blood sugar diagnostic #100 each 04/24/20 04/01/21 lancets 33 gauge #100 each 04/24/20 04/01/21 albuterol sulfate 90 mcg/actuation 1 puff IH Q4H PRN #8.5 gm 04/25/20 05/09/21 aerosol inhaler ketoconazole 2 % topical cream 1 applic TP DAILY PRN #30 g 04/29/20 05/09/21 bheoyqdztvqr-islrsmxy-mtmsge tablet 0.5 tab PO DAILY tab 07/15/20 05/09/21 glipizide 10 mg tablet 10 mg PO BID tab 09/02/20 05/09/21 atorvastatin 20 mg tablet 20 mg PO QPM #90 tab 10/01/20 05/09/21 furosemide 40 mg tablet 40 mg PO BID #180 tab-cap 10/01/20 05/09/21 duloxetine 60 mg capsule,delayed 60 mg PO DAILY #90 cap 11/13/20 05/09/21 release aspirin 81 mg tablet,delayed 81 mg PO DAILY 12/03/20 05/09/21 release metoclopramide HCl [Reglan] 5 mg PO QAC #10 tab 12/08/20 05/09/21 nystatin 100,000 unit/gram topical 1 applic TP TID PRN #60 g 12/18/20 05/09/21 powder amlodipine 5 mg tablet 5 mg PO DAILY #90 tab 11/08/21 01/07/22 allopurinol 300 mg tablet 150 mg PO DAILY #90 tab-cap 03/31/21 05/09/21 omeprazole 40 mg capsule,delayed 40 mg PO DAILY #90 cap 03/31/21 05/09/21 release magnesium oxide 400 mg (241.3 mg 400 mg PO DAILY #90 tab 04/01/21 05/09/21 magnesium) tablet silodosin 8 mg capsule 8 mg PO DAILY PRN cap 04/01/21 05/09/21 Previous Rx's Medication Instructions Recorded blood-glucose meter #1 each 07/11/18 blood sugar diagnostic #100 each 04/24/20 lancets 33 gauge #100 each 04/24/20 albuterol sulfate 90 mcg/actuation 1 puff IH Q4H PRN #8.5 gm 04/25/20 aerosol inhaler ketoconazole 2 % topical cream 1 applic TP DAILY PRN #30 g 04/29/20 atorvastatin 20 mg tablet 20 mg PO QPM #90 tab 10/01/20 furosemide 40 mg tablet 40 mg PO BID #180 tab-cap 10/01/20 duloxetine 60 mg capsule,delayed 60 mg PO DAILY #90 cap 11/13/20 release metoclopramide HCl [Reglan] 5 mg PO QAC #10 tab 12/08/20 nystatin 100,000 unit/gram topical 1 applic TP TID PRN #60 g 12/18/20 powder amlodipine 5 mg tablet 5 mg PO DAILY #90 tab 03/10/21 allopurinol 300 mg tablet 150 mg PO DAILY #90 tab-cap 03/31/21 omeprazole 40 mg capsule,delayed 40 mg PO DAILY #90 cap 03/31/21 release magnesium oxide 400 mg (241.3 mg 400 mg PO DAILY #90 tab 04/01/21 magnesium) tablet Allergies Allergy/AdvReac Type Severity Reaction Status Date / Time codeine AdvReac Intermediate DYSPHORIA Verified 05/09/21 22:10 niacin AdvReac Intermediate MYALGIAS Verified 05/09/21 22:10 simvastatin AdvReac Intermediate myalgias Verified 05/09/21 22:10 General ROBBI: 2 Review of Systems <Jimmy Palmer DO - Last Filed: 05/09/21 22:43> All systems reviewed & are unremarkable except as noted in HPI and below PFSH <Jimmy Palmer DO - Last Filed: 05/09/21 22:43> All Active Problems Acute non-ST elevation myocardial infarction (NSTEMI) (Acute) Rupture of left proximal biceps tendon (Acute ~12/2020) Left rotator cuff tear arthropathy (Acute) Back pain (Acute) Acute hyperkalemia (Acute) Accidental overdose (Acute) Nausea & vomiting (Acute) CKD (chronic kidney disease) (Chronic) Back pain (Acute) Restlessness (Acute) Daytime somnolence (Acute) Snoring (Acute) Lung nodule (Acute) Cognitive decline (Acute) Carcinoma in situ of bladder (Acute) Chronic back pain (Chronic) Bladder cancer (Acute) S/P bladder tumor excision with fulguration (Acute) Abnormal auditory perception (Acute 08/24/14) Anticoagulation management encounter (Acute 01/03/16) Cervicalgia (Acute 08/04/12) DNR no code (do not resuscitate) (Acute 05/13/16) Diabetes mellitus type 2, controlled (Acute 08/04/12) Dysfunction of eustachian tube (Acute 08/24/14) Functional diarrhea (Acute 08/04/12) Hypomagnesemia (Acute 04/10/16) Lumbosacral radiculopathy at L5 (Acute 03/15/14) Mixed hearing loss, unilateral (Acute 08/24/14) Shortness of breath (Acute 12/11/15) Sprain of rotator cuff capsule (Acute 08/04/12) Tinea cruris (Acute 12/28/12) Wheezing (Acute 11/13/15) Frequency of micturition (Acute) Pneumonia (Acute) Edema of both legs (Acute) Diarrhea (Chronic) DVT prophylaxis (Acute) Gross hematuria (Acute) Benign prostatic hyperplasia with urinary frequency (Acute) H/O urinary frequency (Acute) COPD (chronic obstructive pulmonary disease) (Chronic) CVA (cerebral vascular accident) (Acute 01/03/16) 12/2015 post op [facility] R hemiparesis Unspecified essential hypertension (Acute 08/04/12) goal 150/90 Systolic CHF, chronic (Chronic 04/15/16) 04/15/16 Echo: EF 35%; MVR bioprosthesis intact Sensorineural hearing loss (Acute 08/24/14) using an ITE aid. unknown model. Obesity, unspecified (Acute 07/03/11) Mitral valve insufficiency (Acute 12/19/15) MVR: bovine bioprosthesis and CABGx2 [facility] 12/20/15 Memory impairment (Acute 12/11/15) 12/2015 MMSE 23 B12/lab nl; MRI 12/2015 old silvia lacunar CVAs Lumbago with sciatica, unspecified side (Acute 08/04/12) 08/2005 small disc herniations L5-S1, no spinal or neuroforaminal stenosis. back surgery 10/2000 Disectomy [facility] 08/2006; L5 radiculopathy Hyperlipidemia (Acute 07/03/11) PCEq 55.3%; intolerant statins History of tobacco use (Acute 07/03/11) pt. states he hasn't smoked in 35 years Gastroesophageal reflux disease (Acute 08/04/12) failed omeprazole, failed dexilant 06/01/2013 Diabetes mellitus with stage 3 chronic kidney disease (Acute 03/02/14) A1C goal 8 Diabetes mellitus with diabetic neuropathy (Acute 04/13/14) Coronary artery disease involving coronary bypass graft of [place] heart (Acute 01/02/16) MVR & 2v CABG, marginal and PDA, EF 45% [facility] 12/20/15 Chronic kidney disease, stage III (moderate) (Chronic 01/26/13) 12/2008 CT abd/pelvis neg Carpal tunnel syndrome (Acute 08/04/12) Benign neoplasm of colon (Acute 08/04/12) pt. states she is unaware of this Valve Replacement (Chronic 12/20/15) [facility] Dr Baumann Mitral valve Coronary Artery Bypass Gaft (CABG) (Chronic 12/20/15) [facility] DR MENDOZA Surgical History Appendectomy Colonoscopy - MAC (01/11/15) Dr Morgan Grade 2 hemorrhoids History of arthroplasty of right shoulder (~09/2015) History of back surgery (10/21/00) [facility] Dr. Wni S/P partial gastrectomy Status post carpal tunnel release of both wrists Family History Brother Alcoholism Heart disease Grandfather Heart disease Father Personal history of malignant neoplasm THROAT CA Social History Smoking/Tobacco Use Status: Former Tobacco Use Quit Date: 05/03/94 Pack-years: 105 Smoking risk assessment performed?: Yes Alcohol Intake: current Alcohol Intake frequency: holidays/special occasions only Alcohol type: beer Drug use: Never Substance use type: does not use Household members: spouse Housing: house Number of Children: 4 Current gender identity: male What is your relationship status?: Panel score (0-1 are the most socially isolated patients): 1 Working smoke detector in home: Yes Do you feel safe at home: Yes Do you feel safe in your relationship?: Yes Additional Social history: unable to assess privatley Exam <Jimmy Palmer DO - Last Filed: 05/09/21 22:43> Narrative Exam Narrative: 1.Const: Well-nourished, Well-developed, appearing stated age 2.Eyes: PERRL, no conjunctival injection, and symmetrical lids. 3.ENT: Atraumatic external nose and ears. Moist MM. Neck: Symmetric, trachea midline, No thyromegaly. 4.CVS: +S1/S2, No murmurs or gallops. Peripheral pulses 2+ and equal in all extremities. Brisk capillary refill in all extremities. 5.RESP: Tachypnea, rhonchorous breath sounds, scattered crackles and wheezes throughout 6.GI: Soft, Nontender/Nondistended, No hepatosplenomegaly. No guarding or rebound. 7.MSK: Normocephalic/Atraumatic, Extremities w/o deformity or ttp No cyanosis or clubbing, Normal movement of all extremities, no calf tenderness bilaterally. Minimal trace edema in the left lower extremity. 8.Skin: Warm, Dry. No rashes or lesions. 9.Neuro: lean leader II-XII grossly intact. Sensation grossly intact, no focal neurologic deficits. 10.Psych: (AAO) x3. Anxious <Parminder Troy MD - Last Filed: 05/10/21 02:07> Critical Care Time Critical Care Time: Yes Total Critical Care Time: 45 Attestation: After sign-out patient developed recurrent chest pain, and the patient had a high probability of imminent or life-threatening deterioration, which required my direct attention, intervention, and personal management. I have personally provided 45 minutes of critical care time exclusive of time spent on separately billable procedures. Time includes review of laboratory data, radiology results, discussion with consultants, and monitoring for potential decompensation. Interventions were performed as documented above. Sign Out <Jimmy Palmer DO - Last Filed: 05/09/21 22:43> Sign Out Data: Sign Out Comment: Hypoxic, chest pain, pending labs, CT scan result Last updated by Jimmy Palmer DO at 05/09/21 22:53
--- NOTE | 2021-05-09 21:45 | DI.RAD_ITS ---
Exam(s) XR PORTABLE CHEST AP EXAM: XR PORTABLE CHEST AP CLINICAL HISTORY: hypoxic acute w/ chest pain TECHNIQUE: 2D digital imaging was performed. COMPARISON: CT CT CHEST WO from 06/12/2020 FINDINGS: Heart size is within normal limits. Mitral valve prosthesis is seen. The aorta is calcified but nor mal in diameter. Sternal wires are noted. Leads overlie the chest. Oxygen tubing is also seen rela suzy to the face mask. There are bilateral diffuse ground-glass infiltrates. No effusions are seen. No focal consolidation. IMPRESSION: Diffuse bilateral infiltrates. The appearance could be consistent with COVID- 19 pneumonia. DATA REPOSITORY: RADIATION DOSE DELIVERED:
[2021-05-09] MEDS: nitroGLYcerin 0.4 MG TAB SL (21:58)
[2021-05-09 22:02] LABS: Source Nasal/Nares
[2021-05-09 22:08] LABS: Abs Immature Grans 0.05 10^3/uL (0.0-0.06); Absolute Basophil Count 0.04 10^3/uL (0.0-0.2); Absolute Eosinophil Count 0.24 10^3/uL (0.0-0.7); Absolute Lymphocyte Count 1.94 10^3/uL (1.2-3.4); Basophils % 0.4; Eosinophils % 2.2; HCT 39.6 % (40.0-50.0); HGB 12.9 g/dL (13.5-17.5); Immature Grans % 0.5; Lymphocytes % 17.5; MCH 28.4 pg (27.0-33.0); MCHC 32.6 % (32.0-36.0); MCV 87.2 fL (80-95); MPV 10.8 fL (8.0-11.0); Monocytes % 9.9; Neutrophils % 69.5; Nucleated RBC 0 %; Platelet Count 206 10^3/uL (130-400); RBC 4.54 10^6/uL (4.36-5.78); RDW 13.2 % (11.8-14.1); RDW-SD 42.1 fL; WBC 11.08 10^3/uL (4.4-10.8)
[2021-05-09 22:09] LABS: Lactate 2.1 mmol/L (0.6-1.4)
[2021-05-09] MEDS: Albuterol/Ipratropium 3 ML UPD VIAL UPD (22:20)
[2021-05-09 22:25] LABS: INR 1.1 (0.9-1.1); Prothrombin Time 10.9 sec (9.3-11.0)
--- NOTE | 2021-05-09 22:26 | DI.VRAD_ITS ---
PROCEDURE INFORMATION: Exam: XR Chest Exam date and time: 05/09/2021 9:55 PM Age: 76 years old Clinical indication: Other: Cp TECHNIQUE: Imaging protocol: XR of the chest. Views: 1 view. COMPARISON: CT CHEST WO 06/12/2020 2:36 PM FINDINGS: Tubes, catheters and devices: Monitoring wires are noted. Lungs: Moderate airspace opacity is present in both lungs. Negative for focal consolidation or collapse. Pulmonary vessels are not congested. Pleural spaces: Unremarkable. No pleural effusion. No pneumothorax. Heart/Mediastinum: Unremarkable. No cardiomegaly. Bones/joints: Sternotomy wires noted. IMPRESSION: Multifocal infiltrates and/or edema. Dictated and Authenticated by: Parker Szymanski MD. Ordering:JS Marquze MD
[2021-05-09 22:28] LABS: PTT Activated 24.4 sec (21.0-27.5)
[2021-05-09 22:30] LABS: ALT 29 U/L (16-63); AST 22 U/L (15-37); Albumin 3.4 g/dL (3.4-5.0); Alkaline Phosphatase 97 U/L (46-116); Anion Gap 9.2 mmol/L (3-11); BUN 33 mg/dL (7-18); Bilirubin, Total 0.5 mg/dL (0.2-1.0); CO2 26.8 mmol/L (21.0-32.0); CREATININE 1.8 mg/dL (0.70-1.30); Calcium 8.8 mg/dL (8.5-10.1); Chloride 101 mmol/L (98-107); Estimated GFR 36.67 (mL/min/1.73m2); Glucose 204 mg/dL (74-106); NT-proBNP 1792 pg/mL (<300); Potassium 3.5 mmol/L (3.5-5.1); Sodium 137 mmol/L (136-145); Total Protein 7.2 g/dL (6.4-8.2); Troponin I 53 ng/L (<or=60)
--- NOTE | 2021-05-09 22:30 | DI.CT_ITS ---
Exam(s) CT CHEST PE CTA EXAM: CT CHEST PE CTA CLINICAL HISTORY: chest pain, sob, hypoxic, cancer, r/o pe. TECHNIQUE: Imaging Protocol: Axial CT angiography was performed with multi-slice acquisition and mu lti-planar and/or 3D reconstructions. CONTRAST MATERIAL: Intravenous: Omnipaque 350 Contrast volume:70 ml COMPARISON: CT CT ABDOMEN PELVIS W from 12/08/2020 CR,XR XR PORTABLE CHEST AP from 05/09/2021 FINDINGS: Pulmonary Arteries: No evidence of filling defect to suggest pulmonary emboli. Mediastinum and Leena: No dominant adenopathy or fluid collection. Pulmonary parenchyma: Diffuse bilateral alveolar infiltrates. Some interlobular septal thickening is also present. The findings are more prominent posteriorly. The exam is limited by expiratory huntley es and mild motion at the lung bases. Pleura: Tiny left pleural effusion. No pneumothorax. Heart: Mitral valve replacement. Moderate to severe coronary artery calcifications are seen. Dilatat ion of the left atrium and left ventricle. No pericardial effusion. Aorta: Moderate calcifications. No aneurysm. No dissection. Upper abdomen: Unremarkable. Bones: Unremarkable for age. Soft tissues: Bilateral gynecomastia. IMPRESSION: No evidence of pulmonary embolism. Cardiomegaly and mitral valve prosthesis. Severe bilateral infiltrates. The findings could be secondary to COVID 19 pneumonia although CHF cou ld also be present. RADIATION DOSE DELIVERED: 601.58mGy.cm Total DLP DATA REPOSITORY: All CT scans at this facility are submitted to the National Radiology Data Registry (NRDR) Dose Index Registry (DIR) with the [employer] (ACR). RADIATION OPTIMIZATION: All CT scans at this facility use at least one of these dose optimization te chniques: automated exposure control; mA and/or kV adjustment per patient size (includes targeted exa ms where dose is matched to clinical indication); or iterative reconstruction.
[2021-05-09 22:43] LABS: COVID-19 PCR Negative (Negative)
[2021-05-09 22:50] LABS: D-Dimer 1184 ng/mlFEU (<500)
[2021-05-09 22:57] LABS: BE 0 mmol/L (-2-3); HCO3 26 mmol/L (22-26); pCO2 44 mmHg (35-45); pH 7.37 (7.35-7.45); sO2 48 % (95-98); tCO2 24 mmol/L (23-27)
[2021-05-09] MEDS: Omnipaque 350 MG/ML 100 ML BTL 70 ML IJ (22:58)
[2021-05-09 22:59] LABS: FIO2L 30 L; Site Right Radial
[2021-05-09 23:00] LABS: pO2 25 mmHg (80-105)
[2021-05-09 23:35] LABS: Procalcitonin 0.1 ng/mL
[2021-05-10] VITALS (106 sets, daily range): BP systolic 89–134; BP diastolic 55–102; PULSE 79–110; RESP 5–29; TEMP 36; O2SAT 87–100
--- NOTE | 2021-05-10 00:11 | DI.VRAD_ITS ---
PROCEDURE INFORMATION: Exam: CTA Chest With Contrast Exam date and time: 05/09/2021 10:33 PM Age: 76 years old Clinical indication: Other: Chest pain, SOB, hypoxia, cancer, R/O pe TECHNIQUE: Imaging protocol: Computed tomographic angiography of the chest with contrast. 3D rendering (Not supervised by radiologist): MIP and/or 3D reconstructed images were created by the technologist. Contrast material: 350 OMNIPAQUE; Contrast volume: 70 ml; Contrast route: INTRAVENOUS (IV); COMPARISON: CT CHEST WO 06/12/2020 2:36 PM FINDINGS: Pulmonary arteries: Normal. No pulmonary emboli. Aorta: The thoracic aorta is not opacified with contrast. Negative for aneurysm. Moderate vascular calcifications present. Lungs: Moderate-severe diffuse ground-glass opacity is noted, filling most of the lungs with mild sparing in non-dependent portions. Thickening of interlobular septa is observed in the lung bases. No specific consolidations are observed. Mild endobronchial mucus is noted in the lower lobes. Pleural spaces: Trace left pleural effusion. No pneumothorax. Heart: Mitral valve replacement noted. The left atrium and left ventricle are dilated, compared to the right ventricle and atrium. Mild cardiomegaly overall. Negative for pericardial effusion. Moderate coronary artery calcifications are noted. Lymph nodes: Unremarkable. No enlarged lymph nodes. Bones/joints: Unremarkable. No acute fracture. Soft tissues: Severe bilateral gynecomastia noted. IMPRESSION: 1. Negative for pulmonary embolism. 2. Extensive ground-glass opacity. Imaging features can be seen with COVID-19 pneumonia, though are nonspecific and can occur with a variety of infectious and noninfectious processes. (Reference: Keyur) REFERENCES: Keyur Murray, et al., Radiological Society of [place] Expert Consensus Statement on Reporting Chest CT Findings Related to COVID-19. Endorsed by the Society of Thoracic Radiology, the [employer], and RSNA. Published July 26, 2019. Dictated and Authenticated by: Parker Szymanski MD. Ordering:JS Marquez MD
--- NOTE | 2021-05-10 00:45 | RT.EKG_ITS ---
APPROVED REPORT Exam: Resting ECG Reason for Exam: chest pain Patient Location: E HR:83 bpm ECG Measurements Heart Rate 83 AXIS DC 80 P -28 QRSd 111 QRS 33 QT 423 T 161 QTc 499 Conclusion Sinus rhythm...normal P axis, V-rate 60- 99 Incomplete left bundle branch block...QRSd>110mS, terminal axis(-90,-1) ST depression, consider ischemia, lateral lds...ST <-0.10mV, I aVL V5 V6 ST depression worse anteior/lateral compared to earlier tonight but similiar to EKG from 03/17/2021 No STEMI
[2021-05-10] MEDS: nitroGLYcerin in D5W 50 MG/250 ML BTL IV (01:07)
[2021-05-10 01:24] LABS: Troponin I 1796 ng/L (<or=60)
[2021-05-10] MEDS: Clopidogrel 300 MG TAB PO (01:33)
--- NOTE | 2021-05-10 02:25 | HPE_ITS ---
Date of service: 05/10/21 Time of Service: 02:25 Assessment and Plan Assessment and plan (1) Acute non-ST elevation myocardial infarction (NSTEMI): Status: Acute Assessment and plan: cont. NTG drip, heparin drip, ASA, plavix; given that he is not tachycardic and he is in acute CHF, I have witheld any BB for now. will diurese w/ lasix and put back on CPAP (actually was on BIPAP in the ED @ 30% 12/6 cm); transfer to [facility] as soon as possible once bed becomes available; if he deteriorates then will urgently seek transfer to another tertiary care facility if [facility] can not accomodate immediately.change atorvastatin to crestor (better tolerated among the statins). (2) Acute on chronic congestive heart failure: Status: Acute Assessment and plan: diurese to reduce preload, titrate NTG for afterload reduction; needs cardiac cath LASHONDA; continue supportive care for NSTEMI; patient is DNR/DNI by his prior written advanced directive from 2016 according to his Snow. (3) Ischemic cardiomyopathy: Status: Acute (4) Diabetes mellitus with stage 3 chronic kidney disease: Status: Acute Assessment and plan: hold glipizide, cover w/ sliding scale novolog (5) Chronic kidney disease, stage III (moderate): Status: Chronic Assessment and plan: I expect that there will be worsening renal fxn based on his cardiomyopathy and use of contrast agent for CTA (6) Carcinoma in situ of bladder: Status: Acute Assessment and plan: patient may have more extensive disease based on recent urology office notes. He was suppose to undergo cystoscopy and bx d/t urine cytology suspicious for urothelial cancer of undetermined origin (bladder, urethra, prostate) History of Present Illness History of Present Illness Chief Complaint: chest pain Narrative: 76 yr male vaccinated against COVID-19 w/ PMH of CAD s/p 2v CABG (marginal and PDA), s/p MVR ( acute severe MR) (both performed in 2015 @ [facility], complicated by CVA), ischemic cardiomyopathy ( LVEF 35% 04/15/2016; 50% 12/12/18; 40% per stress MPI 12/07/19) who was out shoveling snow this afternoon and had dinner and around 8:30 pm complained of chest heaviness to his along w/ dyspnea. His took his BP and found it to be elevated at 177/140 and his HR to be 53 bpm. She gave him ASA 325 mg and repeated his BP and got 165/70 and called EMS who arrived around 9 pm. EMS found him to be tachypneic and hypoxemic w/ SPO2 78% on RA. He was given NTG tab x 2, oxygen 15 L NRB mask and DuoNeb treatment. CP improved to 3/10 from 02/09 after the 2 NTG tabs. Evaluation in the ER included serial EKG's, labs (CMP, CBC, P.T., activated P.T.T., d-dimer, serial troponin, ABG, lactate, SARS-COV2 PCR nasal swab), CXR and CTA chest. EKG's demonstrated SR w/ frequent PVC's including couplets along w/ ST depression and T wave inversion in lateral limb leads and V4-V6, similar but more prominent than prior ECG's from 03/17/21 in which he was seen to have LVH w/ incomplete LBBB and repolarization abnormalities. His initial troponin was 53 but repeat was 1796. His BNP is 1792 and d-dimer 1184. His CXR demonstrated multifiocal infiltrates vs edema. CTA was done which demonstrated extensive diffuse ground glass opacities that are nonspecific and cardiomegaly, coronary artery calcifications, but no pericardial effusion. Rest of his labs were remarkable for creatinine 1.8, BUN 33 (baseline is 34 and 1.6). LFT's were normal. After he returned from CT scanner he was having increasing CP and repeat EKG was done and that is when his 2nd troponin came back elevated at 1796. He was started on NTG drip and heparin drip and given loading dose of Plavix [address] Troy, ED attending, who took over care for Dr. Palmer, called [facility] cardiology and spoke w/ a fellow who indicated that the patient would be accepted to [facility] under the care of Dr. Mckeon but they had no beds tonight but would take the patient in the morning. The patient's other comorbidities include type 2 DM poorly controlled (HbA1c 8.7% as of 05/07/21) (on glipizide, refuses insulin), CKD stage 3, HTN, GERD, obesity (BMI 39), hypercholesterolemia (allegedly intolerant of statins yet at orvastatin is one of his medicines), bladder cancer (carcinoma in situ however currently scheduled for cystoscopy w/ prostate and bladder bx for next week d/t recent abnormal urine cytology) (followed by Dr. Szymanski); left shoulder torn rotator cuff and torn left proximal biceps tendon (sees Dr. Melvin Kovacs); CAD and ischemic CM for which he sees Dr. Lane who cleared him last March for shoulder repair. Last stress MPI 12/07/19 showed no sienna-infarct ischemia but moderate sized fixed inferolateral infarct and LVEF 40% w/ dilated LV and diffuse hypokinesis. Review of Systems All systems reviewed & are unremarkable except as noted in HPI and below Cardiovascular Cardiovascular: Reports as per HPI Respiratory Respiratory: Reports as per HPI PFSH All Active Problems Ischemic cardiomyopathy (Acute) Acute on chronic congestive heart failure (Acute) Acute non-ST elevation myocardial infarction (NSTEMI) (Acute) Rupture of left proximal biceps tendon (Acute ~12/2020) Left rotator cuff tear arthropathy (Acute) CKD (chronic kidney disease) (Chronic) Back pain (Acute) Restlessness (Acute) Daytime somnolence (Acute) Snoring (Acute) Lung nodule (Acute) Cognitive decline (Acute) Carcinoma in situ of bladder (Acute) Chronic back pain (Chronic) Bladder cancer (Acute) S/P bladder tumor excision with fulguration (Acute) Abnormal auditory perception (Acute 08/24/14) Anticoagulation management encounter (Acute 01/03/16) Cervicalgia (Acute 08/04/12) DNR no code (do not resuscitate) (Acute 05/13/16) Diabetes mellitus type 2, controlled (Acute 08/04/12) Dysfunction of eustachian tube (Acute 08/24/14) Functional diarrhea (Acute 08/04/12) Hypomagnesemia (Acute 04/10/16) Lumbosacral radiculopathy at L5 (Acute 03/15/14) Mixed hearing loss, unilateral (Acute 08/24/14) Shortness of breath (Acute 12/11/15) Sprain of rotator cuff capsule (Acute 08/04/12) Tinea cruris (Acute 12/28/12) Wheezing (Acute 11/13/15) Frequency of micturition (Acute) Pneumonia (Acute) Edema of both legs (Acute) Diarrhea (Chronic) DVT prophylaxis (Acute) Gross hematuria (Acute) Benign prostatic hyperplasia with urinary frequency (Acute) H/O urinary frequency (Acute) COPD (chronic obstructive pulmonary disease) (Chronic) CVA (cerebral vascular accident) (Acute 01/03/16) 12/2015 post op [facility] R hemiparesis Unspecified essential hypertension (Acute 08/04/12) goal 150/90 Systolic CHF, chronic (Chronic 04/15/16) 04/15/16 Echo: EF 35%; MVR bioprosthesis intact Sensorineural hearing loss (Acute 08/24/14) using an ITE aid. unknown model. Obesity, unspecified (Acute 07/03/11) Mitral valve insufficiency (Acute 12/19/15) MVR: bovine bioprosthesis and CABGx2 [facility] 12/20/15 Memory impairment (Acute 12/11/15) 12/2015 MMSE 23 B12/lab nl; MRI 12/2015 old silvia lacunar CVAs Lumbago with sciatica, unspecified side (Acute 08/04/12) 08/2005 small disc herniations L5-S1, no spinal or neuroforaminal stenosis. back surgery 10/2000 Disectomy [facility] 08/2006; L5 radiculopathy Hyperlipidemia (Acute 07/03/11) PCEq 55.3%; intolerant statins History of tobacco use (Acute 07/03/11) pt. states he hasn't smoked in 35 years Gastroesophageal reflux disease (Acute 08/04/12) failed omeprazole, failed dexilant 06/01/2013 Diabetes mellitus with stage 3 chronic kidney disease (Acute 03/02/14) A1C goal 8 Diabetes mellitus with diabetic neuropathy (Acute 04/13/14) Coronary artery disease involving coronary bypass graft of [place] heart (Acute 01/02/16) MVR & 2v CABG, marginal and PDA, EF 45% [facility] 12/20/15 Chronic kidney disease, stage III (moderate) (Chronic 01/26/13) 12/2008 CT abd/pelvis neg Carpal tunnel syndrome (Acute 08/04/12) Benign neoplasm of colon (Acute 08/04/12) pt. states she is unaware of this Valve Replacement (Chronic 12/20/15) [facility] Dr Baumann Mitral valve Coronary Artery Bypass Gaft (CABG) (Chronic 12/20/15) [facility] DR MENDOZA Surgical History [place] [facility] [place] Morgan Grade 2 hemorrhoids History of arthroplasty of right shoulder (~09/2015) History of back surgery (10/21/00) [facility] Dr. Win S/P partial gastrectomy Status post carpal tunnel release of both wrists Family History Brother Alcoholism Heart disease Grandfather Heart disease Father Personal history of malignant neoplasm THROAT CA Social History Smoking/Tobacco Use Status: Former Tobacco Use Quit Date: 05/03/94 Pack-years: 105 Smoking risk assessment performed?: Yes Alcohol Intake: current Alcohol Intake frequency: holidays/special occasions only Alcohol type: beer Drug use: Never Substance use type: does not use Household members: spouse Housing: house Number of Children: 4 Current gender identity: male What is your relationship status?: Panel score (0-1 are the most socially isolated patients): 1 Working smoke detector in home: Yes Do you feel safe at home: Yes Do you feel safe in your relationship?: Yes Additional Social history: unable to assess [facility] Meds Allergies and Home Medications Allergies Allergy/AdvReac Type Severity Reaction Status Date / Time codeine AdvReac Intermediate DYSPHORIA Verified 05/09/21 22:10 niacin AdvReac Intermediate MYALGIAS Verified 05/09/21 22:10 simvastatin AdvReac Intermediate myalgias Verified 05/09/21 22:10 Home Medications Medication Instructions Recorded Confirmed Type acetaminophen [Tylenol Extra 1,000 mg PO Q6H PRN PRN 06/01/13 05/09/21 History Strength] fluticasone propionate 50 1 spray IGOR BID PRN gm 03/10/18 05/09/21 History mcg/actuation nasal spray,suspension blood-glucose meter #1 each 07/11/18 04/01/21 Rx budesonide-formoterol [Symbicort] 2 puff INHALATION BID PRN 01/02/20 05/09/21 History blood sugar diagnostic #100 each 04/24/20 04/01/21 Rx lancets 33 gauge #100 each 04/24/20 04/01/21 Rx albuterol sulfate 90 mcg/actuation 1 puff IH Q4H PRN #8.5 gm 04/25/20 05/09/21 Rx aerosol inhaler ketoconazole 2 % topical cream 1 applic TP DAILY PRN #30 g 04/29/20 05/09/21 Rx pibxpkjyqmuv-wbsjftws-omjpot tablet 0.5 tab PO DAILY tab 07/15/20 05/09/21 Hi story glipizide 10 mg tablet 10 mg PO BID tab 09/02/20 05/09/21 History atorvastatin 20 mg tablet 20 mg PO QPM #90 tab 10/01/20 05/09/21 Rx furosemide 40 mg tablet 40 mg PO BID #180 tab-cap 10/01/20 05/09/21 Rx duloxetine 60 mg capsule,delayed 60 mg PO DAILY #90 cap 11/13/20 05/09/21 Rx release aspirin 81 mg tablet,delayed 81 mg PO DAILY 12/03/20 05/09/21 History release metoclopramide HCl [Reglan] 5 mg PO QAC #10 tab 12/08/20 05/09/21 Rx nystatin 100,000 unit/gram topical 1 applic TP TID PRN #60 g 12/18/20 05/09/21 Rx powder amlodipine 5 mg tablet 5 mg PO DAILY #90 tab 03/10/21 05/09/21 Rx allopurinol 300 mg tablet 150 mg PO DAILY #90 tab-cap 03/31/21 05/09/21 Rx omeprazole 40 mg capsule,delayed 40 mg PO DAILY #90 cap 03/31/21 05/09/21 Rx release magnesium oxide 400 mg (241.3 mg 400 mg PO DAILY #90 tab 04/01/21 05/09/21 Rx magnesium) tablet silodosin 8 mg capsule 8 mg PO DAILY PRN cap 04/01/21 05/09/21 History Exam Narrative Exam Narrative: Obese right male sitting up on the gurney in the emergency department wearing an oxygen mask at 8 L/min with an SPO2 of 88%. He is alert and oriented although he is hard of hearing. He states his chest pain is much better now. HEENT is unremarkable Neck with prominent JVD Lungs with diffuse rales Heart is regular with no appreciable murmur and no palpable thrill Chest wall has a well-healed median sternotomy scar Abdomen is obese soft nontender nondistended with active bowel sounds no bruits no palp masses no organomegaly Lower extremities trace of pedal edema feet are cool but not cyanotic. Lack of hair over the dorsum of his feet. Diminished pedal pulses in both feet. Neuro exam: No facial asymmetry no dysarthric speech full extraocular motion intact visual simons grossly intact no focal motor deficits. Fine sensory exam and DTRs not carried out however sensation was grossly intact to light touch in all 4 extremities. Rectal genitalia exam deferred Results Imaging Chest x-ray: report reviewed and image reviewed CT scan - chest: report reviewed EKG: image reviewed Labs Result diagrams: 05/09/21 21:55 05/09/21 21:55 Labs: Laboratory Results - last 24 hr 05/09/21 05/09/21 05/09/21 21:55 21:55 21:55 WBC RBC Hgb Hct MCV MCH MCHC RDW Plt Count MPV Immature Gran % Neutrophils % Lymphocytes % Monocytes % Eosinophils % Basophils % Nucleated RBC % Absolute Neutrophils Absolute Lymphocytes Absolute Monocytes Absolute Eosinophils Absolute Basophils PT 10.9 INR 1.1 APTT D-Dimer 1184 H ABG Sample Site ABG pH ABG pCO2 ABG pO2 ABG HCO3 ABG Total CO2 ABG O2 Saturation ABG Base Excess VBG Lactate Oxygen Liter Flow Sodium 137 Potassium 3.5 Chloride 101 Carbon Dioxide 26.8 Anion Gap 9.2 BUN 33 H Creatinine 1.8 H Estimated GFR/1.73 m2 36.67 Glucose 204 H Calcium 8.8 Total Bilirubin 0.5 AST 22 ALT 29 Alkaline Phosphatase 97 Troponin I 53 NT-Pro-B Natriuret Pep 1792 H Total Protein 7.2 Albumin 3.4 Procalcitonin COVID-19 Source Nasal/Nares SARS-CoV-2 (PCR) Negative 05/09/21 05/09/21 05/09/21 21:55 21:55 21:55 WBC 11.08 H RBC 4.54 Hgb 12.9 L Hct 39.6 L MCV 87.2 MCH 28.4 MCHC 32.6 RDW 13.2 Plt Count 206 MPV 10.8 Immature Gran % 0.5 Neutrophils % 69.5 Lymphocytes % 17.5 Monocytes % 9.9 Eosinophils % 2.2 Basophils % 0.4 Nucleated RBC % 0 Absolute Neutrophils 7.70 H Absolute Lymphocytes 1.94 Absolute Monocytes 1.10 H Absolute Eosinophils 0.24 Absolute Basophils 0.04 PT INR APTT 24.4 D-Dimer ABG Sample Site ABG pH ABG pCO2 ABG pO2 ABG HCO3 ABG Total CO2 ABG O2 Saturation ABG Base Excess VBG Lactate 2.1 H Oxygen Liter Flow Sodium Potassium Chloride Carbon Dioxide Anion Gap BUN Creatinine Estimated GFR/1.73 m2 Glucose Calcium Total Bilirubin AST ALT Alkaline Phosphatase Troponin I NT-Pro-B Natriuret Pep Total Protein Albumin Procalcitonin COVID-19 Source SARS-CoV-2 (PCR) 05/09/21 05/09/21 05/10/21 21:55 22:50 00:50 WBC RBC Hgb Hct MCV MCH MCHC RDW Plt Count MPV Immature Gran % Neutrophils % Lymphocytes % Monocytes % Eosinophils % Basophils % Nucleated RBC % Absolute Neutrophils Absolute Lymphocytes Absolute Monocytes Absolute Eosinophils Absolute Basophils PT INR APTT D-Dimer ABG Sample Site Right Radial ABG pH 7.37 ABG pCO2 44 ABG pO2 25 L* ABG HCO3 26 ABG Total CO2 24 ABG O2 Saturation 48 L ABG Base Excess 0 VBG Lactate Oxygen Liter Flow 30 Sodium Potassium Chloride Carbon Dioxide Anion Gap BUN Creatinine Estimated GFR/1.73 m2 Glucose Calcium Total Bilirubin AST ALT Alkaline Phosphatase Troponin I 1796 H* NT-Pro-B Natriuret Pep Total Protein Albumin Procalcitonin 0.1 COVID-19 Source SARS-CoV-2 (PCR) Last Vital Signs Temp 36.3 C L 05/09/21 21:42 Pulse 82 05/10/21 01:16 Resp 23 05/10/21 01:20 BP 128/85 05/10/21 01:16 Pulse Ox 95 05/10/21 01:20
[2021-05-10] MEDS: Furosemide 40 MG/4 ML VIAL IVP ×2 (02:37→08:59)
[2021-05-10] MEDS: Lidocaine 2% Jelly 6 ML SYR (02:37)
[2021-05-10 02:53] LABS: Bilirubin Negative (Negative); Blood Trace-intact (Negative); Clarity Clear (Clear); Glucose Negative (Negative); Ketones Negative (Negative); Leukocyte Esterase Negative (Negative); Nitrite Negative (Negative); Urobilinogen 0.2 EU/dL (Up TO 0.2); pH 5.5 (5-8)
[2021-05-10 03:01] LABS: Bacteria Rare HPF (Negative); C & S Indicated? No; Casts 0-2 Hyaline LPF (Negative); Crystals Negative HPF (Negative); Epithelial Cells Negative HPF (Negative); Mucus Negative (Negative); RBC 0-2 HPF (0-2); WBC 0-2 HPF (0-5)
[2021-05-10 03:42] LABS: Troponin I 10540 ng/L (<or=60)
--- NOTE | 2021-05-10 05:00 | RT.EKG_ITS ---
APPROVED REPORT Exam: Resting ECG Reason for Exam: NSTEMI Patient Location: I HR:85 bpm ECG Measurements Heart Rate 85 AXIS AR 139 P 53 QRSd 101 QRS 47 QT 425 T 145 QTc 505 Conclusion Sinus rhythm...normal P axis, V-rate 60- 99 Multiform ventricular premature complexes...short R-R, variable morphology Abnormal T, consider ischemia, lateral leads...T <-0.20mV, I aVL V5 V6 Borderline ST elevation, anterior leads...ST >0.15mV in V1-V4 Prolonged QT interval...QTc >500mS
[2021-05-10] MEDS: Furosemide 100 MG/10 ML VIAL 80 MG IVP (05:07)
[2021-05-10] MEDS: Insulin Aspart 300 UNITS/3 ML PEN SC (06:07)
[2021-05-10 07:31] LABS: Abs Immature Grans 0.05 10^3/uL (0.0-0.06); Absolute Basophil Count 0.06 10^3/uL (0.0-0.2); Absolute Eosinophil Count 0.07 10^3/uL (0.0-0.7); Absolute Lymphocyte Count 1.59 10^3/uL (1.2-3.4); Basophils % 0.5; Eosinophils % 0.6; HCT 38.3 % (40.0-50.0); HGB 12.3 g/dL (13.5-17.5); Immature Grans % 0.4; MCH 27.6 pg (27.0-33.0); MCHC 32.1 % (32.0-36.0); MCV 86.1 fL (80-95); MPV 10.6 fL (8.0-11.0); Monocytes % 9.9; Neutrophils % 74.6; Nucleated RBC 0 %; Platelet Count 199 10^3/uL (130-400); RBC 4.45 10^6/uL (4.36-5.78); RDW 13.2 % (11.8-14.1); RDW-SD 41.6 fL; WBC 11.36 10^3/uL (4.4-10.8)
[2021-05-10 07:35] LABS: Absolute Monocyte Count 1.12 10^3/uL (0.1-0.8); Absolute Neutrophil Count 8.47 10^3/uL (1.2-6.7)
[2021-05-10 07:46] LABS: PTT Activated 51.3 sec (21.0-27.5)
[2021-05-10 07:52] LABS: Calculated LDL 97 mg/dL (<100); Cholesterol 158 mg/dL (<200); HDL Cholesterol 42 mg/dL (40-60); Magnesium 1.7 mg/dL (1.8-2.4); Triglyceride 95 mg/dL (<150)
[2021-05-10 07:58] LABS: ALT 47 U/L (16-63); AST 276 U/L (15-37); Albumin 3.4 g/dL (3.4-5.0); Alkaline Phosphatase 91 U/L (46-116); Anion Gap 10.1 mmol/L (3-11); BUN 35 mg/dL (7-18); Bilirubin, Total 0.5 mg/dL (0.2-1.0); CO2 25.9 mmol/L (21.0-32.0); CREATININE 1.8 mg/dL (0.70-1.30); Calcium 8.6 mg/dL (8.5-10.1); Chloride 102 mmol/L (98-107); Estimated GFR 36.67 (mL/min/1.73m2); Glucose 205 mg/dL (74-106); Potassium 3.8 mmol/L (3.5-5.1); Sodium 138 mmol/L (136-145); Total Protein 7.1 g/dL (6.4-8.2)
[2021-05-10] MEDS: Pantoprazole 40 MG VIAL IVP (08:05)
[2021-05-10] MEDS: DULoxetine 30 MG CAP 60 MG PO (08:05)
[2021-05-10] MEDS: Allopurinol 300 MG TAB 150 MG PO (08:05)
[2021-05-10] MEDS: Aspirin E.C. 81 MG TABEC PO (08:05)
[2021-05-10] MEDS: Clopidogrel 75 MG TAB PO (08:05)
[2021-05-10] MEDS: Magnesium Oxide 400 MG TAB PO (08:06)
--- NOTE | 2021-05-10 08:14 | PGE_ITS ---
Subjective Subjective Interval history since last seen: Troponin 83139, on 4L O2 by [place] (just taken off now), not short of breath. Await[place] [facility] [place] Objective Last Vital Signs Temp 36.0 C L 05/10/21 07:46 Pulse 86 05/10/21 07:51 Resp 24 05/10/21 07:50 BP 109/82 05/10/21 07:46 Pulse Ox 97 05/10/21 07:51 Laboratory Results - last 24 hr 05/09/21 05/09/21 05/09/21 21:55 21:55 21:55 WBC RBC Hgb Hct MCV MCH MCHC RDW Plt Count MPV Immature Gran % Neutrophils % Lymphocytes % Monocytes % Eosinophils % Basophils % Nucleated RBC % Absolute Neutrophils Absolute Lymphocytes Absolute Monocytes Absolute Eosinophils Absolute Basophils PT 10.9 INR 1.1 APTT D-Dimer 1184 H ABG Sample Site ABG pH ABG pCO2 ABG pO2 ABG HCO3 ABG Total CO2 ABG O2 Saturation ABG Base Excess VBG Lactate Oxygen Liter Flow Sodium 137 Potassium 3.5 Chloride 101 Carbon Dioxide 26.8 Anion Gap 9.2 BUN 33 H Creatinine 1.8 H Estimated GFR/1.73 m2 36.67 Glucose 204 H Hemoglobin A1c Calcium 8.8 Magnesium Total Bilirubin 0.5 AST 22 ALT 29 Alkaline Phosphatase 97 Troponin I 53 NT-Pro-B Natriuret Pep 1792 H Total Protein 7.2 Albumin 3.4 Triglycerides Total Cholesterol LDL Cholesterol, Calc HDL Cholesterol Procalcitonin TSH Urine Color Urine Clarity Urine pH Ur Specific [place] Urine Protein Urine Ketones Urine Blood Urine Nitrite Urine Bilirubin Urine Urobilinogen Ur Leukocyte Esterase Urine RBC Urine WBC Ur Epithelial Cells Urine Crystals Urine Bacteria Urine Casts Urine Mucus Ur Culture Indicated? Urine Glucose COVID-19 Source Nasal/Nares SARS-CoV-2 (PCR) Negative 05/09/21 05/09/21 05/09/21 21:55 21:55 21:55 WBC 11.08 H RBC 4.54 Hgb 12.9 L Hct 39.6 L MCV 87.2 MCH 28.4 MCHC 32.6 RDW 13.2 Plt Count 206 MPV 10.8 Immature Gran % 0.5 Neutrophils % 69.5 Lymphocytes % 17.5 Monocytes % 9.9 Eosinophils % 2.2 Basophils % 0.4 Nucleated RBC % 0 Absolute Neutrophils 7.70 H Absolute Lymphocytes 1.94 Absolute Monocytes 1.10 H Absolute Eosinophils 0.24 Absolute Basophils 0.04 PT INR APTT 24.4 D-Dimer ABG Sample Site ABG pH ABG pCO2 ABG pO2 ABG HCO3 ABG Total CO2 ABG O2 Saturation ABG Base Excess VBG Lactate 2.1 H Oxygen Liter Flow Sodium Potassium Chloride Carbon Dioxide Anion Gap BUN Creatinine Estimated GFR/1.73 m2 Glucose Hemoglobin A1c Calcium Magnesium Total Bilirubin AST ALT Alkaline Phosphatase Troponin I NT-Pro-B Natriuret Pep Total Protein Albumin Triglycerides Total Cholesterol LDL Cholesterol, Calc HDL Cholesterol Procalcitonin TSH Urine Color Urine Clarity Urine pH Ur Specific [place] Urine Protein Urine Ketones Urine Blood Urine Nitrite Urine Bilirubin Urine Urobilinogen Ur Leukocyte Esterase Urine RBC Urine WBC Ur Epithelial Cells Urine Crystals Urine Bacteria Urine Casts Urine Mucus Ur Culture Indicated? Urine Glucose COVID-19 Source SARS-CoV-2 (PCR) 05/09/21 05/09/21 05/10/21 21:55 22:50 00:50 WBC RBC Hgb Hct MCV MCH MCHC RDW Plt Count MPV Immature Gran % Neutrophils % Lymphocytes % Monocytes % Eosinophils % Basophils % Nucleated RBC % Absolute Neutrophils Absolute Lymphocytes Absolute Monocytes Absolute Eosinophils Absolute Basophils PT INR APTT D-Dimer ABG Sample Site Right Radial ABG pH 7.37 ABG pCO2 44 ABG pO2 25 L* ABG HCO3 26 ABG Total CO2 24 ABG O2 Saturation 48 L ABG Base Excess 0 VBG Lactate Oxygen Liter Flow 30 Sodium Potassium Chloride Carbon Dioxide Anion Gap BUN Creatinine Estimated GFR/1.73 m2 Glucose Hemoglobin A1c Calcium Magnesium Total Bilirubin AST ALT Alkaline Phosphatase Troponin I 1796 H* NT-Pro-B Natriuret Pep Total Protein Albumin Triglycerides Total Cholesterol LDL Cholesterol, Calc HDL Cholesterol Procalcitonin 0.1 TSH Urine Color Urine Clarity Urine pH Ur Specific [place] Urine Protein Urine Ketones Urine Blood Urine Nitrite Urine Bilirubin Urine Urobilinogen Ur Leukocyte Esterase Urine RBC Urine WBC Ur Epithelial Cells Urine Crystals Urine Bacteria Urine Casts Urine Mucus Ur Culture Indicated? Urine Glucose COVID-19 Source SARS-CoV-2 (PCR) 05/10/21 05/10/21 05/10/21 02:45 03:15 05:32 WBC RBC Hgb Hct MCV MCH MCHC RDW Plt Count MPV Immature Gran % Neutrophils % Lymphocytes % Monocytes % Eosinophils % Basophils % Nucleated RBC % Absolute Neutrophils Absolute Lymphocytes Absolute Monocytes Absolute Eosinophils Absolute Basophils PT INR APTT D-Dimer ABG Sample Site ABG pH ABG pCO2 ABG pO2 ABG HCO3 ABG Total CO2 ABG O2 Saturation ABG Base Excess VBG Lactate Oxygen Liter Flow Sodium Potassium Chloride Carbon Dioxide Anion Gap BUN Creatinine Estimated GFR/1.73 m2 Glucose Hemoglobin A1c Calcium Magnesium Total Bilirubin AST [place] [address] H* Cancelled NT-Pro-B Natriuret Pep Total Protein Albumin Triglycerides Total Cholesterol LDL Cholesterol, Calc HDL Cholesterol Procalcitonin TSH Urine Color Yellow Urine Clarity Clear Urine pH 5.5 Ur Specific [place] 1.010 Urine Protein 100 H Urine Ketones Negative Urine Blood Trace-intact H Urine Nitrite Negative Urine Bilirubin Negative Urine Urobilinogen 0.2 Ur Leukocyte Esterase Negative Urine RBC 0-2 Urine WBC 0-2 Ur Epithelial Cells Negative Urine Crystals Negative Urine Bacteria Rare Urine Casts 0-2 Hyaline Urine Mucus Negative Ur Culture Indicated? No Urine Glucose Negative COVID-19 Source SARS-CoV-2 (PCR) 05/10/21 05/10/21 05/10/21 05:35 05:35 06:54 WBC RBC Hgb Hct MCV MCH MCHC RDW Plt Count MPV Immature Gran % Neutrophils % Lymphocytes % Monocytes % Eosinophils % Basophils % Nucleated RBC % Absolute Neutrophils Absolute Lymphocytes Absolute Monocytes Absolute Eosinophils Absolute Basophils PT INR APTT D-Dimer ABG Sample Site ABG pH ABG pCO2 ABG pO2 ABG HCO3 ABG Total CO2 ABG O2 Saturation ABG Base Excess VBG Lactate Oxygen Liter Flow Sodium 138 Potassium 3.8 Chloride 102 Carbon Dioxide 25.9 Anion Gap 10.1 BUN 35 H Creatinine 1.8 H Estimated GFR/1.73 m2 36.67 Glucose 205 H Hemoglobin A1c Cancelled Calcium 8.6 Magnesium Total Bilirubin 0.5 AST 276 H ALT 47 Alkaline Phosphatase 91 Troponin I NT-Pro-B Natriuret Pep Total Protein 7.1 Albumin 3.4 Triglycerides Total Cholesterol LDL Cholesterol, Calc HDL Cholesterol Procalcitonin TSH Cancelled Urine Color Urine Clarity Urine pH Ur Specific [place] Urine Protein Urine Ketones Urine Blood Urine Nitrite Urine Bilirubin Urine Urobilinogen Ur Leukocyte Esterase Urine RBC Urine WBC Ur Epithelial Cells Urine Crystals Urine Bacteria Urine Casts Urine Mucus Ur Culture Indicated? Urine Glucose COVID-19 Source SARS-CoV-2 (PCR) 05/10/21 05/10/21 05/10/21 06:54 06:54 06:54 WBC 11.36 H RBC 4.45 Hgb 12.3 L Hct 38.3 L MCV 86.1 MCH 27.6 MCHC 32.1 RDW 13.2 Plt Count 199 MPV 10.6 Immature Gran % 0.4 Neutrophils % 74.6 Lymphocytes % 14.0 Monocytes % 9.9 Eosinophils % 0.6 Basophils % 0.5 Nucleated RBC % 0 Absolute Neutrophils 8.47 H Absolute Lymphocytes 1.59 Absolute Monocytes 1.12 H Absolute Eosinophils 0.07 Absolute Basophils 0.06 PT INR APTT 51.3 H D D-Dimer ABG Sample Site ABG pH ABG pCO2 ABG pO2 ABG HCO3 ABG Total CO2 ABG O2 Saturation ABG Base Excess VBG Lactate Oxygen Liter Flow Sodium Potassium Chloride Carbon Dioxide Anion Gap BUN Creatinine Estimated GFR/1.73 m2 Glucose Hemoglobin A1c Calcium Magnesium 1.7 L Total Bilirubin AST ALT Alkaline Phosphatase Troponin I NT-Pro-B Natriuret Pep Total Protein Albumin Triglycerides 95 Total Cholesterol 158 LDL Cholesterol, Calc 97 HDL Cholesterol 42 Procalcitonin TSH Urine Color Urine Clarity Urine pH Ur Specific [place] Urine Protein Urine Ketones Urine Blood Urine Nitrite Urine Bilirubin Urine Urobilinogen Ur Leukocyte Esterase Urine RBC Urine WBC Ur Epithelial Cells Urine Crystals Urine Bacteria Urine Casts Urine Mucus Ur Culture Indicated? Urine Glucose COVID-19 Source SARS-CoV-2 (PCR) 05/10/21 06:54 WBC RBC Hgb Hct MCV MCH MCHC RDW Plt Count MPV Immature Gran % Neutrophils % Lymphocytes % Monocytes % Eosinophils % Basophils % Nucleated RBC % Absolute Neutrophils Absolute Lymphocytes Absolute Monocytes Absolute Eosinophils Absolute Basophils PT INR APTT D-Dimer ABG Sample Site ABG pH ABG pCO2 ABG pO2 ABG HCO3 ABG Total CO2 ABG O2 Saturation ABG Base Excess VBG Lactate Oxygen Liter Flow Sodium Potassium Chloride Carbon Dioxide Anion Gap BUN Creatinine Estimated GFR/1.73 m2 Glucose Hemoglobin A1c Calcium Magnesium Total Bilirubin AST ALT [place]kaline [place] [address] H* NT-Pro-B Natriuret Pep Total Protein Albumin Triglycerides Total Cholesterol LDL Cholesterol, Calc HDL Cholesterol Procalcitonin TSH Urine Color Urine Clarity Urine pH Ur Specific [place] Urine Protein Urine Ketones Urine Blood Urine Nitrite Urine Bilirubin Urine Urobilinogen Ur Leukocyte Esterase Urine RBC Urine WBC Ur Epithelial Cells Urine Crystals Urine Bacteria Urine Casts Urine Mucus Ur Culture Indicated? Urine Glucose COVID-19 Source SARS-CoV-2 (PCR)
--- NOTE | 2021-05-10 08:32 | INITIAL_ITS ---
- If Service Date Differs Date of service: 05/10/21 Time of Service: 08:32 Care Management Initial Assess REASON FOR HOSPITALIZATION:: NSTEMI, CHF PAST MEDICAL HISTORY/PAST SURGICAL HISTORY:: All Active Problems . Ischemic cardiomyopathy (Acute). Acute on chronic congestive heart failure (Acute). Acute non-ST elevation myocardial infarction (NSTEMI) (Acute). Rupture of left proximal biceps tendon (Acute ~12/2020). Left rotator cuff tear arthropathy (Acute). CKD (chronic kidney disease) (Chronic). Back pain (Acute). Restlessness (Acute). Daytime somnolence (Acute). Snoring (Acute). Lung nodule (Acute). Cognitive decline (Acute). Carcinoma in situ of bladder (Acute). Chronic back pain (Chronic). Bladder cancer (Acute). S/P bladder tumor excision with fulguration (Acute). Abnormal auditory perception (Acute 08/24/14). Anticoagulation management encounter (Acute 01/03/16). Cervicalgia (Acute 08/04/12). DNR no code (do not resuscitate) (Acute 05/13/16). Diabetes mellitus type 2, controlled (Acute 08/04/12). Dysfunction of eustachian tube (Acute 08/24/14). Functional diarrhea (Acute 08/04/12). Hypomagnesemia (Acute 04/10/16). Lumbosacral radiculopathy at L5 (Acute 03/15/14). Mixed hearing loss, unilateral (Acute 08/24/14). Shortness of breath (Acute 12/11/15). Sprain of rotator cuff capsule (Acute 08/04/12). Tinea cruris (Acute 12/28/12). Wheezing (Acute 11/13/15). Frequency of micturition (Acute). Pneumonia (Acute). Edema of both legs (Acute). Diarrhea (Chronic). DVT prophylaxis (Acute). Gross hematuria (Acute). Benign prostatic hyperplasia with urinary frequency (Acute). H/O urinary frequency (Acute). COPD (chronic obstructive pulmonary disease) (Chronic). CVA (cerebral vascular accident) (Acute 01/03/16). 12/2015 post op [facility] R hemiparesis. Unspecified essential hypertension (Acute 08/04/12). goal 150/90. Systolic CHF, chronic (Chronic 04/15/16). 04/15/16 Echo: EF 35%; MVR bioprosthesis intact. Sensorineural hearing loss (Acute 08/24/14). using an ITE aid. unknown model. Obesity, unspecified (Acute 07/03/11). Mitral valve insufficiency (Acute 12/19/15). MVR: bovine bioprosthesis and CABGx2 [facility] 12/20/15. Memory impairment (Acute 12/11/15). 12/2015 MMSE 23 B12/lab nl; MRI 12/2015 old silvia lacunar CVAs. Lumbago with sciatica, unspecified side (Acute 08/04/12). 08/2005 small disc herniations L5-S1, no spinal or neuroforaminal s tenosis. back surgery 10/2000. Disectomy [facility] 08/2006; L5 radiculopathy. Hyperlipidemia (Acute 07/03/11). PCEq 55.3%; intolerant statins. History of tobacco use (Acute 07/03/11). pt. states he hasn't smoked in 35 years. Gastroesophageal reflux disease (Acute 08/04/12). failed omeprazole, failed dexilant 06/01/2013. Diabetes mellitus with stage 3 chronic kidney disease (Acute 03/02/14). A1C goal 8. Diabetes mellitus with diabetic neuropathy (Acute 04/13/14). Coronary artery disease involving coronary bypass graft of [place] heart (Acute 01/02/16). MVR & 2v CABG, marginal and PDA, EF 45% [facility] 12/20/15. Chronic kidney disease, stage III (moderate) (Chronic 01/26/13). 12/2008 CT abd/pelvis neg. Carpal tunnel syndrome (Acute 08/04/12). Benign neoplasm of colon (Acute 08/04/12). pt. states she is unaware of this. Valve Replacement (Chronic 12/20/15). [facility] Dr Baumann. Mitral valve. Coronary Artery Bypass G[place] (CABG) (Chronic 12/20/15). [facility] DR MENDOZA. Surgical History . Appendectomy. Colonoscopy - [facility] (01/11/15). Dr Morgan. Grade 2 hemorrhoids. History of arthroplasty of right shoulder (~09/2015). History of back surgery (10/21/00). [facility] Dr. Win. S/P partial gastrectomy. Status post carpal tunnel release of both wrists PREVIOUS FUNCTIONAL STATUS/SOCIAL/FAMILY SUPPORTS:: Jeronimo lives in [facility] with his [place]. ADVANCE DIRECTIVES:: [employer] Has patient been provided with info about the portal/API?: Yes Did the patient sign up for the portal?: No CODE STATUS:: DNR/DNI INSURANCE COVERAGE / FINANCIAL ISSUES:: [employer] Medicare PRIMARY CARE PHYSICIAN:: Elizabet Auguste
[2021-05-10] MEDS: MAGNESIUM SULFATE 2 GM/50 ML BAG IVPB (08:57)
[2021-05-10] MEDS: Normal Saline Flush 10 ML SYR IVP (09:00)
--- NOTE | 2021-05-10 09:00 | RT.EKG_ITS ---
APPROVED REPORT Exam: Resting ECG Reason for Exam: chest pain Patient Location: I HR:93 bpm ECG Measurements Heart Rate 93 AXIS HI [id number] P [id number] QRSd 104 QRS 37 QT 392 T 191 QTc 487 Conclusion Atrial fibrillation...? atrial activity Paired ventricular premature complexes...sequence of 2 V complexes Accelerated idioventricular rhythm III aVF Nonspecific T abnormalities, lateral leads...T <-0.10mV, I aVL V5 V6 Borderline ST elevation, anterior leads...ST >0.15mV in V1-V4
--- NOTE | 2021-05-10 11:01 | W.PM.DS.N ---
Date of service: 05/10/21 Time of Service: 11:01 DS: Diagnosis Discharge Diagnosis (1) Acute non-ST elevation myocardial infarction (NSTEMI): Status: Acute (2) Acute on chronic congestive heart failure: Status: Acute (3) Acute respiratory failure with hypoxia: Status: Acute (4) Ischemic cardiomyopathy: Status: Acute (5) Hypomagnesemia: Status: Acute (6) Diabetes mellitus with stage 3 chronic kidney disease: Status: Acute (7) Chronic kidney disease, stage III (moderate): Status: Chronic (8) Carcinoma in situ of bladder: Status: Acute Discharge Plan Disposition Patient Disposition: [facility] Condition: Critical Discharge Details Reason For Visit: NSTEMI, CHF Admit Date/Time: 05/10/21 02:23 Admit Provider: Gera Stubbs Attending Provider: Gera Stubbs Primary Care Provider: Elizabet Auguste Hospital Course Hospital Course: Mr Archer is a 76 year old male with PMHx of CAD s/p CABG x2 in [place] marginal and PDA), as well as h/o chronic systolic CHF, EF 40% by MPI in 2019, h/o bioprosthetic mitral valve replacement at the time of CABG, uncontrolled NIDDM2, CKD 3, who was a patient in [facility] ICU under the hospitalist service on 05/10/2021, having presented with chest pain and ruling in for an NC (likely NSTEMI) as well as acute CHF resulting in acute hypoxic respiratory failure and requiring BiPAP (15/5, FiO2 45%, saturating in 98%). His EKG continue to show an incomplete LBBB (old). His troponin I, which was initially 56 ng/L (normal is less than 60 ng/L), went up to 1796 three hours later, then [place] 60208 ng/L, and then to 41164 ng/L. The patient has ruled out for a PE with a CTA of the chest. CTA of the chest does reveal bilateral grounglass opacities. The patient tested negative for COVID-19 with a PCR on presentation and is vaccinated/boosted against COVID-19. It is felt that the groundglass opacities represent pulmonary edema in this scenario. He is being treated with aspirin, plavix, heparin gtt, nitroglycerin gtt, lasix gtt. He was unable to tolerate being weaned of BiPAP. The patient requires an evaluation for a cardiac cath. Initially, transfer was sought [place] [facility] where he as accepted to a step down bed on a condition that he could be weaned off of BiPAP, which we have not been able to do. This acceptance was then withdrawn as there were no ICU beds available as the patient is now felt to require one. [facility] was contacted, and Dr Rodas of cardiology agreed to accept the patient to [facility] ICU, where he will be going today. The case was also discussed with Dr Barker of medical ICU service. The patient's condition is critical but the benefits of patient's transfer outweigh the risks. He will be going via air. Total Critical Care Time 60 minutes. Please, note that the list of medications below reflects the patient's outpatient prescriptions. Please, look at MAR for list of his inpatient medications. Home Meds and New Rx's Prescriptions: No Action glipizide 10 mg tablet 10 mg PO BID RF: 0 duloxetine 60 mg capsule,delayed release(DR/EC) 60 mg PO DAILY Qty: 90 RF: 3 fluticasone propionate [Allergy Relief (fluticasone)] 50 mcg/actuation spray,suspension 1 spray IGOR BID PRNRF: 0 (DME) blood-glucose meter [OneTouch Verio Meter] misc See Dose Instructions .ROUTE .MEDSUPPLY Qty: 1 RF: 0 erynvnnncwht-wjihloxt-anosjf Tablet 0.5 tab PO DAILY RF: 0 silodosin 8 mg capsule 8 mg PO DAILY PRNRF: 0 acetaminophen [Tylenol Extra Strength] 500 MG tablet 1,000 mg PO Q6H PRN PRNRF: 0 (DME) OneTouch Verio test strips Strip See Dose Instructions .ROUTE .MEDSUPPLY Qty: 100 RF: 12 (DME) lancets [OneTouch Delica Lancets] 33 gauge misc See Dose Instructions .ROUTE .MEDSUPPLY Qty: 100 RF: 6 albuterol sulfate [ProAir HFA] 90 mcg/actuation HFA aerosol inhaler 1 puff IH Q4H PRN (Reason: shortness of breath) Qty: 8.5 RF: 12 ketoconazole 2 % cream 1 applic TP DAILY PRN (Reason: ) Qty: 30 RF: 4 atorvastatin 20 mg tablet 20 mg PO QPM Qty: 90 RF: 3 furosemide 40 mg tablet 40 mg PO BID Qty: 180 RF: 3 aspirin 81 mg tablet,delayed release (DR/EC) 81 mg PO DAILY RF: 0 nystatin [Nyamyc] 100,000 unit/gram powder 1 applic TP TID PRN (Reason: rash) Qty: 60 RF: 6 amlodipine 5 mg tablet 5 mg PO DAILY Qty: 90 RF: 1 omeprazole 40 mg capsule,delayed release(DR/EC) 40 mg PO DAILY Qty: 90 RF: 3 allopurinol 300 mg tablet 150 mg PO DAILY Qty: 90 RF: 3 magnesium oxide 400 mg (241.3 mg magnesium) tablet 400 mg PO DAILY Qty: 90 RF: 3 budesonide-formoterol [Symbicort] 160-4.5 mcg/actuation HFA aerosol inhaler 2 puff inhalation BID PRNRF: 0 metoclopramide HCl [Reglan] 5 mg tablet 5 mg PO QAC Qty: 10 RF: 0 Discharge Instructions Instructions: Acute Coronary Syndrome (DC) Referrals: Betsy Lane MD [ [facility] STAFF PHYSICIAN] - Elizabet Auguste NP [Primary Care Provider] - Activity:: bedrest Equipment/Supplies:: BiPAP Diet:: NPO Discharge Orders Discharge Orders: Discharge Order (Routine); Ordered 05/10/21 Ordered By: Cindi Patel DS: Summary Time Spent with Patient providing and/or coordinating discharge services: Greater than 30 minutes Status at Discharge Functional status at discharge: bed bound Overall status at discharge: patient is not back to baseline Mental Status: mental status grossly normal Speech and Movement: speech and movement normal Mood: congruent mood Affect: normal affect Exam Narrative Exam Narrative: General: Elderly male, on BiPAP, looks anxious, A&Ox3 HEENT: EOMI, MMM Heart: RRR, quiet MUMTAZ Lungs: rales at B bases Abdomen: soft, nontender, nondistended Extremities: 2+ LE edema, L>R Psych Mental Status: mental status grossly normal Speech and Movement: speech and movement normal Mood: congruent mood Affect: normal affect DS: Data Vitals/I&O Vitals and I&O: Vital Signs Temperature 36.0 C L 05/10/21 07:46 Temperature Source Temporal Artery Scan 05/10/21 07:46 Pulse 88 05/10/21 10:31 Pulse 89 05/10/21 10:31 Respiratory Rate 17 05/10/21 10:31 Respiratory Effort Non-Labored 05/10/21 07:46 Respiratory Depth Normal 05/10/21 07:46 Respiratory Pattern Normal 05/10/21 07:46 Blood Pressure 125/80 05/10/21 10:31 Blood Pressure Mean 90 05/10/21 10:31 Pulse Oximetry 96 05/10/21 10:31 Oxygen Delivery Method Bi-pap 05/10/21 07:46 Oxygen Flow Rate 8 05/10/21 01:09 Fraction of Inspired Oxygen (FIO2) 45 05/10/21 07:51 Pain Level 0 05/10/21 07:46 Comment 05/09/21 21:42 Intake & Output 05/09/21 05/09/21 05/10/21 11:59 23:59 11:59 Intake Total 104.483 / 104.483 Output Total 1050 / 1050 Balance -945.517 / -945.517 Weight 107 kg 98 kg Intake: IV 104.483 / 104.483 Output: Urine 1050 / 1050 Other: Urine Color Yellow Urine Appearance Clear Data Completed and Pending Completed studies during hospitalization [Text1]: CXR: Multifocal infiltrates and/or edema. CTA chest: 1. Negative for pulmonary embolism. 2. Extensive ground-glass opacity. Imaging features can be seen with COVID-19 pneumonia, though are nonspecific and can occur with a variety of infectious and noninfectious processes. (Reference: [facility]) Labs on day of discharge: Labs from last 24 hours 05/10/21 05/10/21 05/10/21 06:54 06:54 06:54 WBC RBC Hgb Hct MCV MCH MCHC RDW Plt Count MPV Immature Gran % Neutrophils % Lymphocytes % Monocytes % Eosinophils % Basophils % Nucleated RBC % Absolute Neutrophils Absolute Lymphocytes Absolute Monocytes Absolute Eosinophils Absolute Basophils PT INR APTT 51.3 H D D-Dimer ABG Sample Site ABG pH ABG pCO2 ABG pO2 ABG HCO3 ABG Total CO2 ABG O2 Saturation ABG Base Excess VBG Lactate Oxygen Liter Flow Sodium Potassium Chloride Carbon Dioxide Anion Gap BUN Creatinine Estimated GFR/1.73 m2 Glucose Hemoglobin A1c Calcium Magnesium 1.7 L Total Bilirubin AST [place] [address] H* NT-Pro-B Natriuret Pep Total Protein Albumin Triglycerides 95 Total Cholesterol 158 LDL Cholesterol, Calc 97 HDL Cholesterol 42 Procalcitonin TSH Urine Color Urine Clarity Urine pH Ur Specific [place] Urine Protein Urine Ketones Urine Blood Urine Nitrite Urine Bilirubin Urine Urobilinogen Ur Leukocyte Esterase Urine RBC Urine WBC Ur Epithelial Cells Urine Crystals Urine Bacteria Urine Casts Urine Mucus Ur Culture Indicated? Urine Glucose COVID-19 Source SARS-CoV-2 (PCR) 05/10/21 05/10/21 05/10/21 06:54 06:54 05:35 WBC 11.36 H RBC 4.45 Hgb 12.3 L Hct 38.3 L MCV 86.1 MCH 27.6 MCHC 32.1 RDW 13.2 Plt Count 199 MPV 10.6 Immature Gran % 0.4 Neutrophils % 74.6 Lymphocytes % 14.0 Monocytes % 9.9 Eosinophils % 0.6 Basophils % 0.5 Nucleated RBC % 0 Absolute Neutrophils 8.47 H Absolute Lymphocytes 1.59 Absolute Monocytes 1.12 H Absolute Eosinophils 0.07 Absolute Basophils 0.06 PT INR APTT D-Dimer ABG Sample Site ABG pH ABG pCO2 ABG pO2 ABG HCO3 ABG Total CO2 ABG O2 Saturation ABG Base Excess VBG Lactate Oxygen Liter Flow Sodium 138 Potassium 3.8 Chloride 102 Carbon Dioxide 25.9 Anion Gap 10.1 BUN 35 H Creatinine 1.8 H Estimated GFR/1.73 m2 36.67 Glucose 205 H Hemoglobin A1c Cancelled Calcium 8.6 Magnesium Total Bilirubin 0.5 AST 276 H ALT 47 Alkaline Phosphatase 91 Troponin I NT-Pro-B Natriuret Pep Total Protein 7.1 Albumin 3.4 Triglycerides Total Cholesterol LDL Cholesterol, Calc HDL Cholesterol Procalcitonin TSH Urine Color Urine Clarity Urine pH Ur Specific [place] Urine Protein Urine Ketones Urine Blood Urine Nitrite Urine Bilirubin Urine Urobilinogen Ur Leukocyte Esterase Urine RBC Urine WBC Ur Epithelial Cells Urine Crystals Urine Bacteria Urine Casts Urine Mucus Ur Culture Indicated? Urine Glucose COVID-19 Source SARS-CoV-2 (PCR) 05/10/21 05/10/21 05/10/21 05:35 05:32 03:15 WBC RBC Hgb Hct MCV MCH MCHC RDW Plt Count MPV Immature Gran % Neutrophils % Lymphocytes % Monocytes % Eosinophils % Basophils % Nucleated RBC % Absolute Neutrophils Absolute Lymphocytes Absolute Monocytes Absolute Eosinophils Absolute Basophils PT INR APTT D-Dimer ABG Sample Site ABG pH ABG pCO2 ABG pO2 ABG HCO3 ABG Total CO2 ABG O2 Saturation ABG Base Excess VBG Lactate Oxygen Liter Flow Sodium Potassium Chloride Carbon Dioxide Anion Gap BUN Creatinine Estimated GFR/1.73 m2 Glucose Hemoglobin A1c Calcium Magnesium Total Bilirubin AST ALT Alkaline Phosphatase Troponin I Cancelled 66573 H* NT-Pro-B Natriuret Pep Total Protein Albumin Triglycerides Total Cholesterol LDL Cholesterol, Calc HDL Cholesterol Procalcitonin TSH Cancelled Urine Color Urine Clarity Urine pH Ur Specific [place] Urine Protein Urine Ketones Urine Blood Urine Nitrite Urine Bilirubin Urine Urobilinogen Ur Leukocyte Esterase Urine RBC Urine WBC Ur Epithelial Cells Urine Crystals Urine Bacteria Urine Casts Urine Mucus Ur Culture Indicated? Urine Glucose COVID-19 Source SARS-CoV-2 (PCR) 05/10/21 05/10/21 05/09/21 02:45 00:50 22:50 WBC RBC Hgb Hct MCV MCH MCHC RDW Plt Count MPV Immature Gran % Neutrophils % Lymphocytes % Monocytes % Eosinophils % Basophils % Nucleated RBC % Absolute Neutrophils Absolute Lymphocytes Absolute Monocytes Absolute Eosinophils Absolute Basophils PT INR APTT D-Dimer ABG Sample Site Right Radial ABG pH 7.37 ABG pCO2 44 ABG pO2 25 L* ABG HCO3 26 ABG Total CO2 24 ABG O2 Saturation 48 L ABG Base Excess 0 VBG Lactate Oxygen Liter Flow 30 Sodium Potassium Chloride Carbon Dioxide Anion Gap BUN Creatinine Estimated GFR/1.73 m2 Glucose Hemoglobin A1c Calcium Magnesium Total Bilirubin AST ALT Alkaline Phosphatase Troponin I 1796 H* NT-Pro-B Natriuret Pep Total Protein Albumin Triglycerides Total Cholesterol LDL Cholesterol, Calc HDL Cholesterol Procalcitonin TSH Urine Color Yellow Urine Clarity Clear Urine pH 5.5 Ur Specific [place] 1.010 Urine Protein 100 H Urine Ketones Negative Urine Blood Trace-intact H Urine Nitrite Negative Urine Bilirubin Negative Urine Urobilinogen 0.2 Ur Leukocyte Esterase Negative Urine RBC 0-2 Urine WBC 0-2 Ur Epithelial Cells Negative Urine Crystals Negative Urine Bacteria Rare Urine Casts 0-2 Hyaline Urine Mucus Negative Ur Culture Indicated? No Urine Glucose Negative COVID-19 Source SARS-CoV-2 (PCR) 05/09/21 05/09/21 05/09/21 21:55 21:55 21:55 WBC 11.08 H RBC 4.54 Hgb 12.9 L Hct 39.6 L MCV 87.2 MCH 28.4 MCHC 32.6 RDW 13.2 Plt Count 206 MPV 10.8 Immature Gran % 0.5 Neutrophils % 69.5 Lymphocytes % 17.5 Monocytes % 9.9 Eosinophils % 2.2 Basophils % 0.4 Nucleated RBC % 0 Absolute Neutrophils 7.70 H Absolute Lymphocytes 1.94 Absolute Monocytes 1.10 H Absolute Eosinophils 0.24 Absolute Basophils 0.04 PT INR APTT 24.4 D-Dimer ABG Sample Site ABG pH ABG pCO2 ABG pO2 ABG HCO3 ABG Total CO2 ABG O2 Saturation ABG Base Excess VBG Lactate Oxygen Liter Flow Sodium Potassium Chloride Carbon Dioxide Anion Gap BUN Creatinine Estimated GFR/1.73 m2 Glucose Hemoglobin A1c Calcium Magnesium Total Bilirubin AST ALT Alkaline Phosphatase Troponin I NT-Pro-B Natriuret Pep Total Protein Albumin Triglycerides Total Cholesterol LDL Cholesterol, Calc HDL Cholesterol Procalcitonin 0.1 TSH Urine Color Urine Clarity Urine pH Ur Specific [place] Urine Protein Urine Ketones Urine Blood Urine Nitrite Urine Bilirubin Urine Urobilinogen Ur Leukocyte Esterase Urine RBC Urine WBC Ur Epithelial Cells Urine Crystals Urine Bacteria Urine Casts Urine Mucus Ur Culture Indicated? Urine Glucose COVID-19 Source SARS-CoV-2 (PCR) 05/09/21 05/09/21 05/09/21 21:55 21:55 21:55 WBC RBC Hgb Hct MCV MCH MCHC RDW Plt Count MPV Immature Gran % Neutrophils % Lymphocytes % Monocytes % Eosinophils % Basophils % Nucleated RBC % Absolute Neutrophils Absolute Lymphocytes Absolute Monocytes Absolute Eosinophils Absolute Basophils PT INR APTT D-Dimer ABG Sample Site ABG pH ABG pCO2 ABG pO2 ABG HCO3 ABG Total CO2 ABG O2 Saturation ABG Base Excess VBG Lactate 2.1 H Oxygen Liter Flow Sodium 137 Potassium 3.5 Chloride 101 Carbon Dioxide 26.8 Anion Gap 9.2 BUN 33 H Creatinine 1.8 H Estimated GFR/1.73 m2 36.67 Glucose 204 H Hemoglobin A1c Calcium 8.8 Magnesium Total Bilirubin 0.5 AST 22 ALT 29 Alkaline Phosphatase 97 Troponin I 53 NT-Pro-B Natriuret Pep 1792 H Total Protein 7.2 Albumin 3.4 Triglycerides Total Cholesterol LDL Cholesterol, Calc HDL Cholesterol Procalcitonin TSH Urine Color Urine Clarity Urine pH Ur Specific [place] Urine Protein Urine Ketones Urine Blood Urine Nitrite Urine Bilirubin Urine Urobilinogen Ur Leukocyte Esterase Urine RBC Urine WBC Ur Epithelial Cells Urine Crystals Urine Bacteria Urine Casts Urine Mucus Ur Culture Indicated? Urine Glucose COVID-19 Source Nasal/Nares SARS-CoV-2 (PCR) Negative 05/09/21 21:55 WBC RBC Hgb Hct MCV MCH MCHC RDW Plt Count MPV Immature Gran % Neutrophils % Lymphocytes % Monocytes % Eosinophils % Basophils % Nucleated RBC % Absolute Neutrophils Absolute Lymphocytes Absolute Monocytes Absolute Eosinophils Absolute Basophils PT 10.9 INR 1.1 APTT D-Dimer 1184 H ABG Sample Site ABG pH ABG pCO2 ABG pO2 ABG HCO3 ABG Total CO2 ABG O2 Saturation ABG Base Excess VBG Lactate Oxygen Liter Flow Sodium Potassium Chloride Carbon Dioxide Anion Gap BUN Creatinine Estimated GFR/1.73 m2 Glucose Hemoglobin A1c Calcium Magnesium Total Bilirubin AST ALT Alkaline Phosphatase Troponin I NT-Pro-B Natriuret Pep Total Protein Albumin Triglycerides Total Cholesterol LDL Cholesterol, Calc HDL Cholesterol Procalcitonin TSH Urine Color Urine Clarity Urine pH Ur Specific [place] Urine Protein Urine Ketones Urine Blood Urine Nitrite Urine Bilirubin Urine Urobilinogen Ur Leukocyte Esterase Urine RBC Urine WBC Ur Epithelial Cells Urine Crystals Urine Bacteria Urine Casts Urine Mucus Ur Culture Indicated? Urine Glucose COVID-19 Source SARS-CoV-2 (PCR) PFSH All Active Problems Hypomagnesemia (Acute) Acute respiratory failure with hypoxia (Acute) Ischemic cardiomyopathy (Acute) Acute on chronic congestive heart failure (Acute) Acute non-ST elevation myocardial infarction (NSTEMI) (Acute) Rupture of left proximal biceps tendon (Acute ~12/2020) Left rotator cuff tear arthropathy (Acute) CKD (chronic kidney disease) (Chronic) Back pain (Acute) Restlessness (Acute) Daytime somnolence (Acute) Snoring (Acute) Lung nodule (Acute) Cognitive decline (Acute) Carcinoma in situ of bladder (Acute) Chronic back pain (Chronic) Bladder cancer (Acute) S/P bladder tumor excision with fulguration (Acute) Abnormal auditory perception (Acute 08/24/14) Anticoagulation management encounter (Acute 01/03/16) Cervicalgia (Acute 08/04/12) DNR no code (do not resuscitate) (Acute 05/13/16) Diabetes mellitus type 2, controlled (Acute 08/04/12) Dysfunction of eustachian tube (Acute 08/24/14) Functional diarrhea (Acute 08/04/12) Hypomagnesemia (Acute 04/10/16) Lumbosacral radiculopathy at L5 (Acute 03/15/14) Mixed hearing loss, unilateral (Acute 08/24/14) Shortness of breath (Acute 12/11/15) Sprain of rotator cuff capsule (Acute 08/04/12) Tinea cruris (Acute 12/28/12) Wheezing (Acute 11/13/15) Frequency of micturition (Acute) Pneumonia (Acute) Edema of both legs (Acute) Diarrhea (Chronic) DVT prophylaxis (Acute) Gross hematuria (Acute) Benign prostatic hyperplasia with urinary frequency (Acute) H/O urinary frequency (Acute) COPD (chronic obstructive pulmonary disease) (Chronic) CVA (cerebral vascular accident) (Acute 01/03/16) 12/2015 [place] [facility] [place] hemiparesis Unspecified essential hypertension (Acute 08/04/12) goal 150/90 Systolic CHF, chronic (Chronic 04/15/16) 04/15/16 Echo: EF 35%; MVR bioprosthesis intact Sensorineural hearing loss (Acute 08/24/14) using an ITE aid. unknown model. Obesity, unspecified (Acute 07/03/11) Mitral valve insufficiency (Acute 12/19/15) MVR: bovine bioprosthesis and CABGx2 [facility] [place] Memory impairment (Acute 12/11/15) 12/2015 MMSE 23 B12/lab nl; MRI 12/2015 old silvia lacunar CVAs Lumbago with sciatica, unspecified side (Acute 08/04/12) 08/2005 small disc herniations L5-S1, no spinal or neuroforaminal stenosis. back surgery 10/2000 Disectomy [facility] 08/2006; L5 radiculopathy Hyperlipidemia (Acute 07/03/11) PCEq 55.3%; intolerant statins History of tobacco use (Acute 07/03/11) pt. states he hasn't smoked in 35 years Gastroesophageal reflux disease (Acute 08/04/12) failed omeprazole, failed dexilant 06/01/2013 Diabetes mellitus with stage 3 chronic kidney disease (Acute 03/02/14) A1C goal 8 Diabetes mellitus with diabetic neuropathy (Acute 04/13/14) Coronary artery disease involving coronary bypass graft of [place] heart (Acute 01/02/16) MVR & 2v CABG, marginal and PDA, EF 45% [facility] [place]15 Chronic kidney disease, stage III (moderate) (Chronic 01/26/13) 12/2008 CT abd/pelvis neg Carpal tunnel syndrome (Acute 08/04/12) Benign neoplasm of colon (Acute 08/04/12) pt. states she is unaware of this Valve Replacement (Chronic 12/20/15) [facility] [place] Baumann Mitral valve Coronary Artery Bypass Gaft (CABG) (Chronic 12/20/15) [facility] [place]ENDO[place] Surgical History Appendectomy Colonoscopy - MAC (01/11/15) Dr Morgan Grade 2 hemorrhoids History of arthroplasty of right shoulder (~09/2015) History of back surgery (10/21/00) [facility] [place] S/P partial gastrectomy Status post carpal tunnel release of both wrists Family History Brother Alcoholism Heart disease Grandfather Heart disease Father Personal history of malignant neoplasm THROAT CA Social History Smoking/Tobacco Use Status: Former Tobacco Use Quit Date: 05/03/94 Pack-years: 105 Smoking risk assessment performed?: Yes Alcohol Intake: current Alcohol Intake frequency: holidays/special occasions only Alcohol type: beer Drug use: Never Substance use type: does not use Household members: spouse Housing: house Number of Children: 4 Current gender identity: male What is your relationship status?: Panel score (0-1 are the most socially isolated patients): 1 Working smoke detector in home: Yes Do you feel safe at home: Yes Do you feel safe in your relationship?: Yes Additional Social history: unable to assess adriano
[2021-05-10] MEDS: Ondansetron 4 MG/2 ML VIAL (11:05)
--- NOTE | 2021-05-10 11:31 | CMDISCH_ITS ---
- If Service Date Differs Date of service: 05/10/21 Time of Service: 11:31 LACE Index Scoring Tool - Questions: Length of Stay (in days): 1 Acuity (Admit via E.D.?): Yes Comorbidities: Diabetes w/o Complication, Congestive Heart Failure, with End Organ Damage, Chronic Pulmonary Disease, Metastatic Solid Tumor E.D. Visits: 2 - Answers: Total Score: 11 Risk of Readmission: High Risk Care Management Discharge Reason for Hospitalization: NSTEMI, CHF Discharge Plan: Dr Rodas/[facility] ICU- cardiology agreed to accept Jeronimo in transfer today. Pt will transfer to [facility] via [facility] arranged by nursing reservations sales supervisor. Patient/Family Education Needs: Review discharge instructions and plan to transfer. ask me three. Services Needed at Discharge: Transportation ([facility]ia [facility], arranged by nursing reservations sales supervisor)
== END 2021-05-10 12:40 | DRG 280 ==
LOC: ER 05-10 02:45 → ICU 05-10 03:35
PROVIDERS: Student in an Organized Health Care Education/Training Program; Admitting Provider Internal Medicine; Emergency Provider Emergency Medicine; PCP Nurse Practitioner; Visit Provider Internal Medicine
DX: I13.0 Hypertensive heart and chronic kidney disease with heart failure and stage 1 through stage 4 chronic kidney disease, or unspecified chronic kidney disease (principal); I21.4 Non-ST elevation (NSTEMI) myocardial infarction; J96.01 Acute respiratory failure with hypoxia; I50.23 Acute on chronic systolic (congestive) heart failure; I25.5 Ischemic cardiomyopathy; E11.22 Type 2 diabetes mellitus with diabetic chronic kidney disease; N18.30 Chronic kidney disease, stage 3 unspecified; E83.42 Hypomagnesemia; D09.0 Carcinoma in situ of bladder; Z95.1 Presence of aortocoronary bypass graft; I44.7 Left bundle-branch block, unspecified; Z79.84 Long term (current) use of oral hypoglycemic drugs; K21.9 Gastro-esophageal reflux disease without esophagitis; E66.9 Obesity, unspecified; Z68.39 Body mass index [BMI] 39.0-39.9, adult; E78.00 Pure hypercholesterolemia, unspecified; G89.29 Other chronic pain; M54.9 Dorsalgia, unspecified; Z66 Do not resuscitate; N40.1 Benign prostatic hyperplasia with lower urinary tract symptoms; R35.0 Frequency of micturition; E11.40 Type 2 diabetes mellitus with diabetic neuropathy, unspecified; Z95.2 Presence of prosthetic heart valve
CPT/HCPCS: 36415; 51702; 71275; 80053; 80061; 82805; 84145; 87635; 93005; 94640; 96365; 96366; 96374; 96375; 96376; 99291; 71045; 81003; 81015; 83036; 83605; 83735; 83880; 84443; 84484; 85025; 85379; 85610; 85730; 93010; 94660; 99292; J1940; J2405; J3490; J7620

== ENCOUNTER 2021-05-25 16:21 | Inpatient (IN) | payer MEDICARE, OTHER, SELFPAY ==
[2021-05-25] VITALS (40 sets, daily range): BP systolic 99–144; BP diastolic 55–75; PULSE 52–118; RESP 12–24; TEMP 36.3–36.6; O2SAT 87–100
--- NOTE | 2021-05-25 16:00 | RT.EKG_ITS ---
APPROVED REPORT Exam: Resting ECG Reason for Exam: HYPOTENSION Patient Location: E HR:97 bpm ECG Measurements Heart Rate 97 AXIS ID [id number] P [id number] QRSd 113 QRS 59 QT 380 T 230 QTc 499 Conclusion Atrial fib/flutter. Probable anterior infarct, age indeterminate...Q >35mS, T neg, V2-V5 Abnormal T, diffuse leads.
--- NOTE | 2021-05-25 16:15 | DI.RAD_ITS ---
Exam(s) XR PORTABLE CHEST AP EXAM: XR PORTABLE CHEST AP CLINICAL HISTORY: weakness. TECHNIQUE: 2D digital imaging was performed. COMPARISON: CR,XR XR PORTABLE CHEST AP from 05/09/2021 FINDINGS: Cardiomegaly. Sternotomy. Prosthetic aortic valve. Mediastinum is not widened. Pulmonary venous hypertension pattern but without airspace pulmonary edema and there are no Marcella B lines. No pleural effusions. IMPRESSION: No acute pulmonary findings on this single AP portable view of the chest. Cardiac findings as above. DATA REPOSITORY: RADIATION DOSE DELIVERED: All CT scans at this facility use at least one of these dose optimization techniques: automated exposure control; mA and/or kV adjustment per patient size (includes targeted e xams where dose is matched to clinical indication); or iterative reconstruction.
--- NOTE | 2021-05-25 16:34 | ED.GENADUL_ITS ---
Discharge Plan Disposition Patient Disposition: [facility] INPATIENT Condition: Serious Discharge Details Clinical Impression: Acute kidney injury, Elevated troponin Primary Care Provider: Elizabet Auguste ED Provider: Ray Kenny Home Meds and New Rx's Prescriptions: No Action glipizide 10 mg tablet 10 mg PO BID RF: 0 duloxetine 60 mg capsule,delayed release(DR/EC) 60 mg PO DAILY Qty: 90 RF: 3 fluticasone propionate [Allergy Relief (fluticasone)] 50 mcg/actuation spray,suspension 1 spray IGOR BID PRNRF: 0 (DME) blood-glucose meter [OneTouch Verio Meter] misc See Dose Instructions .ROUTE .MEDSUPPLY Qty: 1 RF: 0 vmwtevumkozy-jwozvkqj-zwwtxg Tablet 0.5 tab PO DAILY RF: 0 silodosin 8 mg capsule 8 mg PO DAILY PRNRF: 0 acetaminophen [Tylenol Extra Strength] 500 MG tablet 1,000 mg PO Q6H PRN PRNRF: 0 (DME) OneTouch Verio test strips Strip See Dose Instructions .ROUTE .MEDSUPPLY Qty: 100 RF: 12 (DME) lancets [OneTouch Delica Lancets] 33 gauge misc See Dose Instructions .ROUTE .MEDSUPPLY Qty: 100 RF: 6 albuterol sulfate [ProAir HFA] 90 mcg/actuation HFA aerosol inhaler 1 puff IH Q4H PRN (Reason: shortness of breath) Qty: 8.5 RF: 12 ketoconazole 2 % cream 1 applic TP DAILY PRN (Reason: ) Qty: 30 RF: 4 nystatin [Nyamyc] 100,000 unit/gram powder 1 applic TP TID PRN (Reason: rash) Qty: 60 RF: 6 omeprazole 40 mg capsule,delayed release(DR/EC) 40 mg PO DAILY Qty: 90 RF: 3 allopurinol 300 mg tablet 150 mg PO DAILY Qty: 90 RF: 3 magnesium oxide 400 mg (241.3 mg magnesium) tablet 400 mg PO DAILY Qty: 90 RF: 3 amiodarone 200 mg tablet 200 mg PO DAILY RF: 0 apixaban 5 mg tablet 5 mg PO BID RF: 0 clopidogrel 75 mg tablet 75 mg PO DAILY RF: 0 calcium carbonate [Antacid (calcium carbonate)] 200 mg calcium (500 mg) tablet,chewable 200 mg PO TID RF: 0 hydralazine 10 mg tablet 20 mg PO TID RF: 0 isosorbide dinitrate 10 mg tablet 10 mg PO TID RF: 0 metoprolol succinate 25 mg tablet extended release 24 hr 25 mg PO DAILY RF: 0 atorvastatin 40 mg tablet 40 mg PO DAILY RF: 0 budesonide-formoterol [Symbicort] 160-4.5 mcg/actuation HFA aerosol inhaler 2 puff inhalation BID PRNRF: 0 Medical Decision Making 76-year-old male who was discharged from [facility] yesterday and returned to home. He reports having had acute coronary syndrome and left heart catheterization. He states that since being home he has felt weakness and lightheadedness with rising. He denies having syncope. Home health reported his blood pressure sinking to a systolic of 60-80 upon their home health check today. His reports three separate brief near syncopal events at home today, in which his 'eyes rolled back' but he did not lose consciousness. Patient arrives ER afebrile, pulse of 94 blood pressure 107/68 while lying in bed he is oxygenating normally at 99%. Patient does demonstrate orthostasis on bedside evaluation, with drop of blood pressure from 132/70-90 9/ from flat to seated. I obtained and reviewed the patient discharge summary for hospitalization from May 10 to May 20. Patient's discharge diagnosis include non-STEMI, paroxysmal atrial fibrillation, ST segment elevation AL involving left anterior descending, ischemic cardiomyopathy, acute pulmonary edema, respiratory failure with hypoxia, acute on chronic systolic heart failure. Patient was discharged with new prescription for amiodarone 200 mg daily, apixaban, Plavix, hydralazine, Isordil, metoprolol. His amlodipine, 81 mg aspirin, furosemide, and Reglan were discontinued. It is noted that his troponin was greater than 65 on admission. Prior to transfer on May 10 patient's troponin peaked at 51,000 at [facility] At [facility], the patient underwent left heart cath notable for LAD subtotal occlusion. No PCI was performed. No further intervention was recommended in the records note the patient was changed to DNR/DNI and that he was to have ongoing medical management of ischemic cardiomyopathy. Patient referred for laboratory testing, EKG and chest x-ray. Today, the patient has persistently elevated troponin, although significantly lower than previous as today's troponin I is 1510. Chemistries note BUN of 64 and creatinine 2.7, most recent comparisons are 35/1.8. Additionally, the patient has new hyponatremia with a sodium of 123 (patient's will note he has been drinking fairly liberal amounts of free water since returning from the hospital). Chest x-ray notes clear lungs and no acute cardiopulmonary findings. The patient and his state that he wishes to be DNR/DNI. He had had a discussion at the [facility] of whether he would want to pursue dialysis which he stated he did not. His confirms this. Will admit for further management. HPI General Mode of arrival: EMS . Date/Time Provider Initiated Documentation: 05/25/21 16:22 . Limitations to Documentation: no limitations . Information obtained by: patient and EMS . History of Present Illness 76 year old M presents to the emergency department with the chief complaint of Lightheaded with standing at home, denies syncope, described as moderate, and is localized to the head. Patient started experiencing this day(s) and it has been intermittent. Other factors that worsen symptoms (Standing up) . Patient notes weakness; denies chest pain, shortness of breath and syncope. Patient did receive the following treatments prior to arrival, none Related Data Home Medications Medication Instructions Recorded Confirmed acetaminophen [Tylenol Extra 1,000 mg PO Q6H PRN PRN 06/01/13 05/25/21 Strength] fluticasone propionate 50 1 spray IGOR BID PRN gm 03/10/18 05/09/21 mcg/actuation nasal spray,suspension blood-glucose meter #1 each 07/11/18 04/01/21 budesonide-formoterol [Symbicort] 2 puff INHALATION BID PRN 01/02/20 05/25/21 blood sugar diagnostic #100 each 04/24/20 04/01/21 lancets 33 gauge #100 each 04/24/20 04/01/21 albuterol sulfate 90 mcg/actuation 1 puff IH Q4H PRN #8.5 gm 04/25/20 05/25/21 aerosol inhaler ketoconazole 2 % topical cream 1 applic TP DAILY PRN #30 g 04/29/20 05/25/21 stsuxxtrjscn-otvjbuos-cthpgc tablet 0.5 tab PO DAILY tab 07/15/20 05/25/21 glipizide 10 mg tablet 10 mg PO BID tab 09/02/20 05/25/21 duloxetine 60 mg capsule,delayed 60 mg PO DAILY #90 cap 11/13/20 05/25/21 release nystatin 100,000 unit/gram topical 1 applic TP TID PRN #60 g 12/18/20 05/09/21 powder allopurinol 300 mg tablet 150 mg PO DAILY #90 tab-cap 03/31/21 05/25/21 omeprazole 40 mg capsule,delayed 40 mg PO DAILY #90 cap 03/31/21 05/25/21 release magnesium oxide 400 mg (241.3 mg 400 mg PO DAILY #90 tab 04/01/21 05/25/21 magnesium) tablet silodosin 8 mg capsule 8 mg PO DAILY PRN cap 04/01/21 05/25/21 amiodarone 200 mg tablet 200 mg PO DAILY 05/22/21 05/25/21 apixaban 5 mg tablet 5 mg PO BID 05/22/21 05/25/21 atorvastatin 40 mg tablet 40 mg PO DAILY 05/22/21 05/25/21 calcium carbonate 200 mg calcium 200 mg PO TID 05/22/21 05/25/21 (500 mg) chewable tablet clopidogrel 75 mg tablet 75 mg PO DAILY 05/22/21 05/25/21 hydralazine 10 mg tablet 20 mg PO TID tab 05/22/21 05/25/21 isosorbide dinitrate 10 mg tablet 10 mg PO TID 05/22/21 05/25/21 metoprolol succinate 25 mg 25 mg PO DAILY 05/22/21 05/25/21 tablet,extended release 24 hr Previous Rx's Medication Instructions Recorded blood-glucose meter #1 each 07/11/18 blood sugar diagnostic #100 each 04/24/20 lancets 33 gauge #100 each 04/24/20 albuterol sulfate 90 mcg/actuation 1 puff IH Q4H PRN #8.5 gm 04/25/20 aerosol inhaler ketoconazole 2 % topical cream 1 applic TP DAILY PRN #30 g 04/29/20 duloxetine 60 mg capsule,delayed 60 mg PO DAILY #90 cap 11/13/20 release nystatin 100,000 unit/gram topical 1 applic TP TID PRN #60 g 08/18/21 powder allopurinol 300 mg tablet 150 mg PO DAILY #90 tab-cap 03/31/21 omeprazole 40 mg capsule,delayed 40 mg PO DAILY #90 cap 03/31/21 release magnesium oxide 400 mg (241.3 mg 400 mg PO DAILY #90 tab 04/01/21 magnesium) tablet Allergies Allergy/AdvReac Type Severity Reaction Status Date / Time codeine AdvReac Intermediate DYSPHORIA Verified 05/25/21 16:33 niacin AdvReac Intermediate MYALGIAS Verified 05/25/21 16:33 simvastatin AdvReac Intermediate myalgias Verified 05/25/21 16:33 General Stated Complaint: Dizzy/Sync ROBBI: 2 Review of Systems Narrative: Denies to me chest pain or palpitations. Patient's states he had three brief near-syncopal events at home. no headache. Has felt weakness and lightheaded with rising since returning home from the hospital yesterday. Immunized against COVID-19. Constipated and had LAxative yesterday. Eight systems were reviewed and otherwise negative. PFSH All Active Problems Acute kidney injury (Acute) Elevated troponin (Acute) Paroxysmal A-fib (Acute) Hypomagnesemia (Acute) Acute respiratory failure with hypoxia (Acute) Ischemic cardiomyopathy (Acute) Acute on chronic congestive heart failure (Acute) Acute non-ST elevation myocardial infarction (NSTEMI) (Acute ~05/10/21) involving left anterior Left anterior descending coronary artery Rupture of left proximal biceps tendon (Acute ~12/2020) Left rotator cuff tear arthropathy (Acute) CKD (chronic kidney disease) (Chronic) Back pain (Acute) Restlessness (Acute) Daytime somnolence (Acute) Snoring (Acute) Lung nodule (Acute) Cognitive decline (Acute) Carcinoma in situ of bladder (Acute) Chronic back pain (Chronic) Bladder cancer (Acute) S/P bladder tumor excision with fulguration (Acute) Abnormal auditory perception (Acute 08/24/14) Anticoagulation management encounter (Acute 01/03/16) Cervicalgia (Acute 08/04/12) DNR no code (do not resuscitate) (Acute 05/13/16) Diabetes mellitus type 2, controlled (Acute 08/04/12) Dysfunction of eustachian tube (Acute 08/24/14) Functional diarrhea (Acute 08/04/12) Hypomagnesemia (Acute 04/10/16) Lumbosacral radiculopathy at L5 (Acute 03/15/14) Mixed hearing loss, unilateral (Acute 08/24/14) Shortness of breath (Acute 12/11/15) Sprain of rotator cuff capsule (Acute 08/04/12) Tinea cruris (Acute 12/28/12) Wheezing (Acute 11/13/15) Frequency of micturition (Acute) Pneumonia (Acute) Edema of both legs (Acute) Diarrhea (Chronic) DVT prophylaxis (Acute) Gross hematuria (Acute) Benign prostatic hyperplasia with urinary frequency (Acute) H/O urinary frequency (Acute) COPD (chronic obstructive pulmonary disease) (Chronic) CVA (cerebral vascular accident) (Acute 01/03/16) 12/2015 post op [facility] R hemiparesis Unspecified essential hypertension (Acute 08/04/12) goal 150/90 Systolic CHF, chronic (Chronic 04/15/16) 04/15/16 Echo: EF 35%; MVR bioprosthesis intact Sensorineural hearing loss (Acute 08/24/14) using an ITE aid. unknown model. Obesity, unspecified (Acute 07/03/11) Mitral valve insufficiency (Acute 12/19/15) MVR: bovine bioprosthesis and CABGx2 [facility] 12/20/15 Memory impairment (Acute 12/11/15) 12/2015 MMSE 23 B12/lab nl; MRI 12/2015 old silvia lacunar CVAs Lumbago with sciatica, unspecified side (Acute 08/04/12) 08/2005 small disc herniations L5-S1, no spinal or neuroforaminal stenosis. back surgery 10/2000 Disectomy [facility] 08/2006; L5 radiculopathy Hyperlipidemia (Acute 07/03/11) PCEq 55.3%; intolerant statins History of tobacco use (Acute 07/03/11) pt. states he hasn't smoked in 35 years Gastroesophageal reflux disease (Acute 08/04/12) failed omeprazole, failed dexilant 06/01/2013 Diabetes mellitus with stage 3 chronic kidney disease (Acute 03/02/14) A1C goal 8 Diabetes mellitus with diabetic neuropathy (Acute 04/13/14) Coronary artery disease involving coronary bypass graft of [place] heart (Acute 01/02/16) MVR & 2v CABG, marginal and PDA, EF 45% [facility] 12/20/15 Chronic kidney disease, stage III (moderate) (Chronic 01/26/13) 12/2008 CT abd/pelvis neg Carpal tunnel syndrome (Acute 08/04/12) Benign neoplasm of colon (Acute 08/04/12) pt. 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 Win S/P partial gastrectomy Status post carpal tunnel release of both wrists Family History Brother Alcoholism Heart disease Grandfather Heart disease Father Personal history of malignant neoplasm THROAT CA Social History Smoking/Tobacco Use Status: Former Tobacco Use Quit Date: 05/03/94 Pack-years: 105 Smoking risk assessment performed?: Yes Alcohol Intake: current Alcohol Intake frequency: holidays/special occasions only Alcohol type: beer Drug use: Never Substance use type: does not use Household members: spouse Housing: house Number of Children: 4 Current gender identity: male What is your relationship status?: Panel score (0-1 are the most socially isolated patients): 1 Working smoke detector in home: Yes Do you feel safe at home: Yes Do you feel safe in your relationship?: Yes Additional Social history: unable to assess privatley Exam Narrative Exam Narrative: GEN: awake, alert, oriented 3. Pleasant, well groomed, interactive. HEAD: Normocephalic, atraumatic ENT: Mucous membranes dry, oropharynx unremarkable, External ear exam unremarkable EYES: PERRL, EOMI NECK: Full ROM, no BRENDEN, no menigismus CHEST/RESP: Nontender, clear to auscultation bilateral, no wheeze/rhonchi/rales CARDIOVASCULAR: Distant, irregularly irregular. 2+ Rad pulse bilateral ABDOMEN: Soft, nontender, no mass. +Bowel sounds EXT: Full ROM, trace pretibial edema bilaterally, no rash Neuro: Grossly normal neurologic exam, conversant, interactive. Psych: Speech fluent, thoughts congruent, affect normal Course Vital Signs Vital signs: Vital Signs Temperature 36.3 C L 05/25/21 16:21 Pulse 94 H 05/25/21 16:21 Respiratory Rate 16 05/25/21 16:21 Blood Pressure 107/60 05/25/21 16:21 Pulse Oximetry 99 05/25/21 16:21 Temperature 36.3 C L 05/25/21 16:21 Temperature Source Temporal Artery Scan 05/25/21 16:21 Pulse 94 H 05/25/21 16:21 Respiratory Rate 16 05/25/21 16:21 Blood Pressure 107/60 05/25/21 16:21 Pulse Oximetry 99 05/25/21 16:21 Oxygen Delivery Method Room Air 05/25/21 16:21 Oxygen Flow Rate 0 05/25/21 16:21 Pain Level 0 05/25/21 16:21
[2021-05-25] MEDS: Normal Saline 1,000 ML 150 ML IV (16:40)
[2021-05-25 16:47] LABS: Abs Immature Grans 0.07 10^3/uL (0.0-0.06); Absolute Basophil Count 0.04 10^3/uL (0.0-0.2); Absolute Eosinophil Count 0.08 10^3/uL (0.0-0.7); Absolute Monocyte Count 0.82 10^3/uL (0.1-0.8); Basophils % 0.3; Eosinophils % 0.6; HCT 39.9 % (40.0-50.0); HGB 13.1 g/dL (13.5-17.5); Immature Grans % 0.5; MCH 28.2 pg (27.0-33.0); MCHC 32.8 % (32.0-36.0); MCV 85.8 fL (80-95); MPV 10.9 fL (8.0-11.0); Monocytes % 6.1; Neutrophils % 86.5; Nucleated RBC 0 %; Platelet Count 371 10^3/uL (130-400); RBC 4.65 10^6/uL (4.36-5.78); RDW 13.4 % (11.8-14.1); RDW-SD 41.7 fL; WBC 13.41 10^3/uL (4.4-10.8)
[2021-05-25 17:02] LABS: Source Nasopharynx
[2021-05-25 17:10] LABS: ALT 44 U/L (16-63); AST 24 U/L (15-37); Albumin 3.6 g/dL (3.4-5.0); Alkaline Phosphatase 96 U/L (46-116); Anion Gap 8.7 mmol/L (3-11); BUN 64 mg/dL (7-18); Bilirubin, Total 0.6 mg/dL (0.2-1.0); CO2 28.3 mmol/L (21.0-32.0); CREATININE 2.7 mg/dL (0.70-1.30); Calcium 9.6 mg/dL (8.5-10.1); Chloride 86 mmol/L (98-107); Estimated GFR 22.97 (mL/min/1.73m2); Glucose 296 mg/dL (74-106); Magnesium 2.3 mg/dL (1.8-2.4); NT-proBNP 13177 pg/mL (<300); Potassium 4.5 mmol/L (3.5-5.1); Total Protein 8.2 g/dL (6.4-8.2)
[2021-05-25 17:26] LABS: Sodium 123 mmol/L (136-145)
[2021-05-25 17:27] LABS: Troponin I 1510 ng/L (<or=60)
--- NOTE | 2021-05-25 17:47 | NUR.NOTE ---
spoke to Raquel. gave us permission to treat pt for Mental health eval. also said that pt was working with Ariella who was writing a mental health warrant because pt said he would jump off the [facility] bridge and would hurt anyone who tried to stop him. she did not write it because pt agreed to come here to the ER.Nursing Note:
--- NOTE | 2021-05-25 17:54 | DI.VRAD_ITS ---
PROCEDURE INFORMATION: Exam: XR Chest Exam date and time: 05/25/2021 4:28 PM Age: 76 years old Clinical indication: Other: Weakness TECHNIQUE: Imaging protocol: XR of the chest. Views: 1 view. COMPARISON: CR XR PORTABLE CHEST AP 05/09/2021 9:59 PM FINDINGS: Lungs: Clear lungs. Pleural spaces: No sizable pleural effusion. No pneumothorax. Heart/Mediastinum: Cardiomediastinal silhouette is within normal limits. Bones/joints: No acute displaced fracture or dislocation. Other findings: surgical changes project over the chest. IMPRESSION: No acute cardiopulmonary findings. Dictated and Authenticated by: Dada Encarnacion MD. Ordering:MUNIRA Bell MD
[2021-05-25 17:58] LABS: COVID-19 PCR Negative (Negative); Influenza A PCR Negative (Negative); Influenza B PCR Negative (Negative); RSV PCR Negative (Negative)
[2021-05-25 18:08] LABS: Bilirubin Negative (Negative); Blood Negative (Negative); Clarity Clear (Clear); Glucose 100 mg/dL (Negative); Ketones Negative (Negative); Leukocyte Esterase Trace (Negative); Nitrite Negative (Negative); Specific Gravity 1.015 (1.005-1.025); Urobilinogen 0.2 EU/dL (Up TO 0.2)
[2021-05-25 18:21] LABS: Bacteria Few HPF (Negative); C & S Indicated? Yes; Casts Negative LPF (Negative); Crystals Negative HPF (Negative); Epithelial Cells Negative HPF (Negative); Mucus Negative (Negative); RBC Negative HPF (0-2); WBC 20-50 HPF (0-5)
--- NOTE | 2021-05-25 18:31 | HPE_ITS ---
Date of service: 05/25/21 Time of Service: 18:32 Assessment and Plan Assessment and plan (1) Cardiomyopathy: Status: Acute Assessment and plan: Ischemic cardiomyopathy, manifesting primarily with low output state; despite elevated BNP he is not manifesting signs of overload. The symptomatic orthostasis is very likely a result of the new medical regimen of afterload reduction (beta ric and Amio may be contributing as well), and reduced renal function likewise a manifestation of low output state, and perhaps an element of possible overdiuresis. His will be a delicate balance of trying to optimize optimize output while minimizing orthostasis, with risk of volume overload as well. For now I would limit active rehydration, hold both nitrates and hydralazine and then reintroduce as BP hopefully allows. The elevated troponin is noted. I think the likliehood is that we are seeing the tail of the prior massive elvation and not a new ischemic event, though will trend out. The hyponatremia is likely of the effective hypovolemic variety, will trend with limited hydration with NS, and it is further noted that report is of substantial free water consumption, though I do not see this as an instance of psychogenic polydipsia -- just that the free water consumption may be aggravating the situ ation. AF: continue Amio DM : continue Glipizide as is, consider coverage with SS Reviewed ADs, remains DNR History of Present Illness History of Present Illness Chief Complaint: weakness, dizziness Narrative: 76 male with h/o CAD, CHF, AF, CRF -- here 05/10 with NSTEMI, with peak trop >36828, and pulmonary edema. Transferred to [facility]. Cath EF 20-25%, LAD with subtotal occlusion with collaterals, no target lesion and no PCI performed. Patient aggressively diuresed. Course complicated by NSVT and started on Amio qtt, to PO. Had persistent difficulties with renal function, HD discussed by but rejected, and program of after load reduction instituted, consisting of Isordil and Hydralazine in place of EMMA or ARB. Beta ric also initiated. Home 3 days [employer]. Since has felt weak and lightheaded with sitting up, home healkt reports BP of 60 sitting and sent to ER for eval. Here in ER w/u of note for orthostasis (sys BP 132, to 90 sitting), white count 13; Na 123, BUN 64, Creat 2.7; BNP 96152, trop 1510; CXR clear, EKG with AF with old STTW changes c/w prior NSTEMI. Patient started on saline infusion. I was asked to evalkuate for admission. Patient denies CP, SOB or orthopnea. States he just feels washed out. Review of Systems All systems reviewed & are unremarkable except as noted in HPI and below PFSH All Active Problems Cardiomyopathy (Acute) Acute kidney injury (Acute) Elevated troponin (Acute) Paroxysmal A-fib (Acute) Hypomagnesemia (Acute) Acute respiratory failure with hypoxia (Acute) Ischemic cardiomyopathy (Acute) Acute on chronic congestive heart failure (Acute) Acute non-ST elevation myocardial infarction (NSTEMI) (Acute ~05/10/21) involving left anterior Left anterior descending coronary artery Rupture of left proximal biceps tendon (Acute ~12/2020) Left rotator cuff tear arthropathy (Acute) CKD (chronic kidney disease) (Chronic) Back pain (Acute) Restlessness (Acute) Daytime somnolence (Acute) Snoring (Acute) Lung nodule (Acute) Cognitive decline (Acute) Carcinoma in situ of bladder (Acute) Chronic back pain (Chronic) Bladder cancer (Acute) S/P bladder tumor excision with fulguration (Acute) Abnormal auditory perception (Acute 08/24/14) Anticoagulation management encounter (Acute 01/03/16) Cervicalgia (Acute 08/04/12) DNR no code (do not resuscitate) (Acute 05/13/16) Diabetes mellitus type 2, controlled (Acute 08/04/12) Dysfunction of eustachian tube (Acute 08/24/14) Functional diarrhea (Acute 08/04/12) Hypomagnesemia (Acute 04/10/16) Lumbosacral radiculopathy at L5 (Acute 03/15/14) Mixed hearing loss, unilateral (Acute 08/24/14) Shortness of breath (Acute 12/11/15) Sprain of rotator cuff capsule (Acute 08/04/12) Tinea cruris (Acute 12/28/12) Wheezing (Acute 11/13/15) Frequency of micturition (Acute) Pneumonia (Acute) Edema of both legs (Acute) Diarrhea (Chronic) DVT prophylaxis (Acute) Gross hematuria (Acute) Benign prostatic hyperplasia with urinary frequency (Acute) H/O urinary frequency (Acute) COPD (chronic obstructive pulmonary disease) (Chronic) CVA (cerebral vascular accident) (Acute 01/03/16) 12/2015 post op [facility] R hemiparesis Unspecified essential hypertension (Acute 08/04/12) goal 150/90 Systolic CHF, chronic (Chronic 04/15/16) 04/15/16 Echo: EF 35%; MVR bioprosthesis intact Sensorineural hearing loss (Acute 08/24/14) using an ITE aid. unknown model. Obesity, unspecified (Acute 07/03/11) Mitral valve insufficiency (Acute 12/19/15) MVR: bovine bioprosthesis and CABGx2 [facility] 12/20/15 Memory impairment (Acute 12/11/15) 12/2015 MMSE 23 B12/lab nl; MRI 12/2015 old silvia lacunar CVAs Lumbago with sciatica, unspecified side (Acute 08/04/12) 08/2005 small disc herniations L5-S1, no spinal or neuroforaminal stenosis. back surgery 10/2000 Disectomy [facility] 08/2006; L5 radiculopathy Hyperlipidemia (Acute 07/03/11) PCEq 55.3%; intolerant statins History of tobacco use (Acute 07/03/11) pt. states he hasn't smoked in 35 years Gastroesophageal reflux disease (Acute 08/04/12) failed omeprazole, failed dexilant 06/01/2013 Diabetes mellitus with stage 3 chronic kidney disease (Acute 03/02/14) A1C goal 8 Diabetes mellitus with diabetic neuropathy (Acute 04/13/14) Coronary artery disease involving coronary bypass graft of [place] heart (Acute 01/02/16) MVR & 2v CABG, marginal and PDA, EF 45% [facility] 12/20/15 Chronic kidney disease, stage III (moderate) (Chronic 01/26/13) 12/2008 CT abd/pelvis neg Carpal tunnel syndrome (Acute 08/04/12) Benign neoplasm of colon (Acute 08/04/12) pt. states she is unaware of this Valve Replacement (Chronic 12/20/15) [facility] Dr Baumann Mitral valve Coronary Artery Bypass Gaft (CABG) (Chronic 12/20/15) [facility] DR MENDOZA Surgical History Appendectomy Colonoscopy - MAC (01/11/15) Dr Morgan Grade 2 hemorrhoids History of arthroplasty of right shoulder (~09/2015) History of back surgery (10/21/00) [facility] Dr. Win S/P partial gastrectomy Status post carpal tunnel release of both wrists Family History Brother Alcoholism Heart disease Grandfather Heart disease Father Personal history of malignant neoplasm THROAT CA Social History Smoking/Tobacco Use Status: Former Tobacco Use Quit Date: 05/03/94 Pack-years: 105 Smoking risk assessment performed?: Yes Alcohol Intake: current Alcohol Intake frequency: holidays/special occasions only Alcohol type: beer Drug use: Never Substance use type: does not use Household members: spouse Housing: house Number of Children: 4 Current gender identity: male What is your relationship status?: Panel score (0-1 are the most socially isolated patients): 1 Working smoke detector in home: Yes Do you feel safe at home: Yes Do you feel safe in your relationship?: Yes Additional Social history: unable to assess [facility] Meds Allergies and Home Medications Allergies Allergy/AdvReac Type Severity Reaction Status Date / Time codeine AdvReac Intermediate DYSPHORIA Verified 05/25/21 16:33 niacin AdvReac Intermediate MYALGIAS Verified 05/25/21 16:33 simvastatin AdvReac Intermediate myalgias Verified 05/25/21 16:33 Home Medications Medication Instructions Recorded Confirmed Type acetaminophen [Tylenol Extra 1,000 mg PO Q6H PRN PRN 06/01/13 05/25/21 History Strength] fluticasone propionate 50 1 spray IGOR BID PRN gm 03/10/18 05/09/21 History mcg/actuation nasal spray,suspension blood-glucose meter #1 each 07/11/18 04/01/21 Rx budesonide-formoterol [Symbicort] 2 puff INHALATION BID PRN 01/02/20 05/25/21 History blood sugar diagnostic #100 each 04/24/20 04/01/21 Rx lancets 33 gauge #100 each 04/24/20 04/01/21 Rx albuterol sulfate 90 mcg/actuation 1 puff IH Q4H PRN #8.5 gm 04/25/20 05/25/21 Rx aerosol inhaler ketoconazole 2 % topical cream 1 applic TP DAILY PRN #30 g 04/29/20 05/25/21 Rx inmtcdizirtr-ufvdbglj-hscaqk tablet 0.5 tab PO DAILY tab 07/15/20 05/25/21 History glipizide 10 mg tablet 10 mg PO BID tab 09/02/20 05/25/21 History duloxetine 60 mg capsule,delayed 60 mg PO DAILY #90 cap 11/13/20 05/25/21 Rx release nystatin 100,000 unit/gram topical 1 applic TP TID PRN #60 g 12/18/20 05/09/21 Rx powder allopurinol 300 mg tablet 150 mg PO DAILY #90 tab-cap 03/31/21 05/25/21 Rx omeprazole 40 mg capsule,delayed 40 mg PO DAILY #90 cap 03/31/21 05/25/21 Rx release magnesium oxide 400 mg (241.3 mg 400 mg PO DAILY #90 tab 04/01/21 05/25/21 Rx magnesium) tablet silodosin 8 mg capsule 8 mg PO DAILY PRN cap 04/01/21 05/25/21 History amiodarone 200 mg tablet 200 mg PO DAILY 05/22/21 05/25/21 History apixaban 5 mg tablet 5 mg PO BID 05/22/21 05/25/21 History atorvastatin 40 mg tablet 40 mg PO DAILY 05/22/21 05/25/21 History calcium carbonate 200 mg calcium 200 mg PO TID 05/22/21 05/25/21 History (500 mg) chewable tablet clopidogrel 75 mg tablet 75 mg PO DAILY 05/22/21 05/25/21 History hydralazine 10 mg tablet 20 mg PO TID tab 05/22/21 05/25/21 History isosorbide dinitrate 10 mg tablet 10 mg PO TID 05/22/21 05/25/21 History metoprolol succinate 25 mg 25 mg PO DAILY 05/22/21 05/25/21 History tablet,extended release 24 hr Exam Narrative Exam Narrative: 136/75, 96 (orthostatics not repeated at this time), 36.3, 16, 90-98% RAQ (98 during visit). HEENT atraumatic; neck supple; cannot read JVP; heart irr/irr; lungs few [id number] wheeze; abdomen soft and NT; extremities w/o edema; neuro Ox3, lucid, moves all 4s Results Labs Result diagrams: 05/25/21 16:32 05/25/21 16:32 Labs: Laboratory Results - last 24 hr 05/25/21 05/25/21 05/25/21 16:32 16:32 16:57 WBC 13.41 H RBC 4.65 Hgb 13.1 L Hct 39.9 L MCV 85.8 MCH 28.2 MCHC 32.8 RDW 13.4 Plt Count 371 D MPV 10.9 Immature Gran % 0.5 Neutrophils % 86.5 Lymphocytes % 6.0 Monocytes % 6.1 Eosinophils % 0.6 Basophils % 0.3 Nucleated RBC % 0 Absolute Neutrophils 11.60 H Absolute Lymphocytes 0.80 L Absolute Monocytes 0.82 H Absolute Eosinophils 0.08 Absolute Basophils 0.04 Sodium 123 L* Potassium 4.5 Chloride 86 L Carbon Dioxide 28.3 Anion Gap 8.7 BUN 64 H Creatinine 2.7 H Estimated GFR/1.73 m2 22.97 Glucose 296 H Calcium 9.6 Magnesium 2.3 Total Bilirubin 0.6 AST 24 ALT 44 Alkaline Phosphatase 96 Troponin I 1510 H* NT-Pro-B Natriuret Pep 60047 H Total Protein 8.2 Albumin 3.6 Urine Color Urine Clarity Urine pH Ur Specific [place] Urine Protein Urine Ketones Urine Blood Urine Nitrite Urine Bilirubin Urine Urobilinogen Ur Leukocyte Esterase Urine RBC Urine WBC Ur Epithelial Cells Urine Crystals Urine Bacteria Urine Casts Urine Mucus Ur Culture Indicated? Urine Glucose COVID-19 Source Nasopharynx SARS-CoV-2 (PCR) Negative Influenza Type A (PCR) Negative Influenza Type B (PCR) Negative RSV (PCR) Negative 05/25/21 18:02 WBC RBC Hgb Hct MCV MCH MCHC RDW Plt Count MPV Immature Gran % Neutrophils % Lymphocytes % Monocytes % Eosinophils % Basophils % Nucleated RBC % Absolute Neutrophils Absolute Lymphocytes Absolute Monocytes Absolute Eosinophils Absolute Basophils Sodium Potassium Chloride Carbon Dioxide Anion Gap BUN Creatinine Estimated GFR/1.73 m2 Glucose Calcium Magnesium Total Bilirubin AST ALT Alkaline Phosphatase Troponin I NT-Pro-B Natriuret Pep Total Protein Albumin Urine Color Yellow Urine Clarity Clear Urine pH 6.0 Ur Specific [place] 1.015 Urine Protein 30 H Urine Ketones Negative Urine Blood Negative Urine Nitrite Negative Urine Bilirubin Negative Urine Urobilinogen 0.2 Ur Leukocyte Esterase Trace H Urine RBC Negative Urine WBC 20-50 H Ur Epithelial Cells Negative Urine Crystals Negative Urine Bacteria Few Urine Casts Negative Urine Mucus Negative Ur Culture Indicated? Yes Urine Glucose 100 COVID-19 Source SARS-CoV-2 (PCR) Influenza Type A (PCR) Influenza Type B (PCR) RSV (PCR) Last Vital Signs Temp 36.3 C L 05/25/21 16:21 Pulse 96 H 05/25/21 17:16 Resp 16 05/25/21 17:20 BP 136/75 05/25/21 17:16 Pulse Ox 90 L 05/25/21 17:20
[2021-05-25 19:55] LABS: Troponin I 1310 ng/L (<or=60)
[2021-05-25] MEDS: glipiZIDE 10 MG TAB PO (23:38)
[2021-05-25] MEDS: Apixaban 5 MG TAB PO (23:38)
[2021-05-25] MEDS: Atorvastatin 40 MG TAB PO (23:38)
[2021-05-25] MEDS: Calcium Carbonate *TUMS* 500 MG CHEW PO (23:38)
[2021-05-26] VITALS (7 sets, daily range): BP systolic 102–136; BP diastolic 65–78; PULSE 72–94; RESP 18; TEMP 36.5–36.9; O2SAT 94–97
[2021-05-26 05:44] LABS: BUN 57 mg/dL (7-18); CREATININE 2.3 mg/dL (0.70-1.30); Calcium 8.9 mg/dL (8.5-10.1); Chloride 91 mmol/L (98-107); Estimated GFR 27.64 (mL/min/1.73m2); Glucose 131 mg/dL (74-106); Potassium 3.5 mmol/L (3.5-5.1); Sodium 128 mmol/L (136-145)
[2021-05-26 05:53] LABS: Troponin I 1485 ng/L (<or=60)
[2021-05-26 07:58] LABS: Lab Add On Test DONE
[2021-05-26 08:08] LABS: Abs Immature Grans 0.08 10^3/uL (0.0-0.06); Absolute Basophil Count 0.05 10^3/uL (0.0-0.2); Basophils % 0.4; Eosinophils % 2.4; HCT 36.9 % (40.0-50.0); HGB 12.1 g/dL (13.5-17.5); Immature Grans % 0.6; Lymphocytes % 12.2; MCH 28.3 pg (27.0-33.0); MCHC 32.8 % (32.0-36.0); MCV 86.4 fL (80-95); MPV 11.2 fL (8.0-11.0); Monocytes % 8.5; Neutrophils % 75.9; Nucleated RBC 0 %; Platelet Count 343 10^3/uL (130-400); RBC 4.27 10^6/uL (4.36-5.78); RDW 13.6 % (11.8-14.1); RDW-SD 42.5 fL; WBC 13.13 10^3/uL (4.4-10.8)
[2021-05-26 08:10] LABS: Absolute Eosinophil Count 0.32 10^3/uL (0.0-0.7); Absolute Monocyte Count 1.12 10^3/uL (0.1-0.8); Absolute Neutrophil Count 9.97 10^3/uL (1.2-6.7)
[2021-05-26 08:33] LABS: Procalcitonin 0.1 ng/mL
[2021-05-26] MEDS: DULoxetine 30 MG CAP 60 MG PO (08:34)
[2021-05-26] MEDS: Potassium Chloride 20 MEQ TABCR 40 MEQ PO (08:34)
[2021-05-26] MEDS: Omeprazole 20 MG CAPCR 40 MG PO (08:34)
[2021-05-26] MEDS: glipiZIDE 10 MG TAB PO (08:34)
[2021-05-26] MEDS: Calcium Carbonate *TUMS* 500 MG CHEW PO ×3 (08:35→21:11)
[2021-05-26] MEDS: Clopidogrel 75 MG TAB PO (08:35)
[2021-05-26] MEDS: Magnesium Oxide 400 MG TAB PO (08:35)
[2021-05-26] MEDS: Metoprolol CR 25 MG TABCR PO (08:35)
[2021-05-26] MEDS: Allopurinol 300 MG TAB 150 MG PO (08:35)
[2021-05-26] MEDS: Apixaban 5 MG TAB PO ×2 (08:35→21:11)
[2021-05-26] MEDS: Insulin Aspart 300 UNITS/3 ML PEN SC ×4 (08:35→21:12)
[2021-05-26] MEDS: Amiodarone 200 MG TAB PO (08:35)
--- NOTE | 2021-05-26 08:38 | W.CARDCONSUL ---
Date of service: 05/26/21 Time of Service: 08:38 Assessment and Plan Assessment and plan (1) Cardiomyopathy: Status: Acute (2) Acute kidney injury: Status: Acute (3) Paroxysmal A-fib: Status: Acute (4) Mitral valve insufficiency: Status: Acute Assessment and plan: The patient presented with elevation of his BUN and creatinine consistent with intravascular volume depletion. He had orthostatic hypotension in the emergency room he has been hydrated overnight. He is no longer experiencing any dizziness and I suspect that his orthostatic vital signs will gradually improve. BUN and creatinine are trending downward. His baseline creatinine is 1.8 to 2. As his volume status stabilizes, I would think he could be gradually restarted on his medications. I would start with metoprolol first, then the hydralazine and Isordil. Please do not hesitate to contact me if specific questions regarding the patient's management persist History of Present Illness History of Present Illness Chief Complaint: Dizziness Narrative: This 76-year-old man presented to the hospital because of weakness and dizziness. He has a longstanding cardiac history and was recently hospitalized at the [facility] after presenting with a non-ST elevation IL infarction complicated by congestive heart failure, as well as atrial fibrillation and ventricular tachycardia. He was hospitalized at [facility] from May 10-. In the hospital he was aggressively diuresed and his medications were adjusted. Amiodarone, Eliquis, Plavix hydralazine and isosorbide dinitrate were added to his regimen, as was low-dose metoprolol succinate. Senna on any diuretics. Diagnostics included a echocardiogram showing severe left ventricular dysfunction, hypokinesis of the apex anteroseptal and anterolateral griffin. He had cardiac catheterization performed which showed a subtotal LAD occlusion filling by collaterals. There was a patent vein graft to the PDA and the OM. There were no lesions for intervention and he was treated medically. It was noted that his baseline creatinine was 1.8. With diuretic his creatinine paul. He declined to consider dialysis. He was home for about 2 days. He was quite dizzy when getting up and several near syncopal episodes were reported. He came here to the hospital. It appears he has been gradually hydrated overnight and he reports that he feels much better and is no longer dizzy. He was seen and examined sitting in the chair. He has eaten all his breakfast. Consults Consult date: 05/26/21 Requesting physician: Cindi Patel Review of Systems ENT Ears, Nose, Mouth, and Throat: Reports system reviewed and no additional complaints, except as documented, Reports as per HPI and Reports abnormal hearing Cardiovascular Cardiovascular: Reports as per HPI, Denies chest pain, Denies rapid heart rate, Denies leg edema, Reports lightheadedness, Denies dyspnea, Denies dyspnea on exertion, Denies orthopnea, Denies paroxysmal nocturnal dyspnea and Denies slow heart rate Respiratory Respiratory: Denies dyspnea and Denies dyspnea on exertion Neurologic Neurologic: Reports abnormal hearing [facility] All Active Problems Cardiomyopathy (Acute) Acute kidney injury (Acute) Elevated troponin (Acute) Paroxysmal A-fib (Acute) Hypomagnesemia (Acute) Acute respiratory failure with hypoxia (Acute) Ischemic cardiomyopathy (Acute) Acute on chronic congestive heart failure (Acute) Acute non-ST elevation myocardial infarction (NSTEMI) (Acute ~05/10/21) involving left anterior Left anterior descending coronary artery Rupture of left proximal biceps tendon (Acute ~12/2020) Left rotator cuff tear arthropathy (Acute) CKD (chronic kidney disease) (Chronic) Back pain (Acute) Restlessness (Acute) Daytime somnolence (Acute) Snoring (Acute) Lung nodule (Acute) Cognitive decline (Acute) Carcinoma in situ of bladder (Acute) Chronic back pain (Chronic) Bladder cancer (Acute) S/P bladder tumor excision with fulguration (Acute) Abnormal auditory perception (Acute 08/24/14) Anticoagulation management encounter (Acute 01/03/16) Cervicalgia (Acute 08/04/12) DNR no code (do not resuscitate) (Acute 05/13/16) Diabetes mellitus type 2, controlled (Acute 08/04/12) Dysfunction of eustachian tube (Acute 08/24/14) Functional diarrhea (Acute 08/04/12) Hypomagnesemia (Acute 04/10/16) Lumbosacral radiculopathy at L5 (Acute 03/15/14) Mixed hearing loss, unilateral (Acute 08/24/14) Shortness of breath (Acute 12/11/15) Sprain of rotator cuff capsule (Acute 08/04/12) Tinea cruris (Acute 12/28/12) Wheezing (Acute 11/13/15) Frequency of micturition (Acute) Pneumonia (Acute) Edema of both legs (Acute) Diarrhea (Chronic) DVT prophylaxis (Acute) Gross hematuria (Acute) Benign prostatic hyperplasia with urinary frequency (Acute) H/O urinary frequency (Acute) COPD (chronic obstructive pulmonary disease) (Chronic) CVA (cerebral vascular accident) (Acute 01/03/16) 12/2015 post op [facility] [place] R hemiparesis Unspecified essential hypertension (Acute 08/04/12) goal 150/90 Systolic CHF, chronic (Chronic 04/15/16) 04/15/16 Echo: EF 35%; MVR bioprosthesis intact Sensorineural hearing loss (Acute 08/24/14) using an ITE aid. unknown model. Obesity, unspecified (Acute 07/03/11) Mitral valve insufficiency (Acute 12/19/15) MVR: bovine bioprosthesis and CABGx2 [facility] [place] 12/20/15 Memory impairment (Acute 12/11/15) 12/2015 MMSE 23 B12/lab nl; MRI 12/2015 old silvia lacunar CVAs Lumbago with sciatica, unspecified side (Acute 08/04/12) 08/2005 small disc herniations L5-S1, no spinal or neuroforaminal stenosis. back surgery 10/2000 Disectomy [facility] [place] 08/2006; L5 radiculopathy Hyperlipidemia (Acute 07/03/11) PCEq 55.3%; intolerant statins History of tobacco use (Acute 07/03/11) pt. states he hasn't smoked in 35 years Gastroesophageal reflux disease (Acute 08/04/12) failed omeprazole, failed dexilant 06/01/2013 Diabetes mellitus with stage 3 chronic kidney disease (Acute 03/02/14) A1C goal 8 Diabetes mellitus with diabetic neuropathy (Acute 04/13/14) Coronary artery disease involving coronary bypass graft of [place] heart (Acute 01/02/16) MVR & 2v CABG, marginal and PDA, EF 45% [facility] [place] 12/20/15 Chronic kidney disease, stage III (moderate) (Chronic 01/26/13) 12/2008 CT abd/pelvis neg Carpal tunnel syndrome (Acute 08/04/12) Benign neoplasm of colon (Acute 08/04/12) pt. states she is unaware of this Valve Replacement (Chronic 12/20/15) [facility] [place] Dr Baumann Mitral valve Coronary Artery Bypass Gaft (CABG) (Chronic 12/20/15) [facility] [place] DR MENDOZA Surgical History Appendectomy Colonoscopy - MAC (01/11/15) Dr Morgan Grade 2 hemorrhoids History of arthroplasty of right shoulder (~09/2015) History of back surgery (10/21/00) [facility] [place] Dr. Win S/P partial gastrectomy Status post carpal tunnel release of both wrists Family History Brother Alcoholism Heart disease Grandfather Heart disease Father Personal history of malignant neoplasm THROAT CA Social History Smoking/Tobacco Use Status: Former Tobacco Use Quit Date: 05/03/94 Pack-years: 105 Smoking risk assessment performed?: Yes Alcohol Intake: current Alcohol Intake frequency: holidays/special occasions only Alcohol type: beer Drug use: Never Substance use type: does not use Household members: spouse Housing: house Number of Children: 4 Current gender identity: male What is your relationship status?: Panel score (0-1 are the most socially isolated patients): 1 Working smoke detector in home: Yes Do you feel safe at home: Yes Do you feel safe in your relationship?: Yes Additional Social history: unable to assess privatley Exam Const Other: Elderly, very hard of hearing no acute distress Eyes EOM: EOM intact bilaterally Neck Other: Neck veins are flat no carotid bruits Resp Effort & Inspection: normal respiratory effort Auscultation: clear to auscultation bilaterally Cardio Jugular venous pressure: no JVD Heart Sounds: S1 normal and S2 normal Other: Irregularly irregular rate controlled no murmur or gallop Extrem Other: No significant edema Results Last Vital Signs Temp 36.9 C 05/26/21 08:14 Pulse 89 05/26/21 08:14 Resp 18 05/26/21 08:14 BP 136/78 05/26/21 08:14 Pulse Ox 96 05/26/21 08:14 Labs Result diagrams: 05/26/21 05:29 05/26/21 05:29 Labs: Laboratory Results - last 24 hr 05/25/21 05/25/2122 16:32 16:32 16:57 WBC 13.41 H RBC 4.65 Hgb 13.1 L Hct 39.9 L MCV 85.8 MCH 28.2 MCHC 32.8 RDW 13.4 Plt Count 371 D MPV 10.9 Immature Gran % 0.5 Neutrophils % 86.5 Lymphocytes % 6.0 Monocytes % 6.1 Eosinophils % 0.6 Basophils % 0.3 Nucleated RBC % 0 Absolute Neutrophils 11.60 H Absolute Lymphocytes 0.80 L Absolute Monocytes 0.82 H Absolute Eosinophils 0.08 Absolute Basophils 0.04 Sodium 123 L* Potassium 4.5 Chloride 86 L Carbon Dioxide 28.3 Anion Gap 8.7 BUN 64 H Creatinine 2.7 H Estimated GFR/1.73 m2 22.97 Glucose 296 H Calcium 9.6 Magnesium 2.3 Total Bilirubin 0.6 AST 24 ALT 44 Alkaline Phosphatase 96 Troponin I 1510 H* NT-Pro-B Natriuret Pep 99389 H Total Protein 8.2 Albumin 3.6 Procalcitonin Urine Color Urine Clarity Urine pH Ur Specific [place] Urine Protein Urine Ketones Urine Blood Urine Nitrite Urine Bilirubin Urine Urobilinogen Ur Leukocyte Esterase Urine RBC Urine WBC Ur Epithelial Cells Urine Crystals Urine Bacteria Urine Casts Urine Mucus Ur Culture Indicated? Urine Glucose COVID-19 Source Nasopharynx SARS-CoV-2 (PCR) Negative Influenza Type A (PCR) Negative Influenza Type B (PCR) Negative RSV (PCR) Negative Add-On Test Request 05/25/21 05/25/21 05/26/21 18:02 19:26 05:29 WBC RBC Hgb Hct MCV MCH MCHC RDW Plt Count MPV Immature Gran % Neutrophils % Lymphocytes % Monocytes % Eosinophils % Basophils % Nucleated RBC % Absolute Neutrophils Absolute Lymphocytes Absolute Monocytes Absolute Eosinophils Absolute Basophils Sodium Potassium Chloride Carbon Dioxide Anion Gap BUN Creatinine Estimated GFR/1.73 m2 Glucose Calcium Magnesium Total Bilirubin AST ALT Alkaline Phosphatase Troponin I 1310 H* 1485 H* NT-Pro-B Natriuret Pep Total Protein Albumin Procalcitonin Urine Color Yellow Urine Clarity Clear Urine pH 6.0 Ur Specific [place] 1.015 Urine Protein 30 H Urine Ketones Negative Urine Blood Negative Urine Nitrite Negative Urine Bilirubin Negative Urine Urobilinogen 0.2 Ur Leukocyte Esterase Trace H Urine RBC Negative Urine WBC 20-50 H Ur Epithelial Cells Negative Urine Crystals Negative Urine Bacteria Few Urine Casts Negative Urine Mucus Negative Ur Culture Indicated? Yes Urine Glucose 100 COVID-19 Source SARS-CoV-2 (PCR) Influenza Type A (PCR) Influenza Type B (PCR) RSV (PCR) Add-On Test Request 05/26/21 05/26/21 05/26/21 05:29 05:29 05:29 WBC 13.13 H RBC 4.27 L Hgb 12.1 L Hct 36.9 L MCV 86.4 MCH 28.3 MCHC 32.8 RDW 13.6 Plt Count 343 MPV 11.2 H Immature Gran % 0.6 Neutrophils % 75.9 Lymphocytes % 12.2 Monocytes % 8.5 Eosinophils % 2.4 Basophils % 0.4 Nucleated RBC % 0 Absolute Neutrophils 9.97 H Absolute Lymphocytes 1.60 Absolute Monocytes 1.12 H Absolute Eosinophils 0.32 Absolute Basophils 0.05 Sodium 128 L Potassium 3.5 D Chloride 91 L Carbon Dioxide 30.0 Anion Gap 7.0 BUN 57 H Creatinine 2.3 H Estimated GFR/1.73 m2 27.64 Glucose 131 H D Calcium 8.9 Magnesium Total Bilirubin AST ALT Alkaline Phosphatase Troponin I NT-Pro-B Natriuret Pep Total Protein Albumin Procalcitonin Urine Color Urine Clarity Urine pH Ur Specific [place] Urine Protein Urine Ketones Urine Blood Urine Nitrite Urine Bilirubin Urine Urobilinogen Ur Leukocyte Esterase Urine RBC Urine WBC Ur Epithelial Cells Urine Crystals Urine Bacteria Urine Casts Urine Mucus Ur Culture Indicated? Urine Glucose COVID-19 Source SARS-CoV-2 (PCR) Influenza Type A (PCR) Influenza Type B (PCR) RSV (PCR) Add-On Test Request DONE 05/26/21 05:29 WBC RBC Hgb Hct MCV MCH MCHC RDW Plt Count MPV Immature Gran % Neutrophils % Lymphocytes % Monocytes % Eosinophils % Basophils % Nucleated RBC % Absolute Neutrophils Absolute Lymphocytes Absolute Monocytes Absolute Eosinophils Absolute Basophils Sodium Potassium Chloride Carbon Dioxide Anion Gap BUN Creatinine Estimated GFR/1.73 m2 Glucose Calcium Magnesium Total Bilirubin AST ALT Alkaline Phosphatase Troponin I NT-Pro-B Natriuret Pep Total Protein Albumin Procalcitonin 0.1 Urine Color Urine Clarity Urine pH Ur Specific [place] Urine Protein Urine Ketones Urine Blood Urine Nitrite Urine Bilirubin Urine Urobilinogen Ur Leukocyte Esterase Urine RBC Urine WBC Ur Epithelial Cells Urine Crystals Urine Bacteria Urine Casts Urine Mucus Ur Culture Indicated? Urine Glucose COVID-19 Source SARS-CoV-2 (PCR) Influenza Type A (PCR) Influenza Type B (PCR) RSV (PCR) Add-On Test Request
--- NOTE | 2021-05-26 09:00 | RT.EKG_ITS ---
APPROVED REPORT Exam: Resting ECG Reason for Exam: elevated troponin Patient Location: I HR:89 bpm ECG Measurements Heart Rate 89 AXIS WV 186 P -22 QRSd 111 QRS 47 QT 417 T 197 QTc 507 Conclusion Sinus rhythm...normal P axis, V-rate 60- 99 Atrial premature complex...SV complex w/ short R-R interval Incomplete left bundle branch block...QRSd>110mS, terminal axis(-90,-1) LVH with secondary repolarization abnormality...multi-LVH criteria, abnrm ST-T Prolonged QT interval...QTc >500mS
[2021-05-26] MEDS: Acetaminophen 325 MG TAB 650 MG PO (09:44)
--- NOTE | 2021-05-26 10:36 | IN_ITS ---
Date of service: 05/26/21 Time of Service: 10:36 PT Notes Visit Reasons: Cardiomyopathy,Orthostasis Physical Therapy Inpatient Initial Evaluation Date: 05/26/2021 Referring Doctor: Jocelin Schofield NP PT Orders: PT CONSULT: Eval/treat Precautions: Fall. Standard. Activity as tolerated. Patient Profile/Admitting Diagnosis: Jeronimo is a 76-year-old male who presented to the ED on 05/25/2021 due to reports of weakness, lightheadedness with standing up, low blood pressure, and 3 separate brief syncopal events (per ). Patient is diagnosed with cardiomyopathy, acute kidney injury, paroxysmal atrial fibrillation, and mitral valve insufficiency. PMHX: All Active Problems Cardiomyopathy (Acute) Acute kidney injury (Acute) Elevated troponin (Acute) Paroxysmal A-fib (Acute) Hypomagnesemia (Acute) Acute respiratory failure with hypoxia (Acute) Ischemic cardiomyopathy (Acute) Acute on chronic congestive heart failure (Acute) Acute non-ST elevation myocardial infarction (NSTEMI) (Acute ~05/10/21) involving left anterior Left anterior descending coronary artery Rupture of left proximal biceps tendon (Acute ~12/2020) Left rotator cuff tear arthropathy (Acute) CKD (chronic kidney disease) (Chronic) Back pain (Acute) Restlessness (Acute) Daytime somnolence (Acute) Snoring (Acute) Lung nodule (Acute) Cognitive decline (Acute) Carcinoma in situ of bladder (Acute) Chronic back pain (Chronic) Bladder cancer (Acute) S/P bladder tumor excision with fulguration (Acute) Abnormal auditory perception (Acute 08/24/14) Anticoagulation management encounter (Acute 01/03/16) Cervicalgia (Acute 08/04/12) DNR no code (do not resuscitate) (Acute 05/13/16) Diabetes mellitus type 2, controlled (Acute 08/04/12) Dysfunction of eustachian tube (Acute 08/24/14) Functional diarrhea (Acute 08/04/12) Hypomagnesemia (Acute 04/10/16) Lumbosacral radiculopathy at L5 (Acute 03/15/14) Mixed hearing loss, unilateral (Acute 08/24/14) Shortness of breath (Acute 12/11/15) Sprain of rotator cuff capsule (Acute 08/04/12) Tinea cruris (Acute 12/28/12) Wheezing (Acute 11/13/15) Frequency of micturition (Acute) Pneumonia (Acute) Edema of both legs (Acute) Diarrhea (Chronic) DVT prophylaxis (Acute) Gross hematuria (Acute) Benign prostatic hyperplasia with urinary frequency (Acute) H/O urinary frequency (Acute) COPD (chronic obstructive pulmonary disease) (Chronic) CVA (cerebral vascular accident) (Acute 01/03/16) 12/2015 post op [facility] [place] R hemiparesis Unspecified essential hypertension (Acute 08/04/12) goal 150/90 Systolic CHF, chronic (Chronic 04/15/16) 04/15/16 Echo: EF 35%; MVR bioprosthesis intact Sensorineural hearing loss (Acute 08/24/14) using an ITE aid. unknown model. Obesity, unspecified (Acute 07/03/11) Mitral valve insufficiency (Acute 12/19/15) MVR: bovine bioprosthesis and CABGx2 [facility] 12/20/15 Memory impairment (Acute 12/11/15) 12/2015 MMSE 23 B12/lab nl; MRI 12/2015 old silvia lacunar CVAs Lumbago with sciatica, unspecified side (Acute 08/04/12) 08/2005 small disc herniations L5-S1, no spinal or neuroforaminal stenosis. back surgery 10/2000 Disectomy [facility] 08/2006; L5 radiculopathy Hyperlipidemia (Acute 07/03/11) PCEq 55.3%; intolerant statins History of tobacco use (Acute 07/03/11) pt. states he hasn't smoked in 35 years Gastroesophageal reflux disease (Acute 08/04/12) failed omeprazole, failed dexilant 06/01/2013 Diabetes mellitus with stage 3 chronic kidney disease (Acute 03/02/14) A1C goal 8 Diabetes mellitus with diabetic neuropathy (Acute 04/13/14) Coronary artery disease involving coronary bypass graft of [place] heart (Acute 01/02/16) MVR & 2v CABG, marginal and PDA, EF 45% [facility] 12/20/15 Chronic kidney disease, stage III (moderate) (Chronic 01/26/13) 12/2008 CT abd/pelvis neg Carpal tunnel syndrome (Acute 08/04/12) Benign neoplasm of colon (Acute 08/04/12) pt. states she is unaware of this Valve Replacement (Chronic 12/20/15) [facility] [place] Dr Baumann Mitral valve Coronary Artery Bypass Gaft (CABG) (Chronic 12/20/15) [facility] [place] DR MENDOZA Surgical History Appendectomy Colonoscopy - MAC (01/11/15) Dr Morgan Grade 2 hemorrhoids History of arthroplasty of right shoulder (~09/2015) History of back surgery (10/21/00) [facility] [place] Dr. Win S/P partial gastrectomy Status post carpal tunnel release of both wrists Social History/Home Situation: Lives with in a private home with 2 steps to enter. Uses a front wheeled walker for all household ambulation. Equipment Owned/DME: [facility] Subjective: Agreeable to PT consult. Jeronimo expresses that he does not walk too far at home. Denies dizziness, chest pain, and headache at time of evaluation. Objective: General Observation: IV access in right UT. Telemetry monitoring in place. Mental Status: Alert and oriented as to person, place, time, and purpose. Able to pay attention, focus, and respond appropriately. Pain: Denies Vital Signs: Heart rate of 78 bpm at rest and 97 bpm after ambulation activity; oxygen saturation at rest of 97% on room air and of 97% after ambulation activity on room air ROM: Right Upper Extremity: Shoulder Flexion WFL. Shoulder abduction WFL. Elbow flexion WFL. Wrist flexion WFL. Functional opening and closing of hand WFL. Left Upper Extremity: Shoulder Flexion WFL. Shoulder abduction WFL. Elbow flexion WFL. Wrist flexion WFL. Functional opening and closing of hand WFL. Right Lower Extremity: Hip flexion WFL. Hip abduction WFL. Knee flexion WFL. Ankle dorsiflexion absent. Ankle plantarflexion WFL. Left Lower Extremity: Hip flexion WFL. Hip abduction WFL. Knee flexion WFL. Ankle dorsiflexion to neutral only. Ankle plantarflexion WFL. Strength: Right Upper Extremity: Shoulder flexors 4/5. Shoulder abductors 4/5. Elbow flexors 5/5. Elbow extensors 5/5. Restaurant And Bar Manager strong. Left Upper Extremity: Shoulder flexors 4/5. Shoulder abductors 4/5. Elbow flexors 5/5. Elbow extensors 5/5. Restaurant And Bar Manager strong. Right Lower Extremity: Hip flexors 4/5. Hip abductors 5/5. Knee flexors 5/5. Knee extensors 4/5. Ankle dorsiflexors 1/5. Ankle plantarflexors 4/5. Left Lower Extremity: Hip flexors 4/5. Hip abductors 5/5. Knee flexors 5/5. Knee extensors 4/5. Ankle dorsiflexors 3-/5. Ankle plantarflexors 4/5. Bed Mobility/Transfers: Sit to stand with supervision Stand to sit with supervision Bed to reclining chair with supervision Gait: Instructed patient with level surface ambulation of 100 feet requiring standby assist. Rosa decreased. Step height on the right decreased. Step length decreased. Denies chest pain, shortness of breath, and headache. Balance: Static Sitting: Normal Dynamic Sitting: Normal Static Standing: Fair Dynamic Standing: Fair Special Tests: Mobility Limitations Standardized Measure [facility] AM-PAC 6 clicks Basic Mobility Inpatient Short Form: Raw Score: 23 CMS Score: 11% deficit Informed Consent/Education: Patient was instructed in purpose of PT consult and plan of care. Agreeable to proceed with established PT POC to achieve personal goals. Assessment: Patient requires the use of a front wheeled walker and assistance for mobility ADL performance. Patient presents with clinical signs and symptoms consistent with current/admitting diagnoses that have resulted to mobility limitations, gait instability, generalized weakness, and overall ADL decline as demonstrated by the following impairment level findings: 1. Decreased strength to B LE major muscle groups 2. Impaired standing balance 3. Impaired activity tolerance 4. Mild foot slap on the R Impairments are contributing to the following functional limitations: 1. Difficulty with ambulation without assistive device 2. Increased completion time for mobility ADL performance 3. Increased risk for falls 4. Difficulty with managing steps alone safely Patient is assessed as a 34649 complexity based on the following: History: 76-year-old male with past medical history as indicated above Examination: Demonstrable impairment in strength, balance, and mobility level with underlying impairments and functional limitations as exhibited above as well as deficit score of 11% utilizing the [facility] Mobility Inpatient Short Form Presentation: Evolving Decision Makin moderate complexity Goals: Goals X1 week 1. Supine-Sit independent 2. Sit-Supine independent 3. Sit-Stand independent 4. Stand-Sit independent with FWW 5. Bed-Chair independent with FWW 6. Chair-Bed independent with FWW 7. Independent gait on level surface with use of FWW for at least 100 feet without report of pain nor dyspnea 8. Independent stair negotiation while holding onto B rails for at least 3 steps without report of pain nor dyspnea Plan of Care/Treatment Plan: 1-2x/day, 7 days/week x 1 week. Plan of care has been reviewed with the NURSING TEACHER providing the service under Physical Therapy direction. Initiate Physical Therapy intervention for pain management as needed, strengthening, bed mobility, transfers, gait, stairs, balance training, and use of assistive device. DISCHARGE RECOMMENDATIONS: [] Home with no services [] [X] Home with services. Patient will benefit from home health PT services in order to progress mobility level using least restrictive assistive ambulatory device, assess home safety, identify additional equipment needs, and establish a functional maintenance program that will increase ability of patient to remain at home. [] Home with outpatient PT [] [] SNF for continued rehabilitation [] [] Wire Coating Machine Operator Care [] [] SNF versus LTC based on ability to participate and progress [] TREATMENT CODE/TIME: 50528 x 21 minutes beginning at 10:36 AM. Thank you for the opportunity to participate in the care of this patient. Felicita Mattson PT, DPT, CLT [facility] [place], [place]
[2021-05-26 10:57] LABS: Troponin I 1418 ng/L (<or=60)
--- NOTE | 2021-05-26 10:59 | DM INPTCON_ITS ---
Date of service: 05/26/21 Time of Service: 11:00 Diabetes Inpatient Consult Reason for Visit: Diabetes consult DESCRIPTION/ASSESSMENT: Mr. Archer is here s/p recent discharge from [facility] admission with a NSTEMI. He is admitted with hyponatremia, hypovolemia, and w eakness. Mr. Archer is on 10 mg Glipizide at home. Glipizide has been held here in the hospital and he is just getting aspart correction. Blood sugars have been at target. Looking back at weights over the past 12 months, Mr. Archer's weight has been steadily declining. Currently he is down 12% in weight in three months which is significant. BMI is 31.8 kg/m2 c/w class 1 obesity. INTERVENTION: At this time, would continue with current diabetes regimen and consistent cho/low sodium diet. I have met with Mr. Archer and his in the past about his diabetes. I will check in with Mr. Archer regarding any diabetes education needs as well as any information needed regarding low sodium nutrition therapy. Will discuss his recent weight loss with him and find out whether this weight loss was intentional or not and will advise accordingly. PLAN: Will follow up with Mr. Archer and , if she is available, regarding his nutrition education needs. Thank you for the consult. Time Spent in Nutritional Counseling and Treatment: 0
[2021-05-26] MEDS: Budesonide/Formoterol 160/4.5 6 GM 60 PUFF INH IH ×2 (11:23→21:13)
--- NOTE | 2021-05-26 12:30 | PDOC.CMIN ---
- If Service Date Differs Date of service: 05/26/21 Time of Service: 12:30 Care Management Initial Assess REASON FOR HOSPITALIZATION:: Cardiomyopathy, orthostasis PAST MEDICAL HISTORY/PAST SURGICAL HISTORY:: Cardiomyopathy (Acute). Acute kidney injury (Acute). Elevated troponin (Acute). Paroxysmal A-fib (Acute). Hypomagnesemia (Acute). Acute respiratory failure with hypoxia (Acute). Ischemic cardiomyopathy (Acute). Acute on chronic congestive heart failure (Acute). Acute non-ST elevation myocardial infarction (NSTEMI) (Acute ~05/10/21). involving left anterior Left anterior descending coronary artery. Rupture of left proximal biceps tendon (Acute ~12/2020). Left rotator cuff tear arthropathy (Acute). CKD (chronic kidney disease) (Chronic). Back pain (Acute). Restlessness (Acute). Daytime somnolence (Acute). Snoring (Acute). Lung nodule (Acute). Cognitive decline (Acute). Carcinoma in situ of bladder (Acute). Chronic back pain (Chronic). Bladder cancer (Acute). S/P bladder tumor excision with fulguration (Acute). Abnormal auditory perception (Acute 08/24/14). Anticoagulation management encounter (Acute 01/03/16). Cervicalgia (Acute 08/04/12). DNR no code (do not resuscitate) (Acute 05/13/16). Diabetes mellitus type 2, controlled (Acute 08/04/12). Dysfunction of eustachian tube (Acute 08/24/14). Functional diarrhea (Acute 08/04/12). Hypomagnesemia (Acute 04/10/16). Lumbosacral radiculopathy at L5 (Acute 03/15/14). Mixed hearing loss, unilateral (Acute 08/24/14). Shortness of breath (Acute 12/11/15). Sprain of rotator cuff capsule (Acute 08/04/12). Tinea cruris (Acute 12/28/12). Wheezing (Acute 11/13/15). Frequency of micturition (Acute). Pneumonia (Acute). Edema of both legs (Acute). Diarrhea (Chronic). DVT prophylaxis (Acute). Gross hematuria (Acute). Benign prostatic hyperplasia with urinary frequency (Acute). H/O urinary frequency (Acute). COPD (chronic obstructive pulmonary disease) (Chronic). CVA (cerebral vascular accident) (Acute 01/03/16). 12/2015 post [place] [facility] [place]ip[place]. Unspecified essential hypertension (Acute 08/04/12). goal 150/90. Systolic CHF, chronic (Chronic 04/15/16). 04/15/16 Echo: EF 35%; MVR bioprosthesis intact. Sensorineural hearing loss (Acute 08/24/14). using an ITE aid. unknown model. Obesity, unspecified (Acute 07/03/11). Mitral valve insufficiency (Acute 12/19/15). MVR: bovine bioprosthesis and CABGx2 [facility] [place]. Memory impairment (Acute 12/11/15). 12/2015 MMSE 23 B12/lab nl; MRI 12/2015 old silvia lacunar CVAs. Lumbago with sciatica, unspecified side (Acute 08/04/12). 08/2005 small disc herniations L5-S1, no spinal or neuroforaminal stenosis. back surgery 10/2000. Disectomy [facility] [place]; L5 radiculopathy. Hyperlipidemia (Acute 07/03/11). PCEq 55.3%; intolerant statins. History of tobacco use (Acute 07/03/11). pt. states he hasn't smoked in 35 years. Gastroesophageal reflux disease (Acute 08/04/12). failed omeprazole, failed dexilant 06/01/2013. Diabetes mellitus with stage 3 chronic kidney disease (Acute 03/02/14). A1C goal 8. Diabetes mellitus with diabetic neuropathy (Acute 04/13/14). Coronary artery disease involving coronary bypass graft of [place] heart (Acute 01/02/16). MVR & 2v CABG, marginal and PDA, EF 45% [facility] [place]. Chronic kidney disease, stage III (moderate) (Chronic 01/26/13). 12/2008 CT abd/pelvis neg. Carpal tunnel syndrome (Acute 08/04/12). Benign neoplasm of colon (Acute 08/04/12). pt. states she is unaware of this. Valve Replacement (Chronic 12/20/15). [facility] [place] Ba[place]. Mitral valve. Coronary Artery Bypass G[place] (CABG) (Chronic 12/20/15). [facility] [place] MENDO[place]. Surgical History . Appendectomy. Colonoscopy - MAC (01/11/15). Dr Morgan. Grade 2 hemorrhoids. History of arthroplasty of right shoulder (~09/2015). History of back surgery (10/21/00). [facility] [place]. S/P partial gastrectomy. Status post carpal tunnel release of both wrists PREVIOUS FUNCTIONAL STATUS/SOCIAL/FAMILY SUPPORTS:: Jeronimo resides with his , Snow in [place], [place]. The couple has two adult children, Donta and Patti. Jeronimo was recently hospitalized at [facility] for ten days after a heart attack. He was home for a few nights prior to returning to the [facility] ED with low heart rates, attributed to medication. His reports he has had increased weakness and struggled to work with VNA PT post discharge from [facility]. ADVANCE DIRECTIVES:: COLST form on file. Has patient been provided with info about the portal/API?: Yes Did the patient sign up for the portal?: No CODE STATUS:: DNR/DNI INSURANCE COVERAGE / FINANCIAL ISSUES:: [facility]. Advise Only. Snow reports they were $210 over for [facility] eligibility. CURRENT HOME/COMMUNITY SERVICES/EQUIPMENT:: TANYA, VALDEMAR RN, PT PRIMARY CARE PHYSICIAN:: Elizabet Auguste POTENTIAL DISCHARGE NEEDS:: Resumption of VNA supports. Follow up appointments. PATIENT/FAMILY EDUCATION NEEDS:: Review of discharge instructions, discuss Ask Me Three. ANTICIPATED BARRIERS TO DISCHARGE:: None identified at this time. TRANSPORTATION:: Via private vehicle via [facility] or with one of his children, his , Snow does not drive. PLAN:: Jeronimo has a PCP appointment scheduled for , 05/29/20 with [facility] transport set up by his , Snow. If he remains at [facility], this will need to be rescheduled. He continues to be closely monitored with specific cardiology recommendations to restart cardiac medications once volume status stabilizes. Anticipate he will return home, resume VNA and follow up with his PCP. He will transport via private vehicle with family or via [facility]. CM to provide oximeter per family request.
--- NOTE | 2021-05-26 14:11 | W.PM.PROGNOT ---
Date of Service Date of service: 05/26/21 Time of Service: 13:30 Assessment and Plan Assessment and plan (1) Cardiomyopathy: Start date: 05/26/21 Start time: 12:00 Status: Chronic Assessment and plan: Previously at [facility], recently had cardiac cath. No stent placement. H/o 2- vessel CABG in 2016. He had an NSTEMI then a STEMI while at [facility] on 05/10/21. EF is 20-25%. Due to his kidneys they were limited on interventions. He was placed on hydralazine. He has cardiomyopathey with HFrEF. He is not a candidated for ICD according to [facility] records. Records indicate LAD sutotally occulded at 95% stenosis now collateralized. He was admitted to us for hyptension, not feeling well. Afib on initial EKG. He was taken off is bp meds, cardiology consulted. Today he was replaced on his BB, repeat EKG reveals NSR. He states he feels great. Cardiology recommends gradually restarting medications. BID orthostatics. (2) Diabetes mellitus with diabetic neuropathy: Start date: 05/26/21 Start time: 12:00 Assessment and plan: Monitor FS SSI Hold glipizide (3) Elevated troponin: Start date: 05/26/21 Start time: 12:00 Status: Chronic Assessment and plan: Trops have been elevated but consistent. (4) Acute kidney injury: Start date: 05/26/21 Start time: 12:00 Status: Acute Assessment and plan: Likely d/t HF and diuretics. He was offered dialysis at [facility] but declined. Unsure how high his creatinine was this may be his new baseline d/t that at 2.8 (5) Paroxysmal A-fib: Start date: 05/26/21 Start time: 12:00 Status: Resolved Assessment and plan: Initially was in on admission but after restarting BB he converted to SR (6) DVT prophylaxis: Start date: 05/26/21 Start time: 12:00 Status: Acute Assessment and plan: apixaban (7) Discharge planning issues: Start date: 05/26/21 Start time: 12:00 Status: Acute Assessment and plan: Home when medically discussed with Dr. Patel Subjective Subjective Patient reports: feels better Interval history since last seen: Patient feels great. He is sitting up in chair. Seen by Dr. Lane this am cardiology. Can slowly restart cardiac meds started with lopressor. BID orthostatics. Based on this will add other cardiac meds if ortho statics are stable. No new complaints Exam Const General: cooperative, comfortable, no acute distress and ill appearing chronically Nutritional Appearance: average body habitus Orientation: alert, awake and oriented x3 Eyes Eyelids: eyelids normal Pupils: PERRL EOM: EOM intact bilaterally Neck Neck: normal visual inspection and no JVD Lymphatic: no lymphadenopathy noted Chest Chest: normal inspection of the chest Resp Effort & Inspection: normal respiratory effort and able to speak in complete sentences Auscultation: clear to auscultation bilaterally Cardio Jugular venous pressure: no JVD Rhythm: regular rhythm Heart Sounds: S1 normal GI Inspection: normal to inspection Palpation: soft and no hepatosplenomegaly Auscultation: normal bowel sounds General: No CVA tenderness and deferred Skin General skin exam: no rashes or lesions noted Neuro General: patient alert, patient awake and patient oriented x3 Cognition: normal cognition Speech: speech normal Gait: normal gait Extrem General: normal to inspection, full ROM and no clubbing, cyanosis or edema Objective Last Vital Signs Temp 36.9 C 05/26/21 08:14 Pulse 91 H 05/26/21 09:53 Resp 18 05/26/21 08:14 BP 103/66 05/26/21 09:53 Pulse Ox 96 05/26/21 08:14 Laboratory Results - last 24 hr 05/25/21 05/25/21 05/25/21 16:32 16:32 16:57 WBC 13.41 H RBC 4.65 Hgb 13.1 L Hct 39.9 L MCV 85.8 MCH 28.2 MCHC 32.8 RDW 13.4 Plt Count 371 D MPV 10.9 Immature Gran % 0.5 Neutrophils % 86.5 Lymphocytes % 6.0 Monocytes % 6.1 Eosinophils % 0.6 Basophils % 0.3 Nucleated RBC % 0 Absolute Neutrophils 11.60 H Absolute Lymphocytes 0.80 L Absolute Monocytes 0.82 H Absolute Eosinophils 0.08 Absolute Basophils 0.04 Sodium 123 L* Potassium 4.5 Chloride 86 L Carbon Dioxide 28.3 Anion Gap 8.7 BUN 64 H Creatinine 2.7 H Estimated GFR/1.73 m2 22.97 Glucose 296 H Calcium 9.6 Magnesium 2.3 Total Bilirubin 0.6 AST 24 ALT 44 Alkaline Phosphatase 96 Troponin I 1510 H* NT-Pro-B Natriuret Pep 10802 H Total Protein 8.2 Albumin 3.6 Procalcitonin Urine Color Urine Clarity Urine pH Ur Specific [place] Urine Protein Urine Ketones Urine Blood Urine Nitrite Urine Bilirubin Urine Urobilinogen Ur Leukocyte Esterase Urine RBC Urine WBC Ur Epithelial Cells Urine Crystals Urine Bacteria Urine Casts Urine Mucus Ur Culture Indicated? Urine Glucose COVID-19 Source Nasopharynx SARS-CoV-2 (PCR) Negative Influenza Type A (PCR) Negative Influenza Type B (PCR) Negative RSV (PCR) Negative Add-On Test Request 05/25/21 05/25/21 05/26/21 18:02 19:26 05:29 WBC RBC Hgb Hct MCV MCH MCHC RDW Plt Count MPV Immature Gran % Neutrophils % Lymphocytes % Monocytes % Eosinophils % Basophils % Nucleated RBC % Absolute Neutrophils Absolute Lymphocytes Absolute Monocytes Absolute Eosinophils Absolute Basophils Sodium Potassium Chloride Carbon Dioxide Anion Gap BUN Creatinine Estimated GFR/1.73 m2 Glucose Calcium Magnesium Total Bilirubin AST ALT Alkaline Phosphatase Troponin I 1310 H* 1485 H* NT-Pro-B Natriuret Pep Total Protein Albumin Procalcitonin Urine Color Yellow Urine Clarity Clear Urine pH 6.0 Ur Specific [place] 1.015 Urine Protein 30 H Urine Ketones Negative Urine Blood Negative Urine Nitrite Negative Urine Bilirubin Negative Urine Urobilinogen 0.2 Ur Leukocyte Esterase Trace H Urine RBC Negative Urine WBC 20-50 H Ur Epithelial Cells Negative Urine Crystals Negative Urine Bacteria Few Urine Casts Negative Urine Mucus Negative Ur Culture Indicated? Yes Urine Glucose 100 COVID-19 Source SARS-CoV-2 (PCR) Influenza Type A (PCR) Influenza Type B (PCR) RSV (PCR) Add-On Test Request 05/26/21 05/26/21 05/26/21 05:29 05:29 05:29 WBC 13.13 H RBC 4.27 L Hgb 12.1 L Hct 36.9 L MCV 86.4 MCH 28.3 MCHC 32.8 RDW 13.6 Plt Count 343 MPV 11.2 H Immature Gran % 0.6 Neutrophils % 75.9 Lymphocytes % 12.2 Monocytes % 8.5 Eosinophils % 2.4 Basophils % 0.4 Nucleated RBC % 0 Absolute Neutrophils 9.97 H Absolute Lymphocytes 1.60 Absolute Monocytes 1.12 H Absolute Eosinophils 0.32 Absolute Basophils 0.05 Sodium 128 L Potassium 3.5 D Chloride 91 L Carbon Dioxide 30.0 Anion Gap 7.0 BUN 57 H Creatinine 2.3 H Estimated GFR/1.73 m2 27.64 Glucose 131 H D Calcium 8.9 Magnesium Total Bilirubin AST ALT Alkaline Phosphatase Troponin I NT-Pro-B Natriuret Pep Total Protein Albumin Procalcitonin Urine Color Urine Clarity Urine pH Ur Specific [place] Urine Protein Urine Ketones Urine Blood Urine Nitrite Urine Bilirubin Urine Urobilinogen Ur Leukocyte Esterase Urine RBC Urine WBC Ur Epithelial Cells Urine Crystals Urine Bacteria Urine Casts Urine Mucus Ur Culture Indicated? Urine Glucose COVID-19 Source SARS-CoV-2 (PCR) Influenza Type A (PCR) Influenza Type B (PCR) RSV (PCR) Add-On Test Request DONE 05/26/21 05/26/21 05:29 10:20 WBC RBC Hgb Hct MCV MCH MCHC RDW Plt Count MPV Immature Gran % Neutrophils % Lymphocytes % Monocytes % Eosinophils % Basophils % Nucleated RBC % Absolute Neutrophils Absolute Lymphocytes Absolute Monocytes Absolute Eosinophils Absolute Basophils Sodium Potassium Chloride Carbon Dioxide Anion Gap BUN Creatinine Estimated GFR/1.73 m2 Glucose Calcium Magnesium Total Bilirubin AST ALT Alkaline Phosphatase Troponin I 1418 H* NT-Pro-B Natriuret Pep Total Protein Albumin Procalcitonin 0.1 Urine Color Urine Clarity Urine pH Ur Specific [place] Urine Protein Urine Ketones Urine Blood Urine Nitrite Urine Bilirubin Urine Urobilinogen Ur Leukocyte Esterase Urine RBC Urine WBC Ur Epithelial Cells Urine Crystals Urine Bacteria Urine Casts Urine Mucus Ur Culture Indicated? Urine Glucose COVID-19 Source SARS-CoV-2 (PCR) Influenza Type A (PCR) Influenza Type B (PCR) RSV (PCR) Add-On Test Request
--- NOTE | 2021-05-26 15:07 | PT.INTREAT ---
Date of service: 05/26/21 Time of Service: 14:50 PT Notes Visit Reasons: Cardiomyopathy,Orthostasis Inpatient Physical Therapy Treatment Note [facility] Date: 05/26/2021 PRECAUTIONS: Fall, Activity as Tolerated SUBJECTIVE: Jeronimo is pleasant and agreeable to participating in PT. He states that he feels he is back to his functional baseline. He reports that his works hard to keep him safe and help him. OBJECTIVE: PAIN: No c/o pain BED MOBILITY/TRANSFERS Sit-supine: I with HOB flat Sit-stand: S Stand-sit: S GAIT Assistive Device: FWW Weight bearing: Full Assist: SBA Distance: 100' Deviation: Limited dorsiflexion R (chronic from previous injury) THEREX: Patient was instructed in a LE strengthening and stabilization program, completed in a seated position, as per flow sheet. ASSESSMENT: Patient tolerated session without complaint. Patient demonstrates steady gait and pacing with FWW, which is baseline for him. PLAN: Continue with gait training and global strengthening for improved activity tolerance. TREATMENT CODE/TIME: 15 minutes; 15630 (14:50)
[2021-05-26] MEDS: Atorvastatin 40 MG TAB PO (21:11)
[2021-05-27 00:15] VITALS: BP 120/65; PULSE 85; RESP 20; TEMP 36.3; O2SAT 96
[2021-05-27 07:24] LABS: Abs Immature Grans 0.06 10^3/uL (0.0-0.06); Absolute Basophil Count 0.05 10^3/uL (0.0-0.2); Absolute Lymphocyte Count 1.26 10^3/uL (1.2-3.4); Basophils % 0.4; HCT 35.3 % (40.0-50.0); HGB 11.5 g/dL (13.5-17.5); Immature Grans % 0.5; Lymphocytes % 10.9; MCHC 32.6 % (32.0-36.0); MCV 85.9 fL (80-95); MPV 10.1 fL (8.0-11.0); Monocytes % 8.2; Nucleated RBC 0 %; Platelet Count 297 10^3/uL (130-400); RBC 4.11 10^6/uL (4.36-5.78); RDW 13.6 % (11.8-14.1); RDW-SD 42.5 fL; WBC 11.52 10^3/uL (4.4-10.8)
[2021-05-27 07:28] LABS: Absolute Eosinophil Count 0.35 10^3/uL (0.0-0.7); Absolute Monocyte Count 0.94 10^3/uL (0.1-0.8); Absolute Neutrophil Count 8.87 10^3/uL (1.2-6.7)
[2021-05-27 07:38] VITALS: PULSE 85
[2021-05-27 07:47] LABS: Anion Gap 9.7 mmol/L (3-11); BUN 51 mg/dL (7-18); CO2 24.3 mmol/L (21.0-32.0); CREATININE 2.1 mg/dL (0.70-1.30); Calcium 9.1 mg/dL (8.5-10.1); Chloride 94 mmol/L (98-107); Glucose 148 mg/dL (74-106); Magnesium 2.1 mg/dL (1.8-2.4); Sodium 128 mmol/L (136-145)
[2021-05-27] MEDS: Budesonide/Formoterol 160/4.5 6 GM 60 PUFF INH IH (08:16)
[2021-05-27] MEDS: Calcium Carbonate *TUMS* 500 MG CHEW PO ×2 (08:17→14:37)
[2021-05-27] MEDS: DULoxetine 30 MG CAP 60 MG PO (08:17)
[2021-05-27] MEDS: Magnesium Oxide 400 MG TAB PO (08:17)
[2021-05-27] MEDS: Omeprazole 20 MG CAPCR 40 MG PO (08:17)
[2021-05-27] MEDS: Clopidogrel 75 MG TAB PO (08:18)
[2021-05-27] MEDS: Apixaban 5 MG TAB PO (08:18)
[2021-05-27] MEDS: Metoprolol CR 25 MG TABCR PO (08:18)
[2021-05-27] MEDS: Amiodarone 200 MG TAB PO (08:18)
[2021-05-27] MEDS: Allopurinol 300 MG TAB 150 MG PO (08:18)
[2021-05-27] MEDS: Insulin Aspart 300 UNITS/3 ML PEN SC ×2 (08:40→12:07)
[2021-05-27 09:50] VITALS: BP 105/66; BP 113/64; BP 93/61; PULSE 85; PULSE 87
--- NOTE | 2021-05-27 11:22 | CMPROGNOTE_ITS ---
- If Service Date Differs Date of service: 05/27/21 Time of Service: 11:22 Care Management Progress Note S/O: CM spoke to Snow, who inquired as to Jeronimo having a Rollator. CM called KEYSHA Balderrama, who reported she would trial Jeronimo on the rollator, and support coordination depending on his performance. CM reviewed Palliative Consult order with Snow, who stated her daughter would be coming up this afternoon. Anticipate Dr. Harrell will see Jeronimo this afternoon and call Snow to review goals of care. CM will continue to follow. A: 76 year old male admitted to [facility] 05/25/20 for cardiomyopathy, orthostasis P: Jeronimo will have a Palliative consult with Dr. Harrell and Snow to discuss goals of care. Anticipate he will discharge home with resumption of VNA supports through [facility], follow up with his PCP. He will transport via private vehicle with family or via [facility]. CM to provide oximeter per family request.. Jeronimo has a PCP appointment scheduled for , 05/29/20 with [facility] transport set up by his , Snow. If he remains at [facility], this will need to be rescheduled.
--- NOTE | 2021-05-27 13:04 | PDOC.CMDIS ---
- If Service Date Differs Date of service: 05/27/21 Time of Service: 13:04 LACE Index Scoring Tool - Questions: Length of Stay (in days): 2 Acuity (Admit via E.D.?): Yes Comorbidities: Previous M.I., Cerebrovascular Disease, Chronic Pulmonary Disease, Any Tumor, Liver or Renal Disease E.D. Visits: 3 - Answers: Total Score: 13 Risk of Readmission: High Risk Care Management Discharge Reason for Hospitalization: Cardiomyopathy, orthostasis Discharge Plan: Jeronimo will discharge home with resumption of VNA supports through [facility], with planned admission to Hospice tomorrow, per Dr. Harrell, who will complete DME orders. He will transport via private via [facility], coordinated by CM. CM provided oximeter per family request. Patient/Family Education Needs: Review discharge instructions, discuss Ask Me Three. Services Needed at Discharge: DME Agency (Oximeter, 4WW and additional equipment planned through Dr. Harrell through [facility]. ), Home Health Care Services (Hospice admission planned 05/28/20.), Transportation ([facility] private vehicle )
--- NOTE | 2021-05-27 13:12 | W.PM.DS.N ---
Date of service: 05/27/21 Time of Service: 13:13 DS: Diagnosis Discharge Diagnosis (1) Cardiomyopathy: Start date: 05/27/21 Start time: 13:57 Status: Chronic Asessment and Plan: Previously at [facility], recently had cardiac cath. No stent placement. H/o 2- vessel CABG in 2016. He had an NSTEMI then a STEMI while at [facility] on 05/10/21. EF is 20-25%. Due to his kidneys they were limited on interventions. He was placed on hydralazine. He has cardiomyopathey with HFrEF. He is not a candidated for ICD according to [facility] records. Records indicate LAD sutotally occulded at 95% stenosis now collateralized. Unable to titrate medications d/t orthostatic hyoptension. Patient just wanted to go home. Going home on hospice. Discharge home with transition to hospice tomorrow (2) Diabetes mellitus with diabetic neuropathy: Start date: 05/27/21 Start time: 13:58 Asessment and Plan: SSI, stop glipizide as above (3) Elevated troponin: Start date: 05/27/21 Start time: 13:58 Status: Chronic Asessment and Plan: persistent likely d/t recent events. stable (4) Acute kidney injury: Start date: 05/27/21 Start time: 13:59 Status: Resolved Asessment and Plan: Likely new baseline (5) Paroxysmal A-fib: Start date: 05/27/21 Start time: 13:59 Status: Resolved Asessment and Plan: Now SR discussed with Dr. Patel Discharge Plan Disposition Patient Disposition: HOME Condition: Serious Discharge Details Reason For Visit: Cardiomyopathy,Orthostasis Admit Date/Time: 05/25/21 19:00 Admit Provider: Levi Bower Attending Provider: Levi Bower Primary Care Provider: Elizabet Auguste Hospital Course Hospital Course: 76 y.o male admitted to [facility] after presenting with low bp and 3 days of feeling weak. He was discharged from [facility] day prior to admission. On Arrival he did have a persistent elevated troponin and blood pressure that dropped from 130's systolically to 90's when changing positions. He was taken off all bp medications, cardiology was consulted. Previously at [facility], recently had cardiac cath. No stent placement. H/o 2- vessel CABG in 2016. He had an NSTEMI then a STEMI while at [facility] on 05/10/21. EF is 20-25%. Due to his kidneys they were limited on interventions. He was placed on hydralazine. He has cardiomyopathy with HFrEF. He is not a candidated for ICD according to [facility] records as they do not align with his goals. Records indicate LAD sutotally occulded at 95% stenosis now collateralized. Dr. Lane our log manager evaluated him and felt he could slowly be weaned back on his medication, however though just being on amiodarone and metporolol he drops 30 points. Today he met with Dr. Harrell from Palliative, he has decided to go on hospice. I will keep him on his bb and amiodarone for comfort, but d/t continuing to drop rate change to 25 bid and amiodarone 100 mg daily, other chung d/c cardiac medications. He will be discharged today and transition to hospice tomorrow. Home Meds and New Rx's Prescriptions: New metoprolol tartrate 25 mg tablet 25 mg PO BID Qty: 30 RF: 0 amiodarone 100 mg tablet 100 mg PO DAILY Qty: 20 RF: 0 Continued morphine concentrate 100 mg/5 mL (20 mg/mL) solution See Rx Instructions PO Q1H PRN MDD 240 mg Qty: 30 RF: 0 lorazepam 1 mg tablet 0.5 - 1 mg PO Q4H PRN PRN (Reason: anxiety, agitation, nausea, dyspnea) Qty: 10 RF: 0 acetaminophen [Tylenol Extra Strength] 500 MG tablet 1,000 mg PO Q6H PRN PRNRF: 0 albuterol sulfate [ProAir HFA] 90 mcg/actuation HFA aerosol inhaler 1 puff IH Q4H PRN (Reason: shortness of breath) Qty: 8.5 RF: 12 omeprazole 40 mg capsule,delayed release(DR/EC) 40 mg PO DAILY Qty: 90 RF: 3 budesonide-formoterol [Symbicort] 160-4.5 mcg/actuation HFA aerosol inhaler 2 puff inhalation BID PRNRF: 0 Discontinued glipizide 10 mg tablet 10 mg PO BID RF: 0 duloxetine 60 mg capsule,delayed release(DR/EC) 60 mg PO DAILY Qty: 90 RF: 3 fluticasone propionate [Allergy Relief (fluticasone)] 50 mcg/actuation spray,suspension 1 spray IGOR BID PRNRF: 0 toofiwdozqdq-kiawplrn-doytxc Tablet 0.5 tab PO DAILY RF: 0 silodosin 8 mg capsule 8 mg PO DAILY PRNRF: 0 ketoconazole 2 % cream 1 applic TP DAILY PRN (Reason: ) Qty: 30 RF: 4 nystatin [Nyamyc] 100,000 unit/gram powder 1 applic TP TID PRN (Reason: rash) Qty: 60 RF: 6 allopurinol 300 mg tablet 150 mg PO DAILY Qty: 90 RF: 3 magnesium oxide 400 mg (241.3 mg magnesium) tablet 400 mg PO DAILY Qty: 90 RF: 3 amiodarone 200 mg tablet 200 mg PO DAILY RF: 0 clopidogrel 75 mg tablet 75 mg PO DAILY RF: 0 calcium carbonate [Antacid (calcium carbonate)] 200 mg calcium (500 mg) tablet,chewable 200 mg PO TID RF: 0 metoprolol succinate 25 mg tablet extended release 24 hr 25 mg PO DAILY RF: 0 No Action (DME) blood-glucose meter [OneTouch Verio Meter] misc See Dose Instructions .ROUTE .MEDSUPPLY Qty: 1 RF: 0 (DME) OneTouch Verio test strips Strip See Dose Instructions .ROUTE .MEDSUPPLY Qty: 100 RF: 12 (DME) lancets [OneTouch Delica Lancets] 33 gauge misc See Dose Instructions .ROUTE .MEDSUPPLY Qty: 100 RF: 6 Discharge Instructions Instructions: Hospice Care (GEN) Additional Instructions: Transition to hospice tomorrow Take metprolol 25 mg the new script twice a day unles light headed or feeling lousy then cut in half and take twice a day Take amiodarone 100 mg Activity:: Activity as Tolerated Equipment/Supplies:: Walker Diet:: Normal Diet Discharge Orders Discharge Orders: Discharge Order (Routine); Ordered 05/27/21 Ordered By: Jocelin Schofield DS: Summary Time Spent with Patient providing and/or coordinating discharge services: Less than 30 minutes Status at Discharge Functional status at discharge: uses cane/walker Overall status at discharge: patient is not back to baseline Mental Status: mental status grossly normal Speech and Movement: speech and movement normal Mood: congruent mood Affect: normal affect Exam Psych Mental Status: mental status grossly normal Speech and Movement: speech and movement normal Mood: congruent mood Affect: normal affect DS: Data Vitals/I&O Vitals and I&O: Vital Signs Temperature 36.3 C L 05/27/21 00:15 Temperature Source Tympanic 05/27/21 00:15 Pulse 85 05/27/21 09:50 Pulse Rhythm Regular 05/27/21 09:00 Pulse 90 05/25/21 19:20 Respiratory Rate 20 05/27/21 00:15 Respiratory Effort Non-Labored 05/27/21 09:00 Respiratory Depth Normal 05/27/21 09:00 Respiratory Pattern Normal 05/27/21 09:00 Blood Pressure 113/64 05/27/21 09:50 Blood Pressure Mean 86 05/25/21 19:16 Pulse Oximetry 96 05/27/21 00:15 Oxygen Delivery Method Room Air 05/27/21 00:15 Oxygen Flow Rate 0 05/27/21 00:15 Pain Level 0 05/26/21 19:23 Intake & Output 05/26/21 05/27/21 05/27/21 23:59 11:59 23:59 Intake Total 240 / 240 250 / 250 Output Total 850 / 1450 350 / 350 Balance -610 / -1210 -100 / -100 Intake: Oral 240 / 240 250 / 250 Output: Urine 850 / 1450 350 / 350 Other: Urine Color Yellow Yellow Urine Appearance Clear Clear Voiding Methods Toilet Urinal Data Completed and Pending Labs on day of discharge: Labs from last 24 hours 05/27/21 05/27/21 07:15 07:15 WBC 11.52 H RBC 4.11 L Hgb 11.5 L Hct 35.3 L MCV 85.9 MCH 28.0 MCHC 32.6 RDW 13.6 Plt Count 297 MPV 10.1 Immature Gran % 0.5 Neutrophils % 77.0 Lymphocytes % 10.9 Monocytes % 8.2 Eosinophils % 3.0 Basophils % 0.4 Nucleated RBC % 0 Absolute Neutrophils 8.87 H Absolute Lymphocytes 1.26 Absolute Monocytes 0.94 H Absolute Eosinophils 0.35 Absolute Basophils 0.05 Sodium 128 L Potassium 4.0 Chloride 94 L Carbon Dioxide 24.3 Anion Gap 9.7 BUN 51 H Creatinine 2.1 H Estimated GFR/1.73 m2 30.70 Glucose 148 H Calcium 9.1 Magnesium 2.1 Preliminary micro results at discharge 05/25/21 18:02 Urine Culture - Preliminary Urine - Reflex from Ua Staph Sp., Not Aureus PFSH All Active Problems (Updated 05/27/21 @ 13:59 by Jocelin Schofield NP) Hospice care patient (Acute) to be admited 05/28/21 Discharge planning issues (Acute) Diabetes mellitus with stage 3 chronic kidney disease (Acute 03/02/14) A1C goal 8 Cardiomyopathy (Chronic) Elevated troponin (Chronic) Hypomagnesemia (Acute) Acute respiratory failure with hypoxia (Acute) Ischemic cardiomyopathy (Acute) Acute on chronic congestive heart failure (Acute) Acute non-ST elevation myocardial infarction (NSTEMI) (Acute ~05/10/21) involving left anterior Left anterior descending coronary artery Rupture of left proximal biceps tendon (Acute ~12/2020) Left rotator cuff tear arthropathy (Acute) CKD (chronic kidney disease) (Chronic) Back pain (Acute) Restlessness (Acute) Daytime somnolence (Acute) Snoring (Acute) Lung nodule (Acute) Cognitive decline (Acute) Carcinoma in situ of bladder (Acute) Chronic back pain (Chronic) Bladder cancer (Acute) S/P bladder tumor excision with fulguration (Acute) Abnormal auditory perception (Acute 08/24/14) Anticoagulation management encounter (Acute 01/03/16) Cervicalgia (Acute 08/04/12) DNR no code (do not resuscitate) (Acute 05/13/16) Diabetes mellitus type 2, controlled (Acute 08/04/12) Dysfunction of eustachian tube (Acute 08/24/14) Functional diarrhea (Acute 08/04/12) Hypomagnesemia (Acute 04/10/16) Lumbosacral radiculopathy at L5 (Acute 03/15/14) Mixed hearing loss, unilateral (Acute 08/24/14) Shortness of breath (Acute 12/11/15) Sprain of rotator cuff capsule (Acute 08/04/12) Tinea cruris (Acute 12/28/12) Wheezing (Acute 11/13/15) Frequency of micturition (Acute) Pneumonia (Acute) Edema of both legs (Acute) Diarrhea (Chronic) DVT prophylaxis (Acute) Gross hematuria (Acute) Benign prostatic hyperplasia with urinary frequency (Acute) H/O urinary frequency (Acute) COPD (chronic obstructive pulmonary disease) (Chronic) CVA (cerebral vascular accident) (Acute 01/03/16) 12/[address] [facility] R hemiparesis Unspecified essential hypertension (Acute 08/04/12) goal 150/90 Systolic CHF, chronic (Chronic 04/15/16) 04/15/16 Echo: EF 35%; MVR bioprosthesis intact Sensorineural hearing loss (Acute 08/24/14) using an ITE aid. unknown model. Obesity, unspecified (Acute 07/03/11) Mitral valve insufficiency (Acute 12/19/15) MVR: bovine bioprosthesis and CABGx2 [facility] 12/20/15 Memory impairment (Acute 12/11/15) 12/2015 MMSE 23 B12/lab nl; MRI 12/2015 old silvia lacunar CVAs Lumbago with sciatica, unspecified side (Acute 08/04/12) 08/2005 small disc herniations L5-S1, no spinal or neuroforaminal stenosis. back surgery 10/[address] [facility] 08/2006; L5 radiculopathy Hyperlipidemia (Acute 07/03/11) PCEq 55.3%; intolerant statins Gastroesophageal reflux disease (Acute 08/04/12) failed omeprazole, failed dexilant 06/01/2013 Coronary artery disease involving coronary bypass graft of [place] heart (Acute 01/02/16) MVR & 2v CABG, marginal and PDA, EF 45% [facility] 12/20/15 Carpal tunnel syndrome (Acute 08/04/12) Medical History Benign neoplasm of colon (08/04/12) pt. states she is unaware of this Chronic kidney disease, stage III (moderate) (01/26/13) 12/2008 CT abd/pelvis neg Diabetes mellitus with diabetic neuropathy (04/13/14) History of tobacco use (07/03/11) pt. states he hasn't smoked in 35 years Surgical History Appendectomy Colonoscopy - MAC (01/11/15) Dr Morgan Grade 2 hemorrhoids Coronary Artery Bypass Gaft (CABG) (12/20/15) [facility] DR MENDOZA History of arthroplasty of right shoulder (~09/2015) History of back surgery (10/21/00) [facility] Dr. Win S/P partial gastrectomy Status post carpal tunnel release of both wrists Valve Replacement (12/20/15) [facility] Dr Baumann Mitral valve Family History Brother Alcoholism Heart disease Grandfather Heart disease Father Personal history of malignant neoplasm THROAT CA Social History Smoking/Tobacco Use Status: Former Tobacco Use Quit Date: 05/03/94 Pack-years: 105 Smoking risk assessment performed?: Yes Alcohol Intake: current Alcohol Intake frequency: holidays/special occasions only Alcohol type: beer Drug use: Never Substance use type: does not use Household members: spouse Housing: house Number of Children: 4 Current gender identity: male What is your relationship status?: Panel score (0-1 are the most socially isolated patients): 1 Working smoke detector in home: Yes Do you feel safe at home: Yes Do you feel safe in your relationship?: Yes Additional Social history: unable to assess privatley
--- NOTE | 2021-05-27 14:02 | W.PALLCONSUL ---
Date of service: 05/27/21 Time of Service: 12:03 History of Present Illness History of Present Illness Chief Complaint: goals of care, hospice discussion, ischemic cardiomyopathy Assessment and Plan Assessment and plan (1) Palliative care patient: Status: Acute Assessment and plan: Transitioning to hospice tomorrow. (2) Encounter for hospice care discussion: Status: Acute Assessment and plan: Spoke to his , and to the hospice team. Jeronimo will be admitted tomorrow to hospice program. He was previously on HH. Hospice meets his goals of care. (3) Hospice care patient: Status: Acute Assessment and plan: to be admitted 05/28/21 (4) Goals of care, counseling/discussion: Status: Acute Assessment and plan: Jeronimo is very simple in his needs: he want to be home, his wants to be with his family, he wants to be comfortable. He wants to be at peace. (5) All medications reviewed: Status: Acute Assessment and plan: Hospitalist stopping many of his medications prior to admission to hospice. (6) Cardiomyopathy: Status: Chronic (7) Ischemic cardiomyopathy: Status: Acute (8) Acute non-ST elevation myocardial infarction (NSTEMI): Status: Resolved Assessment and plan: Jeronimo survived a major NSTEMI earlier this month. He is exhausted. Weak. Knows his heart is giving out. Troponin was >1700. LAD was approx 95% occluded. (9) Cognitive decline: Status: Acute Assessment and plan: Pre-existing this recent cardiac event. Able to make his own decisions. Has always struggled with reading./writing/math. (10) Coronary artery disease involving coronary bypass graft of [place] heart: Status: Acute Assessment and plan: Not a surgical candidate for repeat CABG, per [facility]. Qualifiers: Associated angina: without angina Qualified Code(s): I25.810 - Atherosclerosis of coronary artery bypass graft(s) without angina pectoris Review of Systems Constitutional Constitutional: Reports fatigue, Reports lethargy and Reports weakness Eyes Eyes: Reports requires corrective lenses ENT Ears, Nose, Mouth, and Throat: Reports abnormal hearing, Reports dizziness, Reports dry mouth, Reports hearing loss and Reports disequilibrium Cardiovascular Cardiovascular: Reports lightheadedness and Reports dyspnea on exertion Respiratory Respiratory: Reports dyspnea on exertion Gastrointestinal Gastrointestinal: Reports constipation Genitourinary Genitourinary: Reports difficulty urinating Musculoskeletal Musculoskeletal: Reports muscle weakness Integumentary/Breasts Skin/Breast: Reports dry skin Neurologic Neurologic: Reports abnormal hearing, Reports dizziness, Reports disequilibrium and Reports weakness Psychiatric Psychiatric: Reports anxiety, Reports difficulty concentrating and Reports other (wants to go home) Endocrine Endocrine: Reports fatigue Hematologic/Lymphatic Hematologic/Lymphatic: Reports easy bruising PFSH All Active Problems (Updated 05/27/21 @ 20:08 by Betsy Harrell MD) All medications reviewed (Acute) wants to talk fewer pills; hospitalist to minimize list at d/c Goals of care, counseling/discussion (Acute) Encounter for hospice care discussion (Acute) Palliative care patient (Acute) as transition to hospice Hospice care patient (Acute) to be admited 05/28/21 Discharge planning issues (Acute) Diabetes mellitus with stage 3 chronic kidney disease (Acute 03/02/14) A1C goal 8 Cardiomyopathy (Chronic) severe, EF of 20-25% Elevated troponin (Chronic) Hypomagnesemia (Acute) Acute respiratory failure with hypoxia (Acute) Ischemic cardiomyopathy (Acute) Acute on chronic congestive heart failure (Acute) Rupture of left proximal biceps tendon (Acute ~12/2020) Left rotator cuff tear arthropathy (Acute) CKD (chronic kidney disease) (Chronic) Back pain (Acute) Restlessness (Acute) Daytime somnolence (Acute) Snoring (Acute) Lung nodule (Acute) Cognitive decline (Acute) Carcinoma in situ of bladder (Acute) Chronic back pain (Chronic) Bladder cancer (Acute) S/P bladder tumor excision with fulguration (Acute) Abnormal auditory perception (Acute 08/24/14) Anticoagulation management encounter (Acute 01/03/16) Cervicalgia (Acute 08/04/12) DNR no code (do not resuscitate) (Acute 05/13/16) Diabetes mellitus type 2, controlled (Acute 08/04/12) Dysfunction of eustachian tube (Acute 08/24/14) Functional diarrhea (Acute 08/04/12) Hypomagnesemia (Acute 04/10/16) Lumbosacral radiculopathy at L5 (Acute 03/15/14) Mixed hearing loss, unilateral (Acute 08/24/14) Shortness of breath (Acute 12/11/15) Sprain of rotator cuff capsule (Acute 08/04/12) Tinea cruris (Acute 12/28/12) Wheezing (Acute 11/13/15) Frequency of micturition (Acute) Pneumonia (Acute) Edema of both legs (Acute) Diarrhea (Chronic) DVT prophylaxis (Acute) Gross hematuria (Acute) Benign prostatic hyperplasia with urinary frequency (Acute) H/O urinary frequency (Acute) COPD (chronic obstructive pulmonary disease) (Chronic) CVA (cerebral vascular accident) (Acute 01/03/16) 12/2015 post op [facility] R hemiparesis Unspecified essential hypertension (Acute 08/04/12) goal 150/90 Systolic CHF, chronic (Chronic 04/15/16) 04/15/16 Echo: EF 35%; MVR bioprosthesis intact Sensorineural hearing loss (Acute 08/24/14) using an ITE aid. unknown model. Obesity, unspecified (Acute 07/03/11) Mitral valve insufficiency (Acute 12/19/15) MVR: bovine bioprosthesis and CABGx2 [facility] 12/20/15 Memory impairment (Acute 12/11/15) 12/2015 MMSE 23 B12/lab nl; MRI 12/2015 old silvia lacunar CVAs Lumbago with sciatica, unspecified side (Acute 08/04/12) 08/2005 small disc herniations L5-S1, no spinal or neuroforaminal stenosis. back surgery 10/2000 Disectomy [facility] 08/2006; L5 radiculopathy Hyperlipidemia (Acute 07/03/11) PCEq 55.3%; intolerant statins Gastroesophageal reflux disease (Acute 08/04/12) failed omeprazole, failed dexilant 06/01/2013 Coronary artery disease involving coronary bypass graft of [place] heart (Acute 01/02/16) MVR & 2v CABG, marginal and PDA, EF 45% [facility] 12/20/15 Carpal tunnel syndrome (Acute 08/04/12) Medical History Benign neoplasm of colon (08/04/12) pt. states she is unaware of this Chronic kidney disease, stage III (moderate) (01/26/13) 12/2008 CT abd/pelvis neg Diabetes mellitus with diabetic neuropathy (04/13/14) History of tobacco use (07/03/11) pt. states he hasn't smoked in 35 years Surgical History Appendectomy Colonoscopy - MAC (01/11/15) Dr Morgan Grade 2 hemorrhoids Coronary Artery Bypass Gaft (CABG) (12/20/15) [facility] DR MENDOZA History of arthroplasty of right shoulder (~09/2015) History of back surgery (10/21/00) [facility] Dr. Win S/P partial gastrectomy Status post carpal tunnel release of both wrists Valve Replacement (12/20/15) [facility] Dr Baumann Mitral valve Family History (Updated 05/27/21 @ 19:59 by Betsy Harrell MD) Brother Alcoholism Heart disease Grandfather Heart disease Father , age 58 from lung cancer, heavy smoker Personal history of malignant neoplasm THROAT CA Lung cancer Smoker Mother , age 80 from heart disease Heart disease Brother No problems noted. Sister Dementia Sister No problems noted. 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, 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 Pets and animals: No Current gender identity: male What is your relationship status?: How often do you talk on the phone with friends or family?: once per week How often do you get together with friends or relatives?: twice per week Panel score (0-1 are the most socially isolated patients): 2 What type of physical activity do you participate in: walking Duration: < 15 minutes/day Frequency: daily Special tiffany needs: No Agree to transfusion: No Seatbelt use: always Working smoke detector in home: Yes Fire extinguisher in home: Yes Do you feel safe at home: Yes Do you feel safe in your relationship?: Yes Additional Social history: Lives with his , Snow. They have 4 children together. They lived all [facility]. 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 Son Vikas lives near-by; he is a recovering alcoholic. He helps his parents with chores, etc. Another child lives near; two are farther away. But they will all help their parents as needed, according to both Jeronimo and Snow. Exam Const General: cooperative, comfortable, no acute distress and ill appearing chronically Nutritional Appearance: average body habitus Orientation: alert, awake and oriented x3 Eyes Eyelids: eyelids normal Pupils: PERRL EOM: EOM intact bilaterally Neck Neck: normal visual inspection and no JVD Lymphatic: no lymphadenopathy noted Chest Chest: normal inspection of the chest Resp Effort & Inspection: normal respiratory effort and able to speak in complete sentences Auscultation: clear to auscultation bilaterally Cardio Jugular venous pressure: no JVD Rhythm: regular rhythm Heart Sounds: S1 normal GI Inspection: normal to inspection Palpation: soft and no hepatosplenomegaly Auscultation: normal bowel sounds General: No CVA tenderness and deferred Skin General skin exam: no rashes or lesions noted Neuro General: patient alert, patient awake, patient oriented x3 and unable to assess gait Cognition: normal cognition Speech: speech normal Extrem General: normal to inspection, full ROM and no clubbing, cyanosis or edema Psych Appearance: grossly normal Speech and Movement: delayed speech and slowed movement Affect: sad Attitude: cooperative Insight: fair Judgment: fair Other: Aware that he is coming to the end of his life. Feeling sad about it. Wants to go home as soon as possible and stay home with his . They don't have anything for me, he said, referring to his heart doctors. Results Last Vital Signs Temp 97.3 F L 05/27/21 00:15 Pulse 85 05/27/21 09:50 Resp 20 05/27/21 00:15 BP 113/64 05/27/21 09:50 Pulse Ox 96 05/27/21 00:15 Labs Result diagrams: 05/27/21 07:15 05/27/21 07:15 Labs: Laboratory Results - last 24 hr 05/27/21 05/27/21 07:15 07:15 WBC 11.52 H RBC 4.11 L Hgb 11.5 L Hct 35.3 L MCV 85.9 MCH 28.0 MCHC 32.6 RDW 13.6 Plt Count 297 MPV 10.1 Immature Gran % 0.5 Neutrophils % 77.0 Lymphocytes % 10.9 Monocytes % 8.2 Eosinophils % 3.0 Basophils % 0.4 Nucleated RBC % 0 Absolute Neutrophils 8.87 H Absolute Lymphocytes 1.26 Absolute Monocytes 0.94 H Absolute Eosinophils 0.35 Absolute Basophils 0.05 Sodium 128 L Potassium 4.0 Chloride 94 L Carbon Dioxide 24.3 Anion Gap 9.7 BUN 51 H Creatinine 2.1 H Estimated GFR/1.73 m2 30.70 Glucose 148 H Calcium 9.1 Magnesium 2.1
--- NOTE | 2021-05-27 14:41 | PT.INTREAT ---
Date of service: 05/27/21 Time of Service: 10:04 PT Notes Visit Reasons: Cardiomyopathy,Orthostasis Inpatient Physical Therapy Treatment Note [facility] Date: 05/27/2021 PRECAUTIONS: Activity as Tolerated SUBJECTIVE: Jeronimo is pleasant and agreeable to participating in PT. He states that he is walking further here than he does at home. He has not felt dizzy today. OBJECTIVE: PAIN: No c/o pain BED MOBILITY/TRANSFERS Sit-supine: I with HOB flat Sit-stand: I Stand-sit: I GAIT Assistive Device: FWW Weight bearing: Full Assist: S Distance: 120' Deviation: Steady gait and pacing, no SOB ASSESSMENT: Patient tolerated session without complaint. Patient demonstrates steady gait and pacing with FWW support. PLAN: Patient to discharge to home on Hospice later today, per provider. TREATMENT CODE/TIME: 11 minutes; [id number] (10:04)
--- NOTE | 2021-05-29 08:18 | INDS_ITS ---
Date of service: 05/29/21 PT Notes Visit Reasons: Cardiomyopathy,Orthostasis Physical Therapy Discharge Summary Date: 05/29/2021 Dates of Service: 05/26/2021 through 05/27/2021 This is a clinical summary of care provided for the duration of dates listed above. No charge was made in the completion of this documentation. Referring Doctor: Jocelin Schofield NP PT Orders: PT CONSULT: Eval/treat Precautions: Fall. Standard. Activity as tolerated. Patient Profile/Admitting Diagnosis: Jeronimo is a 76-year-old male who presented to the ED on 05/25/2021 due to reports of weakness, lightheadedness with standing up, low blood pressure, and 3 separate brief syncopal events (per ). Patient is diagnosed with cardiomyopathy, acute kidney injury, paroxysmal atrial fibrillation, and mitral valve insufficiency. PMHX: All Active Problems Cardiomyopathy (Acute) Acute kidney injury (Acute) Elevated troponin (Acute) Paroxysmal A-fib (Acute) Hypomagnesemia (Acute) Acute respiratory failure with hypoxia (Acute) Ischemic cardiomyopathy (Acute) Acute on chronic congestive heart failure (Acute) Acute non-ST elevation myocardial infarction (NSTEMI) (Acute ~05/10/21) involving left anterior Left anterior descending coronary artery Rupture of left proximal biceps tendon (Acute ~12/2020) Left rotator cuff tear arthropathy (Acute) CKD (chronic kidney disease) (Chronic) Back pain (Acute) Restlessness (Acute) Daytime somnolence (Acute) Snoring (Acute) Lung nodule (Acute) Cognitive decline (Acute) Carcinoma in situ of bladder (Acute) Chronic back pain (Chronic) Bladder cancer (Acute) S/P bladder tumor excision with fulguration (Acute) Abnormal auditory perception (Acute 08/24/14) Anticoagulation management encounter (Acute 01/03/16) Cervicalgia (Acute 08/04/12) DNR no code (do not resuscitate) (Acute 05/13/16) Diabetes mellitus type 2, controlled (Acute 08/04/12) Dysfunction of eustachian tube (Acute 08/24/14) Functional diarrhea (Acute 08/04/12) Hypomagnesemia (Acute 04/10/16) Lumbosacral radiculopathy at L5 (Acute 03/15/14) Mixed hearing loss, unilateral (Acute 08/24/14) Shortness of breath (Acute 12/11/15) Sprain of rotator cuff capsule (Acute 08/04/12) Tinea cruris (Acute 12/28/12) Wheezing (Acute 11/13/15) Frequency of micturition (Acute) Pneumonia (Acute) Edema of both legs (Acute) Diarrhea (Chronic) DVT prophylaxis (Acute) Gross hematuria (Acute) Benign prostatic hyperplasia with urinary frequency (Acute) H/O urinary frequency (Acute) COPD (chronic obstructive pulmonary disease) (Chronic) CVA (cerebral vascular accident) (Acute 01/03/16) 12/2015 post op [facility] [place] R hemiparesis Unspecified essential hypertension (Acute 08/04/12) goal 150/90 Systolic CHF, chronic (Chronic 04/15/16) 04/15/16 Echo: EF 35%; MVR bioprosthesis intact Sensorineural hearing loss (Acute 08/24/14) using an ITE aid. unknown model. Obesity, unspecified (Acute 07/03/11) Mitral valve insufficiency (Acute 12/19/15) MVR: bovine bioprosthesis and CABGx2 [facility] [place] 12/20/15 Memory impairment (Acute 12/11/15) 12/2015 MMSE 23 B12/lab nl; MRI 12/2015 old silvia lacunar CVAs Lumbago with sciatica, unspecified side (Acute 08/04/12) 08/2005 small disc herniations L5-S1, no spinal or neuroforaminal stenosis. ba ck surgery 10/2000 Disectomy [facility] [place] 08/2006; L5 radiculopathy Hyperlipidemia (Acute 07/03/11) PCEq 55.3%; intolerant statins History of tobacco use (Acute 07/03/11) pt. states he hasn't smoked in 35 years Gastroesophageal reflux disease (Acute 08/04/12) failed omeprazole, failed dexilant 06/01/2013 Diabetes mellitus with stage 3 chronic kidney disease (Acute 03/02/14) A1C goal 8 Diabetes mellitus with diabetic neuropathy (Acute 04/13/14) Coronary artery disease involving coronary bypass graft of [place] heart (Acute 01/02/16) MVR & 2v CABG, marginal and PDA, EF 45% [facility] [place] 12/20/15 Chronic kidney disease, stage III (moderate) (Chronic 01/26/13) 12/2008 CT abd/pelvis neg Carpal tunnel syndrome (Acute 08/04/12) Benign neoplasm of colon (Acute 08/04/12) pt. states she is unaware of this Valve Replacement (Chronic 12/20/15) [facility] [place] Dr Baumann Mitral valve Coronary Artery Bypass Gaft (CABG) (Chronic 12/20/15) [facility] [place] DR MENDOZA Surgical History Appendectomy Colonoscopy - MAC (01/11/15) Dr Morgan Grade 2 hemorrhoids History of arthroplasty of right shoulder (~09/2015) History of back surgery (10/21/00) [facility] [place] Dr. Win S/P partial gastrectomy Status post carpal tunnel release of both wrists Social History/Home Situation: Lives with in a private home with 2 steps to enter. Uses a front wheeled walker for all household ambulation. Equipment Owned/DME: FWW Subjective: NT. See most recent SULKY DRIVER notes. Objective: General Observation: NT. See most recent SULKY DRIVER notes. Mental Status: NT. See most recent SULKY DRIVER notes. Pain: NT. See most recent SULKY DRIVER notes. Vital Signs: NT. See most recent SULKY DRIVER notes. ROM: Right Upper Extremity: Shoulder Flexion WFL. Shoulder abduction WFL. Elbow flexion WFL. Wrist flexion WFL. Functional opening and closing of hand WFL. Left Upper Extremity: Shoulder Flexion WFL. Shoulder abduction WFL. Elbow flexion WFL. Wrist flexion WFL. Functional opening and closing of hand WFL. Right Lower Extremity: Hip flexion WFL. Hip abduction WFL. Knee flexion WFL. Ankle dorsiflexion absent. Ankle plantarflexion WFL. Left Lower Extremity: Hip flexion WFL. Hip abduction WFL. Knee flexion WFL. Ankle dorsiflexion to neutral only. Ankle plantarflexion WFL. Strength: Right Upper Extremity: Shoulder flexors 4/5. Shoulder abductors 4/5. Elbow flexors 5/5. Elbow extensors 5/5. Jointer Machine strong. Left Upper Extremity: Shoulder flexors 4/5. Shoulder abductors 4/5. Elbow flexors 5/5. Elbow extensors 5/5. Jointer Machine strong. Right Lower Extremity: Hip flexors 4/5. Hip abductors 5/5. Knee flexors 5/5. Knee extensors 4/5. Ankle dorsiflexors 1/5. Ankle plantarflexors 4/5. Left Lower Extremity: Hip flexors 4/5. Hip abductors 5/5. Knee flexors 5/5. Knee extensors 4/5. Ankle dorsiflexors 3-/5. Ankle plantarflexors 4/5. Bed Mobility/Transfers: Sit to stand with independent Stand to sit with independent Bed to reclining chair with independent Gait: Instructed patient with level surface ambulation of 120 feet requiring supervision. Rosa decreased. Step height on the right decreased. Step length decreased. Denies chest pain, shortness of breath, and headache. Balance: Static Sitting: Normal Dynamic Sitting: Normal Static Standing: Fair Dynamic Standing: Fair Assessment: Patient requires the use of a front-wheeled walker and assistance for mobility ADL performance. Patient presents with clinical signs and symptoms consistent with current/admitting diagnoses that have resulted to mobility limitations, gait instability, generalized weakness, and overall ADL decline as demonstrated by the following impairment level findings: 1. Decreased strength to B LE major muscle groups 2. Impaired standing balance 3. Impaired activity tolerance 4. Mild foot slap on the R Impairments are contributing to the following functional limitations: 1. Difficulty with ambulation without assistive device 2. Increased completion time for mobility ADL performance 3. Increased risk for falls 4. Difficulty with managing steps alone safely Goals: Goals X1 week 1. Supine-Sit independent MET 2. Sit-Supine independent MET 3. Sit-Stand independent MET 4. Stand-Sit independent with FWW MET 5. Bed-Chair independent with FWW MET 6. Chair-Bed independent with FWW MET 7. Independent gait on level surface with use of FWW for at least 100 feet without report of pain nor dyspnea NOT MET 8. Independent stair negotiation while holding onto B rails for at least 3 steps without report of pain nor dyspnea NOT MET DISCHARGE RECOMMENDATIONS: [] Home with no services [] [X] Home with services. Patient will benefit from home health PT services in order to progress mobility level using least restrictive assistive ambulatory device, assess home safety, identify additional equipment needs, and establish a functional maintenance program that will increase ability of patient to remain at home. [] Home with outpatient PT [] [] SNF for continued rehabilitation [] [] Longterm Care [] [] SNF versus LTC based on ability to participate and progress [] TREATMENT CODE/TIME: KELLEY Thank you for the opportunity to participate in the care of this patient. Felicita Mattson PT, DPT, CLT [facility] [place], [place]
== END 2021-05-27 14:56 | disposition home or self-care (01) | DRG 281 ==
LOC: ER 17:39 → MS 19:38
PROVIDERS: Internal Medicine; Nurse Practitioner Family; Admitting Provider General Practice; Emergency Provider Emergency Medicine; PCP Nurse Practitioner; Visit Provider General Practice
DX: I25.5 Ischemic cardiomyopathy (principal); I21.3 ST elevation (STEMI) myocardial infarction of unspecified site; E87.1 Hypo-osmolality and hyponatremia; N17.9 Acute kidney failure, unspecified; I13.0 Hypertensive heart and chronic kidney disease with heart failure and stage 1 through stage 4 chronic kidney disease, or unspecified chronic kidney disease; I50.22 Chronic systolic (congestive) heart failure; I25.810 Atherosclerosis of coronary artery bypass graft(s) without angina pectoris; Z66 Do not resuscitate; Z79.84 Long term (current) use of oral hypoglycemic drugs; I95.1 Orthostatic hypotension; I48.0 Paroxysmal atrial fibrillation; G89.29 Other chronic pain; C67.9 Malignant neoplasm of bladder, unspecified; R91.1 Solitary pulmonary nodule; E83.42 Hypomagnesemia; M54.17 Radiculopathy, lumbosacral region; J44.9 Chronic obstructive pulmonary disease, unspecified; Z95.3 Presence of xenogenic heart valve; K21.9 Gastro-esophageal reflux disease without esophagitis; E11.22 Type 2 diabetes mellitus with diabetic chronic kidney disease; N18.30 Chronic kidney disease, stage 3 unspecified; E11.40 Type 2 diabetes mellitus with diabetic neuropathy, unspecified; M54.40 Lumbago with sciatica, unspecified side; Z87.891 Personal history of nicotine dependence
CPT/HCPCS: 36415; 80048; 80053; 84145; 87077; 87637; 93005; 96360; 96361; 97162; 97530; 99221; 99284; 99285; 71045; 81003; 81015; 83735; 83880; 84484; 85025; 87086; 87186; 93010; 99222; 99232; 99238

== ENCOUNTER → 2021-05-26 07:55 | Outpatient (BNVA) | payer MEDICARE, OTHER, SELFPAY | PROVIDERS: PCP Nurse Practitioner; Referring Provider Nurse Practitioner; Visit Provider Internal Medicine Cardiovascular Disease | DX: R69 Illness, unspecified (principal) ==

== ENCOUNTER 2021-06-10 16:29 | Inpatient (IN) | payer OTHER, SELFPAY ==
[2021-06-10 17:03] VITALS: PULSE 84; RESP 10
[2021-06-10] MEDS: LORazepam 2 MG/ML VIAL IVP ×2 (17:46→20:18)
[2021-06-10] MEDS: Normal Saline Flush 10 ML SYR ×3 (18:00→18:25)
[2021-06-10] MEDS: diphenhydrAMINE 50 MG/ML VIAL IVP (18:02)
[2021-06-10 18:51] VITALS: PULSE 84; RESP 10
[2021-06-10] MEDS: Scopolamine 1 MG/3 DAYS PATCH TD (19:05)
--- NOTE | 2021-06-10 19:27 | W.PM.HP.N ---
Date of service: 06/10/21 Time of Service: 17:00 Assessment and Plan Assessment and plan (1) Cardiomyopathy: Status: Chronic (2) Ischemic cardiomyopathy: Status: Acute (3) Acute on chronic congestive heart failure: Status: Acute (4) Acute respiratory failure with hypoxia: Status: Acute (5) Paroxysmal A-fib: Status: Resolved (6) Diabetes mellitus with stage 3 chronic kidney disease: Status: Acute (7) CKD (chronic kidney disease): Status: Chronic (8) Restlessness: Status: Acute (9) Chronic back pain: Status: Chronic (10) Shortness of breath: Status: Acute (11) Benign prostatic hyperplasia with urinary frequency: Status: Acute (12) COPD (chronic obstructive pulmonary disease): Status: Chronic Qualifiers: COPD type: COPD with acute lower respiratory infection Qualified Code(s): J44.0 - Chronic obstructive pulmonary disease with acute lower respiratory infection (13) CVA (cerebral vascular accident): Status: Acute (14) Memory impairment: Status: Acute (15) Coronary artery disease involving coronary bypass graft of [place] heart: Status: Acute Qualifiers: Associated angina: without angina Qualified Code(s): I25.810 - Atherosclerosis of coronary artery bypass graft(s) without angina pectoris (16) Hospice care patient: Status: Acute Assessment and plan: Jeronimo is admitted to hospice symptom management for agitation, restlessness, shortness of breath. He may be experiencing terminal delirium. Attempts to manage his symptoms at home were unsuccessful. Start subcutaneous Morphine pump for SOB and pain. Continue PRN medication for agitation. IV lasix for CHF exacerbation. He has a barton, this can be removed if it seems to increase agitation. If his symptoms are managed well, his family wants him to return home due to his wishes to be home and their desire to be with him. We discussed the possibility of him dying at the hospital, which they are aware of and understand. Please contact hospice with any questions or concerns. History of Present Illness History of Present Illness Chief Complaint: Agitation, restlessness, SOB Narrative: Jeronimo Archer is a 76 year old man with multiple comorbidities including ischemic cardiomyopathy, s/p NE, CHF, PAF, DM2, CKD, CVA, COPD, BPH, GERD. He is currently on hospice for his cardiac disease. He was seen in his home today with his and daughters present. His family reports that he has not slept in 4 days and he is becoming more agitated and restless. At the time of his visit, he was sliding out of a recliner, he was agitated and unable to follow directions. He was very SOB. He was given several doses of medications to help wtih his SOB and agitation including MS oral concentrate, Lorazepam and haldol. He is not eating or drinking. A barton catheter was placed. After several hours, he was still restless, unsafe and attempting to get OOB. After discussion with his family, it was decided to admit him to [facility] for Hospice symptom management. Review of Systems Unobtainable due to mental status PFSH All Active Problems All medications reviewed (Acute) wants to talk fewer pills; hospitalist to minimize list at d/c Goals of care, counseling/discussion (Acute) Encounter for hospice care discussion (Acute) Palliative care patient (Acute) as transition to hospice Hospice care patient (Acute) to be admited 05/28/21 Diabetes mellitus with stage 3 chronic kidney disease (Acute 03/02/14) A1C goal 8 Cardiomyopathy (Chronic) severe, EF of 20-25% Elevated troponin (Chronic) Hypomagnesemia (Acute) Acute respiratory failure with hypoxia (Acute) Ischemic cardiomyopathy (Acute) Acute on chronic congestive heart failure (Acute) Rupture of left proximal biceps tendon (Acute ~12/2020) Left rotator cuff tear arthropathy (Acute) CKD (chronic kidney disease) (Chronic) Back pain (Acute) Restlessness (Acute) Daytime somnolence (Acute) Snoring (Acute) Lung nodule (Acute) Cognitive decline (Acute) Carcinoma in situ of bladder (Acute) Chronic back pain (Chronic) Bladder cancer (Acute) S/P bladder tumor excision with fulguration (Acute) Abnormal auditory perception (Acute 08/24/14) Anticoagulation management encounter (Acute 01/03/16) Cervicalgia (Acute 08/04/12) DNR no code (do not resuscitate) (Acute 05/13/16) Diabetes mellitus type 2, controlled (Acute 08/04/12) Dysfunction of eustachian tube (Acute 08/24/14) Functional diarrhea (Acute 08/04/12) Hypomagnesemia (Acute 04/10/16) Lumbosacral radiculopathy at L5 (Acute 03/15/14) Mixed hearing loss, unilateral (Acute 08/24/14) Shortness of breath (Acute 12/11/15) Sprain of rotator cuff capsule (Acute 08/04/12) Tinea cruris (Acute 12/28/12) Wheezing (Acute 11/13/15) Frequency of micturition (Acute) Pneumonia (Acute) Edema of both legs (Acute) Diarrhea (Chronic) Gross hematuria (Acute) Benign prostatic hyperplasia with urinary frequency (Acute) H/O urinary frequency (Acute) COPD (chronic obstructive pulmonary disease) (Chronic) CVA (cerebral vascular accident) (Acute 01/03/16) 12/2015 [place] [facility] [place] Unspecified essential hypertension (Acute 08/04/12) goal 150/90 Systolic CHF, chronic (Chronic 04/15/16) 04/15/16 Echo: EF 35%; MVR bioprosthesis intact Sensorineural hearing loss (Acute 08/24/14) using an ITE aid. unknown model. Obesity, unspecified (Acute 07/03/11) Memory impairment (Acute 12/11/15) 12/2015 MMSE 23 B12/lab nl; MRI 12/2015 old silvia lacunar CVAs Lumbago with sciatica, unspecified side (Acute 08/04/12) 08/2005 small disc herniations L5-S1, no spinal or neuroforaminal stenosis. back surgery 10/2000 Disectomy [facility] [place]; L5 radiculopathy Hyperlipidemia (Acute 07/03/11) PCEq 55.3%; intolerant statins Gastroesophageal reflux disease (Acute 08/04/12) failed omeprazole, failed dexilant 06/01/2013 Coronary artery disease involving coronary bypass graft of [place] heart (Acute 01/02/16) MVR & 2v CABG, marginal and PDA, EF 45% [facility] [place] Carpal tunnel syndrome (Acute 08/04/12) Medical History Benign neoplasm of colon (08/04/12) pt. states she is unaware of this Chronic kidney disease, stage III (moderate) (01/26/13) 12/2008 CT abd/pelvis neg Diabetes mellitus with diabetic neuropathy (04/13/14) Discharge planning issues DVT prophylaxis History of tobacco use (07/03/11) pt. states he hasn't smoked in 35 years Surgical History Appendectomy Colonoscopy - MAC (01/11/15) Dr Morgan Grade 2 hemorrhoids Coronary Artery Bypass Gaft (CABG) (12/20/15) [facility] MENDOZA History of arthroplasty of right shoulder (~09/2015) History of back surgery (10/21/00) [facility] [place]. Win S/P partial gastrectomy Status post carpal tunnel release of both wrists Valve Replacement (12/20/15) [facility] [place] Baumann Mitral valve Family History Brother Alcoholism Heart disease Grandfather Heart disease Father , age 58 from lung cancer, heavy smoker Personal history of malignant neoplasm THROAT CA Lung cancer Smoker Mother , age 80 from heart disease Heart disease Brother No problems noted. Sister Dementia Sister No problems noted. 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, 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 Pets and animals: No Current gender identity: male What is your relationship status?: How often do you talk on the phone with friends or family?: once per week How often do you get together with friends or relatives?: twice per week Panel score (0-1 are the most socially isolated patients): 2 What type of physical activity do you participate in: walking Duration: < 15 minutes/day Frequency: daily Special tiffany needs: No Agree to transfusion: No Seatbelt use: always Working smoke detector in home: Yes Fire extinguisher in home: Yes Do you feel safe at home: Yes Do you feel safe in your relationship?: Yes Additional Social history: Lives with his , Snow. They have 4 children together. They lived all over [facility] [place] [facility]. 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 Son Vikas lives near-by; he is a recovering alcoholic. He helps his parents with chores, etc. Another child lives near; two are farther away. But they will all help their parents as needed, according to both Jeronimo and Snow. Meds Allergies and Home Medications Allergies Allergy/AdvReac Type Severity Reaction Status Date / Time codeine AdvReac Intermediate DYSPHORIA Verified 05/25/21 16:33 niacin AdvReac Intermediate MYALGIAS Verified 05/25/21 16:33 simvastatin AdvReac Intermediate myalgias Verified 05/25/21 16:33 Home Medications Medication Instructions Recorded Confirmed Type acetaminophen [Tylenol Extra 1,000 mg PO Q6H PRN PRN 06/01/13 05/25/21 History Strength] blood-glucose meter #1 each 07/11/18 04/01/21 Rx budesonide-formoterol [Symbicort] 2 puff INHALATION BID PRN 01/02/20 05/25/21 History blood sugar diagnostic #100 each 04/24/20 04/01/21 Rx lancets 33 gauge #100 each 04/24/20 04/01/21 Rx albuterol sulfate 90 mcg/actuation 1 puff IH Q4H PRN #8.5 gm 04/25/20 05/25/21 Rx aerosol inhaler omeprazole 40 mg capsule,delayed 40 mg PO DAILY #90 cap 03/31/21 05/25/21 Rx release amiodarone 100 mg PO DAILY #20 tab 05/27/21 Rx lorazepam 1 mg tablet 0.5 - 1 mg PO Q4H PRN PRN #10 tab 05/27/21 05/27/21 Rx metoprolol tartrate 25 mg PO BID #30 tab 05/27/21 Rx morphine concentrate 100 mg/5 mL See Rx Instructions PO Q1H PRN #30 05/27/21 05/27/21 Rx (20 mg/mL) oral solution ml MDD 240 mg Exam Narrative Exam Narrative: General: elderly man, very restless and agitated, trying to get OOB. HEENT: atraumatic, EOMI, mucous membranes moist. Neck: supple. Cardiovascular: tachycardic. Respiratory: appears to have increased work of breathing, especially with activity, +increased respiratory secretions. GI: +BS, large round abdomen, soft, nontender on palpation, nondistended. Extremities: 3+ pitting edema, moves all extremities freely. Results Last Vital Signs Pulse 84 06/10/21 17:03 Resp 10 L 06/10/21 17:03
[2021-06-10 23:18] VITALS: PULSE 66; RESP 12
[2021-06-11] VITALS (8 sets, daily range): PULSE 52–97; RESP 5–12
[2021-06-11 01:07] LABS: Source Nasal/Nares
--- NOTE | 2021-06-11 07:49 | PGE_ITS ---
Date of Service Date of service: 06/11/21 Time of Service: 07:35 Assessment and Plan Assessment and plan (1) Cardiomyopathy: Status: Chronic (2) Ischemic cardiomyopathy: Status: Acute (3) Acute on chronic congestive heart failure: Status: Acute (4) Acute respiratory failure with hypoxia: Status: Acute (5) Paroxysmal A-fib: Status: Resolved (6) Diabetes mellitus with stage 3 chronic kidney disease: Status: Acute (7) CKD (chronic kidney disease): Status: Chronic (8) Restlessness: Status: Acute (9) Chronic back pain: Status: Chronic (10) Shortness of breath: Status: Acute (11) Benign prostatic hyperplasia with urinary frequency: Status: Acute (12) COPD (chronic obstructive pulmonary disease): Status: Chronic Qualifiers: COPD type: COPD with acute lower respiratory infection Qualified Code(s): J44.0 - Chronic obstructive pulmonary disease with acute lower respiratory infection (13) CVA (cerebral vascular accident): Status: Acute (14) Memory impairment: Status: Acute (15) Coronary artery disease involving coronary bypass graft of [place] heart: Status: Acute Qualifiers: Associated angina: without angina Qualified Code(s): I25.810 - Atherosclerosis of coronary artery bypass graft(s) without angina pectoris (16) Hospice care patient: Status: Acute Assessment and plan: Jeronimo remains on hospice symptom management for agitation, restlessness, shortness of breath. Jeronimo is currently on a MS pump for SOB and pain, rate increased to 1 mg/hr overnight. Continue MS pump, titrate as needed. His agitation/restlessness has improved. Continue lorazepam and/or Haldol PRN. He has had very limited oral intake for the last 2 days and he is unable to take anything by mouth at this point. He received IV lasix x1 dose. Discontinue Lasix as he is no longer taking anything by mouth. His family is happy with him staying at the hospital for now. We discussed that he is likely to at the hospital and that his life expectancy is measured in hours to days. His family verbalizes understanding. Please contact hospice with any questions or concerns. Subjective Subjective Interval history since last seen: Jeronimo was seen in his hospital room with his , Snow and daughter present. Nursing reports that he was agitated overnight and required lorazepam. His morphine subcutaneous pump was increased to 1 mg/hr. He appeared to have increased work of breathing during the visit and nursing gave a 0.5 mg bolus. He is unresponsive and experiencing periods of apnea. He received one dose of lasix today for fluid overload. His family is happy with him staying at the hospital for now. Exam Narrative Exam Narrative: General: elderly man, laying in bed, he does not respond to verbal or tactile stimuli. Family present. HEENT: normocephalic, atraumatic, mucous membranes moist. Cardiovascular: heart sounds regular, nontachycardic. Respiratory: +periods of apnea noted, appears to have increased WOB at times, irregular respirations. Wheezing noted throughout lung simons. GI: large, round abdomen, soft, nondistended, does not appear tender on palpation. Extremities: 2+ pitting edema to BLEs. Objective Last Vital Signs Pulse 52 L 06/11/21 00:16 Resp 12 06/11/21 03:24 Laboratory Results - last 24 hr 06/11/21 00:44 COVID-19 Source Nasal/Nares Influenza Type A (PCR) Cancelled Influenza Type B (PCR) Cancelled RSV (PCR) Cancelled
[2021-06-11] MEDS: Normal Saline Flush 10 ML SYR IVP (08:22)
[2021-06-11] MEDS: Furosemide 40 MG/4 ML VIAL IVP (08:22)
--- NOTE | 2021-06-11 10:46 | CMPROGNOTE_ITS ---
- If Service Date Differs Date of service: 06/11/21 Time of Service: 10:46 Care Management Progress Note S/O: Jeronimo was resting comfortably when CM met with him and his family. His , Snow, and his daughter, Patti were in the room visiting. They stated that they have been having a difficult time keeping Jeronimo comfortable at home, even with the support from Hospice, which is why they made the decision to bring him to [facility] for end of life care. They have already made final arrangements with the [employer] [facility]. They had a comfort cart in the room to provide them with nourishment, if needed. CM will continue to follow. A: Jeronimo is a 76 year old male admitted to [facility] on 06/10/21 for hospice symptom management. P: Jeronimo will remain at [facility] for symptom management, which may transition to end of life care. His , Snow, is a consistent visitor. His children are sharing visitation to support their parents. He has final arrangements already planned through the [employer] [facility] [place]. CM will continue to support Jeronimo and his family during this difficult time.
[2021-06-11] MEDS: LORazepam 2 MG/ML VIAL IVP ×4 (13:20→21:39)
[2021-06-11 16:25] LABS: COVID-19 PCR Negative (Negative)
--- NOTE | 2021-06-11 18:02 | NUR.NOTE ---
Bilateral hearing aides placed per daughter's request. Nursing Note:
[2021-06-11] MEDS: Promethazine 25 MG SUPP PR (21:39)
[2021-06-11] MEDS: Hyoscyamine 0.125 MG SL/ORAL/CHEW SL (21:50)
[2021-06-12] MEDS: Ondansetron O.D.T. 4 MG TABEF PO (00:45)
[2021-06-12] MEDS: LORazepam 2 MG/ML VIAL IVP (00:46)
--- NOTE | 2021-06-12 08:30 | NUR.NOTE ---
Martine and Radha ended the [facility] documentation as the computer was done at time [facility] discontinued. Nursing Note:
--- NOTE | 2021-06-12 08:40 | W.PM.DDS ---
Date of service: 06/12/21 Time of Service: 05:45 Discharge Sum: Diag Contributing Factors (1) Cardiomyopathy: (2) Ischemic cardiomyopathy: (3) Acute on chronic congestive heart failure: (4) Acute respiratory failure with hypoxia: (5) Paroxysmal A-fib: (6) Diabetes mellitus with stage 3 chronic kidney disease: (7) CKD (chronic kidney disease): (8) Restlessness: (9) Chronic back pain: (10) Shortness of breath: (11) Benign prostatic hyperplasia with urinary frequency: (12) COPD (chronic obstructive pulmonary disease): (13) CVA (cerebral vascular accident): (14) Memory impairment: (15) Coronary artery disease involving coronary bypass graft of [place] heart: (16) Hospice care patient: Discharge Sum: Summary Date and Time Date of : 06/12/21 Time of : 05:25
== END 2021-06-12 05:30 | disposition expired | DRG 291 ==
PROVIDERS: Admitting Provider Nurse Practitioner; PCP Family Medicine; Visit Provider Nurse Practitioner
DX: I13.0 Hypertensive heart and chronic kidney disease with heart failure and stage 1 through stage 4 chronic kidney disease, or unspecified chronic kidney disease (principal); I50.23 Acute on chronic systolic (congestive) heart failure; J96.01 Acute respiratory failure with hypoxia; I25.810 Atherosclerosis of coronary artery bypass graft(s) without angina pectoris; J44.0 Chronic obstructive pulmonary disease with (acute) lower respiratory infection; Z51.5 Encounter for palliative care; I25.5 Ischemic cardiomyopathy; R45.1 Restlessness and agitation; R41.3 Other amnesia; I25.2 Old myocardial infarction; I48.0 Paroxysmal atrial fibrillation; E11.22 Type 2 diabetes mellitus with diabetic chronic kidney disease; Z86.73 Personal history of transient ischemic attack (TIA), and cerebral infarction without residual deficits; N40.0 Benign prostatic hyperplasia without lower urinary tract symptoms; K21.9 Gastro-esophageal reflux disease without esophagitis; N18.30 Chronic kidney disease, stage 3 unspecified; G89.29 Other chronic pain; M54.9 Dorsalgia, unspecified; Z66 Do not resuscitate; E83.42 Hypomagnesemia; E78.5 Hyperlipidemia, unspecified; Z95.2 Presence of prosthetic heart valve; R35.0 Frequency of micturition
CPT/HCPCS: 87635; 87637; J1200; J1940; J2060; J3490